=== PATIENT | female | born 1995 | race Caucasian/White ===

== ENCOUNTER 2021-02-27 17:30 | Outpatient (RCR) | payer OTHER, SELFPAY | END 2021-03-19 23:59 | LOC: DC 17:30 | PROVIDERS: Visit Provider Obstetrics & Gynecology | DX: O24.410 Gestational diabetes mellitus in pregnancy, diet controlled (principal); Z3A.00 Weeks of gestation of pregnancy not specified | CPT/HCPCS: 97802; 97803 ==

== ENCOUNTER 2021-04-20 09:25 | Inpatient (IN) | payer OTHER, SELFPAY ==
[2021-04-20] VITALS (16 sets, daily range): BP systolic 107–161; BP diastolic 63–104; PULSE 76–100; RESP 12–20; TEMP 36.4–37; O2SAT 96–99; BMI 45.0
[2021-04-20] MEDS: Lactated Ringers 1,000 ML 999 ML IV (10:05)
[2021-04-20 10:30] LABS: Absolute Lymphocyte Count 1.25 X10^3/uL (0.83-4.51); Absolute Neutrophil Count 6.1 X10^3/uL (2.0-7.7); Basophil# 0.03 X10^3/uL; Basophil% 0.4 % (0-1); Eosinophil# 0.07 X10^3/uL; Eosinophils% 0.9 % (0-5); Hematocrit 32.9 % (37-47); Hemoglobin 10.8 g/dL (12.0-15.0); Lymphocyte # 1.25 X10^3/ul (0.83-4.51); Lymphocyte % 15.6 % (19-41); Mean Corp Hgb Conc 32.8 g/dL (32-36); Mean Corpuscular Hgb 25.7 pg (27.0-32.0); Mean Corpuscular Volume 78.3 fL (81-99); Mean Platelet Vol. 11.9 fl (6.2-12.0); Monocyte# 0.48 X10^3/uL; NRBC Flagged by Analyzer 0 % (0-5); Neutrophil # 6.14 X10^3/uL (2.7-7.7); Neutrophil % 76.8 % (47-70); Platelet Count 294 K/mm3 (150-450); RBC Distribution Width CV 13.2 % (11.6-14.6); RBC Distribution Width SD 37.5 fl (35.1-43.9)
[2021-04-20 10:52] LABS: Anion Gap 7 (5-15); BUN 10 mg/dL (7-18); BUN/Creat Ratio 19.3 RATIO (10-20); Calcium,Total 9.1 mg/dL (8.5-10.1); Chloride 104 mmol/L (98-107); Creatinine, Serum 0.52 mg/dL (0.55-1.02); EST Glomerular Filtration Rate 152 mL/min (>60); Est Glom Filt Rate - Afr Amer 184 mL/min (>60); Estimated Creatinine Clearance 159.43 ml/min; Glucose 78 mg/dL (74-106); Potassium 3.9 mmol/L (3.5-5.1); Sodium Level 134 mmol/L (136-145)
[2021-04-20] MEDS: Lactated Ringers 1,000 ML 150 ML IV (11:30)
[2021-04-20 11:55] LABS: Bedside Glucose 85 mg/dL (74-106)
[2021-04-20] MEDS: Acetaminophen 500 MG Tablet 1000 MG PO ×2 (12:05→17:59)
--- NOTE | 2021-04-20 12:43 | PCM.HP.OB ---
HPI - General General Date of Admission: 04/20/21 HPI Narrative HARSHA LOZANO, is a 25 F who presents for . Maternal Data Information Final QUYNH: 05/06/21 Gestational age: 37&5 PFSH [facility] Medical History Abnormal Pap smear of cervix Anxiety Asthma Chronic hypertension Chronic hypertension affecting Depression Fatty liver Gestational diabetes Gestational diabetes Irritable bowel syndrome (IBS) Obesity Sleep apnea with use of continuous positive airway pressure (CPAP) Home Medications Tums 04/20/21 [History Last Taken 03/22/21 20:00] bupropion HCl [Wellbutrin XL] mg PO 04/20/21 [History Last Taken 04/20/21 05:00] citalopram [Celexa] 40 mg PO DAILY 04/20/21 [History Last Taken 04/20/21 05:00] famotidine [Pepcid] 20 mg PO BID 04/20/21 [History Last Taken 04/17/21 22:30] insulin NPH isoph U-100 human [Humulin N NPH U-100 Insulin] unit SUBCUT 04/20/21 [History Last Taken 04/19/21 22:30] labetalol 200 mg PO TID 04/20/21 [History Last Taken 04/20/21 04:30] Allergy/AdvReac Type Severity Reaction Status Date / Time animal dander Allergy Itching Verified 04/20/21 09:52 grass pollen Allergy Itching Verified 04/20/21 09:52 ragweed pollen Allergy Itching Verified 04/20/21 09:53 fluoxetine [From Prozac] AdvReac Other Verified 04/20/21 09:54 Surgical History History of surgery Social History Smoking Status: Never smoker History Elective abortions Hx Para 0 Spontaneous abortions Hx # Term Pregnancies Ectopic pregnancies Hx # Pregnancies Multiple births # of living children Vital Signs Vital Signs Vital Signs: 04/20/21 10:42 Temperature 98.6 F Temperature Source Temporal Pulse Rate 85 Respiratory Rate 20 H Blood Pressure 143/80 H Blood Pressure Mean 101 Blood Pressure Source Monitor Blood Pressure Position Semi-Fowlers Blood Pressure Location Right Arm Pulse Ox 97 Oxygen Delivery Method Room Air Weight Weight: 287 lb 11.252 oz Body Mass Index (BMI) 45.0 Physical Exam Const alert, oriented x3 and no apparent distress Chest inspection of chest normal Resp normal respiratory effort GI soft to palpation, non-tender and non-distended Inspection: gravid Extremity no calf tenderness Labs Labs Labs: Blood Type Pending Antibody Screen Pending Hct 32.9 % (37-47) L Hgb 10.8 g/dL (12.0-15.0) L Assessment & Plan (1) Chronic hypertension affecting : COMMENT: 37&5 PLAN: PreE labs normal on admission Patient well controlled on labetalol this but have recently trended up (2) Gestational diabetes: QUALIFIERS: Gestational diabetes mellitus control: insulin-controlled Trimester: third trimester Qualified Code(s): O24.414 - Gestational diabetes mellitus in , insulin controlled PLAN: Plan for FBS tomorrow AM BS overall well controlled but BS have recently trended up despite bedtime NPH insulin (3) Breech presentation: QUALIFIERS: Fetus number: single or unspecified fetus Qualified Code(s): O32.1XX0 - Maternal care for breech presentation, not applicable or unspecified PLAN: Discussed R/B/A of MOD. Patient elects to proceed with primary for breech. ([facility]) recommends delivery between 37 & 38 weeks for chtn & insulin requiring GDM. Informed consent signed in the office.
[2021-04-20] MEDS: Sodium Citrate/Citric Acid 30 ML UDC PO (12:45)
--- NOTE | 2021-04-20 13:00 | EX.PCM.OBRPT ---
Maternal Data Information Final QUYNH: 05/06/21 Gestational age: 37&5 Details Operative Information Date of Procedure: 04/20/21 Pre-Operative Diagnosis: (1) Breech presentation (2) Chronic hypertension (3) Gestational diabetes (A2) Post-Operative Diagnosis: Same Indications for : Breech Indications Narrative: The patient was taken to the operating room where spinal anesthesia was placed & found to be adequate. She was prepped and draped in the dorsal supine position with a leftward tilt. A Pfannenstiel skin incision was made approximately 2 cm above the symphysis pubis and carried through to the underlying fascia with the scalpel. The fascia was incised incised in the midline and extended laterally with the Llamas scissors. The rectus muscles were in the midline and the peritoneum was entered carefully and bluntly. The peritoneal incision was stretched and the bladder blade was inserted. Vesicouterine peritoneum was tented up, incised & then bladder flap created gently. The uterine incision was made in a low transverse fashion with the scalpel and extended superiorly and inferiorly with blunt dissection. The infant's buttocks were grasped and infant delivered via typical breech maneuvers with care. The 3VC cord was clamped and cut. The infant was handed off to the waiting pediatric intensive physician. The placenta was delivered with fundal massage and gentle traction in the standard fashion. The uterus was exteriorized and cleared of clots and debris. The uterine incision was closed with #1 Vicryl suture in a running locked fashion. Monocryl suture was used in an imbricating fashion. The incision was examined and was found to be hemostatic. The uterus was returned to the abdominal cavity. After irrigating Bridger was placed over the uterine incision as some areas were denuded (but hemostatic). The peritoneum was closed with vicryl suture in running fashion The rectus muscle was examined and any bleeding was Bovie cauterized. The fascia was closed with a looped PDS suture in a running standard fashion. The subcutaneous tissue was examining and any bleeding was Bovie cauterized. The subcutaneous tissue was reapproximated with interrupted sutures. The skin was closed in a subcuticular fashion by the CORN BREEDER while I was present in the labor & delivery unit. The remainder of the procedure was performed by me with assistance. All sponge, lap, and needle counts were correct. The patient was taken to her room for recovery in a stable condition. Classification: Scheduled Procedure Type: low transverse automotive parts counter associate #1: Yeison Lugo Type of Anesthesia: Spinal Antibiotic Given: Ancef 3 grams IV x1 Drain: Brewer to straight drain Estimated Blood Loss: 800ml Fluids Replaced: 500ml Procedure Start Time: 13:31 Procedure Stop Time: 14:07 Findings Description of Procedure: Normal maternal uterus and adnexa Presentation: Positive for Jarrell Breech Amniotic Membrane Rupture Type: Artificial Amniotic Fluid Description: Clear Placental Delivery Description: Manual Removal Placenta Disposition: [facility] Cord Vessel Description: 3 Vessels Cord Entanglement: None Infant A Gender: Female (1 minute): 7 (5 minute): 9 Delayed Cord Clamping: No Complications Complications: None
[2021-04-20] MEDS: Oxytocin 30 units/NS 500 ml 30 UNITS/500 ML IV.SOLN 167 UNITS IV (14:30)
[2021-04-20] MEDS: Labetalol 200 MG Tablet PO ×2 (15:32→21:15)
[2021-04-20] MEDS: HYDROmorphone 1 MG/ML Syringe IV ×2 (15:51→19:53)
[2021-04-20] MEDS: Ketorolac 30 MG/ML Syringe IV ×2 (15:59→21:15)
[2021-04-20 16:46] LABS: Bedside Glucose 82 mg/dL (74-106)
[2021-04-20] MEDS: Lactated Ringers 1,000 ML 100 ML IV (19:20)
[2021-04-20] MEDS: 0.9% Saline Lock 10 ML Syringe IV (21:20)
[2021-04-21] MEDS: Acetaminophen 500 MG Tablet 1000 MG PO ×4 (00:09→18:14)
[2021-04-21] MEDS: oxyCODONE 5 MG Tablet PO ×6 (00:13→20:55)
[2021-04-21] MEDS: Enoxaparin 40 MG/0.4 ML Syringe SC ×2 (02:01→14:43)
[2021-04-21] MEDS: Ketorolac 30 MG/ML Syringe IV ×2 (03:57→09:55)
[2021-04-21 04:00] VITALS: BP 126/61; PULSE 93; RESP 14; TEMP 36.3; O2SAT 96
[2021-04-21] MEDS: 0.9% Saline Lock 10 ML Syringe IV ×2 (04:05→09:56)
[2021-04-21 05:54] LABS: Hemoglobin 9.6 g/dL (12.0-15.0); Mean Corp Hgb Conc 33.1 g/dL (32-36); Mean Corpuscular Hgb 26.4 pg (27.0-32.0); Mean Corpuscular Volume 79.9 fL (81-99); Mean Platelet Vol. 11.9 fl (6.2-12.0); Platelet Count 213 K/mm3 (150-450); RBC Distribution Width CV 13.1 % (11.6-14.6); RBC Distribution Width SD 37.2 fl (35.1-43.9); Red Blood Count 3.63 M/mm3 (4.2-5.4); White Blood Count 6.6 K/mm3 (4.4-11.0)
[2021-04-21] MEDS: Labetalol 200 MG Tablet PO ×3 (06:07→22:01)
[2021-04-21 06:11] LABS: Bedside Glucose 101 mg/dL (74-106)
[2021-04-21 08:42] VITALS: BP 131/60; PULSE 92; RESP 16; TEMP 36.3; O2SAT 97
[2021-04-21] MEDS: Citalopram 40 MG TABLET PO (09:55)
[2021-04-21] MEDS: buPROPion (XL) 150 MG TABLET.XL PO (09:55)
[2021-04-21] MEDS: Senna/Docusate Sodium 1 Tablet PO (09:55)
[2021-04-21 12:44] VITALS: BP 124/76; PULSE 83; RESP 16; TEMP 36.1; O2SAT 97
--- NOTE | 2021-04-21 13:00 | PN.OBGYN_ITS ---
Subjective Subjective Doing well per patient and nursing staff. Ambulating and taking PO without difficulty. Voiding and passing flatus. Pain controlled. , services for assistance. Denies headache, visual changes, chest pain, shortness of breath, leg pain or increased bleeding. Lochia normal. Objective Data Objective Data Vital Signs: Vital Signs Temp Pulse Resp BP Pulse Ox 97.0 F L 83 16 124/76 H 97 04/21/21 12:44 04/21/21 12:44 04/21/21 12:44 04/21/21 12:44 04/21/21 12:44 Oxygen Delivery Method Room Air Weight: 287 lb 11.252 oz Body Mass Index (BMI) 45.0 Intake & Output: Intake and Output for Last 24 Hours 04/19/21 04/20/21 04/21/21 23:59 23:59 23:59 Intake Total 2731.67 / 2731.67 Output Total 925 / 925 1100 / 1100 Balance 1806.67 / 1806.67 -1100 / -1100 Lab / Micro Data Result Diagrams: 04/21/21 05:40 04/20/21 10:05 Labs: Laboratory Results - last 24 hr 04/20/21 10:05: Blood Type A POSITIVE, Antibody Screen NEGATIVE 04/20/21 16:34: POC Glucose 82 04/21/21 05:40: WBC 6.6, RBC 3.63 L, Hgb 9.6 L, Hct 29.0 L, MCV 79.9 L, MCH 26.4 L, MCHC 33.1, RDW Std Deviation 37.2, RDW Coeff of Kristin 13.1, Plt Count 213, MPV 11.9 04/21/21 06:06: POC Glucose 101 Micro: Microbiology 04/20/21 10:05 Nasal Secretion SARS-CoV-2 Antigen (Rapid) - Final ROS Constitutional Constitutional: Reports systems reviewed and no addt'l complaints, except as documented; Denies headache(s) Eyes Eyes: Denies acute decrease in peripheral vision, blurry vision or change in vi patricia ENT HEENT: Reports systems reviewed and no addt'l complaints, except as documented Cardiovascular Cardiovascular: Denies chest pain or dizziness Respiratory/Chest Respiratory/Chest: Denies cough, dyspnea, dyspnea on exertion, shortness of breath at rest or shortness of breath with exertion Gastrointestinal Gastrointestinal: Denies abdominal pain, diarrhea, nausea or vomiting Genitourinary Genitourinary: Denies abdominal discomfort Musculoskeletal Musculoskeletal: Denies limited range of motion Integumentary Integumentary: Reports systems reviewed and no addt'l complaints, except as documented Neurologic Neurologic: Reports systems reviewed and no addt'l complaints, except as documented Psychiatric Psychiatric: Reports systems reviewed and no addt'l complaints, except as documented Endocrine Endocrinology: Reports systems reviewed and no addt'l complaints, except as documented Hematologic/Lymphatic Hematologic/Lymphatic: Reports systems reviewed and no addt'l complaints, except as documented Allergic/Immunologic Allergic/Immunologic: Reports systems reviewed and no addt'l complaints, except as documented Physical Exam Const alert and oriented x3 General Appearance: cooperative Orientation / Consciousness: awake, oriented to person, oriented to place and oriented to time Exam Limitations: no limitations HEENT normocephalic Head and Scalp: normal to inspection, normocephalic and atraumatic Face and Sinus: normal facial exam Eyes General Eye: normal appearance of both eyes Neck full ROM Chest Chest: symmetrical chest wall rise Resp normal respiratory effort and normal air movement Auscultation: clear to auscultation bilaterally Cardio regular rate, regular rhythm, S1 normal heart sound, S2 normal heart sound, no murmurs, no rub, no gallops and no clicks GI normal to inspection, nondistended, normoactive bowel sounds and non-tender GI Narrative: Fundus firm 1 below U. Dressing dry and intact appearance of the vagina normal Narrative: small amount of lochia rubra, no clots Bladder / Kidney Exam: no CVA tenderness Back/Spine normal ROM Extremity normal to inspection and full ROM Skin no rashes or lesions noted Neuro oriented x3, CN's II-XII intact bilaterally and moves all extremities Sensorium / Orientation: awake, alert and oriented to person Motor Exam: clonus absent Deep Tendon Reflexes: Rt Patellar (L4): 2+ and Lt Patellar (L4): 2+ Assessment & Plan (1) S/P primary low transverse : (2) Gestational diabetes: QUALIFIERS: Gestational diabetes mellitus control: insulin- controlled Trimester: third trimester Qualified Code(s): O24.414 - Gestational diabetes mellitus in , insulin controlled (3) Chronic hypertension: PLAN: 1) POD #1 LTCS 2) Pain controlled 3) Hgb 9.6, start iron supplement 4) Vitals stable, continue labetalol 5) Ambulation 6) I&Os 7) planning D/C home tomorrow
[2021-04-21 14:39] VITALS: BP 130/72; PULSE 82; RESP 16
[2021-04-21] MEDS: Ferrous Sulfate 325 MG Tablet PO (14:42)
--- NOTE | 2021-04-21 14:49 | CM.ED ---
SW Note Referral Source: assistant professor of radiology Nadine Reason for Referral: History of anxiety and depression SW met with ZULMA Maynard. She reports no concerns. Per Aleyda patient's mother is in the room with patient. SW met with patient. SW asked to interview patient by herself and patient's mom agreed to give this policy writer sales and patient privacy. SW met with patient privately. Patient's was coming back to the room but was getting lunch for patient. Mom: Cammie PNC: [facility] Control: Undecided Baby: Damari : 04/20/2022 Apgars: 7/9 Weight: 7# 10 ounces Pediatrican: Carol Patient said that she is trying to breast feed but is not making alot. Patient said that she and her supports are supportive if she is unable to breast feed and use formula. MOB's Other children: Patient has a 5 year old stepdaughter, Diamante. Patient and the fob have full custody of Diamante. Housing: Patient, FOB/ and patient's stepdaughter reside in a residence in [facility]. Nb will go home to that residence. Transporation: Patient reports access to transportation Supplies: Patient reports that she has all supplies including carseat, clothes, diapers, crib and bassinette. Supports: Patient reports her supports are her mom who resides in [place] and her who works from home. 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 She will go back to school in 6 week and then the fob/ will care for the nb as he is home. Patient said it was hard to leave her job as I love my job but it was worth it. Agency Involvement: Patient reports no JFS, WIC, HMG, Counseling, Legal or CSB involvement FOB: Moses Time Together: 4 years Involved at : Patient said that the fob will be involved with the nb. 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 FOSalome has his own business Other Children: ESTEFANI has a 5 year old daughter Diamante. Patient reports that they recently got full custody of Diamante during the past year. Diamante is currently in counseling at [facility] to help her with any issues. FOB MH/AOD and Domestic Violence: None Maternal MH History: Patient reports a history of anxiety and depression. Patient reports that she was been on wellbutrium for few years and with Celexa for a few years. Patient said that the combination of celexa and wellbutrium is working well. Patient denied any past or current SI/HI. Patient said that her told her, one year into their relationship, that she needed to go to counseling so she went to counseling at [facility] in [place]. Patient reports that her medication combination is working well and she plans to continue to take it. Patient reports her PCP prescribed her medication. Patient has no psych hospitalizations. Patient said that during the past year they have bought a new house and moved, got full custody of her stepdaughter and got and were . Patient said her reports I am surprised you are doing so well in relation to all the changes during the year. Patient was educated on Shaken Baby, PPD and Safe Sleeping Patient reports no alcohol, drug or smoking. Patient provided with handouts on Post depression including counseling resources, list of on line resources, telephone contact number and PPD support. SW updated ZULMA Maynard. Plan: Home Felisa GROVER
[2021-04-21] MEDS: Ibuprofen 600 MG Tablet PO ×2 (16:12→22:01)
[2021-04-21 20:41] VITALS: BP 154/81; PULSE 93; RESP 18; TEMP 36.6
--- NOTE | 2021-04-21 20:44 | NURSING ---
Pt requesting to take pain medication before assessing fundus and mepilex dressing
[2021-04-21 22:02] VITALS: BP 153/55; PULSE 94
[2021-04-22] MEDS: Acetaminophen 500 MG Tablet 1000 MG PO ×3 (00:12→12:31)
[2021-04-22] MEDS: oxyCODONE 5 MG Tablet PO ×4 (01:12→14:02)
[2021-04-22] MEDS: Enoxaparin 40 MG/0.4 ML Syringe SC (03:09)
[2021-04-22 03:12] VITALS: BP 154/79; PULSE 97; RESP 16; TEMP 36.6; O2SAT 96
[2021-04-22] MEDS: Ibuprofen 600 MG Tablet PO ×2 (03:52→10:25)
[2021-04-22 06:10] VITALS: BP 148/67; PULSE 90
[2021-04-22] MEDS: Labetalol 200 MG Tablet PO ×2 (06:19→14:03)
[2021-04-22 08:57] VITALS: BP 137/76; PULSE 91; RESP 16; TEMP 36.1; O2SAT 97
[2021-04-22] MEDS: Citalopram 40 MG TABLET PO (10:25)
[2021-04-22] MEDS: Senna/Docusate Sodium 1 Tablet PO (10:25)
[2021-04-22] MEDS: buPROPion (XL) 150 MG TABLET.XL PO (10:25)
--- NOTE | 2021-04-22 10:37 | PN.OBGYN_ITS ---
Subjective Subjective Doing well per patient and nursing staff. Ambulating and taking PO without difficulty. Voiding and passing flatus. Pain controlled. , services for assistance. Denies headache, visual changes, chest pain, shortness of breath, leg pain or increased bleeding. Lochia normal. Objective Data Objective Data Vital Signs: Vital Signs Temp Pulse Resp BP Pulse Ox 97.0 F L 91 16 137/76 H 97 04/22/21 08:57 04/22/21 08:57 04/22/21 08:57 04/22/21 08:57 04/22/21 08:57 Oxygen Delivery Method Room Air Weight: 287 lb 11.252 oz Body Mass Index (BMI) 45.0 Intake & Output: Intake and Output for Last 24 Hours 04/20/21 04/21/21 04/22/21 23:59 23:59 23:59 Intake Total 2731.67 / 2731.67 Output Total 925 / 925 1100 / 1100 Balance 1806.67 / 1806.67 -1100 / -1100 Lab / Micro Data Result Diagrams: 04/21/21 05:40 04/20/21 10:05 Micro: Microbiology 04/20/21 10:05 Nasal Secretion SARS-CoV-2 Antigen (Rapid) - Final ROS Constitutional Constitutional: Reports systems reviewed and no addt'l complaints, except as doc umented; Denies headache(s) Eyes Eyes: Denies acute decrease in peripheral vision, blurry vision or change in vision ENT HEENT: Reports systems reviewed and no addt'l complaints, except as documented Cardiovascular Cardiovascular: Denies chest pain or dizziness Respiratory/Chest Respiratory/Chest: Denies cough, dyspnea, dyspnea on exertion, shortness of breath at rest or shortness of breath with exertion Gastrointestinal Gastrointestinal: Denies abdominal pain, diarrhea, nausea or vomiting Genitourinary Genitourinary: Denies abdominal discomfort Musculoskeletal Musculoskeletal: Denies limited range of motion Integumentary Integumentary: Reports systems reviewed and no addt'l complaints, except as documented Neurologic Neurologic: Reports systems reviewed and no addt'l complaints, except as documented Psychiatric Psychiatric: Reports systems reviewed and no addt'l complaints, except as documented Endocrine Endocrinology: Reports systems reviewed and no addt'l complaints, except as documented Hematologic/Lymphatic Hematologic/Lymphatic: Reports systems reviewed and no addt'l complaints, except as documented Allergic/Immunologic Allergic/Immunologic: Reports systems reviewed and no addt'l complaints, except as documented Physical Exam Const alert and oriented x3 General Appearance: cooperative Orientation / Consciousness: awake, oriented to person, oriented to place and oriented to time Exam Limitations: no limitations HEENT normocephalic Head and Scalp: normal to inspection, normocephalic and atraumatic Face and Sinus: normal facial exam Eyes General Eye: normal appearance of both eyes Neck full ROM Chest Chest: symmetrical chest wall rise Resp normal respiratory effort and normal air movement Auscultation: clear to auscultation bilaterally Cardio regular rate, regular rhythm, S1 normal heart sound, S2 normal heart sound, no murmurs, no rub, no gallops and no clicks GI normal to inspection, nondistended, normoactive bowel sounds and non-tender GI Narrative: Fundus firm 1 below U, dressing dry and intact appearance of the vagina normal Bladder / Kidney Exam: no CVA tenderness Back/Spine normal ROM Extremity normal to inspection and full ROM Extremity Narrative: No clonus Skin no rashes or lesions noted Neuro oriented x3, CN's II-XII intact bilaterally and moves all extremities Sensorium / Orientation: awake, alert and oriented to person Motor Exam: clonus absent Deep Tendon Reflexes: Rt Patellar (L4): 2+ and Lt Patellar (L4): 2+ Assessment & Plan (1) Chronic hypertension: (2) S/P primary low transverse : (3) Gestational diabetes: QUALIFIERS: Gestational diabetes mellitus control: insulin-controlled Trimester: third trimester Qualified Code(s): O24.414 - Gestational diabetes mellitus in , insulin controlled PLAN: 1) Routine PP care 2) Pain management, will rx Oxycodone 5mg PO every 6 hrs for 7 days 3) VSS. BP mildly elevated. Taking Labetalol 200mg PO TID, will increase to 300mg PO TID. Will call with BP pressures in 3 days 4) Hgb 9.6 yesterday. Continue iron supplement upon discharge 5) Follow up in 1 week for incision check and 6 week for PP visit 6) services for support 7) D/C home today
--- NOTE | 2021-04-22 11:17 | DS.PCM_ITS ---
Providers Date of Admission: 04/20/21 Reason For Visit: C SECTION DELIVERY Diagnosis Discharge Diagnosis (1) Chronic hypertension: Status: Chronic Code(s): I10 - Essential (primary) hypertension (2) S/P primary low transverse : Status: Acute Code(s): Z98.891 - History of uterine scar from previous surgery (3) Gestational diabetes: Status: Acute Code(s): O24.419 - Gestational diabetes mellitus in , unspecified control Qualifiers: Gestational diabetes mellitus control: insulin-controlled Trimester: third trimester Qualified Code(s): O24.414 - Gestational diabetes mellitus in , insulin controlled Medications at Discharge Home Medications bupropion HCl [Wellbutrin XL] mg PO 04/20/21 citalopram [Celexa] 40 mg PO DAILY 04/20/21 famotidine [Pepcid] 20 mg PO BID 04/20/21 acetaminophen 1,000 mg PO Q6H #0 tab 04/22/21 ferrous sulfate [FeroSul] 325 mg PO LUNCH 30 Days #30 tab 04/22/21 ibuprofen 600 mg PO Q6H #30 tab 04/22/21 labetalol 300 mg PO TID #90 tab 04/22/21 oxycodone 5 mg PO Q6H 7 Days #20 tab 04/22/21 Weight / BMI Weight Weight: 287 lb 11.252 oz Body Mass Index (BMI) 45.0 ABG / Lab / Microbiology Data Result Diagrams: 04/21/21 05:40 04/20/21 10:05 Microbiology: Microbiology 04/20/21 10:05 Nasal Secretion SARS-CoV-2 Antigen (Rapid) - Final Meaningful Use Info Meaningful Use Diagnoses (Choose all that apply): None applicable Discharge Plan Admission Admit Date/Time: 04/20/21 09:25 Primary Reason for Your Visit: Low Transverse Section Attending Provider: Payal Marc Instructions Additional Instructions / Restrictions: Continue checking BP twice daily. If 150/90 or greater to please call. Please send log of blood pressures to office in 3 days via [facility] Discharge Orders/Prescriptions Prescriptions: New acetaminophen 500 mg Tablet 1,000 mg PO Q6H Qty: 0 RF: 0 ferrous sulfate [FeroSul] 325 mg (65 mg iron) Tablet 325 mg PO LUNCH 30 Days Qty: 30 RF: 0 ibuprofen 600 mg Tablet 600 mg PO Q6H Qty: 30 RF: 0 oxycodone 5 mg Tablet 5 mg PO Q6H 7 Days Qty: 20 RF: 0 Continued famotidine [Pepcid] 20 mg Tablet 20 mg PO BID RF: 0 bupropion HCl [Wellbutrin XL] 150 mg Tablet Extended Release 24 Hr PO RF: 0 citalopram [Celexa] 40 mg Tablet 40 mg PO DAILY RF: 0 Changed labetalol 200 mg Tablet 300 mg PO TID Qty: 90 RF: 0 Discontinued Tums RF: 0 Humulin N NPH U-100 Insulin 100 unit/mL suspension SUBCUT RF: 0 Referrals / Follow Up: Payal Marc MD [STAFF PHYSICIAN] - (Follow up in 3 days for blood pressure check, send message to office. Follow up for incision check as scheduled. Follow up in 6 weeks) Disposition Disposition (needs filled in before D/C Order can be placed): Home, Self Care
[2021-04-22] MEDS: Ferrous Sulfate 325 MG Tablet PO (12:32)
[2021-04-22 14:06] VITALS: BP 148/82; PULSE 95; RESP 16; TEMP 36.5; O2SAT 98
[2021-04-22] MEDS: Labetalol 200 MG Tablet 300 MG PO (14:23)
== END 2021-04-22 15:00 | disposition home or self-care (01) | DRG 787 ==
PROVIDERS: Admitting Provider Obstetrics & Gynecology; Visit Provider Obstetrics & Gynecology
PROC: 10D00Z1 Extraction of Products of Conception, Low, Open Approach (ICD-10-PCS; CPT 59514; principal; 2021-04-20 11:45)
DX: O32.1XX0 Maternal care for breech presentation, not applicable or unspecified (principal); O10.92 Unspecified pre-existing hypertension complicating childbirth; F41.9 Anxiety disorder, unspecified; O24.424 Gestational diabetes mellitus in childbirth, insulin controlled; O99.214 Obesity complicating childbirth; Z37.0 Single live birth; Z3A.37 37 weeks gestation of pregnancy; Z79.899 Other long term (current) drug therapy; O99.344 Other mental disorders complicating childbirth; F32.A Depression, unspecified
CPT/HCPCS: 59025; 59050; 80048; 82962; 85025; 85027; 86850; 86900; 86901; 87426; 99218; J7120; A4216; G0378

== ENCOUNTER 2024-09-13 17:40 | Inpatient (IN) | payer OTHER, SELFPAY ==
[2024-09-13] VITALS (18 sets, daily range): BP systolic 123–155; BP diastolic 69–99; PULSE 70–95; RESP 13–26; TEMP 36.3–36.9; O2SAT 96–100; BMI 39.9
[2024-09-13 17:29] LABS: ROM Internal Control Test YES-OK TO RESULT pt. (Internal QC); ROM Patient Test POSITIVE (Negative); Record Kit Lot#, ROM+ K3358
[2024-09-13] MEDS: Lactated Ringers 1,000 ML 999 ML IV (18:05)
[2024-09-13 18:25] LABS: Hematocrit 35.0 % (37-47); Hemoglobin 11.5 g/dL (12.0-15.0); Immature Granulocytes Count 0.040 X10^3/uL (0.0-0.0); Mean Corp Hgb Conc 32.9 g/dL (32-36); Mean Corpuscular Volume 77.8 fL (81-99); Mean Platelet Vol. 11.9 fl (6.2-12.0); NRBC Flagged by Analyzer 0 % (0-5); Platelet Count 302 K/mm3 (150-450); RBC Distribution Width CV 12.3 % (11.6-14.6); RBC Distribution Width SD 34.2 fl (35.1-43.9); Red Blood Count 4.50 M/mm3 (4.2-5.4); White Blood Count 9.5 K/mm3 (4.4-11.0)
[2024-09-13 18:54] LABS: Creatinine, Urine (random) 98.80 mg/dL (28.00-217.00); Protein, Urine (Random) 14.9 mg/dL (0.0-12.0); Protein:Creat Ratio 151 mg/g CRE (0-200)
[2024-09-13 19:03] LABS: AST(SGOT) 12 U/L (<=31); Alanine Aminotransfer ALT/SGPT 18 U/L (<=34); Estimated Creatinine Clearance 157.24 ml/min (50-250); Syphilis Antibodies Nonreactive (Nonreactive); Uric Acid 4.3 mg/dL (2.6-6.0)
[2024-09-13] MEDS: Lactated Ringers 1,000 ML 150 ML IV (19:10)
--- NOTE | 2024-09-13 19:40 | HP.PCM.OB_ITS ---
HPI - General General Date of Admission: 09/13/24 Date of Service: 09/13/24 Chief Complaint: Contractions and leaking HPI Narrative HARSHA LOZANO, is a 28 F who presents leaking and cramping. ROM positive. Irregular but frequent contractions. Previous c/s for breech. Was scheduled for repeat c- section in 3 days. Initially wanted a TOLAC however there have been occasional decels associated with contractions and she is 1 cm. Discussed that we could not augment with pitocin. She declines TOLAC and desires repeat c/s with tubal. Ate nachos and chicken at 1pm. Plan for procedure at 9 pm unless labor progresses or recurrent decels Maternal Data Information Final QUYNH: 09/21/24 Gestational age: 38+6 PFSH PFSH Medical History Headache Obstructive sleep apnea Bacterial vaginosis Gestational diabetes Chronic hypertension affecting Obesity Abnormal Pap smear of cervix Fatty liver Irritable bowel syndrome (IBS) Sleep apnea with use of continuous positive airway pressure (CPAP) Asthma Depression Anxiety Chronic hypertension Gestational diabetes Home Medications ?Medication ?Instructions ?Recorded ?Last Taken ?Type bupropion HCl 150 mg 24 hr tablet, 150 mg PO DAILY dep ression 04/20/21 09/13/24 09:30 History extended release (Wellbutrin XL) famotidine 20 mg tablet (Pepcid) 20 mg PO BID antacid 04/20/21 09/13/24 09:30 History acetaminophen 500 mg tablet 1,000 mg PO Q6H PRN pain 0 09/13/24 09/13/24 12:00 History cetirizine 10 mg tablet (24Hour 10 mg PO DAILY PRN all ergy symptoms 09/13/24 09/13/24 09:30 History Allergy) escitalopram oxalate 20 mg tablet 20 mg PO DAILY anxie ty 09/13/24 09/13/24 09:30 History (Lexapro) Allergy/AdvReac Type Severity Reaction Status Date / Time animal dander Allergy Itching Verified 09/13/24 16:16 grass pollen Allergy Itching Verified 09/13/24 16:16 ragweed pollen Allergy Itching Verified 09/13/24 16:16 fluoxetine (From Prozac) AdvReac Other Verified 09/13/24 16:16 Surgical History History of surgery History of surgery Social History Smoking Status: Never smoker History 2 Elective abortions Hx Para 1 Spontaneous abortions Hx # Term Pregnancies Ectopic pregnancies Hx # Pregnancies Multiple births # of living children 1 NST FHR Rate Baby A Baseline: 140 Variability:: Moderate Accelerations:: 15 x 15 Decelerations:: Late (x 2) NST Reactive:: Yes ROS Constitutional Constitutional: Denies fatigue, fever(s) or malaise Eyes Eyes: Denies change in vision ENT HEENT: Denies dizziness or headache(s) Cardiovascular Cardiovascular: Denies chest pain, dyspnea or lightheadedness Respiratory/Chest Respiratory/Chest: Denies cough or dyspnea Gastrointestinal Gastrointestinal: Denies change in bowel habits Genitourinary Genitourinary: Denies burning urination or genital lesions Integumentary Integumentary: Denies rash Neurologic Neurologic: Denies confusion, dizziness, headache(s), numbness or weakness Vital Signs Vital Signs Vital Signs: 09/13/24 16:32 09/13/24 16:32 09/13/24 16:34 Temperature Temperature Source Temporal Pulse Rate 90 Respiratory Rate Blood Pressure 138/91 H BP Systolic 138 BP Diastolic 91 Pulse Ox 09/13/24 16:34 09/13/24 16:34 09/13/24 16:34 Temperature 97.3 F L Temperature Source Pulse Rate Respiratory Rate 16 Blood Pressure BP Systolic BP Diastolic Pulse Ox 98 09/13/24 16:51 09/13/24 16:51 09/13/24 17:06 Temperature Temperature Source Pulse Rate 95 Respiratory Rate Blood Pressure 132/87 H 123/86 H BP Systolic 132 123 BP Diastolic 87 86 Pulse Ox 09/13/24 17:06 09/13/24 17:21 09/13/24 17:21 Temperature Temperature Source Pulse Rate 90 81 Respiratory Rate Blood Pressure 134/89 H BP Systolic 134 BP Diastolic 89 Pulse Ox 09/13/24 17:36 09/13/24 17:36 09/13/24 18:23 Temperature Temperature Source Pulse Rate 93 Respiratory Rate Blood Pressure 145/99 H 134/75 H BP Systolic 145 134 BP Diastolic 99 75 Pulse Ox 09/13/24 18:23 Temperature Temperature Source Pulse Rate 75 Respiratory Rate Blood Pressure BP Systolic BP Diastolic Pulse Ox Weight Weight: 112.037 kg Body Mass Index (BMI) 39.9 Physical Exam Const alert and no apparent distress General Appearance: cooperative HEENT normocephalic Resp normal respiratory effort Cardio regular rate GI soft to palpation GI Narrative: gravid, nontender, appropriate for gestational age Extremity no calf tenderness General Extremity: edema Skin no wounds Rashes: No rashes noted Psych activity/motor behavior normal Labs Labs Labs: Blood Type A POSITIVE Antibody Screen NEGATIVE Hct 35.0 % (37-47) L Hgb 11.5 g/dL (12.0-15.0) L Syphilis Total Ab Nonreactive (Nonreactive) Assessment & Plan (1) H/O gastric sleeve: (2) Sterilization: (3) Previous delivery affecting : (4) Gestational diabetes: QUALIFIERS: Gestational diabetes mellitus control: insulin- controlled Trimester: third trimester Qualified Code(s): O24.414 - Gestational diabetes mellitus in , insulin controlled (5) Obesity: (6) Chronic hypertension affecting : PLAN: Plan Repeat with bilateral salpingectomy
--- NOTE | 2024-09-13 22:07 | PCM.POST.ANE ---
Anesthesia: Postop Eval I Current Vital Signs Temperature: 98 F Pulse Rate: 70 Blood Pressure: 147/89 Respiratory Rate: 16 Pulse Ox: 100 Oxygen Delivery Method: Room Air Assessment Airway patent: Yes Spontaneous unlabored respirations: Yes Mental status: Awake and Calm nausea: No Vomiting: No Anesthesia Complication: No Fluid Hydration Crystalloid volume administer (ml): 900 Total IV fluid infused: 900 Progress Note Anesthesia document: Postop Eval 1 completed: Yes
--- NOTE | 2024-09-13 22:10 | POSTOPAN2_ITS ---
Anesthesia Postop Eval I Sum Postop Eval Completion status Anesthesia document: Postop Eval 1 completed: Yes Anesthesia Postop Eval I Summary Anesthesia Postop Eval I Summary: Anesthesia Postop Eval I: Assessment Summary Airway patent Yes 09/13/24 22:07 [email or web address] Spontaneous unlabored Yes 09/13/24 22:07 [email or web address] respirations Mental status Awake,Calm 09/13/24 22:07 [email or web address] nausea No 09/13/24 22:07 SALVAGE [email or web address] Vomiting No 09/13/24 22:07 [email or web address] Anesthesia Postop Eval I: Fluid Summary Crystalloid volume administer 900 09/13/24 22:07 [email or web address] (ml) Colloids volume administered ( ml) Blood Product volume administered (ml) Total IV fluid infused 900 09/13/24 22:07 [email or web address] Anesthesia Postop Eval I: Summary Notes Anesthesia Complication No 09/13/24 22:07 [email or web address] Anesthesia Complication Comment: Post-operative progress note Anesthesia: Postop Eval II Evaluation Mental status: Awake and Calm Pain Level: 0 nausea: No Vomiting: No Complications Anesthesia Complication: No
--- NOTE | 2024-09-13 22:10 | PCM.POSTANE2 ---
Anesthesia Postop Eval I Sum Postop Eval Completion status Anesthesia document: Postop Eval 1 completed: Yes Anesthesia Postop Eval I Summary Anesthesia Postop Eval I Summary: Anesthesia Postop Eval I: Assessment Summary Airway patent Yes 09/13/24 22:07 [email or web address] Spontaneous unlabored Yes 09/13/24 22:07 RELIEF [email or web address] respirations Mental status Awake,Calm 09/13/24 22:07 [email or web address] [email or web address] nausea No 09/13/24 22:07 RELIEF [email or web address] Vomiting No 09/13/24 22:07 [email or web address] Anesthesia Postop Eval I: Fluid Summary Crystalloid volume administer 900 09/13/24 22:07 [email or web address] (ml) Colloids volume administered ( ml) Blood Product volume administered (ml) Total IV fluid infused 900 09/13/24 22:07 [email or web address] Anesthesia Postop Eval I: Summary Notes Anesthesia Complication No 09/13/24 22:07 [email or web address] Anesthesia Complication Comment: Post-operative progress note Anesthesia: Postop Eval II Evaluation Mental status: Awake and Calm Pain Level: 0 nausea: No Vomiting: No Complications Anesthesia Complication: No
--- NOTE | 2024-09-13 22:12 | EX.PCM.OBRPT ---
Assessment & Plan (1) Sterilization: (2) H/O gastric sleeve: (3) Chronic hypertension: (4) S/P : Maternal Data Information Final QUYNH: 09/21/24 Gestational age: 38+6 Operative Report (OB) Details Procedure Type: low transverse Date of Procedure: 09/13/24 Procedure Start Time: 21:29 Procedure Stop Time: 22:10 Time of Delivery: 21:36 Pre-Operative Diagnosis: Repeat Elective and Desires elective sterilization Post-Operative Diagnosis: Same as Pre-operative diagnosis Classification: MAURICIO Type of Anesthesia: Spinal Antibiotic Given: Ancef 2 grams IV x1 and Zithromax 500 mg/5 mL X1 Drain: Brewer to straight drain Estimated Blood Loss: 500 cc Fluids Replaced: 1000 Findings Description of surgery: Patient taken to the OR with spinal and Brewer were placed. She was prepped and draped in the normal sterile fashion. A Pfannenstiel incision was made and carried down to the underlying fascia. The fascia was incised in the midline and extended laterally. The fascia was dissected from the muscle. The muscles divided in the midline. The peritoneum was entered bluntly and extended manually. A bladder blade was placed. A bladder flap was created. A low transverse incision was made and extended bluntly. The head was elevated to the incision. The shoulders delivered easily. The infant cried upon delivery. The cord was cut and clamped. The placenta was delivered with gentle traction. The uterus was exteriorized and cleared of all clot and debris. The incision was repaired with 1-0 Vicryl x 2. The fallopian tubes were elevated with Eileen clamps. The LigaSure was used to transect the mesosalpinx on both fallopian tubes from the cornua to and including the fimbriated end. Hemostasis was obtained. The uterus was returned the abdomen. The gutter cleared of all clots. The peritoneum was closed with 2-0 Monocryl. The fascia was closed with 1-0 Vicryl. The subcutaneous tissue was reapproximated with 2-0 Monocryl The skin was closed with 4-0. I performed the major parts of the procedure with the RFNA assisting with retraction and closing the skin. The sponge lap and needle count was correct x 2 Surgical findings: minor adhesion to anterior uterus. Normal tubes. Meconium stained fluid Presentation: Vertex and VONNIE Amniotic Membrane Rupture Type: Spontaneous (positive ROM) Amniotic Fluid Description: Moderate meconium Placental Delivery Description: Spontaneous Placenta Disposition: [facility] Specimen collected: Yes Description of specimen(s) removed: bilateral fallopian tubes Cord Vessel Description: 3 Vessels Cord Entanglement: None A gender: Female (1 minute): 8 (5 minute): 9 Delayed Cord Clamping: Yes Material Attendant home care attendant: Yes Children'S Program Coordinator: Melida Covarrubias Tasks completed by engineer first assistant: Opening & closing and Retracting Additional assistant distribution manager?: No Complications Complications: No
[2024-09-13] MEDS: Oxytocin 15 Units/NS 250ml 15 UNITS/250 ML IV.SOLN 83 UNITS IV (22:42)
[2024-09-13] MEDS: Ketorolac 30 MG/ML Syringe IV (23:02)
--- OUTSIDE RECORDS SUMMARY | 2024-09-13 23:20 | XMS RPT_ITS | CCD ---
Author Organization [facility] Care Team Providers Care Quilt Maker Name Role Phone ARIEL MALCOLM Admitting Unavailable ARIEL MALCOLM Primary Care Unavailable ARIEL MALCOLM Attending Unavailable YAMILETH, DR FAUSTINO Heaton Attending Unavaila ble YAMILETH, DR FAUSTINO Heatno Admitting Unavaila ble YAMILETH, DR FAUSTINO Heaton Primary Care Unavaila ble YAMILETH, DR FAUSTINO Heaton Admitting Unavaila ble YAMILETH, DR FAUSTINO Heaton Primary Care Unavaila ble YAMILETH, DR FAUSTINO Heaton Attending Unavaila ble Boone FLORES, Bran Mcmahon Primary Care Provider Boone FLORES, Bran Mcmahon Primary Care Provider Boone FLORES, Bran Mcmahon Primary Care Provider Enrique Butterfield DO Primary Care Provider Leora Billingsley MD Primary Care Provider Leora Billingsley MD Primary Care Provider MACKENZIE, LEORA Primary Care Unavailable GALINA BROOKS Referring Unavailable Galina Brooks PA-C Unavailable DISTOBED, LEORA Primary Care Unavailable CAMILLA SNELL Referring Unavailable DISTEL, LEORA Primary Care Unavailable CAMILLA SNELL Referring Unavailable MAGGY SANTIAGO Attending Unavailable HAURY, DUTCH Referring Unavailable DISTEL, LEORA Primary Care Unavailable HAMUNIR, DUTCH Referring Unavailable DISTEL, LEORA Primary Care Unavailable CAMILLA SNELL Attending Unavailable DISTEL, LEORA Primary Care Unavailable NICHOLAS, PRISCILLA Referring Unavailable DISTEL, LEORA Primary Care Unavailable MELANIA PETERSONICA Referring Unavailable CAMILLA SNELL Attending Unavailable DISTEL, LEORA Primary Care Unavailable CAMILLA SNELL Attending Unavailable DISTEL, LEORA Primary Care Unavailable MIRI SALAZAR Attending Unavailable DISTEL, LEORA Primary Care Unavailable CAMILLA SNELL Referring Unavailable DISTEL, LEORA Primary Care Unavailable PETERSON, PRISCILLA Attending Unavailable DISTEL, LEORA Primary Care Unavailable PETERSON, PRISCILLA Referring Unavailable DISTEL, LEORA Primary Care Unavailable CAMILLA SNELL Attending Unavailable DISTEL, LEORA Primary Care Unavailable MIRI SALAZAR Attending Unavailable DISTEL, LEORA Primary Care Unavailable PETERSON, PRISCILLA Attending Unavailable DISTEL, LEORA Primary Care Unavailable PETERSON, PRISCILLA Referring Unavailable DISTEL, LEORA Primary Care Unavailable PETERSON, PRISCILLA Referring Unavailable VALENCIA AVILA Attending Unavailable DISTEL, LEORA Primary Care Unavailable PETERSON, PRISCILLA Referring Unavailable DISTEL, LEORA Primary Care Unavailable VALENCIA AVILA Attending Unavailable DISTEL, LEORA Primary Care Unavailable DISTEL, LEORA Referring Unavailable DISTEL, LEORA Primary Care Unavailable PETERSON, PRISCILLA Referring Unavailable PETERSON, PRISCILLA Referring Unavailable DISTEL, LEORA Primary Care Unavailable CAMILLA SNELL Attending Unavailable MAGGY SANTIAGO Attending Unavailable DISTEL, LEORA Primary Care Unavailable DISTEL, LEORA Primary Care Unavailable GALINA BROOKS Attending Unavailable PETERSON, PRISCILLA Referring Unavailable DISTEL, LEORA Primary Care Unavailable PETERSON, PRISCILLA Referring Unavailable DISTEL, LEORA Primary Care Unavailable DISTEL, LEORA Primary Care Unavailable PETERSON, PRISCILLA Attending Unavailable DISTEL, LEORA Primary Care Unavailable PETERSON, PRISCILLA Referring Unavailable DISTEL, LEORA Primary Care Unavailable PETERSON, PRISCILLA Referring Unavailable CAMILLA SNELL Attending Unavailable DUTCH RICHARDS Attending Unavailable DISTEL, LEORA Primary Care Unavailable DISTEL, LEORA Primary Care Unavailable PETERSON, PRISCILLA Referring Unavailable DISTEL, LEORA Primary Care Unavailable CAMILLA SNELL Attending Unavailable Valencia Avila Attending Unavailable Valencia Avila Admitting Unavailable Allergies Allergy Classification Reported Allergen(s) Allergy Type Date of Onset Reaction(s) Facility Serotonin Reuptake Inhibitors (SSRIs) (2 sources) FLUoxetine Drug Allergy 7 Other: See Comments [facility] Repository (20 sources) FLUoxetine; Translations: [FLUOXETINE] Drug Allergy 7 Other: See Comments [facility] Work Phone: (20 sources) House dust mite; Translations: [DUST MITES] Propensity to adverse reactions 6 [facility] Work Phone: (20 sources) animal dander [Other] Propensity to adverse reactions 6 [facility] Work Phone: (20 sources) grasses [Other] Propensity to adverse reactions 6 [facility] Work Phone: (20 sources) Ragweed; Translations: [RAGWEED] Propensity to adverse reactions 6 [facility] Work Phone: (1 source) FLUoxetine Drug Allergy 2 [facility] Repository (1 source) Grass pollen Drug allergy (disorder) 2 [facility] Repository (1 source) Ragweed pollen Drug allergy (disorder) 2 [facility] Repository (1 source) animal dander Drug allergy (disorder) 2 [facility] Repository Medications Current Medications Medication Drug Class(es) Dates Sig (Normalized) Sig (Original) [id number] actuat albuterol 0.09 mg/actuat metered dose inhaler (20 sources) beta2-Adrenergic Agonist Start: 06-30-2020 take 2 puff(s) by inhalation every four hours as needed albuterol HFA (VENTOLIN HFA) 90 mcg/actuation inhaler Indications: Extrinsic asthma (HCC) Inhale 2 Puffs as instructed every 4 hours as needed. 18 g 3 06/30/2020 Active Comment on above: Inhale 2 Puffs as in structed every 4 hours as needed. aspirin 81 mg delayed release oral tablet (20 sources) Platelet Aggregation Inhibitor, Nonsteroidal Anti-inflammatory Drug Start: 05-11-2024 End: 06-06-2024 take 2 tablets by mouth once daily at bedtime aspirin, enteric coated (ECOTRIN LOW STRENGTH) 81 mg EC tablet Indications: 8 weeks gestation of (HCC) Take 2 tablets by mouth daily at bedtime. 180 tablet 1 06/07/2024 Active Start: 02-12-2024 End: 05-11-2024 take 1 tablet by mouth once daily aspirin, enteric coated (ECOTRIN LOW STRENGTH) 81 mg EC tablet Indications: 8 weeks gestation of Take 1 tablet by mouth once daily. 90 tablet 3 02/12/2024 05/11/2024 Discontinued Start: 09-20-2020 End: 04-17-2021 take 1 tablet by mouth once daily aspirin, enteric coated (ASPIRIN, ENTERIC COATED) 81 mg EC tablet Take 1 tablet by mouth once daily. After 12 weeks gestation 0 09/20/2020 04/17/2021 Discontinued Comment on above: Take 1 tablet by lc th once daily. After 12 weeks gestation 24 hr buPROPion hydrochloride 150 mg extended release oral tablet (20 sources) Aminoketone Start: 3 End: take 1 tablet by mouth once daily buPROPion XL (WELLBUTRIN XL) 150 mg 24 hr tablet Indications: Moderate episode of recurrent major depressive disorder (HCC) Take 1 tablet by mouth once daily. 90 tablet 3 04/13/2024 Active Start: 10-16-2020 End: 01-07-2022 take 1 tablet by mouth once daily buPROPion XL (WELLBUTRIN XL) 150 mg 24 hr tablet Indications: Moderate episode of recurrent major depressive disorder (HCC) Take 1 tablet by mouth once daily. 90 tablet 1 01/07/2022 Active Comment on above: Take 1 tablet by lc th once daily. Take 1 tablet by lc th once daily Cetirizine (20 sources) Histamine-1 Receptor Antagonist cetirizine HCl (ZYRTEC ORAL) Take by mouth. Active cetirizine HCl ( ZYRTEC ORAL) Take by mouth. 0 Active Comment on above: Take by mouth. escitalopram 20 mg oral tablet (20 sources) Serotonin Reuptake Inhibitor Start: 3 End: take 1 tablet by mouth once daily escitalopram oxalate (LEXAPRO) 20 mg tablet Indications: Moderate episode of recurrent major depressive disorder (HCC) , Generalized anxiety disorder Take 1 tablet by mouth once daily 90 tablet 08/23/2024 08/23/2025 Active Start: 07-04-2022 End: 08-21-2022 take 2 tablets by mouth once daily escitalopram oxalate (LEXAPRO) 10 mg tablet Take 2 tablets by mouth once daily. 60 tablet 1 07/04/2022 08/21/2022 Discontinued Start: 12-25-2021 End: 06-23-2022 take 1 tablet by mouth once daily escitalopram oxalate (LEXAPRO) 20 mg tablet Indications: Anxiety with depression Take 1 tablet by mouth once daily. 90 tablet 1 12/25/2021 06/23/2022 Active Start: 11-27-2021 End: 01-10-2022 take 0.5 tablet by mouth once daily, then take 1 tablet by mouth once daily escitalopram oxalate (LEXAPRO) 20 mg tablet Indications: Anxiety with depression , Post depression Take 0.5 tablets by mouth once daily for 14 days, THEN 1 tablet once daily. 37 tablet 0 11/27/2021 01/10/2022 Active Start: 09-04-2021 End: 10-18-2021 take 0.5 tablet by mouth once daily, then take 1 tablet by mouth once daily escitalopram oxalate (LEXAPRO) 20 mg tablet Indications: Anxiety with depression , Post depression Take 0.5 tablets by mouth once daily for 14 days, THEN 1 tablet once daily. 37 tablet 0 09/04/2021 10/18/2021 Active Comment on above: Take 0.5 tablets by mouth once daily for 14 days, THEN 1 tablet once daily. [facility] 2 tablets by [facility] once daily. famotidine 20 mg oral tablet (20 sources) Histamine-2 Receptor Antagonist Start: 07-07-2024 take 1 tablet by mouth twice daily famotidine (PEPCID) 20 mg tablet Take 1 tablet by mouth twice daily 60 tablet 07/07/2024 Active Start: 06-11-2024 take 1 tablet by lc twice daily famotidine (PEPCID) 20 mg tablet Take 1 tablet by mouth twice daily 60 tablet 06/11/2024 Active Start: 01-19-2024 End: 04-13-2024 take 1 tablet by mouth twice daily famotidine (PEPCID) 20 mg tablet Take 1 tablet by mouth two times a day. 60 tablet 04/13/2024 Active fluticasone propionate 0.05 mg/actuat metered dose nasal spray (17 sources) Corticosteroid Start: 10-19-2019 End: 12-03-2021 fluticasone (FLONASE) 50 mcg/actuation nasal spray Use 1 [place] in each nostril once daily. 1 SPRAY PER NOSTRIL ONCE A DAY PRN NASAL ALLERGY SYMPTOMS 1 Each 2 09/04/2021 12/03/2021 Active Comment on above: Use 1 [place] in each nostril once daily. 1 SPRAY PER NOSTRIL ONCE A DAY PRN NASAL ALLERGY SYMPTOMS folic acid 1 mg oral tablet (20 sources) Start: 01-23-2024 take 1 tablet by mouth once daily folic acid 1 mg tablet Take 1 tablet by mouth once daily. 01/23/2024 Active metroNIDAZOLE 500 mg oral tablet (4 sources) Nitroimidazole Antimicrobial Start: 02-13-2024 End: 02-20-2024 take 1 tablet by mouth twice daily metroNIDAZOLE (FLAGYL) 500 mg tablet Indications: Bacterial vaginosis Take 1 tablet by mouth two times a day for 7 days. 14 tablet 02/13/2024 02/20/2024 Active Start: 05-27-2023 End: 06-03-2023 take 1 tablet by mouth twice daily metroNIDAZOLE (FLAGYL) 500 mg tablet Take 1 tablet by mouth two times a day for 7 days. 14 tablet 0 05/27/2023 06/03/2023 Active Comment on above: Take 1 tablet by lc two times a day for 7 days. miconazole nitrate 20 mg/ml vaginal cream (3 sources) Azole Antifungal Start: 4 End: 5 miconazole (MONISTAT 7) 2 % vaginal cream Use 1 Applicator vaginally daily at bedtime for 7 days. 45 g 02/12/2024 02/19/2024 Active olopatadine 1 mg/ml ophthalmic solution (20 sources) Histamine-1 Receptor Inhibitor Start: 3 End: 4 take 1 drop(s) into the eye(s) twice daily as needed, then take 1-2 drop(s) into the eye(s) twice daily as needed olopatadine (PATANOL) 0.1 % ophthalmic solution Indications: History of environmental allergies Use 1 Drop in both eyes two times a day. 1 TO 2 DROPS TO EACH EYE TWICE DAILY NEEDED 1 mL 5 08/20/2023 Active Start: 10-19-2019 End: 08-21-2022 take 1 drop(s) into the eye(s) twice daily as needed, then take 1-2 drop(s) into the eye(s) twice daily as needed olopatadine (PATANOL) 0.1 % ophthalmic solution Indications: History of environmental allergies Use 1 Drop in both eyes twice daily. 1 TO 2 DROPS TO EACH EYE TWICE DAILY NEEDED 1 mL 5 08/21/2022 Active Comment on above: Use 1 Drop in both e yes twice daily. 1 TO 2 DROPS TO EACH EYE TWICE DAILY NEEDED ondansetron 4 mg disintegrating oral tablet (20 sources) Serotonin-3 Receptor Antagonist Start: take 1 tablet by mouth every eight hours as needed ondansetron orally disintegrating (ZOFRAN ODT) 4 mg disintegrating tablet Take 1 tablet by mouth every 8 hours as needed for nausea/vomiting. 60 tablet 2 01/23/2024 Active ONETOUCH ULTRA PLUS FLEX METER misc (20 sources) Start: 025 ONETOUCH ULTRA PLUS FLEX METER misc as directed. 1 Each 05/13/2024 Active polymyxin b [id number] unt/ml / trimethoprim 1 mg/ml ophthalmic solution (2 sources) Dihydrofolate Reductase Inhibitor Antibacterial, Polymyxin-class Antibacterial Start: End: take 1 drop(s) into the eye(s) every four hours trimethoprim-polymyxi n (POLYTRIM) 10,000 unit- 1 mg/mL ophthalmic solution Use 1 Drop in the right eye every 4 hours for 7 days. 10 mL 0 08/31/2023 09/07/2023 Active triamcinolone acetonide 1 mg/ml topical cream (20 sources) Corticosteroid Start: 023 triamcinolone acetonide (KENALOG) 0.1 % cream Indications: Rash Apply 1 application to affected area twice daily. Apply sparingly to area for rash/itching. 28.4 g 07/15/2022 Active Comment on above: Apply 1 application to affected area twice daily. Apply sparingly to area for rash/itching. vitamin b6 50 mg oral tablet (20 sources) Start: take 1 tablet by mouth twice daily pyridoxine, vitamin B6, (VITAMIN B-6) 50 mg tablet Take 1 tablet by mouth two times a day. 01/23/2024 Active Completed/Discontinued Medications Medication Drug Class(es) Dates Sig (Normalized) Sig (Original) Acetaminophen (20 sources) End: 01-23-2024 acetaminophen (TYLENOL ORAL) Take by mouth. 01/23/2024 Discontinued acetaminophen (T YLENOL ORAL) Take by mouth. Active acetaminophen (T YLENOL ORAL) Take by mouth. 0 Active Comment on above: Take by mouth. onabotulinumtoxina 100 unt injection (20 sources) Acetylcholine Release Inhibitor Start: onabotulinum toxin type A 100 Units injection (BOTOX) cholecalciferol, vitamin D3, (VITAMIN D3 ORAL) (16 sources) cholecalciferol, vitamin D3, (VITAMIN D3 ORAL) Take by mouth. 0 Active Comment on above: Take by mouth. citalopram 40 mg oral tablet (9 sources) Serotonin Reuptake Inhibitor Start: End: take 1 tablet by mouth once daily citalopram (CELEXA) 40 mg tablet Indications: Depression, unspecified depression type , Generalized anxiety disorder Take 1 tablet by mouth once daily. 90 tablet 0 07/09/2021 09/04/2021 Discontinued Comment on above: Take 1 tablet by lc th once daily. CPAP (20 sources) Start: End: CPAP Indications: LINA (obstructive sleep apnea) Initiate Auto PAP @ 5-15 cm of water with humidification. Mask (per patient preference) optional chin strap (if indicated) , filters, tubing, humidifier and lifetime supplies. 1 Device 01/06/2019 02/12/2024 Discontinued Start: 01-06-2019 CPAP Indicatio ns: LINA (obstructive sleep apnea) Initiate Auto PAP @ 5-15 cm of water with humidification. Mask (per patient preference) optional chin strap (if indicated) , filters, tubing, humidifier and lifetime supplies. 1 Device 01/06/2019 Active Start: 01-06-2019 CPAP Indicatio ns: LINA (obstructive sleep apnea) Initiate Auto PAP @ 5-15 cm of water with humidification. Mask (per patient preference) optional chin strap (if indicated) , filters, tubing, humidifier and lifetime supplies. 1 Device 0 01/06/2019 Active Comment on above: Initiate Auto PAP @ 5-15 cm of water with humidification. Mask (per patient preference) optional chin strap (if indicated) , filters, tubing, humidifier and lifetime supplies. insulin isophane, human 100 unt/ml injectable suspension (1 source) Start: 2021 End: 2021 inject 14 [IU] by subcutaneous injection once daily at bedtime insulin NPH injection (HumuLIN N,NovoLIN N) Inject 14 Units subcutaneously daily at bedtime. 300 mL 0 03/27/2021 04/12/2021 Discontinued (Adjust Sig - Block E-Cancel) Comment on above: Inject 14 Units subc utaneously daily at bedtime. labetalol hydrochloride 100 mg oral tablet (20 sources) beta-Adrenergic Nick Start: 2022 End: 2023 take 1 tablet by mouth twice daily labetalol (TRANDATE) 100 mg tablet Indications: Essential hypertension Take 1 tablet by mouth twice daily. 180 tablet 1 07/16/2022 07/21/2023 Discontinued Start: 01-07-2022 End: 07-06-2022 take 1 tablet by mouth twice daily labetalol (TRANDATE) 100 mg tablet Indications: Essential hypertension Take 1 tablet by mouth twice daily. 180 tablet 1 01/07/2022 Active Start: 11-05-2021 End: 01-07-2022 take 2 tablets by mouth three times daily labetalol (TRANDATE) 100 mg tablet Indications: Essential hypertension TAKE 2 TABLETS BY MOUTH 3 TIMES A DAY 180 tablet 2 11/05/2021 01/07/2022 Discontinued Start: 07-17-2021 take 1 tablet by lc th twice daily labetalol (TRANDATE) 100 mg tablet Indications: Essential hypertension Take 1 tablet by mouth twice daily. 0 07/17/2021 Active Start: 05-01-2021 End: 07-17-2021 take 3 tablets by mouth three times daily labetalol (TRANDATE) 100 mg tablet Indications: Essential hypertension Take 3 tablets by mouth three times daily. 180 tablet 2 05/01/2021 07/17/2021 Discontinued Start: 02-13-2021 End: 04-12-2021 take 2 tablets by mouth three times daily labetalol (TRANDATE) 100 mg tablet Indications: Essential hypertension Take 2 tablets by mouth three times daily. 180 tablet 2 02/13/2021 04/12/2021 Discontinued Comment on above: Take 3 tablets by mo uth three times daily. Take 1 tablet by lc th twice daily. Take 2 tablets by mo uth three times daily. TAKE 2 TABLETS BY MO UTH 3 TIMES A DAY levonorgestrel 0.452424 mg/hr intrauterine system (20 sources) Progestin, Progestin-containin g Intrauterine Device Start: End: levonorgestrel (MIRENA) 20 mcg/24 hours (7 yrs) 52 mg IUD 1 Each by INTRAUTERINE route as directed. 1 Each 07/23/2021 10/22/2023 Discontinued Comment on above: 1 Each by INTRAUTERI NE route as directed. 3 ml liraglutide 6 mg/ml pen injector (1 source) GLP-1 Receptor Agonist Start: End: liraglutide (SAXENDA) 3 mg/0.5 mL (18 mg/3 mL) pen injector Indications: Obesity, Class III, BMI 40-49.9 (morbid obesity) (HCC) Initiate at 0.6 mg per day for one week. In weekly intervals, increase the dose until a dose of 3 mg is reached. 15 mL 2 11/28/2021 11/28/2021 Discontinued Comment on above: Initiate at 0.6 mg p er day for one week. In weekly intervals, increase the dose until a dose of 3 mg is reached. magnesium oxide 420 mg oral tablet (1 source) Start: End: take 1 tablet by mouth once daily Magnesium Oxide 420 mg tab Take 1 tablet by mouth once daily. 0 03/27/2021 05/01/2021 Discontinued Comment on above: [facility] omeprazole 40 mg delayed release oral capsule (20 sources) Proton Pump Inhibitor Start: End: take 1 capsule by mouth once daily 30 minutes before mealtime omeprazole (PRILOSEC) 40 mg capsule Indications: Gastroesophageal reflux disease, unspecified whether esophagitis present Take 1 capsule by mouth once daily. 30 minutes before a meal 30 capsule 2 08/13/2023 01/19/2024 Discontinued (Changing Therapy/Dosage Form) Comment on above: Take 1 capsule by [facility] once daily. 30 minutes before a meal Xohafhzh-Zc-Ghf-Fe-FA ( VITAMIN) tab (4 sources) End: take 1 tablet by mouth once Rgkefsdr-Sc-Jho-Fe-FA ( VITAMIN) tab Take 1 tablet by mouth. 0 07/17/2021 Discontinued take 1 tablet by mouth once Pren atal Rjqbsyqb-Md-Dzm-Fe-FA ( VITAMIN) tab Take 1 tablet by mouth. 0 Active Comment on above: Take 1 tablet by lc th. 0.25 mg, 0.5 mg dose 1.5 ml semaglutide 1.34 mg/ml pen injector (2 sources) Start: 11-27-2021 End: 12-27-2021 semaglutide (OZEMPIC) 0.25 mg or 0.5 mg(2 mg/1.5 mL) pen Indications: Obesity, Class III, BMI 40-49.9 (morbid obesity) ([facility]) Inject 0.25 mg subcutaneously one time a week. 1 Each 0 11/27/2021 11/28/2021 Discontinued Comment on above: Inject 0.25 mg subcu taneously one time a week. Problems Active Problems Problem Classification Problem Date Documented Da te Episodic/Chronic Allergic reactions (3 sources) H/O: non-drug allergy; Translations: [Other allergy status, other than to drugs and biological substances] Episodic Anxiety disorders (20 sources) Generalized anxiety disorder; Translations: [Generalized anxiety disorder] 11-18-2017 Chronic Asthma (20 sources) Allergic asthma; Translations: [Unspecified asthma, uncomplicated] Onset: 7 06-26-2006 Chronic Complication of device; implant or graft (1 source) IUD threads lost; Translations: [Displacement of intrauterine contraceptive device, initial encounter] Episodic Contraceptive and procreative management (10 sources) Patient encounter status; Translations: [Encounter for other general counseling and advice on contraception] Episodic Esophageal disorders (6 sources) Gastroesophageal reflux disease without esophagitis; Translations: [Gastro-esophageal reflux disease without esophagitis] Chronic Essential hypertension (20 sources) Hypertensive disorder; Translations: [Essential (primary) hypertension] Onset: 2 Resolved: 4 Chronic Headache; including migraine (1 source) Daily headache; Translations: [Daily headache] 01-19-2024 Episodic Hypertension complicating ; childbirth and the puerperium (20 sources) Pre-existing hypertension complicating , childbirth and puerperium; Translations: [Unspecified pre-existing hypertension complicating , unspecified trimester] Onset: 1 Resolved: 2 06-11-2021 Chronic Immunizations and screening for infectious disease (7 sources) Encounter for screening for other viral diseases; Translations: [Contact with and (suspected) exposure to other viral communicable diseases] Onset: 0 Episodic Inflammation; infection of eye (except that caused by tuberculosis or sexually transmitteddisease) (1 source) Conjunctivitis of right eye; Translations: [Unspecified conjunctivitis] 08-31-2023 Episodic Inflammatory diseases of female pelvic organs (1 source) Bacterial vaginosis; Translations: [Acute vaginitis] 02-13-2024 Episodic Miscellaneous mental health disorders (2 sources) depression; Translations: [ depression] Episodic Mood disorders (20 sources) Depressive disorder; Translations: [Depression, unspecified depression type] Onset: 2 Chronic Nutritional deficiencies (3 sources) Vitamin D deficiency; Translations: [Vitamin D deficiency, unspecified] Chronic Nutritional deficiencies (1 source) Vitamin A deficiency; Translations: [Vitamin A deficiency, unspecified] 09-20-2022 Episodic Other complications of (20 sources) Maternal obesity complicating , childbirth and the puerperium, antepartum; Translations: [Obesity complicating , first trimester] Onset: 1 02-12-2024 Chronic Other complications of (1 source) Obesity complicating , third trimester; Translations: [Obesity affecting in third trimester, unspecified obesity type (HCC)] Onset: 5 Chronic Other complications of (20 sources) High risk ; Translations: [Supervision of high risk , unspecified, first trimester] Onset: 1 Resolved: 2 06-11-2021 Episodic Other complications of (1 source) Spotting per vagina in ; Translations: [Spotting complicating , unspecified trimester] 10-03-2023 Episodic Other complications of (1 source) Supervision of high risk , unspecified, third trimester; Translations: [Supervision of high risk in third trimester (HCC)] Onset: 5 Episodic Other ear and sense organ disorders (1 source) Acute actinic otitis externa; Translations: [Acute actinic otitis externa, bilateral] Episodic Other female genital disorders (2 sources) Abnormal uterine bleeding; Translations: [Other specified abnormal uterine and vaginal bleeding] 05-26-2023 Chronic Other gastrointestinal disorders (1 source) History of bariatric surgical procedure; Translations: [Bariatric surgery status] Episodic Other liver diseases (20 sources) Steatosis of liver; Translations: [Fatty (change of) liver, not elsewhere classified] 03-27-2020 Chronic Other liver diseases (1 source) Elevated liver enzymes level; Translations: [Abnormal levels of other serum enzymes] Episodic Other lower respiratory disease (2 sources) Dyspnea on exertion; Translations: [Other forms of dyspnea] Episodic Other nutritional; endocrine; and metabolic disorders (20 sources) Body mass index 40+ - severely obese; Translations: [Morbid (severe) obesity due to excess calories] Onset: 2 Chronic Other nutritional; endocrine; and metabolic disorders (20 sources) Obese class I; Translations: [Obesity, unspecified] Onset: 3 12-14-2022 Chronic Other skin disorders (1 source) Eruption; Translations: [Rash and other nonspecific skin eruption] Episodic Residual codes; unclassified (20 sources) Obstructive sleep apnea syndrome; Translations: [Obstructive sleep apnea (adult) (pediatric)] 03-06-2018 Chronic Residual codes; unclassified (1 source) Obstructive sleep apnea (adult) (pediatric); Translations: [LINA (obstructive sleep apnea)] Onset: 9 Chronic Residual codes; unclassified (1 source) FH: premature coronary heart disease; Translations: [Family history of ischemic heart disease and other diseases of the circulatory system] Episodic Residual codes; unclassified (2 sources) Gestation period, 8 weeks; Translations: [8 weeks gestation of ] 02-12-2024 Episodic Residual codes; unclassified (20 sources) History of sleeve gastrectomy; Translations: [Acquired absence of stomach [part of]] Onset: 4 02-12-2024 Episodic Residual codes; unclassified (1 source) Gestation period, 13 weeks; Translations: [13 weeks gestation of ] 03-18-2024 Episodic Residual codes; unclassified (2 sources) Gestation period, 18 weeks; Translations: [18 weeks gestation of ] 04-28-2024 Episodic Residual codes; unclassified (1 source) Gestation period, 22 weeks; Translations: [22 weeks gestation of ] 05-20-2024 Episodic Residual codes; unclassified (1 source) Gestation period, 24 weeks; Translations: [24 weeks gestation of ] 06-04-2024 Episodic Residual codes; unclassified (2 sources) Gestation period, 28 weeks; Translations: [28 weeks gestation of ] 07-02-2024 Episodic Residual codes; unclassified (1 source) Gestation period, 30 weeks; Translations: [30 weeks gestation of ] 07-20-2024 Episodic Residual codes; unclassified (2 sources) Gestation period, 33 weeks; Translations: [33 weeks gestation of ] 08-05-2024 Episodic Residual codes; unclassified (1 source) Gestation period, 34 weeks; Translations: [34 weeks gestation of ] 08-17-2024 Episodic Residual codes; unclassified (2 sources) Gestation period, 36 weeks; Translations: [36 weeks gestation of ] 08-27-2024 Episodic Residual codes; unclassified (1 source) Gestation period, 38 weeks; Translations: [38 weeks gestation of ] 09-09-2024 Episodic Residual codes; unclassified (1 source) 38 weeks gestation of ; Translations: [38 weeks gestation of (HCC)] Onset: Episodic Residual codes; unclassified (1 source) 36 weeks gestation of ; Translations: [36 weeks gestation of (HCC)] Onset: 5 Episodic Residual codes; unclassified (1 source) 34 weeks gestation of ; Translations: [34 weeks gestation of (HCC)] Onset: 5 Episodic Residual codes; unclassified (1 source) 33 weeks gestation of ; Translations: [33 weeks gestation of (HCC)] Onset: 5 Episodic Residual codes; unclassified (1 source) 30 weeks gestation of ; Translations: [30 weeks gestation of (HCC)] Onset: 5 Episodic Residual codes; unclassified (1 source) 28 weeks gestation of ; Translations: [28 weeks gestation of (HCC)] Onset: 5 Episodic Spontaneous (1 source) with abortive outcome; Translations: [Complete or unspecified spontaneous without complication] 10-22-2023 Episodic Unclassified (20 sources) [facility] Education - COMMON Onset: 4 02-12-2024 Unclassified (20 sources) Education - [place] Onset: 4 02-12-2024 Unclassified (1 source) Obesity, Class I, BMI 30-34.9; Translations: [Obesity, Class I, BMI 30-34.9] Onset: Past or Other Problems Problem Classification Problem Date Documented Date Episodic/Chronic Diabetes or abnormal glucose tolerance complicating ; childbirth; or the puerperium (20 sources) History of gestational diabetes mellitus; Translations: [Personal history of gestational diabetes] Onset: 02-14-2021 Resolved: 08-05-2024 Episodic Menstrual disorders (20 sources) Intermenstrual bleeding - irregular; Translations: [Excessive and frequent menstruation with irregular cycle] Onset: 03-16-2009 Resolved: 03-23-2021 03-23-2021 Chronic Other complications of (18 sources) Obesity; Translations: [Obesity complicating , unspecified trimester] Onset: 09-14-2020 Resolved: 06-11-2021 06-11-2021 Chronic Other complications of (20 sources) Rubella non-immune; Translations: [Supervision of other high risk pregnancies, unspecified trimester] Onset: 09-27-2020 09-27-2020 Episodic Other complications of (20 sources) Depressive disorder in mother complicating ; Translations: [Other mental disorders complicating , unspecified trimester] Onset: 08-28-2012 Resolved: 06-11-2021 06-11-2021 Episodic Other complications of (7 sources) Nausea and vomiting; Translations: [Vomiting of , unspecified] Onset: 09-14-2020 Resolved: 03-23-2021 03-23-2021 Episodic Other complications of (20 sources) Excessive growth affecting management of mother; Translations: [Maternal care for excessive growth, third trimester, not applicable or unspecified] Onset: 02-14-2021 Resolved: 06-11-2021 06-11-2021 Episodic Other complications of (20 sources) Vomiting of , unspecified; Translations: [Unspecified vomiting of , unspecified as to episode of care or not applicable] Onset: 09-14-2020 Resolved: 03-23-2021 03-23-2021 Episodic Other complications of (16 sources) Anxiety in ; Translations: [Other mental disorders complicating , unspecified trimester] Onset: 02-12-2024 02-12-2024 Episodic Other complications of (20 sources) Asthma; Translations: [Diseases of the respiratory system complicating , unspecified trimester] Onset: 02-12-2024 02-12-2024 Episodic Other complications of (20 sources) Heartburn; Translations: [Other specified related conditions, first trimester] Onset: 02-12-2024 02-12-2024 Episodic Other complications of (20 sources) Other mental disorders complicating , unspecified trimester; Translations: [Mental disorders of mother, antepartum condition or complication] Onset: 02-12-2024 02-12-2024 Episodic Other complications of (1 source) Supervision of high risk , unspecified, second trimester; Translations: [High-risk in second trimester (HCC)] Onset: 06-04-2024 Episodic Other complications of (1 source) Supervision of high risk , unspecified, first trimester; Translations: [Encounter for supervision of high risk in first trimester, antepartum] Onset: 04-28-2024 Episodic Other complications of (1 source) Spotting complicating , unspecified trimester; Translations: [Spotting in early ] Onset: 10-03-2023 Episodic Other female genital disorders (20 sources) Premenstrual tension syndrome; Translations: [Premenstrual tension syndrome] Onset: 03-16-2009 Resolved: 03-23-2021 03-23-2021 Chronic Other female genital disorders (20 sources) Vaginal discharge; Translations: [Other specified noninflammatory disorders of vagina] Onset: 02-12-2024 Resolved: 08-05-2024 02-12-2024 Episodic Other nervous system disorders (20 sources) H/O: respiratory disease; Translations: [Personal history of other diseases of the nervous system and sense organs] Onset: 09-14-2020 09-14-2020 Episodic Other nervous system disorders (1 source) Personal history of other diseases of the nervous system and sense organs; Translations: [History of sleep apnea] Onset: 06-04-2024 Episodic Other and delivery including normal (5 sources) care status; Translations: [Encounter for routine follow-up] Onset: 01-19-2024 Episodic Other screening for suspected conditions (not mental disorders or infectious disease) (3 sources) Electrocardiogram abnormal; Translations: [Abnormal electrocardiogram [ECG] [EKG]] Onset: 06-04-2024 Episodic Other upper respiratory disease (20 sources) Allergic rhinitis; Translations: [Allergic rhinitis, unspecified] Onset: 06-18-2005 Resolved: 02-12-2024 06-18-2005 Chronic Residual codes; unclassified (20 sources) FH: Crohn's disease; Translations: [Family history of other diseases of the digestive system] Onset: 07-16-2011 Resolved: 03-23-2021 03-23-2021 Episodic Residual codes; unclassified (20 sources) H/O: miscarriage; Translations: [Personal history of other complications of , childbirth and the puerperium] Onset: 02-12-2024 Resolved: 08-05-2024 01-23-2024 Episodic Residual codes; unclassified (2 sources) History of uterine scar from previous surgery; Translations: [Previous section] Onset: 09-14-2020 Episodic Residual codes; unclassified (1 source) Acquired absence of stomach [part of]; Translations: [H/O gastric sleeve] Onset: 02-12-2024 Episodic Residual codes; unclassified (1 source) 25 weeks gestation of ; Translations: [25 weeks gestation of (HCC)] Onset: 06-11-2024 Episodic Residual codes; unclassified (1 source) 24 weeks gestation of ; Translations: [24 weeks gestation of (HCC)] Onset: 06-04-2024 Episodic Residual codes; unclassified (1 source) 13 weeks gestation of ; Translations: [13 weeks gestation of ] Onset: 04-28-2024 Episodic Residual codes; unclassified (1 source) 8 weeks gestation of ; Translations: [8 weeks gestation of ] Onset: 02-12-2024 Episodic Residual codes; unclassified (1 source) Personal history of other complications of , childbirth and the puerperium; Translations: [History of miscarriage] Onset: 01-23-2024 Episodic Screening and history of mental health and substance abuse codes (20 sources) H/O: depression; Translations: [Personal history of other mental and behavioral disorders] Onset: 09-14-2020 09-14-2020 Episodic Results Test Name Value Interpretation Reference Range Facil ity HISTORY PHYSICALon HISTORY PHYSICAL HNO ID: [id number] Author: VALENCIA AVILA MD Service: ? Author Type: Physician Type: H&P Filed: 09/09/2024 14:27 Note Text: Pre-Op History and Physical HPI: The patient is a 28 year old female presenting for pre-operative visit. She is scheduled for and tubal, for h/o previous c/s and sterilization on 09/16/24. Procedure discussed along with risks, benefits and complications. Other alternatives discussed for management. Consent form signed? Yes. PAST MEDICAL HISTORY Diagnosis Date Allergic rhinitis Asthma (HCC) Atypical squamous cells of undetermined significance (ASCUS) on Papanicolaou smear of cervix 2018 Depression Developmental speech or language disorder speech delay--resolved Essential hypertension Fatty liver Generalized anxiety disorder Gestational diabetes mellitus, class A1 (HCC) 02/14/2021 Hyperhidrosis Hypertension IBS (irritable bowel syndrome) stress induced Morbid obesity with BMI of 40.0-44.9, adult ([facility]) LINA (obstructive sleep apnea) PMH - PAST MEDICAL HISTORY OF pneumonia 2000 [id number] Unspecified asthma(493.90) PAST SURGICAL HISTORY Procedure Laterality Date DELIVERY ONLY 04/20/2021 [facility] PT ED BARIATRIC AND METABOLIC 07/22/2022 Gastric Sleeve surgery TONSILLECTOMY AND ADENOIDECTOMY Current Outpatient Medications Medication Sig Dispense Refill escitalopram oxalate (LEXAPRO) 20 mg tablet Take 1 tablet by mouth once daily 90 tablet 0 famotidine (PEPCID) 20 mg tablet Take 1 tablet by mouth twice daily 60 tablet 0 blood sugar diagnostic (TRUE METRIX GLUCOSE TEST STRIP) test strip 1 strip four times daily. Use with blood glucose test four times a day. Insulin Dep? No 200 each 11 aspirin, enteric coated (ECOTRIN LOW STRENGTH) 81 mg EC tablet Take 2 tablets by mouth daily at bedtime. 180 tablet 1 blood sugar diagnostic (ONETOUCH ULTRA TEST) test strip Use as directed four times a day. Insulin Dep? No 100 Strip 1 ONETOUCH ULTRA [place]US FLEX MET[place] [facility] [place]. 1 Each 0 buPROPion XL (WELLBUTRIN XL) 150 mg 24 hr tablet Take 1 tablet by mouth once daily. 90 tablet 3 folic acid 1 mg tablet Take 1 tablet by mouth once daily. pyridoxine, vitamin B6, (VITAMIN B-6) 50 mg tablet Take 1 tablet by mouth two times a day. ondansetron orally disintegrating (ZOFRAN ODT) 4 mg disintegrating tablet Take 1 tablet by mouth every 8 hours as needed for nausea/vomiting. 60 tablet 2 olopatadine (PATANOL) 0.1 % ophthalmic solution Use 1 Drop in both eyes two times a day. 1 TO 2 DROPS TO EACH EYE TWICE DAILY NEEDED 1 mL 5 triamcinolone acetonide (KENALOG) 0.1 % cream Apply 1 application to affected area twice daily. Apply sparingly to area for rash/itching. 28.4 g 0 cetirizine HCl (ZYRTEC ORAL) Take by mouth. albuterol HFA (VENTOLIN HFA) 90 mcg/actuation inhaler Inhale 2 Puffs as instructed every 4 hours as needed. 18 g 3 No current facility-administered medications for this visit. ALLERGIES: Dust Mites, Prozac [Fluoxetine], and Ragweed PERSONAL HISTORY: Social History Tobacco Use Smoking status: Never Smokeless tobacco: Never Vaping Use Vaping status: Never Used Substance Use Topics Alcohol use: No Drug use: No FAMILY HISTORY: FAMILY HISTORY Problem Relation Age of Onset other (crohns) Mother Migraines Mother Hypertension Father Asthma Father Allergies Father Heart Attack Father 53 Anxiety disorder Brother Depression Brother Hypertension Brother No Known Problems Brother other (alcoholic/drug addict) Maternal Grandmother other (alcoholic/ drug addict) Maternal Grandfather Heart Maternal Grandfather Breast Cancer Paternal Grandmother GI Paternal Grandfather Crohn's disease - in his 60s Heart Attack Paternal Grandfather REVIEW OF SYMPTOMS: GENERAL: denies fevers or chills ENDOCRINOLOGY: has not been on steroids Cardiology : denies palpitations or chest pain Respiratory: denies SOB or cough Hematology: denies history of prolonged bleeding or easy bruising or VTE Allergy: Denies history of personal or family history of allergy to anesthesia PHYSICAL EXAMINATION: VITALS: Blood pressure 135/88, weight 111.1 kg (245 lb), last menstrual period 12/18/2023. GENERAL: The patient is well nourished, well hydrated in no acute distress. , The patient is oriented to time, place, and person. NECK: Supple. No lynphadenopathy, normal thyroid, no thyromegaly. LUNGS: Clear to auscultation bilaterally. no wheezes, rhonchi or rales HEART: Regular rate and rhythm, Normal heart sounds, and No murmurs or gallops abd- soft, nontender, gravid IMPRESSION: Assessment AND Plan Gestational diabetes mellitus, class A1 ([facility]) Orders: URINE OB DIP B/O Chronic hypertension affecting ([facility]) Orders: URINE OB DIP B/O Obesity affecting in third trimester, unspecified obesity type ([facility]) Orders: URINE OB DIP B/O Previous section Orders: URINE OB DIP B/O (more content not included)... Normal [facility] URINE OB DIP B/Oon 5 Glucose Ql (U) Negative Neg mg/dL [facility] Protein.monoclonal (U) [Mass/Vol] trace Neg mg/dL [facility] Examination level ultrasound on 08-31-2024 [facility] Radiology Study observation (narrative) [facility] URINE OB DIP B/Oon 5 Glucose Ql (U) Negative Neg mg/dL [facility] Interpretation and review of laboratory results Normal [facility] Protein.monoclonal (U) [Mass/Vol] Negative Neg mg/dL [facility] ROUTINE, GROUP B ST REPTOCOCCUS BY PCRon 08-27-2024 ROUTINE, GROUP B STREPTOCOCCUS BY PCR Not detected Normal [facility] Comment on above: Performed By: #### 5 [id number], [id number], [id number] #### [facility] CLIA [id number] [address] [place] [address] [place] URINE OB DIP B/Oon 5 Glucose Ql (U) Negative Neg mg/dL [facility] Interpretation and review of laboratory results Normal [facility] Protein.monoclonal (U) [Mass/Vol] Negative Neg mg/dL [facility] Examination level ultrasound on 08-05-2024 [facility] Radiology Study observation (narrative) [facility] URINE OB DIP B/Oon 5 Glucose Ql (U) Negative Neg mg/dL [facility] Interpretation and review of laboratory results Normal [facility] Protein.monoclonal (U) [Mass/Vol] Negative Neg mg/dL [facility] Examination level ultrasound on 07-02-2024 [facility] Radiology Study observation (narrative) [facility] URINE OB DIP B/Oon Glucose Ql (U) 250 mg/dL Neg [facility] Protein.monoclonal (U) [Mass/Vol] Negative Neg mg/dL [facility] CNPNon 05-14-2024 CNPN Telephone (OBGYWM) CAMMIE LOZANO ([id number]) 1995 F Date Time Provider Department 05/14/24 CAMILLA SNELL During your visit today, we recorded the following information about you: Miri Mir RN 05/14/2024 8:26 AM Signed Received breast pump RX from [employer]. To to sign. ZULMA Blum Jennifer, RN 05/14/2024 4:18 PM Signed Faxed. Miri Mir RN Allergies As of Date: 05/14/2024 Noted Allergy Reaction DUST MITES 06/20/2005 PROZAC (FLUOXETINE) 09/12/2016 14 - Other: See Comments Comments: [place] like she had no emotions RAGWEED 06/20/2005 Date Reviewed: 05/11/2024 Reviewed by: Camilla Snell MD - Fully Assessed Reason for Visit: Breast Pump [Other] Prescriptions as of 05/14/2024 - blood sugar diagnostic (ONETOUCH ULTRA TEST) test strip Use as directed four times a day. Insulin Dep? No - ONETOUCH ULTRA PLUS FLEX METER misc as directed. - blood sugar diagnostic (TRUE METRIX GLUCOSE TEST STRIP) test strip 1 Strip four times daily. Use with blood glucose test four times a day. Insulin Dep? No - aspirin, enteric coated (ECOTRIN LOW STRENGTH) 81 mg EC tablet Take 2 tablets by mouth daily at bedtime. - famotidine (PEPCID) 20 mg tablet Take 1 tablet by mouth two times a day. - buPROPion XL (WELLBUTRIN XL) 150 mg 24 hr tablet Take 1 tablet by mouth once daily. - escitalopram oxalate (LEXAPRO) 20 mg tablet Take 1 tablet by mouth once daily - folic acid 1 mg tablet Take 1 tablet by mouth once daily. - pyridoxine, vitamin B6, (VITAMIN B-6) 50 mg tablet Take 1 tablet by mouth two times a day. - ondansetron orally disintegrating (ZOFRAN ODT) 4 mg disintegrating tablet Take 1 tablet by mouth every 8 hours as needed for nausea/vomiting. - olopatadine (PATANOL) 0.1 % ophthalmic solution Use 1 Drop in both eyes two times a day. 1 TO 2 DROPS TO EACH EYE TWICE DAILY NEEDED - triamcinolone acetonide (KENALOG) 0.1 % cream Apply 1 application to affected area twice daily. Apply sparingly to area for rash/itching. - cetirizine HCl (ZYRTEC ORAL) Take by mouth. - albuterol HFA (VENTOLIN HFA) 90 mcg/actuation inhaler Inhale 2 Puffs as instructed every 4 hours as needed. Problem List As Of Date 05/14/2024 Noted Resolved Allergic rhinitis, cause unspecified [J30.9] 06/18/2005 02/12/2024 PMS (premenstrual syndrome) [N94.3] 03/16/2009 03/23/2021 Metrorrhagia [N92.1] 03/16/2009 03/23/2021 Dysmenorrhea [N94.6] 03/16/2009 03/23/2021 Family history of Crohn's disease [Z83.79] 07/16/2011 03/23/2021 Depression affecting [O99.340, F32.A] 08/28/2012 06/11/2021 Essential hypertension [I10] 02/12/2024 Generalized anxiety disorder [F41.1] LINA (obstructive sleep apnea) [G47.33] Fatty liver [K76.0] History of depression [Z86.59] 09/14/2020 Obesity affecting in first trimester *09/14/2020 Nausea and vomiting during [O21.9] 09/14/2020 Chronic hypertension affecting [O10.9*09/14/2020 History of sleep apnea [Z86.69] 09/14/2020 Patient request for diagnostic testing [Z01.89] 09/14/2020 03/23/2021 Rubella non-immune status, antepartum [O09.899,*09/27/2020 Insulin controlled gestational diabetes mellitu*02/14/2021 06/11/2021 Excessive growth affecting management of *02/14/2021 06/11/2021 History of gestational diabetes mellitus (GDM) *06/11/2021 History of section [Z98.891] 02/12/2024 History of miscarriage [Z87.59] 02/12/2024 Anxiety during [O99.340, F41.9] 02/12/2024 Asthma during [O99.519, J45.909] 02/12/2024 Heartburn during in first trimester [*02/12/2024 Vaginal discharge [N89.8] 02/12/2024 H/O gastric sleeve [Z90.3] 02/12/2024 Encounter for supervision of high risk pregnanc*04/28/2024 Encounter Status:Closed by MIRI MIR on 05/14/24 [facility] 05-12-2024 CNPN Telephone (OBGYWM) CAMMIE LOZANO ([id number]) 1995 F Date Time Provider Department 05/12/24 CAMILLA SNELL During your visit today, we recorded the following information about you: Chip Figueroa MA 05/12/2024 12:58 PM Signed Received PA request for blood glucose test strips. PA noted a formulary alternative: OneTouch test strips Please file new order for test strips. HILL Wyatt Annalee, LPN 05/13/2024 2:28 PM Signed Ob patient needs glucose monitor and testing strip Rx sent to pharmacy. Miri Salazar MD 05/13/2024 3:00 PM Signed Chong Daniels RN 05/13/2024 3:57 PM Signed Patient informed Allergies As of Date: 05/12/2024 Noted Allergy Reaction DUST MITES 06/20/2005 PROZAC (FLUOXETINE) 09/12/2016 14 - Other: See Comments Comments: [place] like she had no emotions RAGWEED 06/20/2005 Date Reviewed: 05/11/2024 Reviewed by: Camilla Snell MD - Fully Assessed Reason for Visit: Insurance Authorization [[id number]] Order(s):blood sugar diagnostic (ONETOUCH ULTRA TEST) test stripUse as directed four times a day. Insulin Dep? NoDisp: 100 StripRfl: 1 ONETOUCH ULTRA PLUS FLEX METER miscas directed.Disp: 1 EachRfl: 0 Prescriptions as of 05/13/2024 - blood sugar diagnostic (ONETOUCH ULTRA TEST) test strip Use as directed four times a day. Insulin Dep? No - ONETOUCH ULTRA PLUS FLEX METER misc as directed. - blood sugar diagnostic (TRUE METRIX GLUCOSE TEST STRIP) test strip 1 Strip four times daily. Use with blood glucose test four times a day. Insulin Dep? No - aspirin, enteric coated (ECOTRIN LOW STRENGTH) 81 mg EC tablet Take 2 tablets by mouth daily at bedtime. - famotidine (PEPCID) 20 mg tablet Take 1 tablet by mouth two times a day. - buPROPion XL (WELLBUTRIN XL) 150 mg 24 hr tablet Take 1 tablet by mouth once daily. - escitalopram oxalate (LEXAPRO) 20 mg tablet Take 1 tablet by mouth once daily - folic acid 1 mg tablet Take 1 tablet by mouth once daily. - pyridoxine, vitamin B6, (VITAMIN B-6) 50 mg tablet Take 1 tablet by mouth two times a day. - ondansetron orally disintegrating (ZOFRAN ODT) 4 mg disintegrating tablet Take 1 tablet by mouth every 8 hours as needed for nausea/vomiting. - olopatadine (PATANOL) 0.1 % ophthalmic solution Use 1 Drop in both eyes two times a day. 1 TO 2 DROPS TO EACH EYE TWICE DAILY NEEDED - triamcinolone acetonide (KENALOG) 0.1 % cream Apply 1 application to affected area twice daily. Apply sparingly to area for rash/itching. - cetirizine HCl (ZYRTEC ORAL) Take by mouth. - albuterol HFA (VENTOLIN HFA) 90 mcg/actuation inhaler Inhale 2 Puffs as instructed every 4 hours as needed. Problem List As Of Date 05/12/2024 Noted Resolved Allergic rhinitis, cause unspecified [J30.9] 06/18/2005 02/12/2024 PMS (premenstrual syndrome) [N94.3] 03/16/2009 03/23/2021 Metrorrhagia [N92.1] 03/16/2009 03/23/2021 Dysmenorrhea [N94.6] 03/16/2009 03/23/2021 Family history of Crohn's disease [Z83.79] 07/16/2011 03/23/2021 Depression affecting [O99.340, F32.A] 08/28/2012 06/11/2021 Essential hypertension [I10] 02/12/2024 Generalized anxiety disorder [F41.1] LNIA (obstructive sleep apnea) [G47.33] Fatty liver [K76.0] History of depression [Z86.59] 09/14/2020 Obesity affecting in first trimester *09/14/2020 Nausea and vomiting during [O21.9] 09/14/2020 Chronic hypertension affecting [O10.9*09/14/2020 History of sleep apnea [Z86.69] 09/14/2020 Patient request for diagnostic testing [Z01.89] 09/14/2020 03/23/2021 Rubella non-immune status, antepartum [O09.899,*09/27/2020 Insulin controlled gestational diabetes mellitu*02/14/2021 06/11/2021 Excessive growth affecting management of *02/14/2021 06/11/2021 History of gestational diabetes mellitus (GDM) *06/11/2021 History of section [Z98.891] 02/12/2024 History of miscarriage [Z87.59] 02/12/2024 Anxiety during [O99.340, F41.9] 02/12/2024 Asthma during [O99.519, J45.909] 02/12/2024 Heartburn during in first trimester [*02/12/2024 Vaginal discharge [N89.8] 02/12/2024 H/O gastric sleeve [Z90.3] 02/12/2024 Encounter for supervision of high risk pregnanc*04/28/2024 Prescriptions ordered this encounter Disp Refills Start End BLOOD SUGAR DIAGNOSTIC STRIPS 100 * 1 05/13/2024 Sig: Use as directed four times a day. Insulin Dep? No ONETOUCH ULTRA PLUS FLEX METER 1 Ea* 0 05/13/2024 Route: OTHER Sig: as directed. Encounter Status:Closed by CHONG RANDALL on 05/13/24 Normal [facility] URINE OB DIP B/Oon Glucose Ql (U) 100 mg/dL Neg [facility] Protein.monoclonal (U) [Mass/Vol] Negative Neg mg/dL [facility] Examination level ultrasound on 04-28-2024 Indication Detailed anatomic survey Maternal obesity, BMI >35, Chronic hypertension, history of gastric sleeve Impression REMOTE READ The patient is referred for a detailed anatomic survey. - Single, live, intrauterine . - biometry is consistent with the established gestational age. - No malformations were visualized on a complete detailed anatomic survey. - The amniotic fluid volume is normal amount. - The placenta is posterior, fundal. - The Transabdominal cervical length measures 31.7 mm with no evidence of funneling or other dynamic changes. - Not all structural malformations can be detected by ultrasound examination. Recommendations Additional follow-up as clinically indicated. Maternal Assessment Height 170 cm Height (ft) 5 ft Height (in) 7 in Physical Exam Initial weight (lb) 232 lb Initial BMI 36.34 kg/m Maternal assessment other: 3 Para 1 Method Transabdominal ultrasound examination. View: Suboptimal view: limited by maternal body habitus Dickerson . Number of fetuses: 1 Dating LMP on: 12/18/2023 GA by LMP 18 w + 6 d QUYNH by LMP: 09/23/2024 GA by prior assessment 18 w + 6 d QUYNH by prior assessment: 09/23/2024 Ultrasound examination on: 04/28/2024 GA by U/S based upon: AC, BPD, Femur, HC GA by U/S 18 w + 5 d QUYNH by U/S: 09/24/2024 Assigned: based on stated QUYNH, selected on 04/28/2024 Assigned GA 18 w + 6 d Assigned QUYNH: 09/23/2024 General Evaluation Cardiac activity present. FHR 153 bpm. movements: present. Presentation: breech Placenta: Placental site: posterior, fundal Umbilical cord: Cord vessels: 3 vessel cord Amniotic fluid: Amount of AF: normal amount. MVP 3.1 cm Growth Overview Exam date GA BPD (mm) HC (mm) AC (mm) FL (mm) HL (mm) EFW (g) 04/28/2024 18w 6d 40.1 22% 160.4 48% 136.9 55% 27.8 53% 27.5 49% 258 41% Biometry Standard BPD 40.1 mm 18w 1d 22% Hadlock OFD 59.0 mm 19w 2d 88% Nicolaides HC 160.4 mm 18w 5d 48% Martina Cerebellum tr 18.9 mm 18w 3d 21% Hill Nuchal fold 4.9 mm AC 136.9 mm 19w 1d 55% Hadlock Femur 27.8 mm 18w 4d 53% Martina Humerus 27.5 mm 18w 5d 49% Martina EFW 258 g 18w 5d 41% Hadlock EFW (lb) 0 lb EFW (oz) 9 oz EFW by: Hadlock (HC-AC-FL) Extended Wash House Supervisor 4.4 mm CM 4.0 mm 26% Nicolaides Extremities / Bony Struc FL / HC 0.17 16% Hadlock Other Structures FHR 153 bpm Anatomy Cranium: normal Lateral ventricles: normal Choroid plexus: normal Midline falx: normal Cavum septi pellucidi: normal Cerebellum: normal Cisterna magna: normal Head / Neck Vermis: normal Neck: normal Nuchal fold: normal Lips: normal Profile: normal Nose: normal Face Maxilla: normal Mandible: normal Orbits: normal Lens: normal 4-chamber view: normal RVOT view: normal LVOT view: normal 3-vessel view: normal 3-okdtyz-fdtcgcd view: normal Heart / Thorax Situs: situs solitus (normal) Aortic arch view: normal SVC: normal IVC: normal Cardiac axis: normal Rt lung: normal Lt lung: normal Diaphragm: normal Cord insertion: normal Stomach: normal Kidneys: normal Bladder: normal Genitals: normal Abdomen Abdom. wall: normal Cervical spine: normal Thoracic spine: normal Lumbar spine: normal Sacral spine: normal Arms: normal Legs: normal Rt upper arm: normal Rt forearm: normal Rt hand: normal Rt fingers: normal Lt upper arm: normal Lt forearm: normal Lt hand: normal Lt fingers: normal Rt upper leg: normal Rt lower leg: normal Rt foot: normal Lt upper leg: normal Lt lower leg: normal Lt foot: normal sex: female Wants to know sex: yes Maternal Structures Uterus / Cervix Uterus: Visualized Cervix: Visualized Approach: Transabdominal Cervical length 31.7 mm Other: Patient declined transvaginal ultrasound for cervical length. Ovaries / Tubes / Adnexa Rt ovary: Visualized Lt ovary: Visualized Performed By: Shannon Nolasco RDMS, RVT Read By: Davina Bergeron M.D. MATERNAL MEDICINE [facility] Radiology Study observation (narrative) [facility] 04-22-2024 CNPN Telephone (OBGYWM) CAMMIE LOZANO ([id number]) 1995 F Date Time Provider Department 04/22/24 MIRI SALAAZR During your visit today, we recorded the following information about you: Jess Ríos RN 04/22/2024 9:12 AM Signed 18w0d Patient has continued to get migraines x2 weeks despite trying everything that was recommended, so she bought a new glucometer since she has a h/o gestational diabetes in previous . She tested for the first time this morning 1 hour after her breakfast and it was 159. Asking if she should continue to monitor or do the GTT now instead of waiting until 28 weeks? Next visit is scheduled for 04/28 with Jess MEEK RN Godwin, Jennifer, MD 04/22/2024 9:23 AM Signed No. She can continue to check her blood sugars if she wants but I would not suggest an earlier GTT. Her Hgb A1c was normal in first trimester. And she needs to check with her surgeon. I don't believe she should be doing a GTT with a previous gastric sleeve. Jess Ríos RN 04/22/2024 9:35 AM Signed Patient notified. Jess Ríos RN Allergies As of Date: 04/22/2024 Noted Allergy Reaction DUST MITES 06/20/2005 PROZAC (FLUOXETINE) 09/12/2016 14 - Other: See Comments Comments: [place] like she had no emotions RAGWEED 06/20/2005 Date Reviewed: 03/18/2024 Reviewed by: Camilla Snell MD - Fully Assessed Reason for Visit: Question (OB Question) [5922] Prescriptions as of 04/22/2024 - famotidine (PEPCID) 20 mg tablet Take 1 tablet by mouth two times a day. - buPROPion XL (WELLBUTRIN XL) 150 mg 24 hr tablet Take 1 tablet by mouth once daily. - escitalopram oxalate (LEXAPRO) 20 mg tablet Take 1 tablet by mouth once daily - aspirin, enteric coated (ECOTRIN LOW STRENGTH) 81 mg EC tablet Take 1 tablet by mouth once daily. - folic acid 1 mg tablet Take 1 tablet by mouth once daily. - pyridoxine, vitamin B6, (VITAMIN B-6) 50 mg tablet Take 1 tablet by mouth two times a day. - ondansetron orally disintegrating (ZOFRAN ODT) 4 mg disintegrating tablet Take 1 tablet by mouth every 8 hours as needed for nausea/vomiting. - olopatadine (PATANOL) 0.1 % ophthalmic solution Use 1 Drop in both eyes two times a day. 1 TO 2 DROPS TO EACH EYE TWICE DAILY NEEDED - triamcinolone acetonide (KENALOG) 0.1 % cream Apply 1 application to affected area twice daily. Apply sparingly to area for rash/itching. - cetirizine HCl (ZYRTEC ORAL) Take by mouth. - albuterol HFA (VENTOLIN HFA) 90 mcg/actuation inhaler Inhale 2 Puffs as instructed every 4 hours as needed. Problem List As Of Date 04/22/2024 Noted Resolved Allergic rhinitis, cause unspecified [J30.9] 06/18/2005 02/12/2024 PMS (premenstrual syndrome) [N94.3] 03/16/2009 03/23/2021 Metrorrhagia [N92.1] 03/16/2009 03/23/2021 Dysmenorrhea [N94.6] 03/16/2009 03/23/2021 Family history of Crohn's disease [Z83.79] 07/16/2011 03/23/2021 Depression affecting [O99.340, F32.A] 08/28/2012 06/11/2021 Essential hypertension [I10] 02/12/2024 Generalized anxiety disorder [F41.1] LINA (obstructive sleep apnea) [G47.33] Fatty liver [K76.0] History of depression [Z86.59] 09/14/2020 Obesity affecting in first trimester *09/14/2020 Nausea and vomiting during [O21.9] 09/14/2020 Chronic hypertension affecting [O10.9*09/14/2020 History of sleep apnea [Z86.69] 09/14/2020 Patient request for diagnostic testing [Z01.89] 09/14/2020 03/23/2021 Rubella non-immune status, antepartum [O09.899,*09/27/2020 Insulin controlled gestational diabetes mellitu*02/14/2021 06/11/2021 Excessive growth affecting management of *02/14/2021 06/11/2021 History of gestational diabetes mellitus (GDM) *06/11/2021 History of section [Z98.891] 02/12/2024 History of miscarriage [Z87.59] 02/12/2024 Anxiety during [O99.340, F41.9] 02/12/2024 Asthma during [O99.519, J45.909] 02/12/2024 Heartburn during in first trimester [*02/12/2024 Vaginal discharge [N89.8] 02/12/2024 H/O gastric sleeve [Z90.3] 02/12/2024 Encounter Status:Closed by JESS RÍOS on 04/22/24 [facility] 04-13-2024 CNPN Telephone (OBGYWM) CAMMIE LOZANO ([id number]) 1995 F Date Time Provider Department 04/13/24 CAMILLA SNELL During your visit today, we recorded the following information about you: Miri Mir RN 04/13/2024 8:16 AM Signed 16w5d Patient called with c/o a constant headache since Friday of last week. At it's worst, it was an 8 on the pain scale, but on average it's a 6. Tylenol 1,000 MG brings it down to a 2. Denies vision changes or dizziness with the headache. It's all up front and behind her eyes. Has allergies, but takes Zyrtec daily. Has some congestion, but no drainage. Drinking lots of water during the day and a cup of coffee in the AM. Briefly discussed Magnesium, but told patient would check with provider first. ZULMA Blum Karmon, MD 04/13/2024 9:35 AM Signed Agree with recommendations. She can start magnesium oxide 400 or 420mg daily. If headache persists she should see her pcp. MD Christian Lay Trisha, RN 04/13/2024 9:58 AM Signed Left message for patient to call office. Jess Ríos RN Allergies As of Date: 04/13/2024 Noted Allergy Reaction DUST MITES 06/20/2005 PROZAC (FLUOXETINE) 09/12/2016 14 - Other: See Comments Comments: [place] like she had no emotions RAGWEED 06/20/2005 Date Reviewed: 03/18/2024 Reviewed by: Camilla Snell MD - Fully Assessed Reason for Visit: OB ROCHA [Other] Prescriptions as of 04/13/2024 - famotidine (PEPCID) 20 mg tablet Take 1 tablet by mouth two times a day. - buPROPion XL (WELLBUTRIN XL) 150 mg 24 hr tablet Take 1 tablet by mouth once daily. - escitalopram oxalate (LEXAPRO) 20 mg tablet Take 1 tablet by mouth once daily - aspirin, enteric coated (ECOTRIN LOW STRENGTH) 81 mg EC tablet Take 1 tablet by mouth once daily. - folic acid 1 mg tablet Take 1 tablet by mouth once daily. - pyridoxine, vitamin B6, (VITAMIN B-6) 50 mg tablet Take 1 tablet by mouth two times a day. - ondansetron orally disintegrating (ZOFRAN ODT) 4 mg disintegrating tablet Take 1 tablet by mouth every 8 hours as needed for nausea/vomiting. - olopatadine (PATANOL) 0.1 % ophthalmic solution Use 1 Drop in both eyes two times a day. 1 TO 2 DROPS TO EACH EYE TWICE DAILY NEEDED - triamcinolone acetonide (KENALOG) 0.1 % cream Apply 1 application to affected area twice daily. Apply sparingly to area for rash/itching. - cetirizine HCl (ZYRTEC ORAL) Take by mouth. - albuterol HFA (VENTOLIN HFA) 90 mcg/actuation inhaler Inhale 2 Puffs as instructed every 4 hours as needed. Problem List As Of Date 04/13/2024 Noted Resolved Allergic rhinitis, cause unspecified [J30.9] 06/18/2005 02/12/2024 PMS (premenstrual syndrome) [N94.3] 03/16/2009 03/23/2021 Metrorrhagia [N92.1] 03/16/2009 03/23/2021 Dysmenorrhea [N94.6] 03/16/2009 03/23/2021 Family history of Crohn's disease [Z83.79] 07/16/2011 03/23/2021 Depression affecting [O99.340, F32.A] 08/28/2012 06/11/2021 Essential hypertension [I10] 02/12/2024 Generalized anxiety disorder [F41.1] LINA (obstructive sleep apnea) [G47.33] Fatty liver [K76.0] History of depression [Z86.59] 09/14/2020 Obesity affecting in first trimester *09/14/2020 Nausea and vomiting during [O21.9] 09/14/2020 Chronic hypertension affecting [O10.9*09/14/2020 History of sleep apnea [Z86.69] 09/14/2020 Patient request for diagnostic testing [Z01.89] 09/14/2020 03/23/2021 Encounter for supervision of high risk pregnanc*09/25/2020 Rubella non-immune status, antepartum [O09.899,*09/27/2020 Insulin controlled gestational diabetes mellitu*02/14/2021 06/11/2021 Excessive growth affecting management of *02/14/2021 06/11/2021 History of gestational diabetes mellitus (GDM) *06/11/2021 History of section [Z98.891] 02/12/2024 History of miscarriage [Z87.59] 02/12/2024 Anxiety during [O99.340, F41.9] 02/12/2024 Asthma during [O99.519, J45.909] 02/12/2024 Heartburn during in first trimester [*02/12/2024 Vaginal discharge [N89.8] 02/12/2024 H/O gastric sleeve [Z90.3] 02/12/2024 Encounter Status:Closed by JESS RÍOS on 04/13/24 Normal [facility] BACTERIAL VAGINOSIS NAATon 1 04-14-2023 Lactobacillus crispatus+gasseri+j ensenii + Gardnerella vaginalis + Atopobium vaginae rRNA DIXIE+probe Ql (Vag fld) Detected Abnormal Not detected [facility] Comment on above: Order Comment: Speci men Type: BLOOD SPECIMEN Ordering Facility: [facility] Address: [address] [place] [address] Performed By: #### 5 195-3, 96935-9, 34000-3 #### [facility] CLIA [id number] [address] [place] [address] [place] [address] [place] Bacteria Ur Culton 4 Bacteria identified Cx Nom (U) ORGANISM ID: 1 10,000 -<50,000 CFU/ml Normal urogenital bj Normal [facility] Comment on above: Performed By: #### 5 195-3, 99452-9, 48830-1 #### [facility] CLIA [id number] [address] [place] [address] [place] C. trachomatis+N. gonorrhoea e DNA DIXIE+probe Ql (Unsp spec)on 02-12-2024 C. trachomatis rRNA DIXIE+probe Ql (Unsp spec) Not detected Normal Not detected [facility] Comment on above: Order Comment: Speci men Type: BLOOD SPECIMEN Ordering Facility: [facility] Address: [address] [place] [address] Performed By: #### 5 195-3, 08528-6, 44537-9 #### [facility] CLIA [id number] [address] [place] [address] [place] N. gonorrhoeae rRNA DIXIE+probe Ql (Unsp spec) Not detected Normal Not detected [facility] Comment on above: Order Comment: Speci men Type: BLOOD SPECIMEN Ordering Facility: [facility] Address: [address] [place] [address] Performed By: #### 5 195-3, 81494-2, 91424-6 #### [facility] CLIA [id number] [address] [place] [address] [place] BATSHEVA/TRICHOMONAS NAATon 1 04-14-2023 C. glabrata RNA DIXIE+probe Ql (Vag fld) Not detected Normal Not detected [facility] Comment on above: Order Comment: Speci men Type: BLOOD SPECIMEN Ordering Facility: [facility] Address: [address] [place] [address] Performed By: #### 5 195-3, 99013-9, 73890-2 #### [facility] CLIA [id number] [address] [place] [address] [place] Batsheva sp DNA DIXIE+probe Ql (Vag fld) Detected Abnormal Not detected [facility] Comment on above: Order Comment: Speci men Type: BLOOD SPECIMEN Ordering Facility: [facility] Address: [address] [place] [address] Result Comment: The Batsheva species group target includes C. albicans, C. tropicalis, C. parapsilosis, and C. dubliniensis. Performed By: #### 5 195-3, 66298-6, 23535-4 #### [facility] CLIA [id number] [address] [place] [address] [place] T. vaginalis DNA DIXIE+probe Ql (Unsp spec) Not detected Normal Not detected [facility] Comment on above: Order Comment: Speci men Type: BLOOD SPECIMEN Ordering Facility: [facility] Address: [address] [place] [address] Performed By: #### 5 195-3, 99131-2, 80744-8 #### [facility] CLIA [id number] [address] [place] [address] [place] CBC W Auto Differential pane l (Bld)on 02-12-2024 Basophils (Bld) [#/Vol] 0.03 10*3/uL Normal <0.11 [facility] Comment on above: Order Comment: Speci men Type: BLOOD SPECIMEN Ordering Facility: [facility] Address: [address] [place] [address] Performed By: #### 5 195-3, 31009-7, 16464-6 #### [facility] CLIA [id number] [address] [place] [address] [place] Basophils/100 WBC (Bld) 0.5 % Normal [facility] Comment on above: Order Comment: Speci men Type: BLOOD SPECIMEN Ordering Facility: [facility] Address: [address] [place] [address] Performed By: #### 5 195-3, 75137-7, 06675-5 #### [facility] CLIA [id number] [address] [place] [address] [place] Differential cell count method Nom (Bld) Auto Normal [facility] Comment on above: Order Comment: Speci men Type: BLOOD SPECIMEN Ordering Facility: [facility] Address: [address] [place] [address] Performed By: #### 5 195-3, 59710-3, 07821-6 #### [facility] CLIA [id number] [address] [place] [address] [place] Eosinophils (Bld) [#/Vol] 0.08 10*3/uL Normal <0.46 [facility] Comment on above: Order Comment: Speci men Type: BLOOD SPECIMEN Ordering Facility: [facility] Address: [address] [place] [address] Performed By: #### 5 195-3, 98186-2, 87833-3 #### [facility] CLIA [id number] [address] [place] [address] [place] Eosinophils/100 WBC (Bld) 1.3 % Normal [facility] Comment on above: Order Comment: Speci men Type: BLOOD SPECIMEN Ordering Facility: [facility] Address: [address] [place] [address] Performed By: #### 5 195-3, 55248-7, 70070-5 #### [facility] CLIA [id number] [address] [place] [address] [place] Erythrocyte distribution width (RBC) [Ratio] 12.6 % Normal 11.5-15.0 [facility] Comment on above: Order Comment: Speci men Type: BLOOD SPECIMEN Ordering Facility: [facility] Address: [address] [place] [address] Performed By: #### 5 195-3, 48862-2, 34370-7 #### [facility] CLIA [id number] [address] [place] [address] [place] Hematocrit (Bld) [Volume fraction] 37.7 % Normal 36.0-46.0 [facility] Comment on above: Order Comment: Speci men Type: BLOOD SPECIMEN Ordering Facility: [facility] Address: [address] [place] [address] Performed By: #### 5 195-3, 92018-8, 33666-0 #### [facility] CLIA [id number] [address] [place] [address] [place] Hemoglobin (Bld) [Mass/Vol] 13.3 g/dL Normal 11.5-15.5 [facility] Comment on above: Order Comment: Speci men Type: BLOOD SPECIMEN Ordering Facility: [facility] Address: [address] [place] [address] Performed By: #### 5 195-3, 32396-0, 48416-2 #### [facility] CLIA [id number] [address] [place] [address] [place] Immature granulocytes (Bld) [#/Vol] 10*3/uL Normal <0.10 [facility] Comment on above: Order Comment: Speci men Type: BLOOD SPECIMEN Ordering Facility: [facility] Address: [address] [place] [address] Performed By: #### 5 195-3, 50712-9, 24354-3 #### [facility] CLIA [id number] [address] [place] [address] [place] Immature granulocytes/100 WBC (Bld) 0.3 % Normal [facility] Comment on above: Order Comment: Speci men Type: BLOOD SPECIMEN Ordering Facility: [facility] Address: [address] [place] [address] Performed By: #### 5 195-3, 71100-1, 19150-1 #### [facility] CLIA [id number] [address] [place] [address] [place] Lymphocytes (Bld) [#/Vol] 1.45 10*3/uL Normal 1.00-4.00 [facility] Comment on above: Order Comment: Speci men Type: BLOOD SPECIMEN Ordering Facility: [facility] Address: [address] [place] [address] Performed By: #### 5 195-3, 82757-8, 12706-0 #### [facility] CLIA [id number] [address] [place] [address] [place] Lymphocytes/100 WBC (Bld) 23.2 % Normal [facility] Comment on above: Order Comment: Speci men Type: BLOOD SPECIMEN Ordering Facility: [facility] Address: [address] [place] [address] Performed By: #### 5 195-3, 39697-9, 87373-4 #### [facility] CLIA [id number] [address] [place] [address] [place] MCH (RBC) [Entitic mass] 30.4 pg Normal 26.0-34.0 [facility] Comment on above: Order Comment: Speci men Type: BLOOD SPECIMEN Ordering Facility: [facility] Address: [address] [place] [address] Performed By: #### 5 195-3, 90712-7, 04772-7 #### [facility] CLIA [id number] [address] [place] [address] [place] MCHC (RBC) [Mass/Vol] 35.3 g/dL Normal 30.5-36.0 [facility] Comment on above: Order Comment: Speci men Type: BLOOD SPECIMEN Ordering Facility: [facility] Address: [address] [place] [address] Performed By: #### 5 195-3, 34247-7, 62378-1 #### [facility] CLIA [id number] [address] [place] [address] [place] MCV (RBC) [Entitic vol] 86.1 fL Normal 80.0-100.0 [facility] Comment on above: Order Comment: Speci men Type: BLOOD SPECIMEN Ordering Facility: [facility] Address: [address] [place] [address] Performed By: #### 5 195-3, 89119-3, 93135-7 #### [facility] CLIA [id number] [address] [place] [address] [place] Monocytes (Bld) [#/Vol] 0.43 10*3/uL Normal <0.87 [facility] Comment on above: Order Comment: Speci men Type: BLOOD SPECIMEN Ordering Facility: [facility] Address: [address] [place] [address] Performed By: #### 5 195-3, 14892-6, 35278-5 #### [facility] CLIA [id number] [address] [place] [address] [place] Monocytes/100 WBC (Bld) 6.9 % Normal [facility] Comment on above: Order Comment: Speci men Type: BLOOD SPECIMEN Ordering Facility: [facility] Address: [address] [place] [address] Performed By: #### 5 195-3, 62409-1, 50023-7 #### [facility] CLIA [id number] [address] [place] [address] [place] Neutrophils (Bld) [#/Vol] 4.24 10*3/uL Normal 1.45-7.50 [facility] Comment on above: Order Comment: Speci men Type: BLOOD SPECIMEN Ordering Facility: [facility] Address: [address] [place] [address] Performed By: #### 5 195-3, 95027-2, 22373-0 #### [facility] CLIA [id number] [address] [place] [address] [place] Neutrophils/100 WBC (Bld) 67.8 % Normal [facility] Comment on above: Order Comment: Speci men Type: BLOOD SPECIMEN Ordering Facility: [facility] Address: [address] [place] [address] Performed By: #### 5 195-3, 62012-1, 15303-3 #### [facility] CLIA [id number] [address] [place] [address] [place] Nucleated RBC (Bld) [#/Vol] 10*3/uL Normal <0.01 [facility] Comment on above: Order Comment: Speci men Type: BLOOD SPECIMEN Ordering Facility: [facility] Address: [address] [place] [address] Performed By: #### 5 195-3, 81458-4, 69149-8 #### [facility] CLIA [id number] [address] [place] [address] [place] Nucleated RBC/100 WBC (Bld) [Ratio] 0.0 /100 WBC Normal [facility] Comment on above: Order Comment: Speci men Type: BLOOD SPECIMEN Ordering Facility: [facility] Address: [address] [place] [address] Performed By: #### 5 195-3, 54774-0, 36393-3 #### [facility] [facility] CLIA [id number] [address] [place] [address] [place] Platelet mean volume (Bld) [Entitic vol] 11.4 fL Normal 9.0-12.7 [facility] Comment on above: Order Comment: Speci men Type: BLOOD SPECIMEN Ordering Facility: [facility] Address: [address] [place] [address] Performed By: #### 5 195-3, 04221-2, 43810-4 #### [facility] CLIA [id number] [address] [place] [address] [place] Platelets (Bld) [#/Vol] 220 10*3/uL Normal 150-400 [facility] Comment on above: Order Comment: Speci men Type: BLOOD SPECIMEN Ordering Facility: [facility] Address: [address] [place] [address] Performed By: #### 5 195-3, 56415-1, 70375-6 #### [facility] CLIA [id number] [address] [place] [address] [place] RBC (Bld) [#/Vol] 4.38 10*6/uL Normal 3.90-5.20 [facility] Comment on above: Order Comment: Speci men Type: BLOOD SPECIMEN Ordering Facility: [facility] Address: [address] [place] [address] Performed By: #### 5 195-3, 57104-4, 76398-5 #### [facility] CLIA [id number] [address] [place] [address] OF [facility] WBC (Bld) [#/Vol] 6.25 10*3/uL Normal 3.70-11.00 [facility] Comment on above: Order Comment: Speci men Type: BLOOD SPECIMEN Ordering Facility: [facility] Address: [address] [place] [address] Performed By: #### 5 195-3, 21664-0, 86796-7 #### [facility] CLIA [id number] [address] [place] [address] [place] [facility] Comprehensive metabolic 2000 panelOrdered By: Shanti Ricardo on 02-12-2024 Albumin [Mass/Vol] 4.2 g/dL 3.9 - 4.9 g/dL [facility] ALP [Catalytic activity/Vol] 60 U/L 34 - 123 U/L [facility] ALT [Catalytic activity/Vol] 15 U/L 7 - 38 U/L [facility] Anion gap [Moles/Vol] 11 mmol/L 8 - 15 mmol/L [facility] AST [Catalytic activity/Vol] 12 U/L Low 13 - 35 U/L [facility] Bilirubin [Mass/Vol] 0.2 mg/dL 0.2 - 1.3 mg/dL [facility] Calcium [Mass/Vol] 9.2 mg/dL 8.5 - 10.2 mg/dL [facility] Chloride [Moles/Vol] 103 mmol/L 98 - 107 mmol/L [facility] CO2 [Moles/Vol] 23 mmol/L 22 - 30 mmol/L [facility] Creatinine [Mass/Vol] 0.56 mg/dL Low 0.58 - 0.96 mg/dL [facility] GFR/1.73 sq M.predicted among non-blacks MDRD (S/P/Bld) [Vol rate/Area] 127 mL/min/{1.73_m2} - PINF [facility] Comment on above: Estimated Glomerular Filtration Rate (eGFR) is calculated using the 2020 CKD-EPI creatinine equation. This equation utilizes serum creatinine, sex, and age as parameters. The creatinine assay has traceable calibration to isotope dilution-mass spectrometry. Refer to KDIGO guidelines for clinical interpretation. In patients with unstable renal function, e.g. those with acute kidney injury, the eGFR may not accurately reflect actual GFR. Glucose [Mass/Vol] 81 mg/dL 74 - 99 mg/dL [facility] Comment on above: The [place] Diabete s Association (ADA) provides guidance for cutoff values for fasting glucose and random glucose. The ADA defines fasting as no caloric intake for at least 8 hours. Fasting plasma glucose results between 100 to 125 mg/dL indicate increased risk for diabetes (prediabetes). Fasting plasma glucose results greater than or equal to 126 mg/dL meet the criteria for diagnosis of diabetes. In the absence of unequivocal hyperglycemia, results should be confirmed by repeat testing. In a patient with classic symptoms of hyperglycemia or hyperglycemic crisis, random plasma glucose results greater than or equal to 200 mg/dL meet the criteria for diagnosis of diabetes. Reference: Standards of Medical Care in Diabetes 2016, [place] Diabetes Association. Diabetes Care. 2016.39(Suppl 1). Interpretation and review of laboratory results Abnormal [facility] Potassium [Moles/Vol] 4.2 mmol/L 3.7 - 5.1 mmol/L [facility] Protein [Mass/Vol] 7.0 g/dL 6.3 - 8.0 g/dL [facility] Sodium [Moles/Vol] 137 mmol/L 136 - 144 mmol/L [facility] Urea nitrogen [Mass/Vol] 8 mg/dL 7 - 21 mg/dL [facility] Comprehensive metabolic 2000 panelon 02-12-2024 Albumin [Mass/Vol] 4.2 g/dL Normal 3.9-4.9 [facility] Comment on above: Order Comment: Speci men Type: BLOOD SPECIMEN Ordering Facility: [facility] Address: [address] [place], [place] [address] [address] Performed By: #### 5 195-3, 92454-9, 29752-7 #### [facility] CLIA [id number] [address] [place] [address] [place] ALP [Catalytic activity/Vol] 60 U/L Normal 34-123 [facility] Comment on above: Order Comment: Speci men Type: BLOOD SPECIMEN Ordering Facility: [facility] Address: [address] [place] [address] Performed By: #### 5 195-3, 06084-5, 52354-0 #### [facility] CLIA [id number] [address] [place] [address] [place] ALT [Catalytic activity/Vol] 15 U/L Normal 7-38 [facility] Comment on above: Order Comment: Speci men Type: BLOOD SPECIMEN Ordering Facility: [facility] Address: [address] [place] [address] Performed By: #### 5 195-3, 80724-3, 03663-7 #### [facility] CLIA [id number] [address] [place] [address] [place] Anion gap [Moles/Vol] 11 mmol/L Normal 8-15 [facility] Comment on above: Order Comment: Speci men Type: BLOOD SPECIMEN Ordering Facility: [facility] Address: [address] [place] [address] Performed By: #### 5 195-3, 45713-8, 32375-8 #### [facility] CLIA [id number] [address] [place] [address] [place] AST [Catalytic activity/Vol] 12 U/L Low 13-35 [facility] Comment on above: Order Comment: Speci men Type: BLOOD SPECIMEN Ordering Facility: [facility] Address: [address] [place] [address] Performed By: #### 5 195-3, 21110-8, 27484-7 #### [facility] CLIA [id number] [address] [place] [address] [place] Bilirubin [Mass/Vol] 0.2 mg/dL Normal 0.2-1.3 [facility] Comment on above: Order Comment: Speci men Type: BLOOD SPECIMEN Ordering Facility: [facility] Address: [address] [place] [address] Performed By: #### 5 195-3, 77007-2, 78616-9 #### [facility] CLIA [id number] [address] [place] [address] [place] Calcium [Mass/Vol] 9.2 mg/dL Normal 8.5-10.2 [facility] Comment on above: Order Comment: Speci men Type: BLOOD SPECIMEN Ordering Facility: [facility] Address: [address] [place] [address] Performed By: #### 5 195-3, 20524-7, 00487-1 #### [facility] CLIA [id number] [address] [place] [address] [place] Chloride [Moles/Vol] 103 mmol/L Normal 98-107 [facility] Comment on above: Order Comment: Speci men Type: BLOOD SPECIMEN Ordering Facility: [facility] Address: [address] [place] [address] Performed By: #### 5 195-3, 96417-0, 07378-8 #### [facility] CLIA [id number] [address] [place] [address] [place] CO2 [Moles/Vol] 23 mmol/L Normal 22-30 [facility] Comment on above: Order Comment: Speci men Type: BLOOD SPECIMEN Ordering Facility: [facility] Address: [address] [place] [address] Performed By: #### 5 195-3, 51470-5, 26326-7 #### [facility] CLIA [id number] [address] [place] [address] [place] Creatinine [Mass/Vol] 0.56 mg/dL Low 0.58-0.96 [facility] Comment on above: Order Comment: Speci men Type: BLOOD SPECIMEN Ordering Facility: [facility] Address: [address] [place] [address] Performed By: #### 5 195-3, 28931-9, 71268-0 #### [facility] CLIA [id number] [address] [place] [address] [place] Creatinine and Glomerular filtration rate.predicted panel (S/P/Bld) 127 mL/min/1.73m??? Normal >=60 [facility] Comment on above: Order Comment: Briana armijo Type: BLOOD SPECIMEN Ordering Facility: [facility] Address: [address] [place] [address] Result Comment: Bhakti mated Glomerular Filtration Rate (eGFR) is calculated using the 2020 CKD-EPI creatinine equation. This equation utilizes serum creatinine, sex, and age as parameters. The creatinine assay has traceable calibration to isotope dilution-mass spectrometry. Refer to KDIGO guidelines for clinical interpretation. In patients with unstable renal function, e.g. those with acute kidney injury, the eGFR may not accurately reflect actual GFR. Performed By: #### 5 195-3, 15726-7, 75129-7 #### [facility] CLIA [id number] [address] [place] [address] [place] Glucose [Mass/Vol] 81 mg/dL Normal 74-99 [facility] Comment on above: Order Comment: Briana armijo Type: BLOOD SPECIMEN Ordering Facility: [facility] Address: [address] [place] [address] Result Comment: The [place] Diabetes Association (ADA) provides guidance for cutoff values for fasting glucose and random glucose. The ADA defines fasting as no caloric intake for at least 8 hours. Fasting plasma glucose results between 100 to 125 mg/dL indicate increased risk for diabetes (prediabetes). Fasting plasma glucose results greater than or equal to 126 mg/dL meet the criteria for diagnosis of diabetes. In the absence of unequivocal hyperglycemia, results should be confirmed by repeat testing. In a patient with classic symptoms of hyperglycemia or hyperglycemic crisis, random plasma glucose results greater than or equal to 200 mg/dL meet the criteria for diagnosis of diabetes. Reference: Standards of Medical Care in Diabetes 2016, [place] Diabetes Association. Diabetes Care. 2016.39(Suppl 1). Performed By: #### 5 195-3, 89340-1, 40303-4 #### [facility] CLIA [id number] [address] [place] [address] [place] Potassium [Moles/Vol] 4.2 mmol/L Normal 3.7-5.1 [facility] Comment on above: Order Comment: Speci men Type: BLOOD SPECIMEN Ordering Facility: [facility] Address: [address] [place] [address] Performed By: #### 5 195-3, 91158-4, 57394-6 #### [facility] CLIA [id number] [address] [place] [address] [place] Protein [Mass/Vol] 7.0 g/dL Normal 6.3-8.0 [facility] Comment on above: Order Comment: Speci men Type: BLOOD SPECIMEN Ordering Facility: [facility] Address: [address] [place] [address] Performed By: #### 5 195-3, 88035-7, 03514-0 #### [facility] CLIA [id number] [address] [place] [address] [place] Sodium [Moles/Vol] 137 mmol/L Normal 136-144 [facility] Comment on above: Order Comment: Speci men Type: BLOOD SPECIMEN Ordering Facility: [facility] Address: [address] [place] [address] Performed By: #### 5 195-3, 12146-6, 58232-5 #### [facility] CLIA [id number] [address] [place], [place] [address] [place] Urea nitrogen [Mass/Vol] 8 mg/dL Normal 7-21 [facility] Comment on above: Order Comment: Speci men Type: BLOOD SPECIMEN Ordering Facility: [facility] Address: [address] [place] [address] Performed By: #### 5 195-3, 53572-0, 63967-0 #### [facility] CLIA [id number] [address] [place] [address] [place] HBV surface Ag Ser Qlon 01-18 HBV surface Ag Ql (S) Negative Normal Negative [facility] Comment on above: Order Comment: Speci men Type: BLOOD SPECIMEN Ordering Facility: [facility] Address: [address] [place] [address] Performed By: #### 5 195-3, 65010-4, 03224-8 #### [facility] CLIA [id number] [address] [place] [address] [place] HCV Ab Ser Qlon 02-12-2024 HCV Ab Ql (S) Negative Normal Negative [facility] Comment on above: Order Comment: Speci men Type: BLOOD SPECIMEN Ordering Facility: [facility] Address: [address] [place] [address] Result Comment: The result suggests no evidence of active infection with Hepatitis C virus. Should recent infection be suspected, repeat testing may be considered 4-6 weeks after this draw. Performed By: #### 5 195-3, 03504-7, 32282-4 #### [facility] CLIA [id number] [address] [place] [address] [place] HIV 1+2 Ab IA Qlon HIV 1 and 2 Ab IA.rapid Nom (S/P/Bld) Normal [facility] Comment on above: Order Comment: Speci men Type: BLOOD SPECIMEN Ordering Facility: [facility] Address: [address] [place] [address] Result Comment: Test not indicated. Performed By: #### 5 195-3, 52138-6, 24363-2 #### [facility] CLIA [id number] [address] [place] [address] [place] HIV 1+2 Ab+HIV1 p24 Ag IA Ql Non-Reactive Normal Nonreactive [facility] Comment on above: Order Comment: Speci men Type: BLOOD SPECIMEN Ordering Facility: [facility] Address: [address] [place] [address] Performed By: #### 5 195-3, 95586-6, 73947-7 #### [facility] CLIA [id number] [address] [place] [address] [place] HIV immunoassay testing algorithm interpretation (S/P/Bld) [Interp] Normal [facility] Comment on above: Order Comment: Speci men Type: BLOOD SPECIMEN Ordering Facility: [facility] Address: [address] [place] [address] Result Comment: No e vidence of HIV-1 or HIV-2 infection. Should recent infection be suspected, repeat testing may be considered 2-3 weeks after this draw. [place] Rev. Code 3701.243(E): This information has been disclosed to you from confidential records protected from disclosure by state law. ???You shall make no further disclosure of this information without the specific, written, and informed release of the individual to whom it pertains or as otherwise permitted by state law. A general authorization for the release of medical or other information is not sufficient for the purpose of the release of HIV test results or diagnoses. Performed By: #### 5 195-3, 26445-5, 29155-8 #### [facility] CLIA [id number] [address] [place] [address] [place] HbA1c (Bld)on 02-12-2024 Average glucose Estimated from glycated hemoglobin (Bld) [Mass/Vol] 91 mg/dL Normal [facility] Comment on above: Order Comment: Speci men Type: BLOOD SPECIMEN Ordering Facility: [facility] Address: [address] [place] [address] Result Comment: eAG: (Estimated average glucose) is a calculated value from HgbA1c and is ambulatory service representative of the average blood glucose level in the last 2-3 month period. Performed By: #### 5 195-3, 84056-4, 88997-0 #### [facility] CLIA [id number] [address] [place] [address] [place] HbA1c (Bld) [Mass fraction] 4.8 % Normal 4.3-5.6 [facility] Comment on above: Order Comment: Speci men Type: BLOOD SPECIMEN Ordering Facility: [facility] Address: [address] [place] [address] Result Comment: [place] Diabetes Association guidelines indicate that patients with HgbA1c in the range 5.7-6.4% are at increased risk for development of diabetes, and intervention by lifestyle modification may be beneficial. HgbA1c greater or equal to 6.5% is considered diagnostic of diabetes. Performed By: #### 5 195-3, 04292-4, 64153-8 #### [facility] CLIA [id number] [address] [place] [address] [place] [facility] LIAISON ULTRASOUNDon 02-12-20 Indication Viability; confirm cardiac activity Impression Single intrauterine gestational sac, CRL is appropriate for clinical dates, corresponding to QUYNH 09/23/2024 cardiac activity is visualized Recommendations Follow up for NT scan if desired Method Transabdominal ultrasound examination, Transvaginal ultrasound examination. View: Adequate visualization Dickerson . Number of embryos: 1 Dating LMP on: 12/18/2023 GA by LMP 8 w + 0 d QUYNH by LMP: 09/23/2024 Ultrasound examination on: 02/12/2024 GA by U/S based upon: CRL GA by U/S 8 w + 0 d QUYNH by U/S: 09/23/2024 Assigned: based on the LMP, selected on 02/12/2024 Assigned GA 8 w + 0 d Assigned QUYNH: 09/23/2024 Biometry Standard FHR 182 bpm CRL 16.1 mm 8w 0d 86% Hadlock Assessment Gestational sac: visualized Location: intrauterine Yolk sac: visualized Embryo: visualized CRL 16.1 mm 8w 0d 86% Hadlock Cardiac activity: present FHR 182 bpm General Evaluation Cardiac activity present. FHR 182 bpm Performed By: Dutch Richards NP Read By: Dutch Richards NP MATERNAL MEDICINE [facility] Radiology Study observation (narrative) [facility] Prot/Creat Uron 02-12-2024 Protein/Creatinine (U) [Mass ratio] mg/g Normal <0.15 [facility] Comment on above: Order Comment: Speci men Type: URINE SPECIMEN Ordering Facility: [facility] Address: [address] [place] [address] Result Comment: Adul t Proteinuria Categories: <0.15 mg/mg is considered normal to mildly increased 0.15 - 0.50 mg/mg is considered moderately increased >0.50 mg/mg is considered severely increased KDIGO. (2013). KDIGO 2012 Clinical Practice Guideline for the Evaluation and Management of Chronic Kidney Disease. Official Journal of the International Society of Nephrology, 3(1), 1-150. Performed By: #### 2 890-2 #### [facility] CLIA [id number] [address] [place] [address] [place] Protein/Creatinine (U) [Mass ratio]on 02-12-2024 Creatinine (U) [Mass/Vol] 63.3 mg/dL Normal 20.0-300.0 [facility] Comment on above: Order Comment: Speci men Type: URINE SPECIMEN Ordering Facility: [facility] Address: [address] [place] [address] Performed By: #### 2 890-2 #### [facility] CLIA [id number] [address] [place] [address] [place] Protein (U) [Mass/Vol] mg/dL Normal 0-20 [facility] Comment on above: Order Comment: Speci men Type: URINE SPECIMEN Ordering Facility: [facility] Address: [address] [place] [address] Performed By: #### 2 890-2 #### [facility] CLIA [id number] [address] [place] [address] [place] RUBELLA IGG ANTIBODYon 02-11 RUBELLA IGG AB, QUAL Positive Normal Positive [facility] Comment on above: Order Comment: Speci men Type: BLOOD SPECIMEN Ordering Facility: [facility] Address: [address] [place] [address] Result Comment: The result suggests recent or past exposure to Rubella virus or history of Rubella vaccination. Positive result may also be seen due to presence of passively-transferred antibodies. Please correlate with patient's history. Performed By: #### 5 195-3, 80409-7, 77892-5 #### [facility] CLIA [id number] [address] [place] [address] [place] Reagin and Treponema pallidu m IgG and IgM [Interp]on 02-12-2024 T. pallidum IgG+IgM IA Ql (S) Non-Reactive Normal Nonreactive [facility] Comment on above: Order Comment: Speci men Type: BLOOD SPECIMEN Ordering Facility: [facility] Address: [address] [place] [address] Performed By: #### 5 195-3, 92221-3, 81719-1 #### [facility] CLIA [id number] [address] [place] [address] [place] Reagin+T pallidum IgG+IgM Se rPl-Impon 02-12-2024 Reagin and Treponema pallidum IgG and IgM [Interp] Cannot exclude recent Treponemal infection if specimen collected within 7-10 days after appearance of suspect lesions or 2-3 weeks after an exposure. Clinical correlation is required. Normal [facility] Comment on above: Order Comment: Speci zofia Type: BLOOD SPECIMEN Ordering Facility: [facility] Address: [address] [place] [address] Performed By: #### 5 195-3, 29600-2, 92590-9 #### [facility] CLIA [id number] [address] [place] [address] [place] TSH SerPl-aCncon 02-12-2024 TSH Qn 1.260 m[IU]/L Normal 0.270-4.200 [facility] Comment on above: Order Comment: Speci men Type: BLOOD SPECIMEN Ordering Facility: [facility] Address: [address] [place] [address] Result Comment: If t he patient is , TSH reference range varies by gestational period: First Trimester (weeks 9-12): 0.180-2.990 mIU/L Second Trimester: 0.110-3.980 mIU/L Third Trimester: 0.480-4.710 mIU/L Alonzo Lott et al. A Practical Approach for the Verifications and Determination of Site- and Trimester-Specific Reference Intervals for Thyroid Function tests in . Thyroid, 2019:29:3:412-420. Hilario E, et al. 2017 Guidelines of the [place] Thyroid Association for the Diagnosis and Management of Thyroid Disease during and the . Thyroid, 2017:27:3:315-389. Performed By: #### 5 195-3, 44356-4, 90397-7 #### [facility] CLIA [id number] [address] [place] [address] [place] TYPE + SCREEN PRENATALon ABO A Normal [facility] Comment on above: Order Comment: Speci men Type: BLOOD SPECIMEN Ordering Facility: [facility] Address: [address] [place] [address] Performed By: #### 5 195-3, 52580-0, 20551-1 #### [facility] CLIA [id number] [address] [place] [address] [place] Rh Nom (Bld) Positive Normal [facility] Comment on above: Order Comment: Briana armijo Type: BLOOD SPECIMEN Ordering Facility: [facility] Address: [address] [place] [address] Performed By: #### 5 195-3, 42047-5, 28312-4 #### [facility] CLIA [id number] [address] [place] [address] [place] TYPE AND SCREEN EXPIRATION 02/15/2024 23:59 Normal [facility] Comment on above: Order Comment: Berti men Type: BLOOD SPECIMEN Ordering Facility: [facility] Address: [address] [place] [address] Performed By: #### 5 195-3, 25992-4, 40702-3 #### [facility] CLIA [id number] [address] [place] [address] [place] [address] [place] Hunter 01-30-2024 CNPN Telephone (OBGYWM) CAMMIE LOZANO ([id number]) 1995 F Date Time Provider Department 01/30/24 MAGGY SANTIAGO OBGYWM During your visit today, we recorded the following information about you: Shannon Segovia RN 01/30/2024 8:49 AM Signed Patient is approximately 6 weeks and is calling with concerns that she thinks her iron level is low. Patient states she is always cold, all day, everyday, and especially at night. Patient states she gets the chills like you do when you are sick except she is not sick. Patient states she is taking a PNV with iron in it. Patient does have upcoming New OB appointment on 02/11. ZULMA Merida Courtney, APRN.CNM 01/30/2024 8:59 AM Signed Keep scheduled upcoming NOB and we can discuss at that time. ERIN Philip Lindsey, RN 01/30/2024 9:02 AM Signed Patient notified and voiced understanding. Shannon Segovia RN Allergies As of Date: 01/30/2024 Noted Allergy Reaction DUST MITES 06/20/2005 PROZAC (FLUOXETINE) 09/12/2016 14 - Other: See Comments Comments: [place] like she had no emotions RAGWEED 06/20/2005 Date Reviewed: 01/23/2024 Reviewed by: Camilla Snell MD - Fully Assessed Reason for Visit: Patient Question [0077] Prescriptions as of 01/30/2024 - folic acid 1 mg tablet Take 1 tablet by mouth once daily. - pyridoxine, vitamin B6, (VITAMIN B-6) 50 mg tablet Take 1 tablet by mouth two times a day. - ondansetron orally disintegrating (ZOFRAN ODT) 4 mg disintegrating tablet Take 1 tablet by mouth every 8 hours as needed for nausea/vomiting. - famotidine (PEPCID) 20 mg tablet Take 1 tablet by mouth two times a day. - escitalopram oxalate (LEXAPRO) 20 mg tablet Take 1 tablet by mouth once daily - buPROPion XL (WELLBUTRIN XL) 150 mg 24 hr tablet Take 1 tablet by mouth once daily - olopatadine (PATANOL) 0.1 % ophthalmic solution Use 1 Drop in both eyes two times a day. 1 TO 2 DROPS TO EACH EYE TWICE DAILY NEEDED - triamcinolone acetonide (KENALOG) 0.1 % cream Apply 1 application to affected area twice daily. Apply sparingly to area for rash/itching. - cetirizine HCl (ZYRTEC ORAL) Take by mouth. - albuterol HFA (VENTOLIN HFA) 90 mcg/actuation inhaler Inhale 2 Puffs as instructed every 4 hours as needed. - CPAP Initiate Auto PAP @ 5-15 cm of water with humidification. Mask (per patient preference) optional chin strap (if indicated) , filters, tubing, humidifier and lifetime supplies. Problem List As Of Date 01/30/2024 Noted Resolved ALLERGIC RHINITIS NOS [J30.9] 06/18/2005 EXTRINSIC ASTHMA UNSPECIFIED [J45.909] 06/26/2006 PMS (premenstrual syndrome) [N94.3] 03/16/2009 03/23/2021 Metrorrhagia [N92.1] 03/16/2009 03/23/2021 Dysmenorrhea [N94.6] 03/16/2009 03/23/2021 Family history of Crohn's disease [Z83.79] 07/16/2011 03/23/2021 Depression affecting [O99.340, F32.A] 08/28/2012 06/11/2021 Essential hypertension [I10] Generalized anxiety disorder [F41.1] LINA (obstructive sleep apnea) [G47.33] Fatty liver [K76.0] History of depression [Z86.59] 09/14/2020 Obesity during [O99.210] 09/14/2020 06/11/2021 Nausea and vomiting during [O21.9] 09/14/2020 03/23/2021 Preexisting hypertension complicating *09/14/2020 06/11/2021 History of sleep apnea [Z86.69] 09/14/2020 Patient request for diagnostic testing [Z01.89] 09/14/2020 03/23/2021 Supervision of high-risk , first trime*09/25/2020 06/11/2021 Rubella non-immune status, antepartum [O09.899,*09/27/2020 Insulin controlled gestational diabetes mellitu*02/14/2021 06/11/2021 Excessive growth affecting management of *02/14/2021 06/11/2021 History of gestational diabetes mellitus (GDM) *06/11/2021 Obesity, Class III, BMI 40-49.9 (morbid obesity*01/07/2022 Moderate episode of recurrent major depressive *01/07/2022 Obesity, Class I, BMI 30-34.9 [E66.811] 12/14/2022 Encounter Status:Closed by MAGGY SANTIAGO on 01/30/24 Normal [facility] B-HCG SerPl-aCncon 4 HCG.beta subunit Qn 4536.0 m[IU]/mL High <5.0 [facility] Comment on above: Order Comment: Speci men Type: BLOOD SPECIMEN Ordering Facility: [facility] Address: [address] [place] [address] Result Comment: SHERI TITATIVE HCG NORMAL RANGES Weeks of Gestation (Weeks Since LMP) 3 Weeks (5.8-71.2 mIU/mL) 4 Weeks (9.5-750 mIU/mL) 5 Weeks (217-7138 mIU/mL) 6 Weeks (158-05614 mIU/mL) 7 Weeks (3697-298726 mIU/mL) 8 Weeks (71144-805544 mIU/mL) 9 Weeks (76587-039192 mIU/mL) 10 Weeks (36045-939408 mIU/mL) 12 Weeks (39970-256537 mIU/mL) Referenced to [facility] of [facility] Performed By: #### 5 195-3, 11552-5, 11587-3 #### [facility] CLIA [id number] [address] [place] [address] [place] CNOVon 01-23-2024 CNOV Office Visit (OBGYWM ) CAMMIE LOZANO ([id number]) 1995 F Date Time Provider Department 01/23/24 9:40 AM CAMILLA SNELL OBGYWM During your visit today, we recorded the following information about you: Blood pressure Weight Last Period 120/80 104.2 kg 12/18/23 Camilla Snell MD 01/23/2024 10:40 AM Signed Cammie Lozano is a 28 year old female who presents for problem visit. HPI: Patient presents with positive test. She is worried because of her history of miscarriage. Also she reports nausea. OB History T1 L1 SAB1 IAB0 Ectopic0 Multiple0 Live Births1 Force Adjustment Supervisor History LMP: 12/18/2023 (Exact Date), Having periods Age at Menarche: Age at First : Age at Menopause: Force Adjustment Supervisor History Comments: Sexual Activity: Never; Male Contraception: Condom PAST MEDICAL HISTORY Diagnosis Date Allergic rhinitis Asthma Atypical squamous cells of undetermined significance (ASCUS) on Papanicolaou smear of cervix 2019 Depression Developmental speech or language disorder speech delay--resolved Fatty liver Generalized anxiety disorder Gestational diabetes mellitus, class A1 02/14/2021 Hyperhidrosis Hypertension IBS (irritable bowel syndrome) stress induced Morbid obesity with BMI of 40.0-44.9, adult (HCC) LINA (obstructive sleep apnea) PMH - PAST MEDICAL HISTORY OF pneumonia 2000 [id number] Unspecified asthma(493.90) PAST SURGICAL HISTORY Procedure Laterality Date DELIVERY ONLY 04/20/2021 LTCS TONSILLECTOMY AND ADENOIDECTOMY FAMILY HISTORY Problem Relation Age of Onset other (crohns) Mother Migraines Mother Hypertension Father Asthma Father Allergies Father Heart Attack Father 53 Anxiety disorder Brother Depression Brother Hypertension Brother No Known Problems Brother other (alcoholic/drug addict) Maternal Grandmother other (alcoholic/ drug addict) Maternal Grandfather Heart Maternal Grandfather Breast Cancer Paternal Grandmother GI Paternal Grandfather Crohn's disease - in his 60s Heart Attack Paternal Grandfather Social History Tobacco Use Smoking status: Never Smokeless tobacco: Never Vaping Use Vaping status: Never Used Substance Use Topics Alcohol use: No Drug use: No Current Outpatient Medications Medication Sig famotidine (PEPCID) 20 mg tablet Take 1 tablet by mouth two times a day. escitalopram oxalate (LEXAPRO) 20 mg tablet Take 1 tablet by mouth once daily buPROPion XL (WELLBUTRIN XL) 150 mg 24 hr tablet Take 1 tablet by mouth once daily olopatadine (PATANOL) 0.1 % ophthalmic solution Use 1 Drop in both eyes two times a day. 1 TO 2 DROPS TO EACH EYE TWICE DAILY NEEDED triamcinolone acetonide (KENALOG) 0.1 % cream Apply 1 application to affected area twice daily. Apply sparingly to area for rash/itching. cetirizine HCl (ZYRTEC ORAL) Take by mouth. albuterol HFA (VENTOLIN HFA) 90 mcg/actuation inhaler Inhale 2 Puffs as instructed every 4 hours as needed. acetaminophen (TYLENOL ORAL) Take by mouth. (Patient not taking: Reported on 01/19/2024) CPAP Initiate Auto PAP @ 5-15 cm of water with humidification. Mask (per patient preference) optional chin strap (if indicated) , filters, tubing, humidifier and lifetime supplies. No current facility-administered medications for this visit. Allergies As of Date: 01/23/2024 Allergen Noted Reaction DUST MITES 06/20/2005 PROZAC [FLUOXETINE] 09/12/2016 Other: See Comments RAGWEED 06/20/2005 Fully Assessed 01/23/2024 Allergies and current medication updated:Yes SENSITIVE EXAM: Sensitive exam not performed. EXAM: BP 120/80 Wt 229 lb 12.8 oz (104.2kg) LMP 12/18/2023 GENERAL: pleasant, female in no apparent distress ASSESSMENT AND PLAN: Assessment AND Plan Encounter for test, result positive Orders: HCG QUANTITATIVE; Future History of miscarriage Orders: HCG QUANTITATIVE; Future Repeat hcg level ordered. Follow up for formal OB visit with US. Advised on vitamin B6 AND zofran given for nausea. Reviewed medication list and all questions answered. Medical Decision Making: Problems: Moderate: New problem with uncertain prognosis Data: Unique test result(s) reviewed: 1 Unique test(s) ordered: 2 Risk: Moderate: Drug management Medical Decision Making Level: 4 - Moderate Camilla Snell MD Allergies As of Date: 01/23/2024 Noted Allergy Reaction DUST MITES 06/20/2005 PROZAC (FLUOXETINE) 09/12/2016 14 - Other: See Comments Comments: [place] like she had no emotions RAGWEED 06/20/2005 Date Reviewed: 01/23/2024 Reviewed by: Camilla Snell MD - Fully Assessed Reason for Visit: New Patient [172] Cmt: Confirmation Primary Visit Diagnosis:Encounter for test, result positive [Z32.01] Other Visit Diagnosis:History of miscarriage [Z87.59] Order(s):UA DIP,URINE HCG (POC) [[id number]] Order #: [id number]. #:TELCO (more content not included)... Normal [facility] UA DIP,URINE HCG (POC)on Beta HCG ( test) Ql (U) Positive Abnormal Negative [facility] Comment on above: Location:[facility], [address], [place], [address] Interpretation and review of laboratory results Abnormal [facility] Funeral Home Attendant (POCT) Internal QC OK [facility] Location:[facility], [address], [place], [address] [place] [address] POINT OF CARE [facility] B-HCG SerPl-aCncon 4 HCG.beta subunit Qn 994.9 m[IU]/mL High <5.0 [facility] Comment on above: Order Comment: Speci men Type: BLOOD SPECIMEN Ordering Facility: [facility] Address: [address] [place] [address] Result Comment: SHERI TITATIVE HCG NORMAL RANGES Weeks of Gestation (Weeks Since LMP) 3 Weeks (5.8-71.2 mIU/mL) 4 Weeks (9.5-750 mIU/mL) 5 Weeks (217-7138 mIU/mL) 6 Weeks (158-28900 mIU/mL) 7 Weeks (3697-789090 mIU/mL) 8 Weeks (45941-790903 mIU/mL) 9 Weeks (92624-835235 mIU/mL) 10 Weeks (03076-599021 mIU/mL) 12 Weeks (25450-266491 mIU/mL) Referenced to 4th IS of [facility] Performed By: #### 2 1198-7 #### [facility] CLIA [id number] [address] [place] [address] [facility] CNOVon 01-19-2024 CNOV Office Visit (FAMDNA ) CAMMIE LOZANO ([id number]) 1995 F Date Time Provider Department 01/19/24 2:20 PM GALINA BROOKS FAMDNA During your visit today, we recorded the following information about you: Temperature Pulse Blood pressure Weight 97.8 degrees 87/minute 117/77 104.6 kg Height 1.702 m Rowena Kerr MA 01/19/2024 2:34 PM Signed Spirometry Never done Influenza Vaccine(1) due on 10/19/2023 Covid-19 Vaccine( season) due on 10/19/2023 Annual PCP Team Chronic Disease Visit due on 12/15/2023 Galina Boroks PAHoward 01/19/2024 2:34 PM Signed Cammie Lozano is a 28 year old female with a complaint of daily headaches since September. Feels they are tension headaches, stress related. 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 +photosensitivity. Has always gotten headaches, just more frequent since September. States was on break this past week, didn't have any headaches at home. Pt had a miscarriage in September. LMP Dec 17. States had two positive tests this past weekend. Has JUNIOR NETWORK ADMINISTRATOR, hasn't contacted her yet. REVIEW OF SYSTEMS See HPI, otherwise unremarkable. PAST MEDICAL HISTORY Diagnosis Date Allergic rhinitis Asthma Atypical squamous cells of undetermined significance (ASCUS) on Papanicolaou smear of cervix 2018 Depression Developmental speech or language disorder speech delay--resolved Fatty liver Generalized anxiety disorder Gestational diabetes mellitus, class A1 02/14/2021 Hyperhidrosis Hypertension IBS (irritable bowel syndrome) stress induced Morbid obesity with BMI of 40.0-44.9, adult (HCC) LINA (obstructive sleep apnea) PMH - PAST MEDICAL HISTORY OF pneumonia 2000 [id number] Unspecified asthma(493.90) PAST SURGICAL HISTORY Procedure Laterality Date DELIVERY ONLY 04/20/2021 LTCS TONSILLECTOMY AND ADENOIDECTOMY FAMILY HISTORY Problem Relation Age of Onset other (crohns) Mother Migraines Mother Hypertension Father Asthma Father Allergies Father Heart Attack Father 53 Anxiety disorder Brother Depression Brother Hypertension Brother No Known Problems Brother other (alcoholic/drug addict) Maternal Grandmother other (alcoholic/ drug addict) Maternal Grandfather Heart Maternal Grandfather Breast Cancer Paternal Grandmother GI Paternal Grandfather Crohn's disease - in his 60s Heart Attack Paternal Grandfather Social History Tobacco Use Smoking status: Never Smokeless tobacco: Never Vaping Use Vaping status: Never Used Substance Use Topics Alcohol use: No Drug use: No PHYSICAL EXAMINATION: Vitals: BP 117/77 Pulse 87 Temp 36.6 ?C (97.8 ?F) Ht 170.2 cm (5' 7.01) Wt 104.6 kg (230 lb 9.6 oz) LMP 08/31/2023 (Exact Date) SpO2 96% BMI 36.11 kg/m? General Appearance: Well appearing, alert, in no acute distress, well-hydrated, well nourished.. Eyes: Anicteric sclera. Pupils are equally round and reactive to light. Extraocular movements are intact. . Oropharynx: Lips, mucosa, and tongue normal, teeth and gums normal, oropharynx normal. Neck: Supple, no adenopathy Lungs: Lungs clear to auscultation. No wheezing, rhonchi, rales.. Heart: RRR without murmur, gallop, or rubs. No ectopy. Neurologic: Gait normal. CN 2-12 intact. Sensation grossly intact.. ASSESSMENT: DIAGNOSIS: (Z32.01) Positive test (primary encounter diagnosis) (K21.9) Gastroesophageal reflux disease, unspecified whether esophagitis present (R51.9) Daily headache PLAN: ASSESSMENT/PLAN: 1. Positive test - ICD9: V72.42, ICD10: Z32.01 (primary diagnosis) Will discuss wellbutrin and lexapro with OB. - HCG QUANTITATIVE 2. Gastroesophageal reflux disease, unspecified whether esophagitis present - ICD9: 530.81, ICD10: K21.9 Switch to pepcid. 3. Daily headache - ICD9: 784.0, ICD10: R51.9 Limited at this time, continue tylenol. Stress management, heating pad for neck. Follow up in the interim for new or worsening sx. Pt in agreement with the plan and verbalized understanding. Galina Brooks PA-C Allergies As of Date: 01/19/2024 Noted Allergy Reaction DUST MITES 06/20/2005 PROZAC (FLUOXETINE) 09/12/2016 14 - Other: See Comments Comments: [place] like she had no emotions RAGWEED 06/20/2005 Date Reviewed: 01/19/2024 Reviewed by: Rowena Kerr MA - Fully Assessed Reason for Visit: Headache [52] Cmt: medication Primary Visit Diagnosis:Positive test [Z32.01] Other Visit Diagnoses:Gastroesoph ageal reflux disease, unspecified whether esophagitis present [K21.9] Daily headache [R51.9] Order(s):famotidine (PEPCID) 20 mg tabletTake 1 tablet by mouth two times a day.Disp: 60 tabletRfl: 0 HCG QUANTITATIVE [SQHCGQT] Order #: [id number] FUTURE Prescriptions as of 01/19/2024 - famotidine (PEPCID) 20 mg tablet Take 1 tablet by mouth two times a da (more content not included)... Normal [facility] HCG QUANTITATIVEon 4 HCG.beta subunit Qn 994.9 m[IU]/mL High NINF C levelcount includes the [facility] Comment on above: QUANTITATIVE HCG NOR MAL RANGES Weeks of Gestation (Weeks Since LMP) 3 Weeks (5.8-71.2 mIU/mL) 4 Weeks (9.5-750 mIU/mL) 5 Weeks (217-7138 mIU/mL) 6 Weeks (158-71683 mIU/mL) 7 Weeks (3697-555624 mIU/mL) 8 Weeks (04719-153805 mIU/mL) 9 Weeks (80859-534908 mIU/mL) 10 Weeks (91502-403939 mIU/mL) 12 Weeks (62925-220665 mIU/mL) Referenced to 4th IS of [facility] HCG.beta subunit Qnon 2023 Interpretation and review of laboratory results Abnormal [facility] Basic metabolic 2000 panelon 01-10-2024 Anion gap [Moles/Vol] 9 mmol/L Normal 8-15 [facility] Comment on above: Order Comment: Speci men Type: BLOOD SPECIMEN Ordering Facility: [facility] Address: [address] [place] [address] Performed By: #### 5 195-3, 77788-8, 83328-0 #### [facility] CLIA [id number] [address] [place] [address] [place] Calcium [Mass/Vol] 9.3 mg/dL Normal 8.5-10.2 [facility] Comment on above: Order Comment: Speci men Type: BLOOD SPECIMEN Ordering Facility: [facility] Address: [address] [place] [address] Performed By: #### 5 195-3, 58452-0, 34600-6 #### [facility] CLIA [id number] [address] [place] [address] [place] Chloride [Moles/Vol] 106 mmol/L Normal 98-107 [facility] Comment on above: Order Comment: Speci men Type: BLOOD SPECIMEN Ordering Facility: [facility] Address: [address] [place] [address] Performed By: #### 5 195-3, 92119-8, 66373-6 #### [facility] CLIA [id number] [address] [place] [address] [place] CO2 [Moles/Vol] 26 mmol/L Normal 22-30 [facility] Comment on above: Order Comment: Speci men Type: BLOOD SPECIMEN Ordering Facility: [facility] Address: [address] [place] [address] Performed By: #### 5 195-3, 45052-9, 15629-0 #### [facility] CLIA [id number] [address] [place] [address] [place] Creatinine [Mass/Vol] 0.72 mg/dL Normal 0.58-0.96 [facility] Comment on above: Order Comment: Briana men Type: BLOOD SPECIMEN Ordering Facility: [facility] Address: [address] [place] [address] Performed By: #### 5 195-3, 45355-4, 89535-3 #### [facility] CLIA [id number] [address] [place] [address] [place] Creatinine and Glomerular filtration rate.predicted panel (S/P/Bld) 116 mL/min/1.73m??? Normal >=60 [facility] Comment on above: Order Comment: Briana armijo Type: BLOOD SPECIMEN Ordering Facility: [facility] Address: [address] [place] [address] Result Comment: Bhakti mated Glomerular Filtration Rate (eGFR) is calculated using the 2020 CKD-EPI creatinine equation. This equation utilizes serum creatinine, sex, and age as parameters. The creatinine assay has traceable calibration to isotope dilution-mass spectrometry. Refer to KDIGO guidelines for clinical interpretation. In patients with unstable renal function, e.g. those with acute kidney injury, the eGFR may not accurately reflect actual GFR. Performed By: #### 5 195-3, 37344-1, 27287-1 #### [facility] CLIA [id number] [address] [place] [address] [place] Glucose [Mass/Vol] 85 mg/dL Normal 74-99 [facility] Comment on above: Order Comment: Briana armijo Type: BLOOD SPECIMEN Ordering Facility: [facility] Address: [address] [place] [address] Result Comment: The [place] Diabetes Association (ADA) provides guidance for cutoff values for fasting glucose and random glucose. The ADA defines fasting as no caloric intake for at least 8 hours. Fasting plasma glucose results between 100 to 125 mg/dL indicate increased risk for diabetes (prediabetes). Fasting plasma glucose results greater than or equal to 126 mg/dL meet the criteria for diagnosis of diabetes. In the absence of unequivocal hyperglycemia, results should be confirmed by repeat testing. In a patient with classic symptoms of hyperglycemia or hyperglycemic crisis, random plasma glucose results greater than or equal to 200 mg/dL meet the criteria for diagnosis of diabetes. Reference: Standards of Medical Care in Diabetes 2016, [place] Diabetes Association. Diabetes Care. 2016.39(Suppl 1). Performed By: #### 5 195-3, 70147-8, 48056-7 #### [facility] CLIA [id number] [address] [place] [address] [place] Potassium [Moles/Vol] 4.6 mmol/L Normal 3.7-5.1 [facility] Comment on above: Order Comment: Briana armijo Type: BLOOD SPECIMEN Ordering Facility: [facility] Address: [address] [place] [address] Performed By: #### 5 195-3, 36570-3, 03442-6 #### [facility] CLIA [id number] [address] [place] [address] [place] Sodium [Moles/Vol] 141 mmol/L Normal 136-144 [facility] Comment on above: Order Comment: Briana armijo Type: BLOOD SPECIMEN Ordering Facility: [facility] Address: [address] [place] [address] Performed By: #### 5 195-3, 28300-7, 36172-7 #### [facility] CLIA [id number] [address] [place] [address] [place] Urea nitrogen [Mass/Vol] 12 mg/dL Normal 7-21 [facility] Comment on above: Order Comment: Briana armijo Type: BLOOD SPECIMEN Ordering Facility: [facility] Address: [address] [place] [address] Performed By: #### 5 195-3, 33192-4, 38962-8 #### [facility] CLIA [id number] [address] [place] [address] [place] HbA1c (Bld)on 01-10-2024 Average glucose Estimated from glycated hemoglobin (Bld) [Mass/Vol] 97 mg/dL Normal [facility] Comment on above: Order Comment: Speci men Type: BLOOD SPECIMEN Ordering Facility: [facility] Address: [address] [place] [address] Result Comment: eAG: (Estimated average glucose) is a calculated value from HgbA1c and is ambulatory service representative of the average blood glucose level in the last 2-3 month period. Performed By: #### 5 195-3, 77443-7, 40671-7 #### [facility] CLIA [id number] [address] [place] [address] [place] HbA1c (Bld) [Mass fraction] 5.0 % Normal 4.3-5.6 [facility] Comment on above: Order Comment: Speci men Type: BLOOD SPECIMEN Ordering Facility: [facility] Address: [address] [place] [address] Result Comment: [place] Diabetes Association guidelines indicate that patients with HgbA1c in the range 5.7-6.4% are at increased risk for development of diabetes, and intervention by lifestyle modification may be beneficial. HgbA1c greater or equal to 6.5% is considered diagnostic of diabetes. Performed By: #### 5 195-3, 91539-9, 53508-1 #### [facility] CLIA [id number] [address] [place] [address] [place] B-HCG SerPl-aCncon 4 HCG.beta subunit Qn m[IU]/mL Normal <5.0 [facility] Comment on above: Order Comment: Speci men Type: BLOOD SPECIMEN Ordering Facility: [facility] Address: [address] [place] [address] Result Comment: Nega tihandy Performed By: #### 5 195-3, 84426-6, 75002-8 #### [facility] CLIA [id number] [address] [place] [address] [place] HCG QUANTITATIVEon 4 HCG.beta subunit Qn [facility] Comment on above: Negative HCG.beta subunit Qnon 2023 Interpretation and review of laboratory results Normal [facility] B-HCG SerPl-aCncon 4 HCG.beta subunit Qn 3.9 m[IU]/mL Normal <5.0 [facility] [facility] Comment on above: Order Comment: Speci men Type: BLOOD SPECIMEN Ordering Facility: [facility] Address: [address] [place] [address] Result Comment: Zaire dong Performed By: #### 5 [id number], [id number], 56695-7 #### [facility] CLIA [id number] [address] [place] [address] [place] CNPValeria 10-03-2023 CNPN Telephone (OBGYWM) CAMMIE LOZANO ([id number]) 1995 F Date Time Provider Department 10/03/23 PRISCILLA PETERSON OBJOSE F During your visit today, we recorded the following information about you: Rosemarie Cervantes RN 10/03/2023 8:11 AM Signed Ega 5w 1d Pt started with spotting yesterday and this morning woke up and had quarter size clot along with scant amount of blood in underwear and when she wiped. Mild cramping. HCG order pending. Please advise. ZULMA Lubin Jessica, GAS PLANT DISPATCHER.CNM 10/03/2023 11:26 AM Signed Serum quant ordered. Can get today and repeat on Friday. Will follow up after results. Please give her bleeding and ectopic precautions. Rosemarie Cervantes RN 10/03/2023 11:41 AM Signed Pt notified and [employer] message sent with lab hours. Advised that we will follow-up on HCG levels once resulted. ZULMA Lubin Trisha, RN 10/06/2023 2:35 PM Signed Patient's first hcg quant was negative. RR reviewed it and sent [employer] message. Jess Ríos RN Allergies As of Date: 10/03/2023 Noted Allergy Reaction DUST MITES 06/20/2005 PROZAC (FLUOXETINE) 09/12/2016 14 - Other: See Comments Comments: [place] like she had no emotions RAGWEED 06/20/2005 Date Reviewed: 08/31/2023 Reviewed by: Jazmín Moore - Fully Assessed Reason for Visit: Spotting early [Other] Primary Visit Diagnosis:Spotting in early [O26.859] Order(s):HCG QUANTITATIVE [SQHCGQT] Order #: [id number] STANDING Prescriptions as of 10/06/2023 - escitalopram oxalate (LEXAPRO) 20 mg tablet Take 1 tablet by mouth once daily - olopatadine (PATANOL) 0.1 % ophthalmic solution Use 1 Drop in both eyes two times a day. 1 TO 2 DROPS TO EACH EYE TWICE DAILY NEEDED - omeprazole (PRILOSEC) 40 mg capsule Take 1 capsule by mouth once daily. 30 minutes before a meal - buPROPion XL (WELLBUTRIN XL) 150 mg 24 hr tablet Take 1 tablet by mouth once daily - triamcinolone acetonide (KENALOG) 0.1 % cream Apply 1 application to affected area twice daily. Apply sparingly to area for rash/itching. - levonorgestrel (MIRENA) 20 mcg/24 hours (7 yrs) 52 mg IUD 1 Each by INTRAUTERINE route as directed. - acetaminophen (TYLENOL ORAL) Take by mouth. - cetirizine HCl (ZYRTEC ORAL) Take by mouth. - albuterol HFA (VENTOLIN HFA) 90 mcg/actuation inhaler Inhale 2 Puffs as instructed every 4 hours as needed. - CPAP Initiate Auto PAP @ 5-15 cm of water with humidification. Mask (per patient preference) optional chin strap (if indicated) , filters, tubing, humidifier and lifetime supplies. Problem List As Of Date 10/03/2023 Noted Resolved ALLERGIC RHINITIS NOS [J30.9] 06/18/2005 EXTRINSIC ASTHMA UNSPECIFIED [J45.909] 06/26/2006 PMS (premenstrual syndrome) [N94.3] 03/16/2009 03/23/2021 Metrorrhagia [N92.1] 03/16/2009 03/23/2021 Dysmenorrhea [N94.6] 03/16/2009 03/23/2021 Family history of Crohn's disease [Z83.79] 07/16/2011 03/23/2021 Depression affecting [O99.340, F32.A] 08/28/2012 06/11/2021 Essential hypertension [I10] Generalized anxiety disorder [F41.1] LINA (obstructive sleep apnea) [G47.33] Fatty liver [K76.0] History of depression [Z86.59] 09/14/2020 Obesity during [O99.210] 09/14/2020 06/11/2021 Nausea and vomiting during [O21.9] 09/14/2020 03/23/2021 Preexisting hypertension complicating *09/14/2020 06/11/2021 History of sleep apnea [Z86.69] 09/14/2020 Patient request for diagnostic testing [Z01.89] 09/14/2020 03/23/2021 Supervision of high-risk , first trime*09/25/2020 06/11/2021 Rubella non-immune status, antepartum [O09.899,*09/27/2020 Insulin controlled gestational diabetes mellitu*02/14/2021 06/11/2021 Excessive growth affecting management of *02/14/2021 06/11/2021 History of gestational diabetes mellitus (GDM) *06/11/2021 Obesity, Class III, BMI 40-49.9 (morbid obesity*01/07/2022 Moderate episode of recurrent major depressive *01/07/2022 Obesity, Class I, BMI 30-34.9 [E66.9] 12/14/2022 Encounter Status:Closed by JESS RÍOS on 10/06/23 Normal [facility] HCG QUANTITATIVEon 4 HCG.beta subunit Qn 3.9 m[IU]/mL NINF [facility] Comment on above: Negative HCG.beta subunit Qnon 2023 Interpretation and review of laboratory results Normal [facility] US Pelvison 06-02-2023 [facility] UA DIP,URINE HCG (POC)on Beta HCG ( test) Ql (U) Negative Negative [facility] Funeral Home Attendant (POCT) Internal QC OK [facility] Basic metabolic 2000 panelon 05-08-2022 Anion gap [Moles/Vol] 12 mmol/L 9 - 18 mmol/L [facility] Calcium [Mass/Vol] 9.2 mg/dL 8.5 - 10.2 mg/dL [facility] Chloride [Moles/Vol] 102 mmol/L 97 - 105 mmol/L [facility] CO2 [Moles/Vol] 24 mmol/L 22 - 30 mmol/L [facility] Creatinine [Mass/Vol] 0.71 mg/dL 0.58 - 0.96 mg/dL [facility] Estimated Glomerular Filtration Rate 120 mL/min/1.73m >=60 mL/min/1.73m [facility] Glucose [Mass/Vol] 105 mg/dL High 74 - 99 mg/dL [facility] Potassium [Moles/Vol] 4.5 mmol/L 3.7 - 5.1 mmol/L [facility] Sodium [Moles/Vol] 138 mmol/L 136 - 144 mmol/L [facility] Urea nitrogen [Mass/Vol] 12 mg/dL 7 - 21 mg/dL [facility] HbA1c (Bld)on 05-08-2022 Average glucose Estimated from glycated hemoglobin (Bld) [Mass/Vol] 120 mg/dL [facility] HbA1c (Bld) [Mass fraction] 5.8 % High 4.3 - 5.6 % [facility] COVIDon 10-22-2020 Date of Onset [id number] formerly [facility] ([place]) Comment on above: Performed By: #### C OVID #### [address] [address] Employed in Healthcare No [facility] ([place]) Comment on above: Performed By: #### C OVID #### [address] [address] First Test No [facility] ([place]) Comment on above: Performed By: #### C OVID #### [facility] [address] [place] [address] Hospitalized No [facility] ([place]) Comment on above: Performed By: #### C OVID #### [facility] [address] [place] [address] ICU No [facility] ([place]) Comment on above: Performed By: #### C OVID #### [facility] [address] [place] [address] [facility] ([place]) Comment on above: Performed By: #### C OVID #### [place] [address] Resides in Congregate Care Setting No [facility] ([place]) Comment on above: Performed By: #### C OVID #### [place] [address] SARS-CoV-2 (COVID-19) RNA DIXIE+probe Ql (Unsp spec) See Below [facility] ([place]) Comment on above: Result Comment: Naso pharyngeal Swab Corrected on 10/21 AT 2357: Previously reported as UPPER RESPIRATORY TRACT SWAB Performed By: [place] [address] Panama Hat Smearer: Shaquille Jones III, M.D. CLIA#: [id number] Phone#: Performed By: #### C OVID #### [place] [address] Result Comment: Nega tive Negative for COVID19 (SARS CoV2) by RT-PCR or equivalent method. This test was developed and its performance characteristics determined by [facility] [place]. This test has been authorized by FDA under an Emergency Use Authorization (EUA). This test has been validated in accordance with the FDA's Guidance Document Policy for Diagnostics Testing in Laboratories Certified to Perform High Complexity Testing under CLIA prior to Emergency use Authorization for Coronavirus Disease 2019 during the Public Health Emergency issued on April 17, 2019. Test performed by [facility], [facility] [place], [address] [place], [place] [address]. Performed By: [facility] [address] [place] [id number] Panama Hat Smearer: Preet Dsouza III#: [id number] Phone#: Symptomatic as Defined by CDC Yes Normal [facility] ([place]) Comment on above: Performed By: #### C OVID #### [address] [address] EMERGENCY REPORTon 1 EMERGENCY REPORT [facility] EMERGENCY ROOM REPORT NAME ACCOUNT SEX AGE ADMIT DISCHARGE PT MED. RECORD# NUMBER DATE DATE TYPE CAMMIE LOZANO [id number] 09/30/20 09/30/20 3 [id number] ROOM: ER DATE OF : 1995 DICTATING PHYSICIAN: Ariel Moore HISTORY OF PRESENT ILLNESS: She is in her first trimester and has a cyst on the right side of her vaginal lip. Her OB looked at it the other day and said to do warm compresses but did not start any antibiotics. Now, it is more swollen and more tender. No fevers, chills, or systemic complaints. No nausea, vomiting, abdominal pain, diarrhea, constipation, vaginal bleeding or urinary symptoms. PAST MEDICAL HISTORY: Denied. PAST SURGICAL HISTORY: Denied. MEDICATIONS: See nurse's note. FAMILY HISTORY: Noncontributory. SOCIAL HISTORY: Negative for alcohol, tobacco or illicit drug abuse. PHYSICAL EXAMINATION: She is awake, alert, and nontoxic. Heart rate and rhythm are regular without murmur, gallop or rub. Lungs are clear to auscultation bilaterally without wheezes, rales or rhonchi. Abdomen is soft. No tenderness, guarding, rebound, or rigidity. With a nurse at the bedside, the lower part of her right labial lip is indurated and a little bit swollen. I do not feel a lot of fluctuance, but at the very base there could be some fluctuance. EMERGENCY DEPARTMENT COURSE AND TREATMENT: I prepped and draped it in the usual sterile fashion and anesthetized it with lidocaine without epinephrine. I made an incision, and hemostats were placed. I opened it up a lot, but I did not get any pus out. I packed it. I am going to start her on Keflex. Follow up with her JUNIOR NETWORK ADMINISTRATOR on Friday. Return for increasing, worsening or new symptoms. DIAGNOSIS: Incision and drainage of labial abscess. Dictated By: Ariel Moore DO 09/30/20 09:14 JOB #: [id number] Transcribed By: roger 10/02/20 05:55 Electronically signed by: E-Sign: ARIEL MOORE MD 10/03/20 07:28 Page 1 of 1 CAMMIE LOZANO Emergency Room Report Normal [facility] CORONAVIRUS PCR [CCL]on 01-17 SEND TO IC? YES Normal [facility] Comment on above: Performed By: #### 2 [id number] #### [facility],[address] [place], [place] [id number] SARS-CoV-2 (COVID-19) RNA DIXIE+probe Ql (Unsp spec) Nasopharyngeal Swab Normal [facility] Comment on above: Result Comment: Dina ected on 01/31 AT 0615: Previously reported as U Performed By: #### 2 19441 #### [facility],[address] [place] [address] SARS-CoV-2 (COVID-19) RNA DIXIE+probe Ql (Unsp spec) Negative Normal [facility] Comment on above: Result Comment: Nega tive for COVID19 (SARS CoV2) by PCR. This test was developed and its performance characteristics determined by [facility]'s [facility] [place]. This test has been authorized by FDA under an Emergency Use Authorization (EUA). This test has been validated in accordance with the FDA's Guidance Document Policy for Diagnostics Testing in Laboratories Certified to Perform High Complexity Testing under CLIA prior to Emergency use Authorization for Coronavirus Disease 2019 during the Public Health Emergency issued on April 17, 2019. [facility] [employer] [address] [place] [address] Shaquille Jones III, M.D. [id number] Performed By: #### 2 [address] #### [facility],[address] [place] [address] Coronavirus 2019on 0 COVID 19 Result BEAUTY ARTIST Normal Negative for COVID19 (SARS CoV2) by PCR. [facility] Comment on above: Result Comment: Nega tive for This test was developed and its performance characteristics determined by [facility]'s [facility] [place]. This test has been authorized by FDA under an Emergency Use Authorization (EUA). This test has been validated in accordance with the FDA's Guidance Document Policy for Diagnostics Testing in Laboratories Certified to Perform High Complexity Testing under CLIA prior to Emergency use Authorization for Coronavirus Disease 2019 during the Public Health Emergency issued on April 17, 2019. COVID19 (SARS This test was developed and its performance characteristics determined by [facility]'s [facility] [place]. This test has been authorized by FDA under an Emergency Use Authorization (EUA). This test has been validated in accordance with the FDA's Guidance Document Policy for Diagnostics Testing in Laboratories Certified to Perform High Complexity Testing under CLIA prior to Emergency use Authorization for Coronavirus Disease 2019 during the Public Health Emergency issued on April 17, 2019. CoV2) by PCR. This test was developed and its performance characteristics determined by [facility]'s [facility] [place]. This test has been authorized by FDA under an Emergency Use Authorization (EUA). This test has been validated in accordance with the FDA's Guidance Document Policy for Diagnostics Testing in Laboratories Certified to Perform High Complexity Testing under CLIA prior to Emergency use Authorization for Coronavirus Disease 2019 during the Public Health Emergency issued on April 17, 2019. Coronavirus 0 COVID 19 Source BEAUTY ARTIST Normal [facility] Comment on above: Result Comment: Naso pharyngeal Corrected on 01/31 AT 0615: Previously reported as U Swab Corrected on 01/31 AT 0615: Previously reported as U CORONAVIRUS PCR [CCL]on SARS-CoV-2 (COVID-19) RNA DIXIE+probe Ql (Unsp spec) UPPER RESPIRATORY TRACT SWAB Normal [facility] Comment on above: Result Comment: Dina ected on 11/16 AT 0357: Previously reported as BEAUTY ARTIST SWAB Performed By: #### 2 [address] #### [place] [address] SARS-CoV-2 (COVID-19) RNA DIXIE+probe Ql (Unsp spec) Negative Normal [facility] Comment on above: Result Comment: Nega tive for COVID19 (SARS CoV2) by PCR. This test was developed and its performance characteristics determined by [facility]'s [facility] [place]. This test has been authorized by FDA under an Emergency Use Authorization (EUA). This test has been validated in accordance with the FDA's Guidance Document Policy for Diagnostics Testing in Laboratories Certified to Perform High Complexity Testing under CLIA prior to Emergency use Authorization for Coronavirus Disease 2019 during the Public Health Emergency issued on April 17, [place]. [place] [address] Shaquille Jones III, M.D. [id number] Performed By: #### 2 [address] #### [place] [address] Coronavirus 2019on 0 COVID 19 Result BEAUTY ARTIST Normal Negative for COVID19 (SARS CoV2) by PCR. [facility] Comment on above: Result Comment: Nega tive for This test was developed and its performance characteristics determined by [facility]'s [facility] [place]. This test has been authorized by FDA under an Emergency Use Authorization (EUA). This test has been validated in accordance with the FDA's Guidance Document Policy for Diagnostics Testing in Laboratories Certified to Perform High Complexity Testing under CLIA prior to Emergency use Authorization for Coronavirus Disease 2019 during the Public Health Emergency issued on April 17, 2019. COVID19 (SARS This test was developed and its performance characteristics determined by [facility]'s [facility] [place]. This test has been authorized by FDA under an Emergency Use Authorization (EUA). This test has been validated in accordance with the FDA's Guidance Document Policy for Diagnostics Testing in Laboratories Certified to Perform High Complexity Testing under CLIA prior to Emergency use Authorization for Coronavirus Disease 2019 during the Public Health Emergency issued on April 17, 2019. CoV2) by PCR. This test was developed and its performance characteristics determined by [facility] [place]. This test has been authorized by FDA under an Emergency Use Authorization (EUA). This test has been validated in accordance with the FDA's Guidance Document Policy for Diagnostics Testing in Laboratories Certified to Perform High Complexity Testing under CLIA prior to Emergency use Authorization for Coronavirus Disease 2019 during the Public Health Emergency issued on April 17, 2019. Coronavirus 2019on 0 COVID 19 Source BEAUTY ARTIST Normal [facility] Comment on above: Result Comment: UPPE R Corrected on 11/16 AT 0357: Previously reported as BEAUTY ARTIST SWAB RESPIRATORY Corrected on 11/16 AT 0357: Previously reported as BEAUTY ARTIST SWAB TRACT SWAB Corrected on 11/16 AT 0357: Previously reported as BEAUTY ARTIST SWAB Vital Signs Date Time Vital Sign Value Performing Clinician Facility 09-09-2024 12:59-0400 Body mass index (BMI) [Ratio] 38.36 kg/m2 Valencia Avila MD Work Phone: [facility] 09-09-2024 12:59-0400 Body weight 111.13 kg Valencia Avila MD Work Phone: [facility] 09-09-2024 12:59-0400 Diastolic blood pressure 88 mm[Hg] Valencia Avila MD Work Phone: [facility] Comment on above: 137/90; 134/88; 135/88; 131/87; 136/86 09-09-2024 12:59-0400 Systolic blood pressure 135 mm[Hg] Valencia Avila MD Work Phone: [facility] Comment on above: 137/90; 134/88; 135/88; 131/87; 136/86 08-31-2024 13:27-0400 Body mass index (BMI) [Ratio] 38.36 kg/m2 Camilla Snell MD Work Phone: [facility] 08-31-2024 13:27-0400 Body weight 111.13 kg Camilla Snell MD Work Phone: [facility] 08-31-2024 13:27-0400 Diastolic blood pressure 70 mm[Hg] Camilla Snell MD Work Phone: [facility] 08-31-2024 13:27-0400 Systolic blood pressure 128 mm[Hg] Camilla Snell MD Work Phone: [facility] 08-27-2024 10:19-0400 Body mass index (BMI) [Ratio] 38.21 kg/m2 Camilla Snell MD Work Phone: [facility] 08-27-2024 10:19-0400 Body weight 110.68 kg Camilla Snell MD Work Phone: [facility] 08-27-2024 10:19-0400 Diastolic blood pressure 74 mm[Hg] Camilla Snell MD Work Phone: [facility] 08-27-2024 10:19-0400 Systolic blood pressure 132 mm[Hg] Camilla Snell MD Work Phone: [facility] 08-17-2024 09:41-0400 Body mass index (BMI) [Ratio] 38.21 kg/m2 Priscilla Peterson APRN.CNM Work Phone: [facility] 08-17-2024 09:41-0400 Body weight 110.68 kg Priscilla Peterson GAS PLANT DISPATCHER.CNM Work Phone: [facility] 08-17-2024 09:41-0400 Diastolic blood pressure 81 mm[Hg] Priscilla Peterson GAS PLANT DISPATCHER.CNM Work Phone: [facility] 08-17-2024 09:41-0400 Systolic blood pressure 135 mm[Hg] Priscilla Peterson GAS PLANT DISPATCHER.CNM Work Phone: [facility] 08-09-2024 10:30-0400 Body mass index (BMI) [Ratio] 38.83 kg/m2 Maggy Santiago GAS PLANT DISPATCHER.CNM Work Phone: [facility] 08-09-2024 10:30-0400 Body weight 112.49 kg Maggy Santiago GAS PLANT DISPATCHER.CNM Work Phone: [facility] 08-09-2024 10:30-0400 Diastolic blood pressure 81 mm[Hg] Maggy Santiago GAS PLANT DISPATCHER.CNM Work Phone: [facility] 08-09-2024 10:30-0400 Systolic blood pressure 138 mm[Hg] Maggy Santiago APRN.CNM Work Phone: [facility] 08-05-2024 08:31-0400 Body mass index (BMI) [Ratio] 38.21 kg/m2 Camilla Snell MD Work Phone: [facility] 08-05-2024 08:31-0400 Body weight 110.68 kg Camilla Snell MD Work Phone: [facility] 08-05-2024 08:31-0400 Diastolic blood pressure 76 mm[Hg] Camilla Snell MD Work Phone: [facility] 08-05-2024 08:31-0400 Systolic blood pressure 130 mm[Hg] Camilla Snell MD Work Phone: [facility] 07-20-2024 09:14-0400 Body mass index (BMI) [Ratio] 38.83 kg/m2 Priscilla Peterson APRN.CNM Work Phone: [facility] 07-20-2024 09:14-0400 Body weight 112.49 kg Priscilla Peterson APRN.CNM Work Phone: [facility] 07-20-2024 09:14-0400 Diastolic blood pressure 70 mm[Hg] Priscilla Peterson GAS PLANT DISPATCHER.CNM Work Phone: [facility] 07-20-2024 09:14-0400 Systolic blood pressure 130 mm[Hg] Priscilla Nicholas MCGOVERNN.CNM Work Phone: [facility] 07-02-2024 14:35-0400 Body mass index (BMI) [Ratio] 38.21 kg/m2 Miri Salazar MD Work Phone: [facility] 07-02-2024 14:35-0400 Body weight 110.68 kg Miri Salazar MD Work Phone: [facility] 07-02-2024 14:35-0400 Diastolic blood pressure 78 mm[Hg] Miri Salazar MD Work Phone: [facility] 07-02-2024 14:35-0400 Systolic blood pressure 132 mm[Hg] Miri Salazar MD Work Phone: [facility] 06-04-2024 10:09-0400 Body mass index (BMI) [Ratio] 38.05 kg/m2 Priscilla Peterson GAS PLANT DISPATCHER.CNM Work Phone: [facility] 06-04-2024 10:09-0400 Body weight 110.22 kg Priscilal Peterson GAS PLANT DISPATCHER.CNM Work Phone: [facility] 06-04-2024 10:09-0400 Diastolic blood pressure 70 mm[Hg] Priscilla Peterson GAS PLANT DISPATCHER.CNM Work Phone: [facility] 06-04-2024 10:09-0400 Systolic blood pressure 122 mm[Hg] Priscilla Peterson GAS PLANT DISPATCHER.CNM Work Phone: [facility] 05-20-2024 14:52-0400 Body mass index (BMI) [Ratio] 37.58 kg/m2 Miri Salazar MD Work Phone: [facility] 05-20-2024 14:52-0400 Body weight 108.86 kg Miri Salazar MD Work Phone: [facility] 05-20-2024 14:52-0400 Diastolic blood pressure 76 mm[Hg] Miri Salazar MD Work Phone: [facility] 05-20-2024 14:52-0400 Systolic blood pressure 119 mm[Hg] Miri Salazar MD Work Phone: [facility] 05-11-2024 09:21-0400 Body mass index (BMI) [Ratio] 37.11 kg/m2 Camilla Snell MD Work Phone: [facility] 05-11-2024 09:21-0400 Body weight 107.5 kg Camilla Snell MD Work Phone: [facility] 05-11-2024 09:21-0400 Diastolic blood pressure 64 mm[Hg] Camilla Snell MD Work Phone: [facility] 05-11-2024 09:21-0400 Systolic blood pressure 138 mm[Hg] Camilla Snell MD Work Phone: [facility] 04-28-2024 09:05-0400 Body mass index (BMI) [Ratio] 37.24 kg/m2 Maggy Plotts GAS PLANT DISPATCHER.CNM Work Phone: [facility] 04-28-2024 09:05-0400 Body weight 107.86 kg Maggy Plotts GAS PLANT DISPATCHER.CNM Work Phone: [facility] 04-28-2024 09:05-0400 Diastolic blood pressure 78 mm[Hg] Maggy Plotts GAS PLANT DISPATCHER.CNM Work Phone: [facility] 04-28-2024 09:05-0400 Systolic blood pressure 122 mm[Hg] Maggy Plotts GAS PLANT DISPATCHER.CNM Work Phone: [facility] 03-18-2024 09:56-0500 Body mass index (BMI) [Ratio] 36.17 kg/m2 Camilla Snell MD Work Phone: [facility] 03-18-2024 09:56-0500 Body weight 104.78 kg Camilla Snell MD Work Phone: [facility] 03-18-2024 09:56-0500 Diastolic blood pressure 84 mm[Hg] Camilla Snell MD Work Phone: [facility] 03-18-2024 09:56-0500 Systolic blood pressure 132 mm[Hg] Camilla Snell MD Work Phone: [facility] 02-12-2024 11:17-0500 Body mass index (BMI) [Ratio] 36.39 kg/m2 Dutchze Richards GAS PLANT DISPATCHER.MOTEL MANAGER Work Phone: [facility] 02-12-2024 11:17-0500 Body weight 105.42 kg Dutch Hamunir GAS PLANT DISPATCHER.MOTEL MANAGER Work Phone: [facility] 02-12-2024 11:17-0500 Diastolic blood pressure 72 mm[Hg] Dutch Haury GAS PLANT DISPATCHER.MOTEL MANAGER Work Phone: [facility] 02-12-2024 11:17-0500 Systolic blood pressure 126 mm[Hg] [place] Susie CHOUDHURY.MOTEL MANAGER Work Phone: [facility] 01-23-2024 09:33-0500 Body mass index (BMI) [Ratio] 35.98 kg/m2 Camilla Snell MD Work Phone: [facility] 01-23-2024 09:33-0500 Body weight 104.24 kg Camilla Snell MD Work Phone: [facility] 01-23-2024 09:33-0500 Diastolic blood pressure 80 mm[Hg] Camilla Snell MD Work Phone: [facility] 01-23-2024 09:33-0500 Systolic blood pressure 120 mm[Hg] Camilla Snell MD Work Phone: [facility] 01-19-2024 14:13-0500 Body height 170.2 cm Galina Romeroe PA-C Work Phone: [facility] 01-19-2024 14:13-0500 Body mass index (BMI) [Ratio] 36.11 kg/m2 Galinatyshawn Romeroe PA-C Work Phone: [facility] 01-19-2024 14:13-0500 Body temperature 97.81 [degF] Galina Brooks PA-C Work Phone: [facility] 01-19-2024 14:13-0500 Body weight 104.6 kg Galina Brooks PA-C Work Phone: [facility] 01-19-2024 14:13-0500 Diastolic blood pressure 77 mm[Hg] Galina Romeroe PA-C Work Phone: [facility] 01-19-2024 14:13-0500 Heart rate 87 /min Galinatyshawn Romeroe PA-C Work Phone: [facility] 01-19-2024 14:13-0500 SaO2% (BldA) [Mass fraction] 96 % Galina Brooks PA-C Work Phone: [facility] 01-19-2024 14:13-0500 Systolic blood pressure 117 mm[Hg] Galina Brooks PA-C Work Phone: [facility] 08-31-2023 08:35-0400 Body mass index (BMI) [Ratio] 35.04 kg/m2 Priscilla Brewer GAS PLANT DISPATCHER.MOTEL MANAGER Work Phone: [facility] 08-31-2023 08:35-0400 Body temperature 98.01 [degF] Priscilla Brewer GAS PLANT DISPATCHER.MOTEL MANAGER Work Phone: [facility] 08-31-2023 08:35-0400 Body weight 101.5 kg Priscilla Brewer GAS PLANT DISPATCHER.MOTEL MANAGER Work Phone: [facility] 08-31-2023 08:35-0400 Diastolic blood pressure 70 mm[Hg] Priscilla Brewer GAS PLANT DISPATCHER.MOTEL MANAGER Work Phone: [facility] 08-31-2023 08:35-0400 Heart rate 86 /min Priscilla Brewer GAS PLANT DISPATCHER.MOTEL MANAGER Work Phone: [facility] 08-31-2023 08:35-0400 Respiratory rate 16 /min Priscilla Brewer GAS PLANT DISPATCHER.MOTEL MANAGER Work Phone: [facility] 08-31-2023 08:35-0400 SaO2% (BldA) [Mass fraction] 99 % Priscilla Brewer GAS PLANT DISPATCHER.MOTEL MANAGER Work Phone: [facility] 08-31-2023 08:35-0400 Systolic blood pressure 116 mm[Hg] Priscilla Brewer GAS PLANT DISPATCHER.MOTEL MANAGER Work Phone: [facility] 07-21-2023 08:55-0400 Body mass index (BMI) [Ratio] 34.42 kg/m2 Lucia Coley MD Work Phone: [facility] 07-21-2023 08:55-0400 Body weight 99.7 kg Lucia Coley MD Work Phone: [facility] 07-21-2023 08:55-0400 Diastolic blood pressure 90 mm[Hg] Lucia Coley MD Work Phone: [facility] 07-21-2023 08:55-0400 Systolic blood pressure 130 mm[Hg] Lucia Coley MD Work Phone: [facility] 05-26-2023 08:58-0400 Body weight 93.89 kg Lucia Coley MD Work Phone: [facility] 05-26-2023 08:58-0400 Diastolic blood pressure 80 mm[Hg] Lucia Coley MD Work Phone: [facility] 05-26-2023 08:58-0400 Systolic blood pressure 118 mm[Hg] Lucia Coley MD Work Phone: [facility] 08-21-2022 09:55-0400 Body weight 118.03 kg Leora Billingsley MD Work Phone: [facility] 07-15-2022 08:37-0400 Body temperature 97.11 [degF] Express Wstr Work Phone: [facility] 07-15-2022 08:37-0400 Body weight 130.46 kg Express [employer] Work Phone: [facility] 07-15-2022 08:37-0400 Diastolic blood pressure 90 mm[Hg] [employer] Work Phone: [facility] 07-15-2022 08:37-0400 Heart rate 95 /min [employer] Work Phone: [facility] 07-15-2022 08:37-0400 Respiratory rate 21 /min [employer] Work Phone: [facility] 07-15-2022 08:37-0400 SaO2% (BldA) [Mass fraction] 95 % [employer] Work Phone: [facility] 07-15-2022 08:37-0400 Systolic blood pressure 126 mm[Hg] Express W[employer] Work Phone: [facility] 05-20-2022 19:39-0400 Diastolic blood pressure 74 mm[Hg] Leora Billingsley MD Work Phone: [facility] 05-20-2022 19:39-0400 Heart rate 80 /min Leora Billingsley MD Work Phone: [facility] 05-20-2022 19:39-0400 Systolic blood pressure 123 mm[Hg] Leora Billingsley MD Work Phone: [facility] 05-20-2022 19:37-0400 Body height 170.2 cm Leora Billingsley MD Work Phone: [facility] 05-20-2022 19:37-0400 Body temperature 97.81 [degF] Leora Billingsley MD Work Phone: [facility] 05-20-2022 19:37-0400 Body weight 133.54 kg Leora Billingsley MD Work Phone: [facility] 05-20-2022 19:37-0400 Respiratory rate 16 /min Leora Billingsley MD Work Phone: [facility] 05-20-2022 19:37-0400 SaO2% (BldA) [Mass fraction] 100 % Leora Billingsley MD Work Phone: [facility] 05-08-2022 10:24-0400 Body height 167.6 cm Williamwilliam Jain DO Work Phone: [facility] 05-08-2022 10:240400 Body weight 132 kg William Cristobal DO Work Phone: [facility] 05-08-2022 10:24-0400 Diastolic blood pressure 82 mm[Hg] William Jain DO Work Phone: [facility] 05-08-2022 10:24-0400 Heart rate 73 /min William Jain DO Work Phone: [facility] 05-08-2022 10:24-0400 SaO2% (BldA) [Mass fraction] 99 % William Cristobal DO Work Phone: [facility] 05-08-2022 10:24-0400 Systolic blood pressure 120 mm[Hg] William Jain DO Work Phone: [facility] 01-07-2022 09:58-0500 Body height 167.6 cm Leora Billingsley MD Work Phone: [facility] 01-07-2022 09:58-0500 Body temperature 98.49 [degF] Leora Billingsley MD Work Phone: [facility] 01-07-2022 09:58-0500 Body weight 129.37 kg Leora Billingsley MD Work Phone: [facility] 01-07-2022 09:58-0500 Diastolic blood pressure 78 mm[Hg] Leora Billingsley MD Work Phone: [facility] 01-07-2022 09:58-0500 Heart rate 82 /min Leora Billingsley MD Work Phone: [facility] 01-07-2022 09:58-0500 SaO2% (BldA) [Mass fraction] 97 % Leora Billingsley MD Work Phone: [facility] 01-07-2022 09:58-0500 Systolic blood pressure 126 mm[Hg] Leora Billingsley MD Work Phone: [facility] 09-19-2021 09:35-0400 Body temperature 99.9 [degF] Aleyda Athy PA-C Work Phone: [facility] 09-19-2021 09:35-0400 Body weight 126.64 kg Aleyda Athy PA-C Work Phone: [facility] 09-19-2021 09:35-0400 Diastolic blood pressure 78 mm[Hg] Aleyda Athy PA-C Work Phone: [facility] 09-19-2021 09:35-0400 Heart rate 110 /min Aleyda Athy PA-C Work Phone: [facility] 09-19-2021 09:35-0400 Respiratory rate 21 /min Aleyda Athy PA-C Work Phone: [facility] 09-19-2021 09:35-0400 SaO2% (BldA) [Mass fraction] 97 % Aleyda Athy PA-C Work Phone: [facility] 09-19-2021 09:35-0400 Systolic blood pressure 132 mm[Hg] Aleyda Martiny PA-C Work Phone: [facility] 09-04-2021 17:48-0400 Body weight 123.29 kg Bran Shook MD Work Phone: [facility] 09-04-2021 17:48-0400 Diastolic blood pressure 82 mm[Hg] Bran Shook MD Work Phone: [facility] 09-04-2021 17:48-0400 Heart rate 90 /min Bran Shook MD Work Phone: [facility] 09-04-2021 17:48-0400 Respiratory rate 16 /min Bran Shook MD Work Phone: [facility] 09-04-2021 17:48-0400 SaO2% (BldA) [Mass fraction] 98 % Bran Shook MD Work Phone: [facility] 09-04-2021 17:48-0400 Systolic blood pressure 122 mm[Hg] Bran Shook MD Work Phone: [facility] 09-04-2021 09:03-0400 Body weight 122.92 kg Malena Campos MD Work Phone: [facility] 09-04-2021 09:03-0400 Diastolic blood pressure 72 mm[Hg] Malena Campos MD Work Phone: [facility] 09-04-2021 09:03-0400 Systolic blood pressure 120 mm[Hg] Malena Campos MD Work Phone: [facility] 07-17-2021 09:45-0400 Body height 170.5 cm Vandana Hopper APRN.CNP Work Phone: [facility] 07-17-2021 09:45-0400 Body weight 120.43 kg Vandana Podlogar GAS PLANT DISPATCHER.MOTEL MANAGER Work Phone: [facility] 07-17-2021 09:45-0400 Diastolic blood pressure 78 mm[Hg] Vandana Podlogar GAS PLANT DISPATCHER.MOTEL MANAGER Work Phone: [facility] 07-17-2021 09:45-0400 Heart rate 78 /min Vandana Podlogar GAS PLANT DISPATCHER.MOTEL MANAGER Work Phone: [facility] 07-17-2021 09:45-0400 Respiratory rate 18 /min Vandana Podlogar GAS PLANT DISPATCHER.MOTEL MANAGER Work Phone: [facility] 07-17-2021 09:45-0400 SaO2% (BldA) [Mass fraction] 97 % Vandana Podlogar GAS PLANT DISPATCHER.MOTEL MANAGER Work Phone: [facility] 07-17-2021 09:45-0400 Systolic blood pressure 112 mm[Hg] Vandana Podlogar GAS PLANT DISPATCHER.MOTEL MANAGER Work Phone: [facility] 06-11-2021 10:12-0400 Body weight 118.39 kg Priscilla Peterson GAS PLANT DISPATCHER.CNM Work Phone: [facility] 06-11-2021 10:12-0400 Diastolic blood pressure 80 mm[Hg] Priscilla Peterson GAS PLANT DISPATCHER.CNM Work Phone: [facility] 06-11-2021 10:12-0400 Systolic blood pressure 122 mm[Hg] Priscilla Peterson GAS PLANT DISPATCHER.CNM Work Phone: [facility] Encounters Encounter Date Encounter Type Care Provider Facility Start: 09-16-2024 ambulatory Valencia Mota y:[facility] Start: 09-09-2024 End: 09-09-2024 Patient encounter procedure Valencia Avila MD Work Phone: OB/Gynecology Comment on above: Supervision of high risk in third trimester (HCC) (Primary Dx); Gestational diabetes mellitus, class A1 (HCC); Chronic hypertension affecting (HCC); Obesity affecting in third trimester, unspecified obesity type (HCC); Previous section; H/O gastric sleeve; 38 weeks gestation of (HCC) Start: 09-09-2024 End: 09-09-2024 [facility] Facility:[facility] Start: 08-31-2024 End: 08-31-2024 Patient encounter procedure Camilla Snell MD Work Phone: OB/Gynecology Comment on above: Obesity affecting pr egnancy in third trimester, unspecified obesity type (HCC) (Primary Dx); Chronic hypertension affecting (HCC); Gestational diabetes mellitus, class A1 (HCC); Previous section; 36 weeks gestation of (HCC) Gestational diabetes mellitus, class A1 (HCC) (Primary Dx); Obesity affecting in third trimester, unspecified obesity type (HCC); Chronic hypertension affecting (HCC) Start: 08-31-2024 End: 08-31-2024 [facility] Facility:[facility] Start: 08-27-2024 End: 08-27-2024 Patient encounter procedure Camilla Snell MD Work Phone: OB/Gynecology Comment on above: Obesity affecting pr egnancy in third trimester, unspecified obesity type (HCC) (Primary Dx); Chronic hypertension affecting (HCC); Gestational diabetes mellitus, class A1 (HCC); History of section; 36 weeks gestation of (HCC) Start: 08-27-2024 End: 08-30-2024 ambulatory Valencia Avila MD Work Phone: OB/Gynecology Comment on above: C Section Start: 08-21-2024 End: 08-23-2024 Refill Galina Brooks PA-C Work Phone: [facility] Comment on above: Refill Request Start: 08-17-2024 End: 08-17-2024 Patient encounter procedure Priscilla Peterson APRN.CNM Work Phone: OB/Gynecology Comment on above: Obesity affecting pr egnancy in third trimester, unspecified obesity type (HCC) (Primary Dx); Chronic hypertension affecting (HCC); Gestational diabetes mellitus, class A1 (HCC); H/O gastric sleeve; History of section; 34 weeks gestation of (HCC) Start: 08-17-2024 End: 08-17-2024 ambulatory LEORA BILLINGSLEY Facility:[facility] Start: 08-13-2024 End: 08-16-2024 ambulatory Leora Billingsley MD Work Phone: [facility] Comment on above: Blood Work Start: 08-09-2024 End: 08-09-2024 Patient encounter procedure Maggy Santiago APRN.CNKoffi Work Phone: OB/Gynecology Comment on above: 33 weeks gestation o f (HCC) (Primary Dx); Obesity affecting in third trimester, unspecified obesity type (HCC); Chronic hypertension affecting (HCC); Gestational diabetes mellitus, class A1 (HCC); LINA (obstructive sleep apnea); H/O gastric sleeve Start: 08-09-2024 End: 08-09-2024 ambulatory MAGGY SANTIAGO Facility:[facility] Start: 08-05-2024 End: 08-05-2024 Patient encounter procedure Camilla Snell MD Work Phone: OB/Gynecology Comment on above: Obesity affecting pr egnancy in third trimester, unspecified obesity type (HCC) (Primary Dx); Chronic hypertension affecting (HCC); Gestational diabetes mellitus, class A1 (HCC); History of section; 33 weeks gestation of (HCC) Gestational diabetes mellitus, class A1 (HCC) (Primary Dx); Obesity affecting in third trimester, unspecified obesity type (HCC); Chronic hypertension affecting (HCC); Obesity affecting in first trimester, unspecified obesity type (HCC) Start: 08-05-2024 End: 08-05-2024 ambulatory PRISCILLA PETERSON Facility:[facility] Start: 07-20-2024 End: 07-20-2024 Patient encounter procedure Priscilla Peterson APRN.CNKoffi Work Phone: OB/Gynecology Comment on above: Supervision of high risk in third trimester (HCC) (Primary Dx); 30 weeks gestation of (HCC); Obesity affecting in third trimester, unspecified obesity type (HCC); Chronic hypertension affecting (HCC); LINA (obstructive sleep apnea); Gestational diabetes mellitus, class A1 (HCC); History of depression; History of section; H/O gastric sleeve; Anxiety during (HCC); Heartburn during in first trimester (HCC) Start: 07-20-2024 End: 07-20-2024 ambulatory [facility] Facility:[facility] Start: 07-05-2024 End: 09-04-2024 Follow-up encounter Valencia Avila MD Work Phone: OB/Gynecology Start: 07-02-2024 End: 07-02-2024 Patient encounter procedure [employer] [facility] Comment on above: Encounter for antena jessica screening for malformation using ultrasound (HCC) (Primary Dx); Obesity affecting in third trimester, unspecified obesity type (HCC); 28 weeks gestation of (HCC); Gestational diabetes mellitus, class A1 (HCC) Chronic hypertension affecting (HCC) (Primary Dx); Gestational diabetes mellitus, class A1 (HCC); Supervision of high risk in third trimester (HCC); 28 weeks gestation of (HCC); History of section; Obesity affecting in third trimester, unspecified obesity type (HCC) Start: 07-02-2024 End: 07-02-2024 ambulatory [facility] Facility:[facility] Start: 06-11-2024 End: 06-11-2024 ambulatory [facility] Facility:[facility] Start: 06-10-2024 End: 07-27-2024 ambulatory Camilla Snell MD Work Phone: OB/Gynecology Comment on above: Blood Sugars Start: 06-04-2024 End: 06-04-2024 Patient encounter procedure Priscilla Peterson APRN.CNM Work Phone: OB/Gynecology Comment on above: Supervision of high risk in third trimester (HCC) (Primary Dx); 24 weeks gestation of (HCC); Obesity affecting in third trimester, unspecified obesity type (HCC); Chronic hypertension affecting (HCC); LINA (obstructive sleep apnea); Gestational diabetes mellitus, class A1 (HCC); History of section; H/O gastric sleeve; Anxiety during (HCC); Heartburn during in first trimester (HCC); History of depression Start: 06-04-2024 End: 06-07-2024 ambulatory Priscilla Peterson GAS PLANT DISPATCHER.CNM Work Phone: OB/Gynecology Comment on above: Blood sugar Start: 05-25-2024 End: 05-25-2024 Refill Galina Brooks PA-C Work Phone: [facility] Comment on above: Refill Request Start: 05-20-2024 End: 05-20-2024 ambulatory [facility] Facility:[facility] Start: 05-20-2024 End: 05-20-2024 Patient encounter procedure Miri Salazar MD Work Phone: OB/Gynecology Comment on above: High-risk in second trimester (HCC) (Primary Dx); History of section; Chronic hypertension affecting (HCC); Obesity affecting in first trimester, unspecified obesity type (HCC); History of miscarriage; History of gestational diabetes mellitus (GDM); 22 weeks gestation of (HCC) Start: 05-19-2024 End: 05-19-2024 ambulatory Valencia Avila MD Work Phone: OB/Gynecology Comment on above: Blood pressure Start: 05-14-2024 End: 05-14-2024 Telephone encounter Camilla Snell MD Work Phone: OB/Gynecology Comment on above: Breast Pump Start: 05-12-2024 End: 05-13-2024 Telephone encounter Camilla Snell MD Work Phone: OB/Gynecology Comment on above: Insurance Authorizat ion Start: 05-11-2024 End: 05-11-2024 ambulatory [facility] Facility:[facility] Start: 05-11-2024 End: 05-11-2024 Patient encounter procedure Camilla Snell MD Work Phone: OB/Gynecology Comment on above: High-risk in second trimester (Primary Dx); History of section; Chronic hypertension affecting ; 8 weeks gestation of Start: 05-04-2024 End: 05-05-2024 ambulatory Valencia Avila MD Work Phone: OB/Gynecology Comment on above: Blood sugar levels Start: 04-28-2024 End: 06-28-2024 Follow-up encounter Valencia Avila MD Work Phone: OB/Gynecology Start: 04-28-2024 End: 04-28-2024 ambulatory LEORA BILLINGSLEY Facility:[facility] Start: 04-28-2024 End: 04-28-2024 Patient encounter procedure [employer] 1 [employer] [facility] Comment on above: Encounter for anatomic survey (Primary Dx); 18 weeks gestation of ; Obesity affecting in second trimester, unspecified obesity type 18 weeks gestation o f (Primary Dx); History of section; Chronic hypertension affecting ; Encounter for supervision of high risk in first trimester, antepartum Start: 04-22-2024 End: 04-22-2024 Telephone encounter Miri Salazar MD Work Phone: OB/Gynecology Comment on above: Question (OB Questio n) Start: 04-13-2024 End: 04-13-2024 Refill Katheryn Rizo APRN.CNP Work Phone: [facility] Comment on above: Refill Request OB ROCHA Start: 03-19-2024 End: 03-19-2024 Refill Galina Brooks PA-C Work Phone: [facility] Comment on above: Refill Request Start: 03-18-2024 End: 03-18-2024 ambulatory DUTCH RICHARDS Facility:[facility] Start: 03-18-2024 End: 03-18-2024 Patient encounter procedure Camilla Snell MD Work Phone: OB/Gynecology Comment on above: Encounter for superv ision of high risk in first trimester, antepartum (Primary Dx); History of section; 13 weeks gestation of Start: 02-27-2024 End: 02-27-2024 Refill Leora Billingsley MD Work Phone: [facility] Comment on above: Refill Request Start: 02-16-2024 End: 02-16-2024 Refill Galina Brooks PA-C Work Phone: [facility] Comment on above: Refill Request Start: 02-13-2024 End: 02-13-2024 Orders Only Dutch Susie CHOUDHURY.MOTEL MANAGER Work Phone: OB/Gynecology Comment on above: Bacterial vaginosis (Primary Dx) Start: 02-12-2024 End: 02-12-2024 ambulatory DUTCHZE RICHARDS Facility:[facility] Start: 02-12-2024 End: 02-12-2024 Patient encounter procedure [place] Susie BLANKENSHIPMOTEL MANAGER Work Phone: OB/Gynecology Comment on above: Encounter for superv ision of high risk in first trimester, antepartum (Primary Dx); 8 weeks gestation of ; Obesity affecting in first trimester, unspecified obesity type; Chronic hypertension affecting ; History of gestational diabetes mellitus (GDM); History of section; History of miscarriage; Anxiety during ; Asthma during ; Nausea and vomiting during ; Heartburn during in first trimester; Vaginal discharge Start: 01-30-2024 End: 01-30-2024 Telephone encounter Maggy Santiago APRN.CNM Work Phone: OB/Gynecology Comment on above: Patient Question Start: 01-23-2024 End: 01-23-2024 ambulatory LEORA BILLINGSLEY Facility:[facility] Start: 01-23-2024 End: 01-23-2024 Patient encounter procedure Camilla Snell MD Work Phone: OB/Gynecology Comment on above: Encounter for pregna ncy test, result positive (Primary Dx); History of miscarriage Start: 01-19-2024 End: 01-19-2024 ambulatory LEORA BILLINGSLEY Facility:[facility] Start: 01-19-2024 End: 01-19-2024 Patient encounter procedure Galina Brooks PA-C Work Phone: [facility] Comment on above: Positive t est (Primary Dx); Gastroesophageal reflux disease, unspecified whether esophagitis present; Daily headache Start: 01-10-2024 End: 01-10-2024 ambulatory LEORA BILLINGSLEY Facility:[facility] Start: 01-06-2024 End: 01-09-2024 ambulatory Leora Billingsley MD Work Phone: Internal Medicine [place] [id number] Start: 11-27-2023 End: 11-27-2023 Refill Darrius Dorantes MD Work Phone: [facility] Comment on above: Refill Request Start: 10-22-2023 End: 10-22-2023 ambulatory Valencia Avila MD Work Phone: OB/Gynecology Comment on above: Complete (P rimary Dx); History of section, low transverse Start: 10-22-2023 End: 10-22-2023 Telemedicine consultation with patient Valencia Avila MD Work Phone: OB/Gynecology Start: 10-12-2023 End: 2023 Refill Katheryn Rizo APRN.MOTEL MANAGER Work Phone: [facility] Comment on above: Refill Request Start: 10-06-2023 End: 10-06-2023 E-mail encounter from caregiver Leora Billingsley MD Work Phone: [facility] Start: 10-06-2023 End: 10-06-2023 ambulatory Leora Billingsley MD Work Phone: [facility] Comment on above: voice mail response Start: 10-03-2023 End: 10-06-2023 Telephone encounter Priscilla Peterson APRN.CNKoffi Work Phone: OB/Gynecology Comment on above: Spotting early pregn sundar Start: 10-03-2023 End: 10-03-2023 ambulatory LEORA BILLINGSLEY Facility:[facility] Start: 09-30-2023 End: 10-06-2023 ambulatory Leora Billingsley MD Work Phone: [facility] Comment on above: Digestive Issues Diarrhea Start: 09-01-2023 Refill Leora Mooney Work Phone: [facility] Comment on above: Refill Request Start: 08-31-2023 End: 08-31-2023 Patient encounter procedure Priscilla Brewer APRN.MOTEL MANAGER Work Phone: [facility] Comment on above: Conjunctivitis of ri ght eye, unspecified conjunctivitis type (Primary Dx) Start: 08-20-2023 Refill Galina heaton PA-C Work Phone: [facility] Comment on above: Refill Request Start: 08-13-2023 Refill Galina heaton PA-C Work Phone: [facility] Comment on above: Refill Request Start: 07-21-2023 End: 07-21-2023 Patient encounter procedure Lucia Coley MD Work Phone: OB/Gynecology Comment on above: IUD (intrauterine de vice) in place (Primary Dx); Desire for Start: 07-03-2023 Refill Galina Khan-C Work Phone: [facility] Comment on above: Refill Request Start: 06-02-2023 End: 06-02-2023 ambulatory Ob Ultrasound Work Phone: OB/Gynecology Comment on above: DUB Start: 06-02-2023 End: 06-02-2023 Patient encounter procedure Landfill Attendant [facility] Start: 05-27-2023 Telephone encounter Brandee [facility] arnold BLANKENSHIPMOTEL MANAGER Work Phone: OB/Gynecology Comment on above: Results Start: 05-26-2023 End: 05-26-2023 Patient encounter procedure Lucia Coley MD Work Phone: OB/Gynecology Comment on above: Screening for cervic al cancer (Primary Dx); Desire for ; IUD (intrauterine device) in place; DUB (dysfunctional uterine bleeding) Start: 04-11-2023 ambulatory Lucia Mooney Work Phone: OB/Gynecology Comment on above: IUD Start: 04-09-2023 Refill Sara Aguilar APRN.MOTEL MANAGER Work Phone: [facility] Comment on above: Refill Request Start: 01-05-2023 Refill Galina heaton PA-C Work Phone: [facility] Comment on above: Refill Request Start: 12-02-2022 ambulatory Leora Mooney Work Phone: [facility] Comment on above: Nurse Triage Call Start: 12-01-2022 ambulatory Leora Mooney Work Phone: [facility] Comment on above: Blood pressure Start: 10-11-2022 Refill Sara Aguilar APRN.CNP Work Phone: [facility] Comment on above: Refill Request Start: 09-18-2022 ambulatory Leora Mooney Work Phone: [facility] Comment on above: Vitamin A Start: 08-21-2022 End: 08-21-2022 [facility] Leora Billingsley MD Work Phone: [facility] Comment on above: Moderate episode of recurrent major depressive disorder (HCC) (Primary Dx); Bariatric surgery status; Vitamin D deficiency; Elevated liver enzymes; Essential hypertension; Fatty liver; Generalized anxiety disorder; History of environmental allergies; Obesity, Class III, BMI 40-49.9 (morbid obesity) (HCC) Start: 07-15-2022 End: 07-15-2022 Patient encounter procedure [facility] Work Phone: [facility] Comment on above: Rash (Primary Dx) Start: 05-21-2022 Telephone encounter Renetta phelps RN Cardiology Lab Comment on above: Reminder Call Patient Update Start: 05-20-2022 End: 05-20-2022 Patient encounter procedure Leora Billingsley MD Work Phone: [facility] Comment on above: Obesity, Class III, BMI 40-49.9 (morbid obesity) (HCC) (Primary Dx); Exercise-induced asthma; Screening for lipid disorders; Pre-operative clearance; Vitamin D deficiency; LINA (obstructive sleep apnea); Moderate episode of recurrent major depressive disorder (HCC); Generalized anxiety disorder Start: 05-20-2022 End: 05-20-2022 Preoperative state Leora Billingsley MD Work Phone: [facility] Start: 05-20-2022 Telephone encounter William Jain DO Work Phone: Cardiology Comment on above: Appointment Start: 05-08-2022 End: 05-08-2022 Patient encounter procedure William Jain DO Work Phone: Cardiology Comment on above: Preop cardiovascular exam (Primary Dx); ROA (dyspnea on exertion); Abnormal ECG; Family history of early CAD; Essential hypertension; Gestational diabetes mellitus (GDM), antepartum, gestational diabetes method of control unspecified Start: 05-08-2022 End: 05-08-2022 Patient encounter status William Jain DO Work Phone: Cardiology Start: 05-07-2022 ambulatory Enrique Beckett kemi DO Work Phone: Internal Medicine [facility] Start: 01-07-2022 End: 01-07-2022 Patient encounter procedure Leora Billingsley MD Work Phone: Family [facility] Comment on above: Obesity, Class III, BMI 40-49.9 (morbid obesity) (HCC) (Primary Dx); Moderate episode of recurrent major depressive disorder (HCC); LINA (obstructive sleep apnea); Essential hypertension; ROA (dyspnea on exertion); GERD without esophagitis Start: 11-28-2021 Telephone encounter Yari Rain [facility] Comment on above: Medication Problem Start: 11-27-2021 End: 11-27-2021 ambulatory Bran Shook MD Work Phone: Family [facility] [place] Comment on above: Obesity, Class III, BMI 40-49.9 (morbid obesity) (HCC) (Primary Dx) Start: 11-27-2021 End: 11-27-2021 Telemedicine consultation with patient Bran Shook MD Work Phone: [facility] [place] Start: 11-26-2021 Refill Bran Shook MD Work Phone: Family Medicine [place] Comment on above: Refill Request Start: 10-09-2021 Refill Bran Shook MD Work Phone: Family Medicine [place] Comment on above: Refill Request Start: 09-21-2021 Telephone encounter Semaj Shook MD Work Phone: [facility] [place] Comment on above: ER F/U Patient Update Start: 09-20-2021 Telephone encounter Semaj Shook MD Work Phone: [facility] [place] Comment on above: Patient Update; Brianna ent Question Start: 09-19-2021 End: 09-19-2021 Patient encounter procedure Aleyda Lassiter PA-C Work Phone: [facility] Comment on above: Suspected 2019 novel coronavirus infection (Primary Dx) Start: 09-06-2021 Telephone encounter Russ chappell MEASUREMENT TECHNICIAN Work Phone: Psychology Comment on above: Consult (Initial [facility] W Pt Outreach) Start: 09-04-2021 Telephone encounter Semaj Shook MD Work Phone: [facility] Comment on above: Appointment Start: 09-04-2021 End: 09-04-2021 Patient encounter procedure Malena Campos MD Work Phone: OB/Gynecology Comment on above: Surveillance of prev iously prescribed intrauterine contraceptive device (Primary Dx); Intrauterine contraceptive device threads lost, initial encounter Anxiety with depress ion (Primary Dx); Post depression; History of environmental allergies; Acute actinic otitis externa, bilateral Start: 07-17-2021 End: 07-17-2021 Patient encounter procedure Vandana Hopper APRN.MOTEL MANAGER Work Phone: [facility] [place] Comment on above: Annual physical exam (Primary Dx); Vitamin D insufficiency; Fatty liver; History of sleep apnea; Essential hypertension; Anxiety and depression Start: 07-09-2021 Refill Bran Shook MD Work Phone: [facility] Comment on above: Refill Request Start: 06-11-2021 End: 06-11-2021 Patient encounter procedure Priscilla Peterson APRN.CNM Work Phone: OB/Gynecology Comment on above: care and examination (Primary Dx); control counseling; Chronic hypertension; History of gestational diabetes mellitus (GDM) Start: 04-04-2021 Refill Bran Shook MD Work Phone: Family Medicine [place] Comment on above: Refill Request Start: 09-30-2020 End: 09-30-2020 Emergency department patient visit ARIEL MALCOLM [facility] Start: 09-14-2020 End: 03-23-2021 Patient requested procedure Galina Brooks PA-C Work Phone: [facility] Start: 01-31-2020 End: 01-31-[address] FAUSTINO CARSON [facility] Start: 11-15-2019 End: 11-15-[address] FAUSTINO Heaton YAMILETH [facility] Procedures Date Procedure Procedure Detail Performing Clinician Start: 09-09-2024 Urnls dip stick/tabl et rgnt non-auto w/o micrscp Valencia Avila MD Work Phone: Start: 08-31-2024 Urnls dip stick/tabl et rgnt non-auto w/o micrscp Camilla Snell MD Work Phone: Start: 08-31-2024 Us preg uterus after 1st trimest / gestation Priscilla Peterson GAS PLANT DISPATCHER.CNM Work Phone: Start: 08-09-2024 Urnls dip stick/tabl et rgnt non-auto w/o micrscp Maggy Santiago GAS PLANT DISPATCHER.CNM Work Phone: Start: 08-05-2024 Urnls dip stick/tabl et rgnt non-auto w/o micrscp Camilla Snell MD Work Phone: Start: 08-05-2024 Us preg uterus after 1st trimest 02/17 gestation Priscilla Peterson GAS PLANT DISPATCHER.CNM Work Phone: Start: 07-02-2024 Us preg uterus after 1st trimest / gestation Priscilla Peterson GAS PLANT DISPATCHER.CNM Work Phone: Start: 07-02-2024 Urnls dip stick/tabl et rgnt non-auto w/o micrscp Miri Salazar MD Work Phone: Start: 05-11-2024 Urnls dip stick/tabl et rgnt non-auto w/o micrscp Camilla Snell MD Work Phone: Start: 04-28-2024 Us preg uterus after 1st trimest 02/17 gestation Camilla Snell MD Work Phone: Start: 02-12-2024 H/O: section History of section Dutch Richards APRN.MOTEL MANAGER Work Phone: Start: 02-12-2024 Antibody screen LEORA Jesica [facility] Comment on above: Order Comment: Speci men Type: BLOOD SPECIMEN Ordering Facility: [facility] Address: [address] [place] [address] Performed By: #### [id number], [id number], [id number] #### [facility] CLIA [id number] [address] [place] [address] [place] Start: 02-12-2024 Us uterus limited 1/> fetuses Dutch Susie CHOUDHURY.MOTEL MANAGER Work Phone: Start: 01-23-2024 UA DIP,URINE HCG (POC) Camilla Snell MD Work Phone: Start: 06-02-2023 Us pelvic nonobstetr ic real-time image complete Lucia Coley MD Work Phone: Start: 05-26-2023 UA DIP,URINE HCG (POC) Lucia Coley MD Work Phone: Start: 05-08-2022 Ecg routine ecg w/le ast 12 lds i&r only [facility] Provider Start: 09-04-2021 Adult depression screening assessment Bran Shook MD Work Phone: Start: 09-04-2020 Adult depression screening assessment Priscilla Peterson APRN.CNM Work Phone: H/O: section History of section, low transverse Valencia Avila MD Work Phone: H/O: section History of section Camilla Snell MD Work Phone: H/O: section History of section Maggy Santiago GAS PLANT DISPATCHER.CNM Work Phone: H/O: section History of section Camilla Snell MD Work Phone: H/O: section History of section Miri Salazar MD Work Phone: H/O: section History of section Priscilla Peterson GAS PLANT DISPATCHER.CNM Work Phone: H/O: section History of section Miri Salazar MD Work Phone: H/O: section History of section Priscilla Nicholas GAS PLANT DISPATCHER.CNM Work Phone: H/O: section History of section Camilla Snell MD Work Phone: H/O: section History of section Priscilla Peterson GAS PLANT DISPATCHER.CNM Work Phone: H/O: section History of section Camilla Snell MD Work Phone: H/O: section Previous c esarean section Camilla Snell MD Work Phone: H/O: section Previous c esarean section Valencia Avila MD Work Phone: Plan of Treatment Date Care Activity Detail Author Start: 02-13-2031 Urine microalbumin profile [facility] Start: 05-25-2026 Screening for malign ant neoplasm of cervix [facility] Start: 06-04-2025 BP Controlled (<130/80) BP Controlle d (<130/80) [facility] Start: 05-20-2025 BP Controlled (<130/80) BP Controlle d (<130/80) [facility] Start: 04-28-2025 BP Controlled (<130/80) BP Controlle d (<130/80) [facility] Start: 02-11-2025 BP Controlled (<130/80) BP Controlle d (<130/80) [facility] Start: 01-18-2025 Annual PCP Team Squad Leader jeovanny Disease Visit Annual PCP Team Chronic Disease Visit [facility] Start: 01-18-2025 BP Controlled (<130/80) BP Controlle d (<130/80) [facility] Start: 10-18-2024 Influenza vaccination [facility] Start: 09-23-2024 End: 09-23-2024 Patient encounter procedure 09/23/2024 9:20 AM EDT Office Visit OB/Gynecology [address] [place] [address] Valencia Avila MD [address] [place] [address] 1 week incision check OB/Gynecology Comment on above: 1 week incision chec k Start: 09-09-2024 End: 09-09-2024 Patient encounter procedure 09/09/2024 1:30 PM EDT Routine Office Visit OB/Gynecology [address] [place] [address] Valencia Avila MD [address] [place] [address] OB Pre Op C/S 09/16 @ [facility] OB/Gynecology Comment on above: OB Pre Op C/S 09/16 @ [facility] Start: 09-09-2024 End: 09-09-2024 Patient encounter procedure OB/Gynecology Comment on above: Nst NST/ OB Start: 09-03-2024 End: 09-03-2024 Patient encounter procedure 09/03/2024 9:20 AM EDT Routine Office Visit OB/Gynecology [address] [place] [address] Valencia Avila MD [address] [place], [place] [id number] OB Pre Op C/S 09/16 @ [facility] OB/Gynecology Comment on above: OB Pre Op C/S 09/16 @ [facility] Start: 09-02-2024 End: 09-02-2024 Patient encounter procedure OB/Gynecology Comment on above: NST NST/Ob Start: 09-01-2024 End: 09-01-2024 Patient encounter procedure 09/01/2024 10:40 AM EDT Routine Office Visit OB/Gynecology [address] [place] [address] Valencia Avila MD [address] [place] [address] OB Pre Op C/S 09/16 @ [facility] OB/Gynecology Comment on above: OB Pre Op C/S 09/16 @ [facility] Start: 08-31-2024 End: 08-31-2024 Patient encounter procedure Maternal Medicine Comment on above: Growth Growth/ OB Start: 08-30-2024 BP Controlled (<130/80) BP Controlle d (<130/80) [facility] Start: 08-27-2024 End: 08-27-2024 Patient encounter procedure OB/Gynecology Comment on above: NST NSt/ OB Start: 08-17-2024 End: 08-17-2024 Patient encounter procedure OB/Gynecology Comment on above: Ob : Supervision of [facility] h risk in third trimester (HCC) [O09.93]; Obesity affecting in third trimester, unspecified obesity type (HCC) [O99.213] Start: 08-09-2024 End: 08-09-2024 Patient encounter procedure 08/09/2024 10:30 AM EDT Routine Office Visit OB/Gynecology [address] [place] [address] Maggy Santiago APRN.CNKoffi [address] [place] [address] OB OB/Gynecology Comment on above: OB Start: 08-05-2024 End: 08-05-2024 Patient encounter procedure Maternal Medicine Comment on above: Growth Growth/ OB Start: 07-20-2024 End: 07-20-2024 Patient encounter procedure 07/20/2024 9:15 AM EDT Routine Office Visit OB/Gynecology [address] [place] [address] Priscilla Peterson APRN.CNM [address] [place] [address] Return in about 2 weeks for CHARU OB/Gynecology Comment on above: Return in about 2 we eks for CHARU Start: 07-02-2024 End: 07-02-2024 Patient encounter procedure OB/Gynecology Comment on above: OB Routine growth Start: 06-11-2024 End: 06-11-2024 Patient encounter procedure 06/11/2024 2:10 PM EDT Routine Office Visit OB/Gynecology [address] [place] [address] Camilla Snell MD [address] [place], [place] [id number] OB- review blood sugars (needed late Friday afternoon only) OB/Gynecology Comment on above: OB- review blood sug ars (needed late Friday afternoon only) Start: 06-04-2024 End: 09-03-2024 ANEMIA REFLEX PANEL ANEMIA REFLEX PANEL Lab Routine History of section Chronic hypertension affecting (HCC) LINA (obstructive sleep apnea) 24 weeks gestation of (HCC) Expected: 06/04/2024, Expires: 09/03/2024 [facility] Comment on above: Expected: 06/04/2024 , Expires: 09/03/2024 Start: 06-04-2024 End: 06-04-2025 SYPHILIS TREPONEMAL W/REFLEX SYPHILIS TREPONEMAL W/REFLEX Lab Routine History of section Chronic hypertension affecting (HCC) LINA (obstructive sleep apnea) 24 weeks gestation of (HCC) Expected: 06/04/2024, Expires: 06/04/2025 [facility] Work Phone: Comment on above: Expected: 06/04/2024 , Expires: 06/04/2025 Start: 06-04-2024 End: 06-04-2024 Patient encounter procedure 06/04/2024 10:15 AM EDT Routine Office Visit OB/Gynecology [address] [place] [address] Priscilla Peterson APRN.CN [address] [place] [address] OB OB/Gynecology Comment on above: OB Start: 05-20-2024 End: 05-20-2024 Patient encounter procedure 05/20/2024 2:50 PM EDT Routine Office Visit OB/Gynecology [address] [place] [address] Miri Salazar MD [address] [place] [address] OB - elevated BP OB/Gynecology Comment on above: OB - elevated BP Start: 05-11-2024 End: 05-11-2024 Patient encounter procedure 05/11/2024 9:20 AM EDT Routine Office Visit OB/Gynecology [address] [place] [address] Camilla Snell MD [address] [place] [address] OB-Discuss glucose levels OB/Gynecology Comment on above: OB-Discuss glucose l evels Start: 04-30-2024 End: 04-30-2024 Patient encounter procedure Maternal Medicine Comment on above: OB Routine Start: 04-28-2024 End: 04-28-2024 Patient encounter procedure Maternal Medicine Comment on above: OB Routine Start: 03-18-2024 End: 03-18-2025 OBSTETRIC ULTRASOUND WHI OBSTETRIC ULTRASOUND WHI Anc Imaging Routine Encounter for supervision of high risk in first trimester, antepartum History of section 13 weeks gestation of Expected: 03/18/2024, Expires: 03/18/2025 [facility] Work Phone: Comment on above: Expected: 03/18/2024 , Expires: 03/18/2025 Start: 03-18-2024 End: 03-18-2024 Patient encounter procedure Maternal Medicine Comment on above: Nuchal Nuchal / OB Start: 02-12-2024 End: 05-13-2024 ANEMIA REFLEX PANEL [facility] Work Phone: Comment on above: Expected: 02/12/2024 , Expires: 05/13/2024 Start: 02-12-2024 End: 05-13-2024 Hemoglobin A1c in Blood [facility] Comment on above: Expected: 02/12/2024 , Expires: 05/13/2024 Start: 02-12-2024 End: 05-13-2024 Hepatitis B virus surface Ag [Presence] in Serum [facility] Comment on above: Expected: 02/12/2024 , Expires: 05/13/2024 Start: 02-12-2024 End: 05-13-2024 Hepatitis C virus Ab [Presence] in Serum [facility] Comment on above: Expected: 02/12/2024 , Expires: 05/13/2024 Start: 02-12-2024 End: 05-13-2024 HIV 1+2 Ab [Presence] in Serum or Plasma by Immunoassay [facility] Comment on above: Expected: 02/12/2024 , Expires: 05/13/2024 Start: 02-12-2024 End: 02-11-2025 NUCHAL TRANSLUCENCY WHI NUCHAL TRANSLUCENCY WHI Anc Imaging Routine 8 weeks gestation of Expected: 02/12/2024, Expires: 02/11/2025 [facility] Comment on above: Expected: 02/12/2024 , Expires: 02/11/2025 Start: 02-12-2024 End: 05-13-2024 Protein/Creatinine [Mass Ratio] in Urine [facility] Comment on above: Expected: 02/12/2024 , Expires: 05/13/2024 Start: 02-12-2024 End: 05-13-2024 RUBELLA IGG ANTIBODY [facility] Comment on above: Expected: 02/12/2024 , Expires: 05/13/2024 Start: 02-12-2024 End: 05-13-2024 SYPHILIS TREPONEMAL W/REFLEX [facility] Comment on above: Expected: 02/12/2024 , Expires: 05/13/2024 Start: 02-12-2024 End: 05-13-2024 Thyrotropin [Units/volume] in Serum or Plasma [facility] Comment on above: Expected: 02/12/2024 , Expires: 05/13/2024 Start: 02-12-2024 End: 05-13-2024 TYPE + SCREEN [facility] Comment on above: Expected: 02/12/2024 , Expires: 05/13/2024 Start: 02-12-2024 End: 02-12-2024 Patient encounter procedure 02/12/2024 11:00 AM EST Initial Office Visit OB/Gynecology [address] [address] Dutch Richards APRN.MOTEL MANAGER [address] [place] [address] [facility] OB/Gynecology Comment on above: [facility] Start: 01-23-2024 End: 04-23-2024 Choriogonadotropin.beta subunit [Units/volume] in Serum or Plasma [facility] Work Phone: Comment on above: Expected: 01/23/2024 , Expires: 04/23/2024 Start: 01-19-2024 End: 01-19-2024 Patient encounter procedure 01/19/2024 2:20 PM EST Office Visit Family Medicine [address] [address] Galina Brooks, PAHoward [address] [place] [id number] Frequent headaches and anxiety meds [facility] Comment on above: Frequent headaches a nd anxiety meds Start: 01-06-2024 End: 04-06-2024 Basic metabolic 2000 panel - Serum or Plasma BASIC METABOLIC PANEL Lab Routine Essential hypertension Expected: 01/06/2024, Expires: 04/06/2024 [facility] Work Phone: Comment on above: Expected: 01/06/2024 , Expires: 04/06/2024 Start: 01-06-2024 End: 04-06-2024 Hemoglobin A1c in Blood HEMOGLOBIN A1C Lab Routine Obesity, Class I, BMI 30-34.9 Expected: 01/06/2024, Expires: 04/06/2024 [facility] Comment on above: Expected: 01/06/2024 , Expires: 04/06/2024 Start: 12-15-2023 Annual PCP Team Squad Leader jeovanny Disease Visit Annual PCP Team Chronic Disease Visit [facility] Start: 12-15-2023 BP Controlled (<130/80) BP Controlle d (<130/80) [facility] Start: 12-15-2023 Covid-19 Vaccine () Covid-19 Vaccine () [facility] Comment on above: Postponed from 10/18 (Declined at this time) Start: 12-08-2023 End: 12-08-2023 Patient encounter procedure 12/08/2023 1:10 PM EDT Routine Office Visit OB/Gynecology [address] [place] [address] Valencia Avila MD [address] [place] [address] OB/Gynecology Comment on above: Start: 10-23-2023 End: 10-23-2023 Patient encounter procedure 10/23/2023 10:20 AM EDT Initial Office Visit OB/Gynecology [address] [place] [address] Valencia Avila MD [address] [place] [address] OB/Gynecology Comment on above: Start: 10-22-2023 End: 10-22-2023 ambulatory 10/22/2023 4:20 PM EDT [facility] OB/Gynecology [address] [place] [address] Valencia Avila MD [address] [place] [address] Discuss HCG levels - neg for preg. Missed AB OB/Gynecology Comment on above: Discuss HCG levels - neg for preg. Missed AB Start: 10-19-2023 Covid-19 Vaccine () Covid-19 Vaccine () [facility] Start: 10-19-2023 Covid-19 Vaccine ( season) Covid-19 Vaccine () [facility] Start: 10-19-2023 Influenza vaccination [facility] Start: 08-22-2023 ANNUAL PCP TEAM BEHAVIORAL HEALTH SPECIALIST JEOVANNY DISEASE VISIT ANNUAL PCP TEAM CHRONIC DISEASE VISIT [facility] Start: 08-17-2023 Influenza vaccination Influenza Vacc ine (#1) [facility] Comment on above: Postponed from 10/18 (Declined at this time) Start: 07-21-2023 End: 07-21-2023 Patient encounter procedure 07/21/2023 9:00 AM EDT Office Visit OB/Gynecology [address] [place] [address] Lucia Coley MD [address] [place], [place] [id number] removal of IUD. OB/Gynecology Comment on above: removal of IUD. Start: 05-26-2023 End: 05-25-2024 US Pelvis PELVIC US [facility] Anc Imaging Routine IUD (intrauterine device) in place DUB (dysfunctional uterine bleeding) Expected: 05/26/2023, Expires: 05/25/2024 [facility] Work Phone: Comment on above: Expected: 05/26/2023 , Expires: 05/25/2024 Start: 05-21-2023 ANNUAL PCP TEAM BEHAVIORAL HEALTH SPECIALIST JEOVANNY DISEASE VISIT ANNUAL PCP TEAM CHRONIC DISEASE VISIT [facility] Start: 05-21-2023 BP CONTROLLED (<130/80) BP CONTROLLE D (<130/80) [facility] Start: 05-21-2023 COVID-19 VACCINE (3 - Booster for Pfizer series) COVID-19 VACCINE (3 - Booster for Pfizer series) [facility] Comment on above: Postponed from 06/22 (Declined at this time) Start: 05-21-2023 COVID-19 VACCINE (3 - Pfizer series) COVID-19 VACCINE (3 - Pfizer series) [facility] Comment on above: Postponed from 06/22 (Declined at this time) Start: 05-21-2023 PNEUMOCOCCAL (2 - PCV) PNEUMOCOCCAL (2 - PCV) [facility] Comment on above: Postponed from 09/16 (Declined at this time) Start: 05-21-2023 Pneumococcal vaccination Pneum ococcal Vaccine (2 - PCV) [facility] Comment on above: Postponed from 09/16 (Declined at this time) Start: 01-07-2023 ANNUAL PCP TEAM BEHAVIORAL HEALTH SPECIALIST JEOVANNY DISEASE VISIT ANNUAL PCP TEAM CHRONIC DISEASE VISIT [facility] Start: 01-07-2023 BP CONTROLLED (<130/80) BP CONTROLLE D (<130/80) [facility] Start: 12-21-2022 End: 02-20-2023 Retinol [Mass/volume] in Serum or Plasma VITAMIN A/RETINOL Lab Routine Vitamin A deficiency Expected: 12/21/2022, Expires: 02/20/2023 [facility] Work Phone: Comment on above: Expected: 12/21/2022 , Expires: 02/20/2023 Start: 11-27-2022 ANNUAL PCP TEAM BEHAVIORAL HEALTH SPECIALIST JEOVANNY DISEASE VISIT ANNUAL PCP TEAM CHRONIC DISEASE VISIT [facility] Start: 10-18-2022 Covid-19 Vaccine ( season) Covid-19 Vaccine ( season) [facility] Start: 10-18-2022 Influenza vaccination [facility] Start: 09-04-2022 Adult depression screening assessment DEPRESSION SCREENING [facility] Start: 09-04-2022 ANNUAL PCP TEAM BEHAVIORAL HEALTH SPECIALIST JEOVANNY DISEASE VISIT ANNUAL PCP TEAM CHRONIC DISEASE VISIT [facility] Start: 09-04-2022 BP CONTROLLED (<130/80) BP CONTROLLE D (<130/80) [facility] Start: 08-29-2022 PAP TESTING PAP TESTING [facility] Start: 08-29-2022 Screening for malign ant neoplasm of cervix Pap Testing [facility] Start: 08-21-2022 End: 10-21-2022 25-hydroxyvitamin D3 [Mass/volume] in Serum or Plasma VITAMIN D 25 HYDROXY Lab Routine Bariatric surgery status Vitamin D deficiency Expected: 08/21/2022, Expires: 10/21/2022 [facility] Work Phone: Comment on above: Expected: 08/21/2022 , Expires: 10/21/2022 Start: 08-21-2022 End: 10-21-2022 CBC panel - Blood by Automated count CBC Lab Routine Bariatric surgery status Expected: 08/21/2022, Expires: 10/21/2022 [facility] Work Phone: Comment on above: Expected: 08/21/2022 , Expires: 10/21/2022 Start: 08-21-2022 End: 10-21-2022 Cobalamin (Vitamin B12) [Mass/volume] in Serum or Plasma VITAMIN B12 BLOOD Lab Routine Bariatric surgery status Expected: 08/21/2022, Expires: 10/21/2022 [facility] Work Phone: Comment on above: Expected: 08/21/2022 , Expires: 10/21/2022 Start: 08-21-2022 End: 10-21-2022 Comprehensive metabolic 2000 panel - Serum or Plasma COMP METABOLIC PANEL Lab Routine Bariatric surgery status Elevated liver enzymes Fatty liver Expected: 08/21/2022, Expires: 10/21/2022 [facility] Work Phone: Comment on above: Expected: 08/21/2022 , Expires: 10/21/2022 Start: 08-21-2022 End: 10-21-2022 Ferritin [Mass/volume] in Serum or Plasma FERRITIN BLD Lab Routine Bariatric surgery status Expected: 08/21/2022, Expires: 10/21/2022 [facility] Work Phone: Comment on above: Expected: 08/21/2022 , Expires: 10/21/2022 Start: 08-21-2022 End: 10-21-2022 Folate [Mass/volume] in Serum or Plasma FOLATE SERUM Lab Routine Bariatric surgery status Expected: 08/21/2022, Expires: 10/21/2022 [facility] Work Phone: Comment on above: Expected: 08/21/2022 , Expires: 10/21/2022 Start: 08-21-2022 End: 10-21-2022 Parathyrin.intact [Mass/volume] in Serum or Plasma PTH INTACT BLD Lab Routine Bariatric surgery status Expected: 08/21/2022, Expires: 10/21/2022 [facility] Work Phone: Comment on above: Expected: 08/21/2022 , Expires: 10/21/2022 Start: 08-21-2022 End: 10-21-2022 Retinol [Mass/volume] in Serum or Plasma VITAMIN A/RETINOL Lab Routine Bariatric surgery status Expected: 08/21/2022, Expires: 10/21/2022 [facility] Work Phone: Comment on above: Expected: 08/21/2022 , Expires: 10/21/2022 Start: 08-21-2022 End: 10-21-2022 VITAMIN B1 (THIAMINE), WHOLE BLOOD VITAMIN B1 (THIAMINE), WHOLE BLOOD Lab Routine Bariatric surgery status Expected: 08/21/2022, Expires: 10/21/2022 [facility] Work Phone: Comment on above: Expected: 08/21/2022 , Expires: 10/21/2022 Start: 08-21-2022 End: 10-21-2022 Zinc [Mass/volume] in Serum or Plasma ZINC BLD Lab Routine Bariatric surgery status Expected: 08/21/2022, Expires: 10/21/2022 [facility] Work Phone: Comment on above: Expected: 08/21/2022 , Expires: 10/21/2022 Start: 07-17-2022 ANNUAL PCP TEAM BEHAVIORAL HEALTH SPECIALIST JEOVANNY DISEASE VISIT ANNUAL PCP TEAM CHRONIC DISEASE VISIT [facility] Start: 07-17-2022 BP CONTROLLED (<130/80) BP CONTROLLE D (<130/80) [facility] Start: 07-17-2022 zzBP Controlled (<130/80) (Retired) zzBP Controlled (<130/80) (Retired) [facility] Start: 05-20-2022 End: 07-20-2022 25-hydroxyvitamin D3 [Mass/volume] in Serum or Plasma VITAMIN D 25 HYDROXY Lab Routine Vitamin D deficiency Expected: 05/20/2022, Expires: 07/20/2022 [facility] Work Phone: Comment on above: Expected: 05/20/2022 , Expires: 07/20/2022 Start: 05-20-2022 End: 07-20-2022 CBC panel - Blood by Automated count CBC Lab Routine Pre-operative clearance Expected: 05/20/2022, Expires: 07/20/2022 [facility] Work Phone: Comment on above: Expected: 05/20/2022 , Expires: 07/20/2022 Start: 05-20-2022 End: 07-20-2022 Lipid 1996 panel - Serum or Plasma LIPID PANEL BASIC Lab Routine Screening for lipid disorders Expected: 05/20/2022, Expires: 07/20/2022 [facility] Work Phone: Comment on above: Expected: 05/20/2022 , Expires: 07/20/2022 Start: 05-07-2022 End: 07-07-2022 SCHEDULE LAB TESTING SCHEDULE LAB TESTING Lab Routine Expected: 05/07/2022, Expires: 07/07/2022 [facility] Work Phone: Comment on above: Expected: 05/07/2022 , Expires: 07/07/2022 Start: 10-18-2021 Influenza vaccination INFLUENZA (#1) [facility] Start: 09-19-2021 End: 10-03-2021 SARS-CoV-2 (COVID-19) RNA [Presence] in Respiratory specimen by DIXIE with probe detection 2019 CORONAVIRUS Microbiology Routine Suspected 2019 novel coronavirus infection Expected: 09/19/2021, Expires: 10/03/2021 [facility] Work Phone: Comment on above: Expected: 09/19/2021 , Expires: 10/03/2021 Start: 09-04-2021 End: 11-04-2021 25-hydroxyvitamin D3 [Mass/volume] in Serum or Plasma VITAMIN D 25 HYDROXY Lab Routine Anxiety with depression Expected: 09/04/2021, Expires: 11/04/2021 [facility] Work Phone: Comment on above: Expected: 09/04/2021 , Expires: 11/04/2021 Start: 09-04-2021 Adult depression screening assessment DEPRESSION SCREENING [facility] Start: 09-04-2021 ANNUAL PCP TEAM BEHAVIORAL HEALTH SPECIALIST JEOVANNY DISEASE VISIT ANNUAL PCP TEAM CHRONIC DISEASE VISIT [facility] Start: 09-04-2021 End: 11-04-2021 Cobalamin (Vitamin B12) [Mass/volume] in Serum or Plasma VITAMIN B12 BLOOD Lab Routine Anxiety with depression Expected: 09/04/2021, Expires: 11/04/2021 [facility] Work Phone: Comment on above: Expected: 09/04/2021 , Expires: 11/04/2021 Start: 09-04-2021 End: 11-04-2021 Comprehensive metabolic 2000 panel - Serum or Plasma COMP METABOLIC PANEL Lab Routine Anxiety with depression Expected: 09/04/2021, Expires: 11/04/2021 [facility] Work Phone: Comment on above: Expected: 09/04/2021 , Expires: 11/04/2021 Start: 09-04-2021 End: 11-04-2021 Thyrotropin [Units/volume] in Serum or Plasma TSH BLD Lab Routine Anxiety with depression Expected: 09/04/2021, Expires: 11/04/2021 [facility] Work Phone: Comment on above: Expected: 09/04/2021 , Expires: 11/04/2021 Start: 07-17-2021 End: 09-16-2021 CBC panel - Blood by Automated count CBC Lab Routine Annual physical exam Expected: 07/17/2021, Expires: 09/16/2021 [facility] Work Phone: Comment on above: Expected: 07/17/2021 , Expires: 09/16/2021 Start: 07-17-2021 End: 09-16-2021 Comprehensive metabolic 2000 panel - Serum or Plasma COMP METABOLIC PANEL Lab Routine Fatty liver Annual physical exam Expected: 07/17/2021, Expires: 09/16/2021 [facility] Work Phone: Comment on above: Expected: 07/17/2021 , Expires: 09/16/2021 Start: 07-17-2021 End: 09-16-2021 LIPID PANEL BASIC LIPID PANEL BASIC Lab Routine Annual physical exam Expected: 07/17/2021, Expires: 09/16/2021 [facility] Work Phone: Comment on above: Expected: 07/17/2021 , Expires: 09/16/2021 Start: 07-17-2021 End: 09-16-2021 VITAMIN D 25 HYDROXY VITAMIN D 25 HYDROXY Lab Routine Vitamin D insufficiency Expected: 07/17/2021, Expires: 09/16/2021 [facility] Work Phone: Comment on above: Expected: 07/17/2021 , Expires: 09/16/2021 Start: 06-11-2021 End: 08-11-2021 GLUC ELLE, 2-HR NON-GEST, 75 GM, FASTING GLUC ELLE, 2-HR NON-GEST, 75 GM, FASTING Lab Routine History of gestational diabetes mellitus (GDM) Expected: 06/11/2021, Expires: 08/11/2021 [facility] Work Phone: Comment on above: Expected: 06/11/2021 , Expires: 08/11/2021 Start: 02-17-2021 DEPRESSION ASSESSMENT DEPRESSION ASS ESSMENT [facility] Start: 09-27-2020 COVID-19 VACCINE (3 - Booster for Pfizer series) COVID-19 VACCINE (3 - Booster for Pfizer series) [facility] Start: 06-22-2020 COVID-19 VACCINE (3 - Booster for Pfizer series) COVID-19 VACCINE (3 - Booster for Pfizer series) [facility] Start: 09-16-2017 PNEUMOCOCCAL (2 - PCV) PNEUMOCOCCAL (2 - PCV) [facility] Start: 2012 BP CONTROLLED (<130/80) BP CONTROLLE D (<130/80) [facility] Start: 2012 Depression Screening Depression Scre ening [facility] Start: 2012 SPIROMETRY SPIROMETRY [facility] Start: 2008 PEDS TO ADULT TRANSI TION ANNUAL ASSESSMENT PEDS TO ADULT TRANSITION ANNUAL ASSESSMENT [facility] Start: 2006 PEDS TO ADULT TRANSI TION INITIAL DISCUSSION PEDS TO ADULT TRANSITION INITIAL DISCUSSION [facility] Bacteria identified in Urine by Culture URINE CULTURE Microbiology Routine 8 weeks gestation of 02/12/2024 1:46 PM EST [facility] BACTERIAL VAGINOSIS NAAT BACTERI AL VAGINOSIS NAAT Lab Routine IUD (intrauterine device) in place DUB (dysfunctional uterine bleeding) 05/26/2023 9:26 AM EDT [facility] Work Phone: BACTERIAL VAGINOSIS NAAT BACTERI AL VAGINOSIS NAAT Lab Routine Vaginal discharge 02/12/2024 1:46 PM EST [facility] BATSHEVA/TRICHOMONAS NAAT BATSHEVA /TRICHOMONAS NAAT Lab Routine IUD (intrauterine device) in place DUB (dysfunctional uterine bleeding) 05/26/2023 9:26 AM EDT [facility] Work Phone: BATSHEVA/TRICHOMONAS NAAT BATSHEVA /TRICHOMONAS NAAT Lab Routine Vaginal discharge 02/12/2024 1:46 PM [facility] Chlamydia trachomatis+Neisseria gonorrhoeae DNA [Presence] in Unspecified specimen by DIXIE with probe detection GONORRHEA/CHLAMYDIA NAAT Lab Routine 8 weeks gestation of 02/12/2024 1:46 PM [facility] ECG COMPLETE ECG COMPLETE ECG 05/08/2022 10:27 AM EDT [facility] End: 07-10-2025 nonstress test NON-STRESS TEST Procedures Routine Supervision of high risk in third trimester (HCC) Obesity affecting in third trimester, unspecified obesity type (HCC) Once per week for 5 Occurrences starting 07/20/2024 until 07/10/2025 [facility] Work Phone: Comment on above: Once per week for 5 Occurrences starting 07/20/2024 until 07/10/2025 Insertion intrauteri ne device iud INSERT INTRAUTERINE DEVICE Procedures Routine care and examination control counseling Ordered: 06/11/2021 [facility] Work Phone: Comment on above: Ordered: 06/11/2021 End: 06-07-2023 NM CARDIAC PERF STRESS/EXERCISE NM CARDIAC PERF STRESS/EXERCISE Radiology Routine ROA (dyspnea on exertion) Family history of early CAD Essential hypertension Gestational diabetes mellitus (GDM), antepartum, gestational diabetes method of control unspecified Abnormal ECG 1 Occurrences starting 05/08/2022 until 06/07/2023 [facility] Work Phone: Comment on above: 1 Occurrences starti ng 05/08/2022 until 06/07/2023 End: 05-19-2025 OBSTETRIC ULTRASOUND WHI OBSTETRIC ULTRASOUND WHI Anc Imaging Routine Supervision of high risk in third trimester (HCC) Obesity affecting in third trimester, unspecified obesity type (HCC) Once per month for 5 Occurrences starting 06/04/2024 until 05/19/2025 [facility] Comment on above: Once per month for 5 Occurrences starting 06/04/2024 until 05/19/2025 PAP TEST PAP TEST Lab Maki pearson Screening for cervical cancer 05/26/2023 9:24 AM EDT [facility] Work Phone: Removal intrauterine device iud REMOVE INTRAUTERINE DEVICE Procedures Routine Desire for Ordered: 05/26/2023 [facility] Work Phone: Comment on above: Ordered: 05/26/2023 ROUTINE, GR OUP B STREPTOCOCCUS BY PCR ROUTINE, GROUP B STREPTOCOCCUS BY PCR Microbiology Routine Obesity affecting in third trimester, unspecified obesity type (HCC) Chronic hypertension affecting (HCC) Gestational diabetes mellitus, class A1 (HCC) History of section 36 weeks gestation of (HCC) 08/27/2024 10:40 AM EDT [facility] URINE OB DIP B/O URINE OB DIP B/ O Lab Routine Obesity affecting in third trimester, unspecified obesity type (HCC) Chronic hypertension affecting (HCC) Gestational diabetes mellitus, class A1 (HCC) H/O gastric sleeve History of section 34 weeks gestation of (HCC) Ordered: 08/17/2024 [facility] Work Phone: Comment on above: Ordered: 08/17/2024 URINE OB DIP B/O URINE OB DIP B/ O Lab Routine Obesity affecting in third trimester, unspecified obesity type (HCC) Chronic hypertension affecting (HCC) Gestational diabetes mellitus, class A1 (HCC) History of section 36 weeks gestation of ([facility]) Ordered: 08/27/2024 [facility] Work Phone: Comment on above: Ordered: 08/27/2024 [facility] Immunizations Immunization Date Immunization Notes Care Provider [facility] 12-10-2021 influenza, injectabl e, quadrivalent, contains preservative Leora Billingsley MD Work Phone: [facility] 12-10-2021 influenza virus vacc ine, unspecified formulation Leora Billingsley MD Work Phone: [facility] 04-22-2021 measles, mumps and rubella virus vaccine Leora Billingsley MD Work Phone: [facility] 02-13-2021 tetanus toxoid, redu diann diphtheria toxoid, and acellular pertussis vaccine, adsorbed Priscilla Peterson APRN.CNM Work Phone: [facility] 01-17-2021 tetanus toxoid, redu diann diphtheria toxoid, and acellular pertussis vaccine, adsorbed Leora Billingsley MD Work Phone: [facility] 11-17-2020 influenza, seasonal, injectable Leora Billingsley MD Work Phone: [facility] 04-27-2020 COVID-19 vaccine, ag e 12+ yr (PFIZER-BIONTECH - PURPLE TOP) Priscilla Peterson APRN.CNM Work Phone: [facility] Work Phone: 04-07-2020 COVID-19 vaccine, ag e 12+ yr (PFIZER-BIONTECH - PURPLE TOP) Priscilla Peterson APRN.CNM Work Phone: [facility] Work Phone: 11-18-2017 influenza, injectabl e, quadrivalent, contains preservative Priscilla Peterson APRN.CNM Work Phone: [facility] 09-16-2016 pneumococcal polysaccharide vaccine, 23 valent Priscilla Peterson APRN.CNM Work Phone: [facility] 09-16-2016 tetanus and diphther ia toxoids, adsorbed, preservative free, for adult use (5 Lf of tetanus toxoid and 2 Lf of diphtheria toxoid) Priscilla Peterson APRN.CNM Work Phone: [facility] 09-16-2016 tuberculin skin test ; purified protein derivative solution, intradermal Priscilla Peterson APRN.CNM Work Phone: [facility] 12-05-2012 influenza virus vacc ine, unspecified formulation Priscilla Peterson APRN.CNM Work Phone: [facility] Work Phone: 08-28-2012 Meningococcal, MCV4, unspecified conjugate formulation(groups A, C, Y and W-135) Priscilla Peterson APRN.CNM Work Phone: [facility] Work Phone: 12-01-2008 influenza virus vacc ine, unspecified formulation Priscilla Peterson APRN.CNM Work Phone: [facility] 05-18-2008 human papilloma viru s vaccine, quadrivalent Priscilla Peterson APRN.CNM Work Phone: [facility] Work Phone: 01-25-2008 influenza virus vacc ine, unspecified formulation Priscilla Peterson APRN.CNM Work Phone: [facility] Work Phone: 11-04-2007 human papilloma viru s vaccine, quadrivalent Priscilla Peterson APRN.CNM Work Phone: [facility] Work Phone: 08-06-2007 human papilloma viru s vaccine, quadrivalent Priscilla Peterson APRN.CNM Work Phone: [facility] 08-06-2007 Meningococcal, MCV4, unspecified conjugate formulation(groups A, C, Y and W-135) Priscilla Peterson APRN.CNM Work Phone: [facility] 12-20-2006 influenza virus vacc ine, unspecified formulation Priscilla Peterson APRN.CNM Work Phone: [facility] Work Phone: 01-21-2006 tetanus toxoid, redu diann diphtheria toxoid, and acellular pertussis vaccine, adsorbed Priscilla Peterson [employer]ANT DISPATCHER.CNM Work Phone: [facility] 12-10-2005 influenza virus vacc ine, unspecified formulation Priscillajose Peterson APRN.CNM Work Phone: [facility] 01-02-2005 influenza virus vacc ine, unspecified formulation Priscillajose Peterson G[employer] PL[employer] DISPATCHER.CNM Work Phone: [facility] Work Phone: 11-25-2003 influenza virus vacc ine, unspecified formulation Priscilla Peterson G[employer] PL[employer] DISPATCHER.CNM Work Phone: [facility] Work Phone: 12-20-2002 influenza virus vacc ine, unspecified formulation Priscilla Peterson G[employer] PL[employer] DISPATCHER.CNM Work Phone: [facility] Work Phone: 10-19-1999 diphtheria, tetanus toxoids and acellular pertussis vaccine Priscilla Peterson APRN.CNM Work Phone: [facility] Work Phone: 10-19-1999 poliovirus vaccine, inactivated Priscilla Peterson APRN.CNM Work Phone: [facility] Work Phone: 11-16-1997 measles, mumps and rubella virus vaccine Priscilla Peterson APRN.CNM Work Phone: [facility] Work Phone: 04-12-1996 diphtheria, tetanus toxoids and pertussis vaccine Priscilla Peterson APRN.CNM Work Phone: [facility] Work Phone: 04-12-1996 haemophilus influenz ae type b vaccine, HbOC conjugate Priscilla Peterson APRN.CNM Work Phone: [facility] Work Phone: 10-24-1995 measles, mumps and rubella virus vaccine Priscilla Peterson APRN.CNM Work Phone: [facility] Work Phone: 10-24-1995 varicella virus vaccine Mealnia Peterson APRN.CNM Work Phone: [facility] Work Phone: 06-19-1995 hepatitis B vaccine, pediatric or pediatric/adolescent dosage Priscilla Nicholas [employer] PL[employer] DISPATCHER.CNM Work Phone: [facility] Work Phone: 04-26-1995 diphtheria, tetanus toxoids and pertussis vaccine Priscillajose Peterson G[employer] PL[employer] DISPATCHER.CNM Work Phone: [facility] Work Phone: 04-26-1995 haemophilus influenz ae type b vaccine, HbOC conjugate Priscilla Nicholas G[employer] PL[employer] DISPATCHER.CNM Work Phone: [facility] Work Phone: 04-26-1995 trivalent poliovirus vaccine, live, oral Priscilla Peterson [employer] DISPATCHER.CNM Work Phone: [facility] Work Phone: 02-03-1995 diphtheria, tetanus toxoids and pertussis vaccine Priscillajose Peterson [employer] DISPATCHER.CNM Work Phone: [facility] Work Phone: 02-03-1995 haemophilus influenz ae type b vaccine, HbOC conjugate Priscilla Nicholas G[employer] PL[employer] DISPATCHER.CNM Work Phone: [facility] Work Phone: 02-03-1995 trivalent poliovirus vaccine, live, oral Priscilla Peterson G[employer] PLANT DISPATCHER.CNM Work Phone: [facility] Work Phone: 1994 diphtheria, tetanus toxoids and pertussis vaccine Priscilla Nicholas [employer] PL[employer] DISPATCHER.CNM Work Phone: [facility] Work Phone: 1994 haemophilus influenz ae type b vaccine, HbOC conjugate Priscilla Peterson [employer] DISPATCHER.CNM Work Phone: [facility] Work Phone: 1994 hepatitis B vaccine, pediatric or pediatric/adolescent dosage Priscilla Nicholas G[employer] PL[employer] DISPATCHER.CNM Work Phone: [facility] Work Phone: 1994 trivalent poliovirus vaccine, live, oral Priscilla Peterson MACEY.CNM Work Phone: [facility] Work Phone: 1994 hepatitis B vaccine, pediatric or pediatric/adolescent dosage Priscilla Nicholas MCGOVERNN.CNM Work Phone: [facility] Work Phone: Payers Date Payer Category Payer Self-pay 2020 Private Health Insurance MMO [employer] PPO Member Subscriber Plan / Payer (Effective 2020-Present) Name: Adam Cammie Relation to Subscriber: Self Name: Lozano Cammie Payer ID: Not on file Type: PPO Address: [place] [id number] 2020 Unknown MMO MMO [employer]PER[employer] PLUS [id number] 2020-Present [phone] [place], [place] [id number] PPO [id number] 2020 Unknown [id number] 2020 Unknown [id number] 1994 Unknown [id number] 1994 Unknown [id number] 1994 Unknown [id number] Unknown [id number] Unknown [id number] Social History Date Type Detail Facility Start: 09-25-2010 End: 05-08-2022 Tobacco smoking status NHIS Never smoked tobacco [facility] Start: 06-11-2021 End: 08-27-2024 Alcohol intake Current non-drinker of alcohol (finding) [facility] Start: 10-18-2019 End: 08-21-2022 History SDOH Alcohol Frequency 2 [facility] Start: 10-18-2019 End: 08-21-2022 History SDOH Alcohol Std Drinks 1 [facility] Start: 08-30-2019 End: 08-21-2022 History SDOH Social Connections Phone 5 [facility] Start: 08-30-2019 End: 08-21-2022 History SDOH Social Connections Congregation 3 [facility] Start: 10-18-2019 End: 08-21-2022 History SDOH Social Connections Meetings 98 [facility] Start: 08-30-2019 History SDOH Social Connections Living 8 [facility] Start: 08-30-2019 Education 17 [facility] Start: 1995 Sex Assigned At Not on file [facility] Start: 05-14-2021 End: 01-07-2022 Exposure to SARS-CoV-2 (event) Not sure [facility] Start: 09-25-2010 End: 05-08-2022 Tobacco use and exposure Smokeless tobacco non-user [facility] Work Phone: Start: 1995 Sex Assigned At Female [facility] Start: 11-27-2021 End: 08-21-2022 History SDOH Alcohol Std Drinks 0 [facility] Start: 11-27-2021 End: 08-21-2022 History SDOH Stress 4 [facility] Start: 05-01-2021 End: 08-21-2022 History of Social function [facility] Start: 05-01-2021 End: 08-21-2022 Social connection and isolation panel [facility] Do you belong to any clubs or organizations such as yarsani groups, unions, fraternal or athletic groups, or school groups? No [facility] How often do you att end meetings of the clubs or organizations you belong to? Patient refused [facility] Are you now , , , , never or living with a partner? [facility] How often to you hav e a drink containing alcohol? Never [facility] How hard is it for y ou to pay for the very basics like food, housing, medical care, and heating Not very hard [facility] Do you feel stress - tense, restless, nervous, or anxious, or unable to sleep at night because your mind is troubled all the time - these days [OSQ] To some extent [facility] (I/We) worried wheth er (my/our) food would run out before (I/we) got money to buy more. Never true [facility] Start: 11-26-2021 Gender identity Identifies as female gender (finding) [facility] Start: 11-26-2021 Sexual orientation Heterosexual (finding) [facility] Start: 01-01-2024 [facility] Medical Equipment Procedure Code Equipment Code Equipment Original Text Equipment Identifier Dates [id number], [id number], [id number] Start: 02-14-2021 End: 06-06-2024 Comment on above: 1 Strip four times d aily. Use as instructed 1 Each daily at bedt tracie. 1 Each four times da ze. Use as instructed Goals Date Patient Goal Desired Activity /State Personal health goal Functional Status Date Assessment Result Facility 09-12-2014 Are you deaf, or do you have serious difficulty hearing No 09/12/2014 9:38 AM Khadijah Amezcua MA [facility] 09-12-2014 Are you blind, or do you have serious difficulty seeing, even when wearing glasses No 09/12/2014 9:38 AM Khadijah Amezcua MA No [facility] 09-12-2014 Do you have serious difficulty walking or climbing stairs No 09/12/2014 9:38 AM Khadijah Amezcua MA No [facility] 09-12-2014 Do you have difficul ty dressing or bathing No 09/12/2014 9:38 AM Khadijah Amezcua MA [facility] 09-12-2014 Because of a physica l, mental, or emotional condition, do you have difficulty doing errands alone such as visiting a physician's office or shopping No 09/12/2014 9:38 AM Khadijah Amezcua MA No [facility] Mental Status Date Assessment Result Facility 09-12-2014 Because of a physica l, mental, or emotional condition, do you have serious difficulty concentrating, remembering, or making decisions No 09/12/2014 9:38 AM EDT Khadijah Nicholas MA No [facility] Clinical Notes 02-14-2021 to 09-09-2024 Valencia Avila MD - 09/09/2024 2:26 PM EDTRValencia irving MD - 09/09/2024 2:26 PM EDTPrenatal Quick Notes - Valencia Avila MD - 09/09/2024 2:24 PM EDTPatient Instructions Note Date & Type Note Facility 09-09-2024 Note [facility] Medical Records Department [address] [place] [address] History Physical Exam 09/09/24 1429 MR#: [id number] Acct: [id number] Name: CAMMIE LOZANO Rep #: [id number] : 1995 28 From: Valencia Avila MD PCP: Status:PRE IN Location: [facility] History and Physical Date of Admission: 09/16/24 HPI: The patient is a 28 year old female presenting for pre-operative visit. She is scheduled for and tubal, for h/o previous c/s and sterilization on 09/16/24. Procedure discussed along with risks, benefits and complications. Other alternatives discussed for management. Consent form signed? Yes. ? PAST MEDICAL HISTORY PAST MEDICAL HISTORYDiagnosisDate???Allergic rhinitis?Asthma (HCC)?Atypical squamous cells of undetermined significance (ASCUS) on Papanicolaou smear of [id number]???Depression?Deve lopmental speech or language disorder?speech delay--resolved???Essential hypertension?Fatty liver?Generalized anxiety disorder?Gestational diabetes mellitus, class A1 (HCC)02/14/2021???Hyperhidrosis?Hypertension?IBS (irritable bowel syndrome)?stress induced???Morbid obesity with BMI of 40.0-44.9, adult (HCC)?LINA (obstructive sleep apnea)?PMH - PAST MEDICAL HISTORY OF?pneumonia 2000 [id number]???Unspecified asthma(493.90)? PAST SURGICAL HISTORY PAST SURGICAL HISTORYProcedureLateralityDate??? DELIVERY ONLY???04/20/2021???[facility]???PT ED BARIATRIC AND METABOLIC???07/22/2022???Gastric Sleeve surgery???TONSILLECTOMY ADENOIDECTOMY ? CURRENT MEDICATIONS Current Outpatient MedicationsMedicationSigDispenseR efill???escitalopram oxalate (LEXAPRO) 20 mg tabletTake 1 tablet by mouth once daily90 tablet0???famotidine (PEPCID) 20 mg tabletTake 1 tablet by mouth twice daily60 tablet0???blood sugar diagnostic (TRUE METRIX GLUCOSE TEST STRIP) test strip1 strip four times daily. Use with blood glucose test four times a day. Insulin Dep? No200 each11???aspirin, enteric coated (ECOTRIN LOW STRENGTH) 81 mg EC tabletTake 2 tablets by mouth daily at bedtime.180 tablet1???blood sugar diagnostic (ONETOUCH ULTRA TEST) test stripUse as directed four times a day. Insulin Dep? No100 Strip1???ONETOUCH ULTRA PLUS FLEX METER miscas directed.1 Each0???buPROPion XL (WELLBUTRIN XL) 150 mg 24 hr tabletTake 1 tablet by mouth once daily.90 tablet3???folic acid 1 mg tabletTake 1 tablet by mouth once daily.?pyridoxine, vitamin B6, (VITAMIN B-6) 50 mg tabletTake 1 tablet by mouth two times a day.?ondansetron orally disintegrating (ZOFRAN ODT) 4 mg disintegrating tabletTake 1 tablet by mouth every 8 hours as needed for nausea/vomiting.60 tablet2???olopatadine (PATANOL) 0.1 % ophthalmic solutionUse 1 Drop in both eyes two times a day. 1 TO 2 DROPS TO EACH EYE TWICE DAILY NEEDED1 mL5???triamcinolone acetonide (KENALOG) 0.1 % creamApply 1 application to affected area twice daily. Apply sparingly to area for rash/itching.28.4 g0???cetirizine HCl (ZYRTEC ORAL)Take by mouth.?albuterol HFA (VENTOLIN HFA) 90 mcg/actuation inhalerInhale 2 Puffs as instructed every 4 hours as needed.18 g3???No current facility-administered medications for this visit. ? ALLERGIES: Dust Mites, Prozac [Fluoxetine], and Ragweed ??? PERSONAL HISTORY: SOCIAL HISTORY Social History???Tobacco Use???Smoking status:Never???Smokeless tobacco:NeverVaping Use???Vaping status:Never UsedSubstance Use Topics???Alcohol use:No???Drug use:No ??? FAMILY HISTORY: FAMILY HISTORY FAMILY HISTORY ProblemRelationAge of Onset???other (crohns)Mother?MigrainesMoth er?HypertensionFather?A sthmaFather?AllergiesFather?Heart [id number]???Anxiety disorderBrother?DepressionBr other?HypertensionBrother?No Known ProblemsBrother?other (alcoholic/drug addict)Maternal Grandmother?other (alcoholic/ drug addict)Maternal Grandfather?HeartMaternal Grandfather?Breast CancerPaternal Grandmother?GIPaternal Grandfather? Crohn's disease - in his 60s???Heart AttackPaternal Grandfather? REVIEW OF SYMPTOMS: GENERAL: denies fevers or chills ENDOCRINOLOGY: has not been on steroids Cardiology : denies palpitations or chest pain Respiratory: denies SOB or cough Hematology: denies history of prolonged bleeding or easy bruising or VTE Allergy: Denies history of personal or family history of allergy to anesthesia ??? PHYSICAL EXAMINATION: ??? VITALS: Blood pressure 135/88, weight 111.1 kg (245 lb), last menstrual period 12/18/2023. ??? GENERAL: The patient is well nourished, well hydrated in no acute distress. , The patient is oriented to time, place, and person. NECK: Supple. No lynphadenopathy, normal thyroid, no thyromegaly. LUNGS: Clear to auscultation (more content not included)... [facility] 09-09-2024 History and physical note Pre-Op History and Physical HPI: The patient is a 28 year old female presenting for pre-operative visit. She is scheduled for and tubal, for h/o previous c/s and sterilization on 09/16/24. Procedure discussed along with risks, benefits and complications. Other alternatives discussed for management. Consent form signed? Yes. PAST MEDICAL HISTORY Diagnosis Date Allergic rhinitis Asthma (HCC) Atypical squamous cells of undetermined significance (ASCUS) on Papanicolaou smear of cervix 2018 Depression Developmental speech or language disorder speech delay--resolved Essential hypertension Fatty liver Generalized anxiety disorder Gestational diabetes mellitus, class A1 (HCC) 02/14/2021 Hyperhidrosis Hypertension IBS (irritable bowel syndrome) stress induced Morbid obesity with BMI of 40.0-44.9, adult ([facility]) LINA (obstructive sleep apnea) PMH - PAST MEDICAL HISTORY OF pneumonia 2000 [id number] Unspecified asthma(493.90) PAST SURGICAL HISTORY Procedure Laterality Date DELIVERY ONLY 04/20/2021 [facility] PT ED BARIATRIC AND METABOLIC 07/22/2022 Gastric Sleeve surgery TONSILLECTOMY & ADENOIDECTOMY Current Outpatient Medications Medication Sig Dispense Refill escitalopram oxalate (LEXAPRO) 20 mg tablet Take 1 tablet by mouth once daily 90 tablet 0 famotidine (PEPCID) 20 mg tablet Take 1 tablet by mouth twice daily 60 tablet 0 blood sugar diagnostic (TRUE METRIX GLUCOSE TEST STRIP) test strip 1 strip four times daily. Use with blood glucose test four times a day. Insulin Dep? No 200 each 11 aspirin, enteric coated (ECOTRIN LOW STRENGTH) 81 mg EC tablet Take 2 tablets by mouth daily at bedtime. 180 tablet 1 blood sugar diagnostic (ONETOUCH ULTRA TEST) test strip Use as directed four times a day. Insulin Dep? No 100 Strip 1 ONETOUCH ULTRA PLUS FLEX MET[place] [facility] [place]. 1 Each 0 buPROPion XL (WELLBUTRIN XL) 150 mg 24 hr tablet Take 1 tablet by mouth once daily. 90 tablet 3 folic acid 1 mg tablet Take 1 tablet by mouth once daily. pyridoxine, vitamin B6, (VITAMIN B-6) 50 mg tablet Take 1 tablet by mouth two times a day. ondansetron orally disintegrating (ZOFRAN ODT) 4 mg disintegrating tablet Take 1 tablet by mouth every 8 hours as needed for nausea/vomiting. 60 tablet 2 olopatadine (PATANOL) 0.1 % ophthalmic solution Use 1 Drop in both eyes two times a day. 1 TO 2 DROPS TO EACH EYE TWICE DAILY NEEDED 1 mL 5 triamcinolone acetonide (KENALOG) 0.1 % cream Apply 1 application to affected area twice daily. Apply sparingly to area for rash/itching. 28.4 g 0 cetirizine HCl (ZYRTEC ORAL) Take by mouth. albuterol HFA (VENTOLIN HFA) 90 mcg/actuation inhaler Inhale 2 Puffs as instructed every 4 hours as needed. 18 g 3 No current facility-administered medications for this visit. ALLERGIES: Dust Mites, Prozac [Fluoxetine], and Ragweed PERSONAL HISTORY: Social History Tobacco Use Smoking status: Never Smokeless tobacco: Never Vaping Use Vaping status: Never Used Substance Use Topics Alcohol use: No Drug use: No FAMILY HISTORY: FAMILY HISTORY Problem Relation Age of Onset other (crohns) Mother Migraines Mother Hypertension Father Asthma Father Allergies Father Heart Attack Father 53 Anxiety disorder Brother Depression Brother Hypertension Brother No Known Problems Brother other (alcoholic/drug addict) Maternal Grandmother other (alcoholic/ drug addict) Maternal Grandfather Heart Maternal Grandfather Breast Cancer Paternal Grandmother GI Paternal Grandfather Crohn's disease - in his 60s Heart Attack Paternal Grandfather REVIEW OF SYMPTOMS: GENERAL: denies fevers or chills ENDOCRINOLOGY: has not been on steroids Cardiology : denies palpitations or chest pain Respiratory: denies SOB or cough Hematology: denies history of prolonged bleeding or easy bruising or VTE Allergy: Denies history of personal or family history of allergy to anesthesia PHYSICAL EXAMINATION: VITALS: Blood pressure 135/88, weight 111.1 kg (245 lb), last menstrual period 12/18/2023. GENERAL: The patient is well nourished, well hydrated in no acute distress. , The patient is oriented to time, place, and person. NECK: Supple. No lynphadenopathy, normal thyroid, no thyromegaly. LUNGS: Clear to auscultation bilaterally. no wheezes, rhonchi or rales HEART: Regular rate and rhythm, Normal heart sounds, and No murmurs or gallops abd- soft, nontender, gravid IMPRESSION: Assessment & Plan Gestational diabetes mellitus, class A1 ([facility]) Orders: URINE OB DIP B/O Chronic hypertension affecting ([facility]) Orders: URINE OB DIP B/O Obesity affecting in third trimester, unspecified obesity type ([facility]) Orders: URINE OB DIP B/O Previous section Orders: URINE OB DIP B/O H/O gastric sleeve Orders: URINE OB DIP B/O Supervision of high risk in third trimester ([facility]) Orders: URINE OB DIP B/O PLAN: The risks/benefits/alternatives and personal involved for the planned and tubal were reviewed with the patient. Her questions were answered to her satisfaction and she desires to proceed. Consent was signed. I reviewed with her postop instructions and expectations. I have reviewed and updated past medical and surgical history, medications and allergies Valencia Avila M.D. [facility] 09-09-2024 History and physical note Pre-Op History and Physical HPI: The patient is a 28 year old female presenting for pre-operative visit. She is scheduled for and tubal, for h/o previous c/s and sterilization on 09/16/24. Procedure discussed along with risks, benefits and complications. Other alternatives discussed for management. Consent form signed? Yes. PAST MEDICAL HISTORY Diagnosis Date Allergic rhinitis Asthma ([facility]) Atypical squamous cells of undetermined significance (ASCUS) on Papanicolaou smear of cervix 2018 Depression Developmental speech or language disorder speech delay--resolved Essential hypertension Fatty liver Generalized anxiety disorder Gestational diabetes mellitus, class A1 ([facility]) 02/14/2021 Hyperhidrosis Hypertension IBS (irritable bowel syndrome) stress induced Morbid obesity with BMI of 40.0-44.9, adult ([facility]) LINA (obstructive sleep apnea) PMH - PAST MEDICAL HISTORY OF pneumonia 2000 [id number] Unspecified asthma(493.90) PAST SURGICAL HISTORY Procedure Laterality Date DELIVERY ONLY 04/20/2021 [facility] PT ED BARIATRIC AND METABOLIC 07/22/2022 Gastric Sleeve surgery TONSILLECTOMY & ADENOIDECTOMY <AGE 12 Current Outpatient Medications Medication Sig Dispense Refill escitalopram oxalate (LEXAPRO) 20 mg tablet Take 1 tablet by mouth once daily 90 tablet 0 famotidine (PEPCID) 20 mg tablet Take 1 tablet by mouth twice daily 60 tablet 0 blood sugar diagnostic (TRUE METRIX GLUCOSE TEST STRIP) test strip 1 strip four times daily. Use with blood glucose test four times a day. Insulin Dep? No 200 each 11 aspirin, enteric coated (ECOTRIN LOW STRENGTH) 81 mg EC tablet Take 2 tablets by mouth daily at bedtime. 180 tablet 1 blood sugar diagnostic (ONETOUCH ULTRA TEST) test strip Use as directed four times a day. Insulin Dep? No 100 Strip 1 ONETOUCH ULTRA PLUS FLEX METER [facility] [place]. 1 Each 0 buPROPion XL (WELLBUTRIN XL) 150 mg 24 hr tablet Take 1 tablet by mouth once daily. 90 tablet 3 folic acid 1 mg tablet Take 1 tablet by mouth once daily. pyridoxine, vitamin B6, (VITAMIN B-6) 50 mg tablet Take 1 tablet by mouth two times a day. ondansetron orally disintegrating (ZOFRAN ODT) 4 mg disintegrating tablet Take 1 tablet by mouth every 8 hours as needed for nausea/vomiting. 60 tablet 2 olopatadine (PATANOL) 0.1 % ophthalmic solution Use 1 Drop in both eyes two times a day. 1 TO 2 DROPS TO EACH EYE TWICE DAILY NEEDED 1 mL 5 triamcinolone acetonide (KENALOG) 0.1 % cream Apply 1 application to affected area twice daily. Apply sparingly to area for rash/itching. 28.4 g 0 cetirizine HCl (ZYRTEC ORAL) Take by mouth. albuterol HFA (VENTOLIN HFA) 90 mcg/actuation inhaler Inhale 2 Puffs as instructed every 4 hours as needed. 18 g 3 No current facility-administered medications for this visit. ALLERGIES: Dust Mites, Prozac [Fluoxetine], and Ragweed PERSONAL HISTORY: Social History Tobacco Use Smoking status: Never Smokeless tobacco: Never Vaping Use Vaping status: Never Used Substance Use Topics Alcohol use: No Drug use: No FAMILY HISTORY: FAMILY HISTORY Problem Relation Age of Onset other (crohns) Mother Migraines Mother Hypertension Father Asthma Father Allergies Father Heart Attack Father 53 Anxiety disorder Brother Depression Brother Hypertension Brother No Known Problems Brother other (alcoholic/drug addict) Maternal Grandmother other (alcoholic/ drug addict) Maternal Grandfather Heart Maternal Grandfather Breast Cancer Paternal Grandmother GI Paternal Grandfather Crohn's disease - in his 60s Heart Attack Paternal Grandfather REVIEW OF SYMPTOMS: GENERAL: denies fevers or chills ENDOCRINOLOGY: has not been on steroids Cardiology : denies palpitations or chest pain Respiratory: denies SOB or cough Hematology: denies history of prolonged bleeding or easy bruising or VTE Allergy: Denies history of personal or family history of allergy to anesthesia PHYSICAL EXAMINATION: VITALS: Blood pressure 135/88, weight 111.1 kg (245 lb), last menstrual period 12/18/2023. GENERAL: The patient is well nourished, well hydrated in no acute distress. , The patient is oriented to time, place, and person. NECK: Supple. No lynphadenopathy, normal thyroid, no thyromegaly. LUNGS: Clear to auscultation bilaterally. no wheezes, rhonchi or rales HEART: Regular rate and rhythm, Normal heart sounds, and No murmurs or gallops abd- soft, nontender, gravid IMPRESSION: Assessment & Plan Gestational diabetes mellitus, class A1 (HCC) Orders: URINE OB DIP B/O Chronic hypertension affecting (HCC) Orders: URINE OB DIP B/O Obesity affecting in third trimester, unspecified obesity type (HCC) Orders: URINE OB DIP B/O Previous section Orders: URINE OB DIP B/O H/O gastric sleeve Orders: URINE OB DIP B/O Supervision of high risk in third trimester (HCC) Orders: URINE OB DIP B/O PLAN: The risks/benefits/alternatives and personal involved for the planned and tubal were reviewed with the patient. Her questions were answered to her satisfaction and she desires to proceed. Consent was signed. I reviewed with her postop instructions and expectations. I have reviewed and updated past medical and surgical history, medications and allergies aVlencia Avila M.D. documented in this encounter [facility] 09-09-2024 Progress note Formatting of t his note might be different from the original. RR- VB No. LOF No. CTXS No. Movement: present. Other c/o: hip pain, uncomfortable, hard to stay in one position due to leg pain Medication list reviewed. SENSITIVE EXAM: Sensitive exam not performed. Physical Exam See Flow Sheet Abd: soft, nontender, gravid Ext: edema: Trace, symetrical: Yes, DTRS: 1+ A/P 38w0d Estimated Date of Delivery: 09/23/24 Assessment & Plan Gestational diabetes mellitus, class A1 ([facility]) BS well controlled Orders: URINE OB DIP B/O Chronic hypertension affecting (HCC) well controlled, not on meds, NST reactive, up to date on growth scans Orders: URINE OB DIP B/O Obesity affecting in third trimester, unspecified obesity type (HCC) nst reactive Orders: URINE OB DIP B/O Previous section plans repeat w/ c/s Risks, benefits and alternatives to sterilization have been discussed with the patient. She declines reversible options including LARC. She understands sterilization is permanent, irreversible, risks of failure, regret and ectopic. In addition she understands there are surgical risks as well. Her questions were answered to her satisfaction and consent was signed Orders: URINE OB DIP B/O H/O gastric sleeve Orders: URINE OB DIP B/O Supervision of high risk in third trimester ([facility]) Orders: URINE OB DIP B/O 38 weeks gestation of ([facility]) Orders: URINE OB DIP B/O decision for surgery today,. Valencia Avila M.D. [facility] 09-09-2024 Miscellaneous Notes RR- VB No. LOF No. CTXS No. Movement: present. Other c/o: hip pain, uncomfortable, hard to stay in one position due to leg pain Medication list reviewed. SENSITIVE EXAM: Sensitive exam not performed. Physical Exam See Flow Sheet Abd: soft, nontender, gravid Ext: edema: Trace, symetrical: Yes, DTRS: 1+ A/P 38w0d Estimated Date of Delivery: 09/23/24 Assessment & Plan Gestational diabetes mellitus, class A1 (HCC) BS well controlled Orders: URINE OB DIP B/O Chronic hypertension affecting (HCC) well controlled, not on meds, NST reactive, up to date on growth scans Orders: URINE OB DIP B/O Obesity affecting in third trimester, unspecified obesity type (HCC) nst reactive Orders: URINE OB DIP B/O Previous section plans repeat w/ c/s Risks, benefits and alternatives to sterilization have been discussed with the patient. She declines reversible options including LARC. She understands sterilization is permanent, irreversible, risks of failure, regret and ectopic. In addition she understands there are surgical risks as well. Her questions were answered to her satisfaction and consent was signed Orders: URINE OB DIP B/O H/O gastric sleeve Orders: URINE OB DIP B/O Supervision of high risk in third trimester (HCC) Orders: URINE OB DIP B/O 38 weeks gestation of ([facility]) Orders: URINE OB DIP B/O decision for surgery today,. Valencia Avila M.D. documented in this encounter [facility] 09-09-2024 Note HNO ID: [id number] Author: VALENCIA AVILA MD Service: ? Author Type: Physician Type: Progress Notes Filed: 09/09/2024 14:27 Note Text: NST SUMMARY PROVIDER ASSESSMENT AND INTERPRETATION Cammie Lozano is a 28 year old female, , who is at 38w0d with an QUYNH of 09/23/2024, by Last Menstrual Period dating method. Indications for NST: Chronic HTN Baseline: 160 Variability: Moderate Accelerations: Present 15 X 15 Decelerations: None Contractions: TOCO: None Interpretation: Reactive SIGNATURE: Valencia Avila MD [facility] 09-09-2024 History of Present illness Narrative NST SUMMARY PROVIDER ASSESSMENT AND INTERPRETATION Cammie Lozano is a 28 year old female, , who is at 38w0d with an QUYNH of 09/23/2024, by Last Menstrual Period dating method. Indications for NST: Chronic HTN Baseline: 160 Variability: Moderate Accelerations: Present 15 X 15 Decelerations: None Contractions: TOCO: None Interpretation: Reactive SIGNATURE: Valencia Avila MD documented in this encounter [facility] 09-09-2024 Instructions Robinson MejiaHILL - 09/09/2024 12:56 PM EDT SEQUENTIAL SCREENINGS The [facility] offers sequential screenings for women who are interested in screenings for chromosomal abnormalities and certain defects during a . The sequential screen combines ultrasound and blood tests to determine the risk of chromosomal abnormalities, including Down's Syndrome (Trisomy 21) and Trisomy 18, as well as open neural tube defects including spina bifida. Ultrasound examination is performed between 11 weeks and 13 weeks gestational age. Blood tests are drawn after the ultrasound and again later in the between 15 and 21 weeks gestational age. Please let your physician know if you are interested in this testing. It will require an appointment with our aviation safety equipment technician. This is not an ultrasound performed by a physician in our office during a routine visit. SIGNS AND SYMPTOMS OF LABOR 1. Contractions every 10 minutes or more often 2. Clear, pink, or brownish fluid (water) leaking from vagina 3. Feeling that baby is pushing down, pressure 4. Low, dull backache 5. Cramps that feel like a period 6. Cramps with or without diarrhea If you notice any of the above symptoms, contact our office at [phone] and ask to speak with a nurse. After hours, you can call doctors registry at [phone] OR call [facility] at [phone] and ask to have the doctor conservation scientist paged. If you consider this an emergency, dial 9-1-1 or go to your nearest emergency department. NEED HELP? Are you dealing with a violent or abusive relationship? Are you a victim of rape or sexual assult? Call [facility] ([facility] 24 hour Crisis Hotline: 732.921.3973 or 572-843-8976. MANUAL Your Guide to a Healthy manual is now on-line. Visit [email or web address] to download your free copy documented in this encounter [facility] 08-31-2024 Note Indication Evaluation of growth, Evaluation of well-being Maternal obesity, BMI >35, Gestational diabetes - diet controlled, Chronic hypertension Impression - Single, live, intrauterine . - presentation is cephalic. - The biometry is consistent with the assigned gestational dating. - The EFW is 3140 g, at the 67%. AC is at the 81%. - Amniotic fluid volume is normal amount with an MVP of 6.2 cm and FRANCISCO of 19.7 cm. - The placenta is posterior, fundal. - No malformations visualized on a limited survey as detailed below. Recommendations Additional follow-up as clinically indicated. Maternal Assessment Height 170 cm Height (ft) 5 ft Height (in) 7 in Physical Exam Initial weight (lb) 232 lb Initial BMI 36.34 kg/m Maternal assessment other: 3 Para 1 REMOTE READ Method Transabdominal ultrasound examination [place] . Number of fetuses: 1 Dating LMP on: 12/18/2023 GA by LMP 36 w + 5 d QUYNH by LMP: 09/23/2024 GA by prior assessment 36 w + 5 d QUYNH by prior assessment: 09/23/2024 Ultrasound examination on: 08/31/2024 GA by U/S based upon: AC, BPD, Femur, HC GA by U/S 37 w + 3 d QUYNH by U/S: 09/18/2024 Assigned: based on stated QUYNH, selected on 04/28/2024 Assigned GA 36 w + 5 d Assigned QUYNH: 09/23/2024 General Evaluation Cardiac activity present. FHR 157 bpm. movements: present. Presentation: cephalic Placenta: Placental site: posterior, fundal Umbilical cord: Cord vessels: 3 vessel cord Amniotic fluid: Amount of AF: normal amount. MVP 6.2 cm. FRANCISCO 19.7 cm. Q1 3.8 cm, Q2 6.2 cm, Q3 5.0 cm, Q4 4.7 cm Biophysical Profile 2: breathing movements 2: Gross body movements 2: tone 2: Amniotic fluid volume 09/24 Biophysical profile score Growth Overview Exam date GA BPD (mm) HC (mm) AC (mm) FL (mm) HL (mm) EFW (g) 04/28/2024 18w 6d 40.1 22% 160.4 48% 136.9 55% 27.8 53% 27.5 49% 258 41% 07/02/2024 28w 1d 71.9 62% 279.1 86% 251.3 78% 52 46% 1321 70% 08/05/2024 33w 0d 85 79% 321.7 87% 296.2 69% 62.6 45% 2250 62% 08/31/2024 36w 5d 92.3 82% 340.3 78% 335.2 81% 69.5 51% 3140 67% Biometry Standard BPD 92.3 mm 37w 3d 82% Hadlock OFD 121.8 mm -/- 89% Nicolaides HC 340.3 mm 39w 2d 78% Martina AC 335.2 mm 37w 3d 81% Hadlock Femur 69.5 mm 35w 2d 51% Martina EFW 3,140 g 37w 4d 67% Hadlock EFW (lb) 6 lb EFW (oz) 15 oz EFW by: Hadlock (HC-AC-FL) Extended Wash House Supervisor 5.0 mm Extremities / Bony Struc FL / HC 0.20 Other Structures FHR 157 bpm Anatomy Lateral ventricles: normal Cavum septi pellucidi: normal Cerebellum: normal Cisterna magna: normal 4-chamber view: normal RVOT view: normal LVOT view: normal 3-vessel view: normal Heart / Thorax Situs: situs solitus (normal) Diaphragm: normal Stomach: normal Kidneys: normal Bladder: normal sex: female Wants to know sex: yes Performed By: Shannon Nolasco RDMS, RVT Read By: Khadijah Armijo M.D. [facility] 08-31-2024 Progress note Formatting of t his note might be different from the original. KJ - S: Cammie denies LOF, contractions or vaginal bleeding. O: 36w5d, see flow sheet SENSITIVE EXAM: Sensitive exam not performed. A/P: Assessment & Plan Obesity affecting in third trimester, unspecified obesity type (HCC) Orders: URINE OB DIP B/O Chronic hypertension affecting (HCC) Orders: URINE OB DIP B/O Gestational diabetes mellitus, class A1 (HCC) BS log reviewed & overall normal Orders: URINE OB DIP B/O Previous section Repeat scheduled Orders: URINE OB DIP B/O 36 weeks gestation of ([facility]) Orders: URINE OB DIP B/O Reviewed labor & FM precautions Camilla Snell MD [facility] 08-31-2024 Miscellaneous Notes KJ - S: Cammie denies LOF, contractions or vaginal bleeding. O: 36w5d, see flow sheet SENSITIVE EXAM: Sensitive exam not performed. A/P: Assessment & Plan Obesity affecting in third trimester, unspecified obesity type ([facility]) Orders: URINE OB DIP B/O Chronic hypertension affecting ([facility]) Orders: URINE OB DIP B/O Gestational diabetes mellitus, class A1 ([facility]) BS log reviewed & overall normal Orders: URINE OB DIP B/O Previous section Repeat scheduled Orders: URINE OB DIP B/O 36 weeks gestation of ([facility]) Orders: URINE OB DIP B/O Reviewed labor & FM precautions Camilla Snell MD documented in this encounter [facility] 08-31-2024 Instructions Leny Moctezuma MA - 08/31/2024 1:19 PM EDT SEQUENTIAL SCREENINGS The [facility] offers sequential screenings for women who are interested in screenings for chromosomal abnormalities and certain defects during a . The sequential screen combines ultrasound and blood tests to determine the risk of chromosomal abnormalities, including Down's Syndrome (Trisomy 21) and Trisomy 18, as well as open neural tube defects including spina bifida. Ultrasound examination is performed between 11 weeks and 13 weeks gestational age. Blood tests are drawn after the ultrasound and again later in the between 15 and 21 weeks gestational age. Please let your physician know if you are interested in this testing. It will require an appointment with our aviation safety equipment technician. This is not an ultrasound performed by a physician in our office during a routine visit. SIGNS AND SYMPTOMS OF LABOR 1. Contractions every 10 minutes or more often 2. Clear, pink, or brownish fluid (water) leaking from vagina 3. Feeling that baby is pushing down, pressure 4. Low, dull backache 5. Cramps that feel like a period 6. Cramps with or without diarrhea If you notice any of the above symptoms, contact our office at [phone] and ask to speak with a nurse. After hours, you can call doctors registry at [phone] OR call [facility] at [phone] and ask to have the doctor conservation scientist paged. If you consider this an emergency, dial 9--8 or go to your nearest emergency department. NEED HELP? Are you dealing with a violent or abusive relationship? Are you a victim of rape or sexual assult? Call [facility] ([place]) 24 hour Crisis Hotline: 879.745.4837 or 459-470-0229. MANUAL Your Guide to a Healthy manual is now on-line. Visit [email or web address] to download your free copy documented in this encounter [facility] 08-27-2024 Progress note Formatting of t his note might be different from the original. KJ - S: Cammie denies LOF, contractions or vaginal bleeding. O: 36w1d, see flow sheet SENSITIVE EXAM: The sensitive examination was discussed with the Patient or Patient's Authorized Pier Runner. As applicable, any other physician, advance practice provider, medical student, or other health professional student that will be observing or involved in the sensitive examination for educational or training purposes was discussed with the Patient or Authorized Pier Runner. The Patient or Authorized Pier Runner has agreed to proceed with the sensitive examination. (Sensitive examination includes inspection and/or palpation of the breasts, pelvis, prostate and anorectal regions). A/P: Assessment & Plan Obesity affecting in third trimester, unspecified obesity type (HCC) Growth US next week. Orders: URINE OB DIP B/O ROUTINE, GROUP B STREPTOCOCCUS BY PCR Chronic hypertension affecting (HCC) Continue aspirin. Orders: URINE OB DIP B/O ROUTINE, GROUP B STREPTOCOCCUS BY PCR Gestational diabetes mellitus, class A1 ([facility]) BS log reviewed & overall normal. Orders: URINE OB DIP B/O ROUTINE, GROUP B STREPTOCOCCUS BY PCR History of section Repeat scheduled 36 weeks gestation of ([facility]) Orders: URINE OB DIP B/O ROUTINE, GROUP B STREPTOCOCCUS BY PCR Reviewed PTL & FM precautions. Camilla Snell MD [facility] 08-27-2024 Miscellaneous Notes KJ - S: Cammie denies LOF, contractions or vaginal bleeding. O: 36w1d, see flow sheet SENSITIVE EXAM: The sensitive examination was discussed with the Patient or Patient's Authorized Pier Runner. As applicable, any other physician, advance practice provider, medical student, or other health professional student that will be observing or involved in the sensitive examination for educational or training purposes was discussed with the Patient or Authorized Pier Runner. The Patient or Authorized Pier Runner has agreed to proceed with the sensitive examination. (Sensitive examination includes inspection and/or palpation of the breasts, pelvis, prostate and anorectal regions). A/P: Assessment & Plan Obesity affecting in third trimester, unspecified obesity type (HCC) Growth US next week. Orders: URINE OB DIP B/O ROUTINE, GROUP B STREPTOCOCCUS BY PCR Chronic hypertension affecting (HCC) Continue aspirin. Orders: URINE OB DIP B/O ROUTINE, GROUP B STREPTOCOCCUS BY PCR Gestational diabetes mellitus, class A1 (HCC) BS log reviewed & overall normal. Orders: URINE OB DIP B/O ROUTINE, GROUP B STREPTOCOCCUS BY PCR History of section Repeat scheduled 36 weeks gestation of (HCC) Orders: URINE OB DIP B/O ROUTINE, GROUP B STREPTOCOCCUS BY PCR Reviewed PTL & FM precautions. Camilla Snell MD documented in this encounter [facility] 08-27-2024 Instructions Candace Peña MA - 08/27/2024 10:19 AM EDT SEQUENTIAL SCREENINGS The [facility] offers sequential screenings for women who are interested in screenings for chromosomal abnormalities and certain defects during a . The sequential screen combines ultrasound and blood tests to determine the risk of chromosomal abnormalities, including Down's Syndrome (Trisomy 21) and Trisomy 18, as well as open neural tube defects including spina bifida. Ultrasound examination is performed between 11 weeks and 13 weeks gestational age. Blood tests are drawn after the ultrasound and again later in the between 15 and 21 weeks gestational age. Please let your physician know if you are interested in this testing. It will require an appointment with our aviation safety equipment technician. This is not an ultrasound performed by a physician in our office during a routine visit. SIGNS AND SYMPTOMS OF LABOR 1. Contractions every 10 minutes or more often 2. Clear, pink, or brownish fluid (water) leaking from vagina 3. Feeling that baby is pushing down, pressure 4. Low, dull backache 5. Cramps that feel like a period 6. Cramps with or without diarrhea If you notice any of the above symptoms, contact our office at [phone] and ask to speak with a nurse. After hours, you can call doctors registry at [phone] OR call [facility] at [phone] and ask to have the doctor conservation scientist paged. If you consider this an emergency, dial 9-1-2 or go to your nearest emergency department. NEED HELP? Are you dealing with a violent or abusive relationship? Are you a victim of rape or sexual assult? Call [facility] ([place]) 24 hour Crisis Hotline: 261.575.3377 or 817-461-0328. MANUAL Your Guide to a Healthy manual is now on-line. Visit [email or web address] to download your free copy documented in this encounter [facility] 08-21-2024 Telephone encounter Note Prescription Refill Information The patient has been identified by name and date of : Yes Caregiver verified no other encounters exist for this prescription request: Yes Caregiver confirmed with patient/requestor that no other refills are due, in the near future, with this provider at this time: Yes The last office visit in the department: 01/19/24 Does the patient have a future office visit with this provider/department: No Requested Prescriptions Pending Prescriptions Disp Refills escitalopram oxalate (LEXAPRO) 20 mg tablet [Pharmacy Med Name: Escitalopram Oxalate 20 MG Oral Tablet] 90 tablet 0 Sig: Take 1 tablet by mouth once daily Yi Dey LPN August 21, 2024 9:58 AM [facility] 08-21-2024 Miscellaneous Notes Prescription Refill Information The patient has been identified by name and date of : Yes Caregiver verified no other encounters exist for this prescription request: Yes Caregiver confirmed with patient/requestor that no other refills are due, in the near future, with this provider at this time: Yes The last office visit in the department: 01/19/24 Does the patient have a future office visit with this provider/department: No Requested Prescriptions Pending Prescriptions Disp Refills escitalopram oxalate (LEXAPRO) 20 mg tablet [Pharmacy Med Name: Escitalopram Oxalate 20 MG Oral Tablet] 90 tablet 0 Sig: Take 1 tablet by mouth once daily Yi Dey LPN August 21, 2024 9:58 AM documented in this encounter [facility] 08-17-2024 Note HNO ID: [id number] Author: PRISCILLA PETERSON APRN.CNM Service: ? Author Type: Legal File Clerk Type: Progress Notes Filed: 08/17/2024 09:52 Note Text: NST SUMMARY PROVIDER ASSESSMENT AND INTERPRETATION Cammie Lozano is a 28 year old female, , who is at 34w5d with an QUYNH of 09/23/2024, by Last Menstrual Period dating method. Indications for NST: Chronic HTN Baseline: 135 Variability: Moderate Accelerations: Present 15 X 15 Decelerations: None Contractions: TOCO: None Interpretation: Reactive SIGNATURE: Priscilla Peterson APRN.CNM [facility] 08-17-2024 History of Present illness Narrative NST SUMMARY PROVIDER ASSESSMENT AND INTERPRETATION Cammie Lozano is a 28 year old female, , who is at 34w5d with an QUYNH of 09/23/2024, by Last Menstrual Period dating method. Indications for NST: Chronic HTN Baseline: 135 Variability: Moderate Accelerations: Present 15 X 15 Decelerations: None Contractions: TOCO: None Interpretation: Reactive SIGNATURE: Priscilla Peterson APRN.CNM documented in this encounter [facility] 08-17-2024 Progress note Formatting of t his note might be different from the original. SAMUEL-S: Cammie Lozano is a 28 year old female who presents at 30w5d with 34w5d with QUYNH:09/23/2024, by Last Menstrual Period for a routine visit. Denies headache, visual changes, chest pain, shortness of breath, vaginal bleeding, leakage of fluid, or dysuria. Feeling well, no complaints. Doing well with diet and controlling blood glucose level. O: See flow sheet Gen: No apparent distress Abd: Gravid, nontender 16 lb TWG Blood glucose log for review, good control. All fasting WNL 06/16 1 hr PP elevated. Most PP in normal limit. BP range at home 130-135/70-80 ASSESSMENT/PLAN: 1. Supervision of high risk in third trimester -Continue PNV 2. 34 weeks gestation of 3. Obesity affecting in third trimester, unspecified obesity type -Pregravid BMI 36 -Growth US every 4wks at 32 wk (already ordered due to GDM) -NST weekly starting at 36 weeks 4. Chronic hypertension affecting -Baseline labs normal -Continue ASA 162mg PO once daily -Continue to monitor BP intermittently and reviewed when to call. BP stable at this time. -No medications, weekly NSTs 5. LINA (obstructive sleep apnea) -Currently not using CPAP 6. Gestational diabetes mellitus, class A1 -Good glycemic control at this time -Start growth US every 4 weeks -Send blood glucose log weekly, reminded today 7. History of depression -Continues Wellbutrin and Lexapro, affective at this time. 8. History of section -Planning repeat C/S on 09/16 at 0715 with 9. H/O gastric sleeve 10. Anxiety during -Continues Wellbutrin and Lexapro, affective at this time. 11. Heartburn during in first trimester -Continue Pepcid PTL precautions reviewed and when to call RTO in 2 weeks Priscilla Peterson APRN.CNM [facility] 08-17-2024 Miscellaneous Notes SAMUEL-S: Cammie Lozano is a 28 year old female who presents at 30w5d with 34w5d with QUYNH:09/23/2024, by Last Menstrual Period for a routine visit. Denies headache, visual changes, chest pain, shortness of breath, vaginal bleeding, leakage of fluid, or dysuria. Feeling well, no complaints. Doing well with diet and controlling blood glucose level. O: See flow sheet Gen: No apparent distress Abd: Gravid, nontender 16 lb TWG Blood glucose log for review, good control. All fasting WNL 06/16 1 hr PP elevated. Most PP in normal limit. BP range at home 130-135/70-80 ASSESSMENT/PLAN: 1. Supervision of high risk in third trimester -Continue PNV 2. 34 weeks gestation of 3. Obesity affecting in third trimester, unspecified obesity type -Pregravid BMI 36 -Growth US every 4wks at 32 wk (already ordered due to GDM) -NST weekly starting at 36 weeks 4. Chronic hypertension affecting -Baseline labs normal -Continue ASA 162mg PO once daily -Continue to monitor BP intermittently and reviewed when to call. BP stable at this time. -No medications, weekly NSTs 5. LINA (obstructive sleep apnea) -Currently not using CPAP 6. Gestational diabetes mellitus, class A1 -Good glycemic control at this time -Start growth US every 4 weeks -Send blood glucose log weekly, reminded today 7. History of depression -Continues Wellbutrin and Lexapro, affective at this time. 8. History of section -Planning repeat C/S on 09/16 at 0715 with 9. H/O gastric sleeve 10. Anxiety during -Continues Wellbutrin and Lexapro, affective at this time. 11. Heartburn during in first trimester -Continue Pepcid PTL precautions reviewed and when to call RTO in 2 weeks Priscilla Peterson APRN.CNM documented in this encounter [facility] 08-17-2024 Instructions Priscilla Peterson APRN.CNM - 08/17/2024 9:08 AM EDT SIGNS AND SYMPTOMS OF LABOR 1. Contractions every 10 minutes or more often 2. Clear, pink, or brownish fluid (water) leaking from vagina 3. Feeling that baby is pushing down, pressure 4. Low, dull backache 5. Cramps that feel like a period 6. Cramps with or without diarrhea If you notice any of the above symptoms, contact our office at [phone] and ask to speak with a nurse. After hours, you can call doctors registry at [phone] OR call [facility] at [phone] and ask to have the doctor conservation scientist paged. If you consider this an emergency, dial 3--6 or go to your nearest emergency department. NEED HELP? Are you dealing with a violent or abusive relationship? Are you a victim of rape or sexual assult? Call [facility] ([place]) 24 hour Crisis Hotline: 186.269.9277 or 027-280-7875. MANUAL Your Guide to a Healthy manual is now on-line. Visit [email or web address] to download your free copy documented in this encounter [facility] 08-09-2024 Note HNO ID: [id number] Author: MAGGY SANTIAGO APRN.CNM Service: ? Author Type: Legal File Clerk Type: Progress Notes Filed: 08/09/2024 11:01 Note Text: NST SUMMARY PROVIDER ASSESSMENT AND INTERPRETATION Cammie Lozano is a 28 year old female, , who is at 33w4d with an QUYNH of 09/23/2024, by Last Menstrual Period dating method. Indications for NST: Chronic HTN, Gestational Diabetes - Diet Controlled, and Obesity Baseline: 140 Variability: Moderate Accelerations: Present 15 X 15 Decelerations: None Contractions: TOCO: None Interpretation: Reactive SIGNATURE: Maggy Santiago APRN.CNM [facility] 08-09-2024 Progress note Formatting of t his note might be different from the original. Patient here for NST only. NST reactive. Maggy Santiago APRN.CNM [facility] 08-09-2024 History of Present illness Narrative NST SUMMARY PROVIDER ASSESSMENT AND INTERPRETATION Cammie Lozano is a 28 year old female, , who is at 33w4d with an QUYNH of 09/23/2024, by Last Menstrual Period dating method. Indications for NST: Chronic HTN, Gestational Diabetes - Diet Controlled, and Obesity Baseline: 140 Variability: Moderate Accelerations: Present 15 X 15 Decelerations: None Contractions: TOCO: None Interpretation: Reactive SIGNATURE: Maggy Santiago APRN.CNM documented in this encounter [facility] 08-09-2024 Miscellaneous Notes Patient here for NST only. NST reactive. Maggy Santiago APRN.CNM documented in this encounter [facility] 08-09-2024 Leny Jerome MA - 08/09/2024 10:20 AM EDT SEQUENTIAL SCREENINGS The [facility] offers sequential screenings for women who are interested in screenings for chromosomal abnormalities and certain defects during a . The sequential screen combines ultrasound and blood tests to determine the risk of chromosomal abnormalities, including Down's Syndrome (Trisomy 21) and Trisomy 18, as well as open neural tube defects including spina bifida. Ultrasound examination is performed between 11 weeks and 13 weeks gestational age. Blood tests are drawn after the ultrasound and again later in the between 15 and 21 weeks gestational age. Please let your physician know if you are interested in this testing. It will require an appointment with our aviation safety equipment technician. This is not an ultrasound performed by a physician in our office during a routine visit. SIGNS AND SYMPTOMS OF LABOR 1. Contractions every 10 minutes or more often 2. Clear, pink, or brownish fluid (water) leaking from vagina 3. Feeling that baby is pushing down, pressure 4. Low, dull backache 5. Cramps that feel like a period 6. Cramps with or without diarrhea If you notice any of the above symptoms, contact our office at [phone] and ask to speak with a nurse. After hours, you can call doctors registry at [phone] OR call [facility] at [phone] and ask to have the doctor conservation scientist paged. If you consider this an emergency, dial 6-2-2 or go to your nearest emergency department. NEED HELP? Are you dealing with a violent or abusive relationship? Are you a victim of rape or sexual assult? Call [facility] ([place]) 24 hour Crisis Hotline: 104.329.5745 or 755-728-7795. MANUAL Your Guide to a Healthy manual is now on-line. Visit [email or web address] to download your free copy documented in this encounter [facility] 08-05-2024 Note Indication Evaluation of growth. Maternal obesity, BMI >30. Gestational diabetes - diet controlled, Chronic hypertension Impression REMOTE READ - Single, live, intrauterine . - presentation is cephalic. - The biometry is consistent with the assigned gestational dating. - The EFW is 2250 g, at the 62%. AC is at the 69%. - Amniotic fluid volume is normal amount with an MVP of 4.6 cm and FRANCISCO of 12.9 cm. - The placenta is posterior, fundal. - No malformations visualized on a limited survey as detailed below. Recommendations - growth scan every 4 weeks - Additional follow up as clinically indicated. Maternal Assessment Height 170 cm Height (ft) 5 ft Height (in) 7 in Physical Exam Initial weight (lb) 232 lb Initial BMI 36.34 kg/m Method Transabdominal ultrasound examination Dcikerson . Number of fetuses: 1 Dating LMP on: 12/18/2023 GA by LMP 33 w + 0 d QUYNH by LMP: 09/23/2024 GA by prior assessment 33 w + 0 d QUYNH by prior assessment: 09/23/2024 Ultrasound examination on: 08/05/2024 GA by U/S based upon: AC, BPD, Femur, HC GA by U/S 33 w + 6 d QUYNH by U/S: 09/17/2024 Assigned: based on stated QUYNH, selected on 04/28/2024 Assigned GA 33 w + 0 d Assigned QUYNH: 09/23/2024 General Evaluation Cardiac activity present. FHR 142 bpm. movements: present. Presentation: cephalic Placenta: Placental site: posterior, fundal Umbilical cord: Cord vessels: 3 vessel cord. Insertion site: normal insertion Amniotic fluid: Amount of AF: normal amount. MVP 4.6 cm. FRANCISCO 12.9 cm. Q1 3.9 cm, Q2 0.0 cm, Q3 4.4 cm, Q4 4.6 cm Growth Overview Exam date GA BPD (mm) HC (mm) AC (mm) FL (mm) HL (mm) EFW (g) 04/28/2024 18w 6d 40.1 22% 160.4 48% 136.9 55% 27.8 53% 27.5 49% 258 41% 07/02/2024 28w 1d 71.9 62% 279.1 86% 251.3 78% 52 46% 1321 70% 08/05/2024 33w 0d 85 79% 321.7 87% 296.2 69% 62.6 45% 2250 62% Biometry Standard BPD 85.0 mm 34w 2d 79% Hadlock OFD 116.6 mm -/- 93% Nicolaides HC 321.7 mm 35w 3d 87% Martina AC 296.2 mm 33w 4d 69% Hadlock Femur 62.6 mm 32w 2d 45% Martina EFW 2,250 g 33w 3d 62% Hadlock EFW (lb) 4 lb EFW (oz) 15 oz EFW by: Hadlock (HC-AC-FL) Extended Wash House Supervisor 5.8 mm Extremities / Bony Struc FL / HC 0.19 Other Structures FHR 142 bpm Anatomy Lateral ventricles: normal Cavum septi pellucidi: normal Cerebellum: normal Cisterna magna: normal 4-chamber view: normal RVOT view: normal LVOT view: normal 3-vessel view: normal Heart / Thorax Situs: situs solitus (normal) Diaphragm: normal Stomach: normal Kidneys: normal Bladder: normal sex: female Wants to know sex: yes Performed By: Casandra Hopkins RDMS Read By: Khadijah Armijo M.D. [facility] 08-05-2024 Progress note Formatting of t his note might be different from the original. KJ - S: Cammie denies LOF, contractions or vaginal bleeding. O: 33w0d, see flow sheet SENSITIVE EXAM: Sensitive exam not performed. A/P: Assessment & Plan Obesity affecting in third trimester, unspecified obesity type (HCC) Orders: URINE OB DIP B/O Chronic hypertension affecting (HCC) BP log reviewed & less than 140/90 at home. Growth US today. Weekly NSTs. Orders: URINE OB DIP B/O Gestational diabetes mellitus, class A1 (HCC) BS log reviewed & overall normal. Encouraged diet compliance and walking. Orders: URINE OB DIP B/O History of section Repeat scheduled Orders: URINE OB DIP B/O 33 weeks gestation of (HCC) Orders: URINE OB DIP B/O Reviewed PTL, FM & preE precautions Camilla Snell MD [facility] 08-05-2024 Miscellaneous Notes KJ - S: Cammie denies LOF, contractions or vaginal bleeding. O: 33w0d, see flow sheet SENSITIVE EXAM: Sensitive exam not performed. A/P: Assessment & Plan Obesity affecting in third trimester, unspecified obesity type (HCC) Orders: URINE OB DIP B/O Chronic hypertension affecting (HCC) BP log reviewed & less than 140/90 at home. Growth US today. Weekly NSTs. Orders: URINE OB DIP B/O Gestational diabetes mellitus, class A1 (HCC) BS log reviewed & overall normal. Encouraged diet compliance and walking. Orders: URINE OB DIP B/O History of section Repeat scheduled Orders: URINE OB DIP B/O 33 weeks gestation of (HCC) Orders: URINE OB DIP B/O Reviewed PTL, FM & preE precautions Camilla Snell MD documented in this encounter [facility] 08-05-2024 Instructions Candace Peña MA - 08/05/2024 8:31 AM EDT SEQUENTIAL SCREENINGS The [facility] offers sequential screenings for women who are interested in screenings for chromosomal abnormalities and certain defects during a . The sequential screen combines ultrasound and blood tests to determine the risk of chromosomal abnormalities, including Down's Syndrome (Trisomy 21) and Trisomy 18, as well as open neural tube defects including spina bifida. Ultrasound examination is performed between 11 weeks and 13 weeks gestational age. Blood tests are drawn after the ultrasound and again later in the between 15 and 21 weeks gestational age. Please let your physician know if you are interested in this testing. It will require an appointment with our aviation safety equipment technician. This is not an ultrasound performed by a physician in our office during a routine visit. SIGNS AND SYMPTOMS OF LABOR 1. Contractions every 10 minutes or more often 2. Clear, pink, or brownish fluid (water) leaking from vagina 3. Feeling that baby is pushing down, pressure 4. Low, dull backache 5. Cramps that feel like a period 6. Cramps with or without diarrhea If you notice any of the above symptoms, contact our office at [phone] and ask to speak with a nurse. After hours, you can call doctors registry at [phone] OR call [facility] at [phone] and ask to have the doctor conservation scientist paged. If you consider this an emergency, dial 9-1-1 or go to your nearest emergency department. NEED HELP? Are you dealing with a violent or abusive relationship? Are you a victim of rape or sexual assult? Call [facility] ([facility] 24 hour Crisis Hotline: 619.422.7191 or 477-364-0024. MANUAL Your Guide to a Healthy manual is now on-line. Visit [email or web address] to download your free copy documented in this encounter [facility] 07-27-2024 Telephone encounter Note Please encourage diet compliance and walking after meals to help with PP glucose levels. Most levels are normal. Camilla Snell MD [facility] 07-27-2024 Miscellaneous Notes Please encourage diet compliance and walking after meals to help with PP glucose levels. Most levels are normal. Camilla Snell MD 31w5d Next OB 08/05/24 BS can be reviewed at visit tomorrow. Camilla Snell MD 28w0d She has appt with JG tomorrow 07/02/24. Jess Ríos RN Patient has appt with KJ on 06/11 documented in this encounter [facility] 07-27-2024 Telephone encounter Note 31w5d Next OB 08/05/24 [facility] 07-20-2024 Progress note Formatting of t his note might be different from the original. SAMUEL-S: Cammie Lozano is a 28 year old female who presents at 30w5d with 30w5d with QUYNH:09/23/2024, by Last Menstrual Period for a routine visit. Denies headache, visual changes, chest pain, shortness of breath, vaginal bleeding, leakage of fluid, or dysuria. Feeling well, no complaints. Didn't have protein snack before bed and noticed FBS was increased.Feels she is doing well with her diet and ways to control her sugar levels. O: See flow sheet Gen: No apparent distress Abd: Gravid, nontender 16 lb TWG Blood glucose log for review, good control. 07/05 fasting elevated. Most PP in normal limit BP range at home 130-134/70-80 ASSESSMENT/PLAN: 1. Supervision of high risk in third trimester -Continue PNV 2. 30 weeks gestation of 3. Obesity affecting in third trimester, unspecified obesity type -Pregravid BMI 36 -Growth US every 4wks at 32 wk (already ordered due to GDM) -NST weekly starting at 36 weeks 4. Chronic hypertension affecting -Baseline labs normal -Continue ASA 162mg PO once daily -Continue to monitor BP intermittently and reviewed when to call. BP stable at this time. 5. LINA (obstructive sleep apnea) -Currently not using CPAP, reviewed recommendation to consult with prior provider for management. 6. Gestational diabetes mellitus, class A1 -Good glycemic control at this time -Start growth US every 4 weeks -Send blood glucose log weekly, reminded today -Declines dietitian and nutrition consultation. 7. History of depression -Continues Wellbutrin and Lexapro, affective at this time. 8. History of section -Planning repeat C/S on 09/16 at 0715 with 9. H/O gastric sleeve 10. Anxiety during -Continues Wellbutrin and Lexapro, affective at this time. 11. Heartburn during in first trimester -Continue Pepcid PTL precautions reviewed and when to call RTO in 4 weeks Priscilla Peterson APRN.CNM [facility] 07-20-2024 Miscellaneous Notes SAMUEL-S: Cammie Lozano is a 28 year old female who presents at 30w5d with 30w5d with QUYNH:09/23/2024, by Last Menstrual Period for a routine visit. Denies headache, visual changes, chest pain, shortness of breath, vaginal bleeding, leakage of fluid, or dysuria. Feeling well, no complaints. Didn't have protein snack before bed and noticed FBS was increased.Feels she is doing well with her diet and ways to control her sugar levels. O: See flow sheet Gen: No apparent distress Abd: Gravid, nontender 16 lb TWG Blood glucose log for review, good control. 07/05 fasting elevated. Most PP in normal limit BP range at home 130-134/70-80 ASSESSMENT/PLAN: 1. Supervision of high risk in third trimester -Continue PNV 2. 30 weeks gestation of 3. Obesity affecting in third trimester, unspecified obesity type -Pregravid BMI 36 -Growth US every 4wks at 32 wk (already ordered due to GDM) -NST weekly starting at 36 weeks 4. Chronic hypertension affecting -Baseline labs normal -Continue ASA 162mg PO once daily -Continue to monitor BP intermittently and reviewed when to call. BP stable at this time. 5. LINA (obstructive sleep apnea) -Currently not using CPAP, reviewed recommendation to consult with prior provider for management. 6. Gestational diabetes mellitus, class A1 -Good glycemic control at this time -Start growth US every 4 weeks -Send blood glucose log weekly, reminded today -Declines dietitian and nutrition consultation. 7. History of depression -Continues Wellbutrin and Lexapro, affective at this time. 8. History of section -Planning repeat C/S on 09/16 at 0715 with 9. H/O gastric sleeve 10. Anxiety during -Continues Wellbutrin and Lexapro, affective at this time. 11. Heartburn during in first trimester -Continue Pepcid PTL precautions reviewed and when to call RTO in 4 weeks Priscilla Peterson APRN.CNM documented in this encounter [facility] 07-20-2024 Instructions Priscilla Peterson APRN.CNM - 07/20/2024 9:11 AM EDT SEQUENTIAL SCREENINGS The [facility] offers sequential screenings for women who are interested in screenings for chromosomal abnormalities and certain defects during a . The sequential screen combines ultrasound and blood tests to determine the risk of chromosomal abnormalities, including Down's Syndrome (Trisomy 21) and Trisomy 18, as well as open neural tube defects including spina bifida. Ultrasound examination is performed between 11 weeks and 13 weeks gestational age. Blood tests are drawn after the ultrasound and again later in the between 15 and 21 weeks gestational age. Please let your physician know if you are interested in this testing. It will require an appointment with our aviation safety equipment technician. This is not an ultrasound performed by a physician in our office during a routine visit. SIGNS AND SYMPTOMS OF LABOR 1. Contractions every 10 minutes or more often 2. Clear, pink, or brownish fluid (water) leaking from vagina 3. Feeling that baby is pushing down, pressure 4. Low, dull backache 5. Cramps that feel like a period 6. Cramps with or without diarrhea If you notice any of the above symptoms, contact our office at [phone] and ask to speak with a nurse. After hours, you can call doctors registry at [phone] OR call [facility] at [phone] and ask to have the doctor conservation scientist paged. If you consider this an emergency, dial [phone] or go to your nearest emergency department. NEED HELP? Are you dealing with a violent or abusive relationship? Are you a victim of rape or sexual assult? Call [facility] ([facility] 24 hour Crisis Hotline: 278.583.2726 or 946-060-6831. MANUAL Your Guide to a Healthy manual is now on-line. Visit [email or web address] ncyGuide to download your free copy What You Need to Know About Sterilization by Laparoscopy What is sterilization by laparoscopy? Sterilization by laparoscopy is a common procedure used to perform tubal ligation in women. Tubal ligation is a method of sterilization that involves obstruction of the fallopian tubes. The fallopian tubes are on either side of the uterus and extend toward the ovaries. They receive eggs from the ovaries and transport them to the uterus. Once the fallopian tubes are closed, the man's sperm can no longer reach the egg. Laparoscopy enables the physician to complete tubal ligation by making a small incision near the navel. This smaller incision reduces recovery time after surgery and the risk of complications. In most cases, the woman can leave the surgery facility within 4 hours after laparoscopy. Am I ready for sterilization? A woman should carefully weigh her decision to undergo sterilization by laparoscopy. Though this procedure has been successfully reversed in some women, in almost all cases it causes a permanent loss of fertility. Women who are unsure if they still want children should choose a less permanent form of contraception, such as control pills, an intrauterine device (IUD), or a barrier method (such as a diaphragm). Discuss these alternatives with your physician. Your partner may also consider having a vasectomy, a method of male sterilization that involves severing and tying the vas deferens, a tube that transports sperm. Why do women choose sterilization by laparoscopy? For women who no longer want children, sterilization by laparoscopy provides a safe and convenient form of contraception. Once completed, no further steps are needed to prevent . Tubal ligation also does not change a woman's menstrual cycle or cause menopause. However, laparoscopy may not be suitable for some women. In these cases, tubal ligation may be performed by laparotomy, a more extensive surgery that requires a larger abdominal incision and a day or two of recovery in the hospital. How is the surgery performed? You will be given a general anesthetic to relax your muscles and prevent pain during surgery. An intravenous line (I.V.) will be inserted into a vein in your hand or arm. Next, a device will be gently inserted into the vagina to move the uterus. A small incision is then made near the navel. A laparoscope, a thin viewing tube about the width of a pencil, is passed through this incision and the abdomen is inflated to make the organs easier to view. A special device for grasping the fallopian tubes is inserted through a second, small incision made at the pubic hairline. The fallopian tubes are sealed in one of two ways: with an electric current that makes the tube clot (electrocoagulation) or with a band or clip that is placed over the tubes. Your physician may also cut the fallopian tubes. After the fallopian tubes have been sealed, the laparoscope and grasping device are removed and a small bandage is applied over the incisions. Recovering from the surgery After surgery, patients stay in a recovery room and are observed for any possible complications. Patients are discharged after they receive instructions for home recovery. Patients are asked to see their physicians for a follow-up appointment within 2 to 8 weeks. You will be unable to drive for 24 hours after surgery. You must have someone pick you up and stay with you for 24 hours after surgery. Preparing for laparoscopy Before your laparoscopy: DO NOT eat, drink (including water) or smoke after midnight the evening before your surgery. Wear low-heeled shoes the day of surgery. You may be drowsy from the anesthesia and unsteady on your feet. Do not wear jewelry. (Wedding rings may be worn.) Wear loose-fitting clothing. You will have some abdominal tenderness and cramping after surgery. Bring a sanitary pad. You may have some vaginal bleeding after surgery. Remove nail chadian prior to surgery. Recovering at home Don't drink alcohol or drive for at least 24 hours after surgery. You can bathe anytime after surgery. You may remove the bandage the morning after the surgery. Steri-strips, which resemble tape, can be removed 2 to 3 days after surgery. Patients can return to work three days after surgery. (If you need a physician's letter excusing you from work, please request one before the day of surgery.) Discomforts Your abdomen may be swollen for several days after the surgery. Tylenol may be taken to relieve pain. You may have a sore throat for a few days. Try using a throat lozenge. You may have mild nausea. Try eating a light evening meal the day of surgery. Tea, soup, toast, gelatin, or crackers may help relieve nausea. Gas in the abdomen may cause discomfort in the neck, shoulders, and chest for 24 to 72 hours after surgery. Try taking a warm shower, using a heating pad, or walking. Vaginal bleeding and menstruation Vaginal bleeding up to 1 month after surgery is normal. Many women do not have their next normal menstrual cycle for 4 to 6 weeks after surgery. When your normal cycle returns, you may notice heavier bleeding and more discomfort than usual for the first two to three cycles. Vaginal bleeding and menstruation Vaginal bleeding up to 1 month after surgery is normal. Many women do not have their next normal menstrual cycle for 4 to 6 weeks after surgery. When your normal cycle returns, you may notice heavier bleeding and more discomfort than usual for the first two to three cycles. Sexual activity You can resume sexual activity one week after surgery. When to contact your physician Contact your physician immediately if you experience any of the following: Persistent nausea and vomiting for more than 24 hours Temperature over 100 degrees Fahrenheit for more than 24 hours Redness, swelling, drainage or bleeding around the incision After the first day of surgery: Heavy bleeding with clots or soaking a sanitary pad within 2 hours Copyright 4558-6221 [facility]. All rights reserved This information is provided by the [facility] and is not intended to replace the medical advice of your doctor or health care provider. Please consult your health care provider for advice about a specific medical condition. For additional health information, please contact the [facility] at the [facility] or toll-free extension [phone]. If you prefer, you may visit [email or web address] or [email or web address]. This document was last reviewed on: 2007 Vasectomy is a simple, safe operation that involves interrupting the tubes call the vas deferens that transport sperm. Vasectomy is a one-time procedure that provides permanent sterilization. The procedure is performed in the office under a local anesthetic. Most men are recovered within a few days of the procedure. To schedule a consultation call [phone] or to learn more about vasectomy, visit [email or web address] documented in this encounter [facility] 07-05-2024 Progress note Formatting of t his note might be different from the original. Anatomy ultrasound reviewed. No abnormalities identified. Follow up as clinically indicated. Please place copy in ob chart. Valencia Avila MD [facility] 07-05-2024 Miscellaneous Notes Anatomy ultrasound reviewed. No abnormalities identified. Follow up as clinically indicated. Please place copy in ob chart. Valencia Avila MD documented in this encounter [facility] 07-02-2024 Progress note Formatting of t his note might be different from the original. S: Cammie Lozano is a 28 year old female who presents at 09/23/2024, by Last Menstrual Period for a routine visit. Denies headache, visual changes, chest pain, shortness of breath, vaginal bleeding, leakage of fluid, or dysuria. Feeling well, no complaints. Good movement, No contractions O: See flow sheet Gen: No apparent distress Abd: Gravid, nontender EFW 70% FRANCISCO 17 Breech Repeat scheduled Is considering BTL at delivery. O insurance ASSESSMENT/PLAN: 1. Chronic hypertension affecting ([facility]) - ICD9: 642.00, ICD10: O10.919 (primary diagnosis) Nsts weekly Growth q 4 - URINE OB DIP B/O 2. Gestational diabetes mellitus, class A1 ([facility]) - ICD9: 648.80, ICD10: O24.410 Blood sugars mostly normal. Ismore active after morning and lunch. Will try walking after dinner to help evening - URINE OB DIP B/O 3. Supervision of high risk in third trimester ([facility]) - ICD9: V23.9, ICD10: O09.93 - URINE OB DIP B/O 4. 28 weeks gestation of ([facility]) - ICD9: V22.2, ICD10: Z3A.28 - URINE OB DIP B/O 5. History of section - ICD9: V45.89, ICD10: Z98.891 Repeat c/s with TL - URINE OB DIP B/O 6. Obesity affecting in third trimester, unspecified obesity type ([facility]) - ICD9: 649.13, ICD10: O99.213 - URINE OB DIP B/O Miri Salazar MD [facility] 07-02-2024 Miscellaneous Notes S: Cammie Lozano is a 28 year old female who presents at 09/23/2024, by Last Menstrual Period for a routine visit. Denies headache, visual changes, chest pain, shortness of breath, vaginal bleeding, leakage of fluid, or dysuria. Feeling well, no complaints. Good movement, No contractions O: See flow sheet Gen: No apparent distress Abd: Gravid, nontender EFW 70% FRANCISCO 17 Breech Repeat scheduled Is considering BTL at delivery. O insurance ASSESSMENT/PLAN: 1. Chronic hypertension affecting ([facility]) - ICD9: 642.00, ICD10: O10.919 (primary diagnosis) Nsts weekly Growth q 4 - URINE OB DIP B/O 2. Gestational diabetes mellitus, class A1 ([facility]) - ICD9: 648.80, ICD10: O24.410 Blood sugars mostly normal. Ismore active after morning and lunch. Will try walking after dinner to help evening - URINE OB DIP B/O 3. Supervision of high risk in third trimester ([facility]) - ICD9: V23.9, ICD10: O09.93 - URINE OB DIP B/O 4. 28 weeks gestation of ([facility]) - ICD9: V22.2, ICD10: Z3A.28 - URINE OB DIP B/O 5. History of section - ICD9: V45.89, ICD10: Z98.891 Repeat c/s with TL - URINE OB DIP B/O 6. Obesity affecting in third trimester, unspecified obesity type ([facility]) - ICD9: 649.13, ICD10: O99.213 - URINE OB DIP B/O Miri Salazar MD documented in this encounter [facility] 07-02-2024 Note Indication Evaluation of growth. Chronic hypertension, Gestational diabetes, Obesity, BMI >35 Impression - Single, live, intrauterine . - presentation is breech. - The biometry is consistent with the assigned gestational dating. - The EFW is 1321 g, at the 70%. AC is at the 78%. - The amniotic fluid volume is normal amount with an MVP of 5.5 cm and an FRANCISCO of 17 cm. - The placenta is posterior. - No malformations visualized on a limited survey as detailed below. Recommendations Growth in four weeks Maternal Assessment Height 170 cm Height (ft) 5 ft Height (in) 7 in Physical Exam Initial weight (lb) 232 lb Initial BMI 36.34 kg/m Maternal assessment other: * Para * REMOTE READ Method Transabdominal ultrasound examination. View: Suboptimal view: limited by late gestational age Dickerson . Number of fetuses: 1 Dating LMP on: 12/18/2023 GA by LMP 28 w + 1 d QUYNH by LMP: 09/23/2024 GA by prior assessment 28 w + 1 d QUYNH by prior assessment: 09/23/2024 Ultrasound examination on: 07/02/2024 GA by U/S based upon: AC, BPD, Femur, HC GA by U/S 29 w + 0 d QUYNH by U/S: 09/17/2024 Assigned: based on stated QUYNH, selected on 04/28/2024 Assigned GA 28 w + 1 d Assigned QUYNH: 09/23/2024 General Evaluation Cardiac activity present. FHR 159 bpm. movements: present. Presentation: breech Placenta: Placental site: posterior Umbilical cord: Cord vessels: 3 vessel cord Amniotic fluid: Amount of AF: normal amount. MVP 5.5 cm. FRANCISCO 17.0 cm. Q1 3.4 cm, Q2 4.8 cm, Q3 3.2 cm, Q4 5.5 cm Growth Overview Exam date GA BPD (mm) HC (mm) AC (mm) FL (mm) HL (mm) EFW (g) 04/28/2024 18w 6d 40.1 22% 160.4 48% 136.9 55% 27.8 53% 27.5 49% 258 41% 07/02/2024 28w 1d 71.9 62% 279.1 86% 251.3 78% 52 46% 1321 70% Biometry Standard BPD 71.9 mm 28w 6d 62% Hadlock OFD 102.0 mm 30w 0d 96% Nicolaides HC 279.1 mm 29w 6d 86% Martina AC 251.3 mm 29w 2d 78% Hadlock Femur 52.0 mm 27w 6d 46% Martina EFW 1,321 g 28w 5d 70% Hadlock EFW (lb) 2 lb EFW (oz) 15 oz EFW by: Hadlock (HC-AC-FL) Extended Wash House Supervisor 3.8 mm Extremities / Bony Struc FL / HC 0.19 Other Structures FHR 159 bpm Anatomy Lateral ventricles: normal Cavum septi pellucidi: normal Cerebellum: normal Cisterna magna: normal 4-chamber view: normal RVOT view: suboptimally visualized LVOT view: suboptimally visualized 3-vessel view: normal Heart / Thorax Situs: situs solitus (normal) Diaphragm: normal Stomach: normal Kidneys: normal Bladder: normal sex: female Wants to know sex: yes Performed By: Shannon Nolasco RDMS, RVT Read By: Davina Bergeron M.D. [facility] 07-02-2024 Instructions Candace Peña MA - 07/02/2024 2:37 PM EDT SEQUENTIAL SCREENINGS The [facility] offers sequential screenings for women who are interested in screenings for chromosomal abnormalities and certain defects during a . The sequential screen combines ultrasound and blood tests to determine the risk of chromosomal abnormalities, including Down's Syndrome (Trisomy 21) and Trisomy 18, as well as open neural tube defects including spina bifida. Ultrasound examination is performed between 11 weeks and 13 weeks gestational age. Blood tests are drawn after the ultrasound and again later in the between 15 and 21 weeks gestational age. Please let your physician know if you are interested in this testing. It will require an appointment with our aviation safety equipment technician. This is not an ultrasound performed by a physician in our office during a routine visit. SIGNS AND SYMPTOMS OF LABOR 1. Contractions every 10 minutes or more often 2. Clear, pink, or brownish fluid (water) leaking from vagina 3. Feeling that baby is pushing down, pressure 4. Low, dull backache 5. Cramps that feel like a period 6. Cramps with or without diarrhea If you notice any of the above symptoms, contact our office at [phone] and ask to speak with a nurse. After hours, you can call doctors registry at [phone] OR call [facility] at [phone] and ask to have the doctor conservation scientist paged. If you consider this an emergency, dial 9-1-5 or go to your nearest emergency department. NEED HELP? Are you dealing with a violent or abusive relationship? Are you a victim of rape or sexual assult? Call [facility] ([place]) 24 hour Crisis Hotline: 641.588.9565 or 262-650-1363. MANUAL Your Guide to a Healthy manual is now on-line. Visit [email or web address] ncyGuide to download your free copy documented in this encounter [facility] 07-01-2024 Telephone encounter Note BS can be reviewed at visit tomorrow. Camilla Snell MD [facility] 07-01-2024 Telephone encounter Note 28w0d She has appt with JG tomorrow 07/02/24. Jess Ríos RN [facility] 06-10-2024 Telephone encounter Note Patient has appt with KJ on 06/11 [facility] 06-07-2024 Telephone encounter Note Patient only able to do visit after 2pm this Friday. Requested virtual - she will send mychart message before appt with blood sugars. Scheduled with KJ. u/s scheduled for 07/02 - patient refused to come in sooner than that for appt too. Jess Ríos RN [facility] 06-07-2024 Miscellaneous Notes Patient only able to do visit after 2pm this Friday. Requested virtual - she will send mychart message before appt with blood sugars. Scheduled with KJ. u/s scheduled for 07/02 - patient refused to come in sooner than that for appt too. Jess Ríos RN Can you please assist patient in scheduling appointment for end of next week with physician to review blood sugar log. Please assist in scheduling growth US soonest appointment for GDM. Thank you, Priscilla Peterson APRN.CNM documented in this encounter [facility] 06-04-2024 Telephone encounter Note Can you please assist patient in scheduling appointment for end of next week with physician to review blood sugar log. Please assist in scheduling growth US soonest appointment for GDM. Thank you, Priscilla Peterson APRN.CNM [facility] 06-04-2024 Progress note Formatting of t his note might be different from the original. SAMUEL-S: Cammie Lozano is a 28 year old female who presents at 24w1d with QUYNH:09/23/2024, by Last Menstrual Period for a routine visit. Denies headache, visual changes, chest pain, shortness of breath, vaginal bleeding, leakage of fluid, or dysuria. Feeling well, no complaints. O: See flow sheet Gen: No apparent distress Abd: Gravid, nontender 11lb TWG ASSESSMENT/PLAN: 1. Supervision of high risk in third trimester -Continue PNV 2. 24 weeks gestation of 3. Obesity affecting in third trimester, unspecified obesity type -Pregravid BMI 36 -Growth US every 4wks at 32 wk (already ordered due to GDM) -NST weekly starting at 36 weeks 4. Chronic hypertension affecting -Baseline labs normal -Continue ASA 162mg PO once daily -Continue to monitor BP intermittently and reviewed when to call. BP stable at this time. 5. LINA (obstructive sleep apnea) -Currently not using CPAP, reviewed recommendation to consult with prior provider for management. 6. Gestational diabetes mellitus, class A1 -BG elevated and giving official diagnosis of GDM A1 today. Fasting BG levels normal but many PP elevated 146-250 -Consult regarding elevated levels and recommend follow up visit end of next week with physician to review. Discussed likely starting insulin management. -Start growth US every 4 weeks -Send blood glucose log weekly -Declines dietitian and nutrition consultation. 7. History of depression -Continues Wellbutrin and Lexapro, affective at this time. 8. History of section -Planning repeat C/S on 09/16 at 0715 with 9. H/O gastric sleeve 10. Anxiety during -Continues Wellbutrin and Lexapro, affective at this time. 11. Heartburn during in first trimester -Continue Pepcid PTL precautions reviewed and when to call RTO in 4 weeks Priscilla Peterson APRN.CNM [facility] 06-04-2024 Miscellaneous Notes SAMUEL-S: Cammie Lozano is a 28 year old female who presents at 24w1d with QUYNH:09/23/2024, by Last Menstrual Period for a routine visit. Denies headache, visual changes, chest pain, shortness of breath, vaginal bleeding, leakage of fluid, or dysuria. Feeling well, no complaints. O: See flow sheet Gen: No apparent distress Abd: Gravid, nontender 11lb TWG ASSESSMENT/PLAN: 1. Supervision of high risk in third trimester -Continue PNV 2. 24 weeks gestation of 3. Obesity affecting in third trimester, unspecified obesity type -Pregravid BMI 36 -Growth US every 4wks at 32 wk (already ordered due to GDM) -NST weekly starting at 36 weeks 4. Chronic hypertension affecting -Baseline labs normal -Continue ASA 162mg PO once daily -Continue to monitor BP intermittently and reviewed when to call. BP stable at this time. 5. LINA (obstructive sleep apnea) -Currently not using CPAP, reviewed recommendation to consult with prior provider for management. 6. Gestational diabetes mellitus, class A1 -BG elevated and giving official diagnosis of GDM A1 today. Fasting BG levels normal but many PP elevated 146-250 -Consult regarding elevated levels and recommend follow up visit end of next week with physician to review. Discussed likely starting insulin management. -Start growth US every 4 weeks -Send blood glucose log weekly -Declines dietitian and nutrition consultation. 7. History of depression -Continues Wellbutrin and Lexapro, affective at this time. 8. History of section -Planning repeat C/S on 09/16 at 0715 with 9. H/O gastric sleeve 10. Anxiety during -Continues Wellbutrin and Lexapro, affective at this time. 11. Heartburn during in first trimester -Continue Pepcid PTL precautions reviewed and when to call RTO in 4 weeks Priscilla Peterson APRN.CNM documented in this encounter [facility] 06-04-2024 Instructions Chip Figueroa MA - 06/04/2024 10:05 AM EDT SEQUENTIAL SCREENINGS The [facility] offers sequential screenings for women who are interested in screenings for chromosomal abnormalities and certain defects during a . The sequential screen combines ultrasound and blood tests to determine the risk of chromosomal abnormalities, including Down's Syndrome (Trisomy 21) and Trisomy 18, as well as open neural tube defects including spina bifida. Ultrasound examination is performed between 11 weeks and 13 weeks gestational age. Blood tests are drawn after the ultrasound and again later in the between 15 and 21 weeks gestational age. Please let your physician know if you are interested in this testing. It will require an appointment with our aviation safety equipment technician. This is not an ultrasound performed by a physician in our office during a routine visit. SIGNS AND SYMPTOMS OF LABOR 1. Contractions every 10 minutes or more often 2. Clear, pink, or brownish fluid (water) leaking from vagina 3. Feeling that baby is pushing down, pressure 4. Low, dull backache 5. Cramps that feel like a period 6. Cramps with or without diarrhea If you notice any of the above symptoms, contact our office at [phone] and ask to speak with a nurse. After hours, you can call doctors registry at [phone] OR call [facility] at [phone] and ask to have the doctor conservation scientist paged. If you consider this an emergency, dial 9-9- or go to your nearest emergency department. NEED HELP? Are you dealing with a violent or abusive relationship? Are you a victim of rape or sexual assult? Call [facility] ([place]) 24 hour Crisis Hotline: 932.979.8542 or 000-766-8902. MANUAL Your Guide to a Healthy manual is now on-line. Visit [email or web address] to download your free copy documented in this encounter [facility] 05-25-2024 Telephone encounter Note Prescription Refill Information The patient has been identified by name and date of : Yes Caregiver verified no other encounters exist for this prescription request: Yes Caregiver confirmed with patient/requestor that no other refills are due, in the near future, with this provider at this time: Yes The last office visit in the department: 01/19/24 Does the patient have a future office visit with this provider/department: No Requested Prescriptions Pending Prescriptions Disp Refills escitalopram oxalate (LEXAPRO) 20 mg tablet [Pharmacy Med Name: Escitalopram Oxalate 20 MG Oral Tablet] 90 tablet 0 Sig: Take 1 tablet by mouth once daily Yi Dey LPN May 25, 2024 9:35 AM [facility] 05-25-2024 Miscellaneous Notes Prescription Refill Information The patient has been identified by name and date of : Yes Caregiver verified no other encounters exist for this prescription request: Yes Caregiver confirmed with patient/requestor that no other refills are due, in the near future, with this provider at this time: Yes The last office visit in the department: 01/19/24 Does the patient have a future office visit with this provider/department: No Requested Prescriptions Pending Prescriptions Disp Refills escitalopram oxalate (LEXAPRO) 20 mg tablet [Pharmacy Med Name: Escitalopram Oxalate 20 MG Oral Tablet] 90 tablet 0 Sig: Take 1 tablet by mouth once daily Yi Dey LPN May 25, 2024 9:35 AM documented in this encounter [facility] 05-20-2024 Progress note Formatting of t his note might be different from the original. S: Cammie Lozano is a 28 year old female who presents at 09/23/2024, by Last Menstrual Period for a routine visit. Denies headache, visual changes, chest pain, shortness of breath, vaginal bleeding, leakage of fluid, or dysuria. Feeling well, no complaints. O: See flow sheet Gen: No apparent distress Abd: Gravid, nontender Did not feel well yesterday after lunch. Bp at work elevated and had a ROCHA. Feels better today. BP in office all normal on trueBP Has a wrist cuff but getting a better one. Has been doing BG at home to avoid Glucola. Fasting normal PP elevated depending on carb consumed. Discussed ways of limiting carbs with meals ASSESSMENT/PLAN: 1. High-risk in second trimester (HCC) - ICD9: V23.9, ICD10: O09.92 (primary diagnosis) 2. History of section - ICD9: V45.89, ICD10: Z98.891 3. Chronic hypertension affecting ([facility]) - ICD9: 642.00, ICD10: O10.919 No meds for 2 years. 4. Obesity affecting in first trimester, unspecified obesity type ([facility]) - ICD9: 649.13, ICD10: O99.211 5. History of gestational diabetes mellitus (GDM) - ICD9: V12.21, ICD10: Z86.32 6. 22 weeks gestation of ([facility]) - ICD9: V22.2, ICD10: Z3A.22 Miri Salazar MD [facility] 05-20-2024 Miscellaneous Notes S: Cammie Lozano is a 28 year old female who presents at 09/23/2024, by Last Menstrual Period for a routine visit. Denies headache, visual changes, chest pain, shortness of breath, vaginal bleeding, leakage of fluid, or dysuria. Feeling well, no complaints. O: See flow sheet Gen: No apparent distress Abd: Gravid, nontender Did not feel well yesterday after lunch. Bp at work elevated and had a ROCHA. Feels better today. BP in office all normal on trueBP Has a wrist cuff but getting a better one. Has been doing BG at home to avoid Glucola. Fasting normal PP elevated depending on carb consumed. Discussed ways of limiting carbs with meals ASSESSMENT/PLAN: 1. High-risk in second trimester (HCC) - ICD9: V23.9, ICD10: O09.92 (primary diagnosis) 2. History of section - ICD9: V45.89, ICD10: Z98.891 3. Chronic hypertension affecting (HCC) - ICD9: 642.00, ICD10: O10.919 No meds for 2 years. 4. Obesity affecting in first trimester, unspecified obesity type (HCC) - ICD9: 649.13, ICD10: O99.211 5. History of gestational diabetes mellitus (GDM) - ICD9: V12.21, ICD10: Z86.32 6. 22 weeks gestation of (HCC) - ICD9: V22.2, ICD10: Z3A.22 Miri Salazar MD documented in this encounter [facility] 05-20-2024 Instructions Robinson Mejia MA - 05/20/2024 2:49 PM EDT SEQUENTIAL SCREENINGS The [facility] offers sequential screenings for women who are interested in screenings for chromosomal abnormalities and certain defects during a . The sequential screen combines ultrasound and blood tests to determine the risk of chromosomal abnormalities, including Down's Syndrome (Trisomy 21) and Trisomy 18, as well as open neural tube defects including spina bifida. Ultrasound examination is performed between 11 weeks and 13 weeks gestational age. Blood tests are drawn after the ultrasound and again later in the between 15 and 21 weeks gestational age. Please let your physician know if you are interested in this testing. It will require an appointment with our aviation safety equipment technician. This is not an ultrasound performed by a physician in our office during a routine visit. SIGNS AND SYMPTOMS OF LABOR 1. Contractions every 10 minutes or more often 2. Clear, pink, or brownish fluid (water) leaking from vagina 3. Feeling that baby is pushing down, pressure 4. Low, dull backache 5. Cramps that feel like a period 6. Cramps with or without diarrhea If you notice any of the above symptoms, contact our office at [phone] and ask to speak with a nurse. After hours, you can call doctors registry at [phone] OR call [facility] at [phone] and ask to have the doctor conservation scientist paged. If you consider this an emergency, dial or go to your nearest emergency department. NEED HELP? Are you dealing with a violent or abusive relationship? Are you a victim of rape or sexual assult? Call [facility] ([place]) 24 hour Crisis Hotline: 806.217.9551 or 214-650-3072. MANUAL Your Guide to a Healthy manual is now on-line. Visit [email or web address] [email or web address] to download your free copy documented in this encounter [facility] 05-19-2024 Telephone encounter Note Appointment given for tomorrow. Miri Mir RN [facility] 05-19-2024 Miscellaneous Notes Appointment given for tomorrow. Miri Mir RN Patient has a hx of chronic hypertension and with those elevated pressures, I feel that she should see physician for evaluation tomorrow in office. Maggy Santiago APRN.CNM Ob patient is 21w6d denies vision changes, no increased swelling, has had intermittent upper abdominal pressure. Has not tried tylenol for headache yet due to being at work. Patient states that she will have someone check her blood pressure before leaving work. Has h/o headaches prior to . Next ob appointment is 06/04/2024 21w6d Left message for patient to call office. Please triage symptoms when she calls back. Miri Mir RN documented in this encounter [facility] 05-19-2024 Telephone encounter Note Patient has a hx of chronic hypertension and with those elevated pressures, I feel that she should see physician for evaluation tomorrow in office. Maggy Santiago APRN.CNM [facility] 05-19-2024 Telephone encounter Note Ob patient is 21w6d denies vision changes, no increased swelling, has had intermittent upper abdominal pressure. Has not tried tylenol for headache yet due to being at work. Patient states that she will have someone check her blood pressure before leaving work. Has h/o headaches prior to . Next ob appointment is 06/04/2024 [facility] 05-19-2024 Telephone encounter Note 21w6d Left message for patient to call office. Please triage symptoms when she calls back. Miri Mir RN [facility] 05-14-2024 Telephone encounter Note Faxed. Miri Mir RN [facility] 05-14-2024 Miscellaneous Notes Faxed. Miri Mir RN Received breast pump RX from [employer]. To KJ to sign. Miri Mir RN documented in this encounter [facility] 05-14-2024 Telephone encounter Note Received breast pump RX from [employer]. To KJ to sign. Miri Mir RN [facility] 05-13-2024 Telephone encounter Note Patient informed [facility] 05-13-2024 Miscellaneous Notes Patient informed done Ob patient needs glucose monitor and testing strip Rx sent to pharmacy. Received PA request for blood glucose test strips. PA noted a formulary alternative: OneTouch test strips Please file new order for test strips. Chip Figueroa MA documented in this encounter [facility] 05-13-2024 Telephone encounter Note done [facility] 05-13-2024 Telephone encounter Note Ob patient needs glucose monitor and testing strip Rx sent to pharmacy. [facility] 05-12-2024 Telephone encounter Note Received PA request for blood glucose test strips. PA noted a formulary alternative: OneTouch test strips Please file new order for test strips. Chip Figueroa MA [facility] 05-11-2024 Progress note Formatting of t his note might be different from the original. KJ - S: Cammie denies LOF, contractions or vaginal bleeding O: 20w5d, see flow sheet SENSITIVE EXAM: Sensitive exam not performed. A/P: Assessment & Plan High-risk in second trimester Orders: URINE OB DIP B/O History of section Orders: URINE OB DIP B/O Chronic hypertension affecting BP's reviewed. Advised on aspirin at bedtime. Orders: URINE OB DIP B/O 8 weeks gestation of Orders: aspirin, enteric coated (ECOTRIN LOW STRENGTH) 81 mg EC tablet; Take 2 tablets by mouth daily at bedtime. Elevated glucose at home: FBS - 70-97, but most in 70's PPBS - most less than 140. Encouraged diabetic diet compliance & walking.. Camilla Snell MD [facility] 05-11-2024 Miscellaneous Notes KJ - S: Cammie denies LOF, contractions or vaginal bleeding O: 20w5d, see flow sheet SENSITIVE EXAM: Sensitive exam not performed. A/P: Assessment & Plan High-risk in second trimester Orders: URINE OB DIP B/O History of section Orders: URINE OB DIP B/O Chronic hypertension affecting BP's reviewed. Advised on aspirin at bedtime. Orders: URINE OB DIP B/O 8 weeks gestation of Orders: aspirin, enteric coated (ECOTRIN LOW STRENGTH) 81 mg EC tablet; Take 2 tablets by mouth daily at bedtime. Elevated glucose at home: FBS - 70-97, but most in 70's PPBS - most less than 140. Encouraged diabetic diet compliance & walking.. Camilla Snell MD documented in this encounter [facility] 05-11-2024 Instructions Robinson Mejia MA - 05/11/2024 9:19 AM EDT SEQUENTIAL SCREENINGS The [facility] offers sequential screenings for women who are interested in screenings for chromosomal abnormalities and certain defects during a . The sequential screen combines ultrasound and blood tests to determine the risk of chromosomal abnormalities, including Down's Syndrome (Trisomy 21) and Trisomy 18, as well as open neural tube defects including spina bifida. Ultrasound examination is performed between 11 weeks and 13 weeks gestational age. Blood tests are drawn after the ultrasound and again later in the between 15 and 21 weeks gestational age. Please let your physician know if you are interested in this testing. It will require an appointment with our aviation safety equipment technician. This is not an ultrasound performed by a physician in our office during a routine visit. SIGNS AND SYMPTOMS OF LABOR 1. Contractions every 10 minutes or more often 2. Clear, pink, or brownish fluid (water) leaking from vagina 3. Feeling that baby is pushing down, pressure 4. Low, dull backache 5. Cramps that feel like a period 6. Cramps with or without diarrhea If you notice any of the above symptoms, contact our office at [phone] and ask to speak with a nurse. After hours, you can call doctors registry at [phone] OR call [facility] at [phone] and ask to have the doctor conservation scientist paged. If you consider this an emergency, dial 9-1-1 or go to your nearest emergency department. NEED HELP? Are you dealing with a violent or abusive relationship? Are you a victim of rape or sexual assult? Call [facility] ([place]) 24 hour Crisis Hotline: 796.657.5648 or 595-783-2768. MANUAL Your Guide to a Healthy manual is now on-line. Visit [email or web address] to download your free copy documented in this encounter [facility] 05-05-2024 Telephone encounter Note can be VV to discuss blood sugars if prefers. Wouldn't do anything w/o a longer trend to review. Valencia Avila MD [facility] 05-05-2024 Miscellaneous Notes can be VV to discuss blood sugars if prefers. Wouldn't do anything w/o a longer trend to review. Valencia Avila MD Patient 19w6d called back with concerns in regards to her 1 hour glucose readings. Patient has upcoming appointment next 05/11 to discuss her sugars. See her MyChart messages. Patient denies any diet changes. States she does have constant nausea and does have around 2-3 episodes of diarrhea and vomiting everyday which is not a new thing for her. DATE 05/03 05/04 05/05 Fasting 78 77 73 Post Meal #1 170 101 Post Meal # 2 173 209 Post Meal # 3 92 Shannon Segovia RN Patient called in and appointment scheduled. Shannon Segovia RN Patient likely needs visit to review glucose levels next week. OK it virtual. Camilla Snell MD documented in this encounter [facility] 05-05-2024 Telephone encounter Note Patient 19w6d called back with concerns in regards to her 1 hour glucose readings. Patient has upcoming appointment next 05/11 to discuss her sugars. See her MyChart messages. Patient denies any diet changes. States she does have constant nausea and does have around 2-3 episodes of diarrhea and vomiting everyday which is not a new thing for her. DATE 05/03 05/04 05/05 Fasting 78 77 73 Post Meal #1 170 101 Post Meal # 2 173 209 Post Meal # 3 92 Shannon Segovia RN [facility] 05-05-2024 Telephone encounter Note Patient called in and appointment scheduled. Shannon Segovia RN [facility] 05-04-2024 Telephone encounter Note Patient likely needs visit to review glucose levels next week. OK it virtual. Camilla Snell MD [facility] 04-28-2024 Progress note Formatting of t his note might be different from the original. Anatomy ultrasound reviewed. No abnormalities identified. Follow up as clinically indicated. Please place copy in ob chart. Valencia Avila MD [facility] 04-28-2024 Miscellaneous Notes Anatomy ultrasound reviewed. No abnormalities identified. Follow up as clinically indicated. Please place copy in ob chart. Valencia Avila MD documented in this encounter [facility] 04-28-2024 Progress note Formatting of t his note might be different from the original. S: Cammie Lozano is a 28 year old female who presents at 18 weeks gestation for a routine visit. Just completed anatomy US. Started feeling flutters this week. C/O continued headaches. Stated feels that they are tension related? Taking Tylenol with minimal relief. After further discussion- patient has been weaning self off of caffeine. Denies visual changes, chest pain, shortness of breath, vaginal bleeding, leakage of fluid, or dysuria. Taking blood pressures daily due to hx of CHTN and reports 120's/70's. O: See flow sheet Gen: No apparent distress Abd: Gravid, nontender ASSESSMENT/PLAN: 1. 18 weeks gestation of 2. History of section 3. 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 Just completed anatomy US. Started feeling flutters this week. C/O continued headaches. Stated feels that they are tension related? Taking Tylenol with minimal relief. After further discussion- patient has been weaning self off of caffeine. Denies visual changes, chest pain, shortness of breath, vaginal bleeding, leakage of fluid, or dysuria. Taking blood pressures daily due to hx of CHTN and reports 120's/70's. O: See flow sheet Gen: No apparent distress Abd: Gravid, nontender ASSESSMENT/PLAN: 1. 18 weeks gestation of 2. History of section 3. 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 The sequential screen combines ultrasound and blood tests to determine the risk of chromosomal abnormalities, including Down's Syndrome (Trisomy 21) and Trisomy 18, as well as open neural tube defects including spina bifida. Ultrasound examination is performed between 11 weeks and 13 weeks gestational age. Blood tests are drawn after the ultrasound and again later in the between 15 and 21 weeks gestational age. Please let your physician know if you are interested in this testing. It will require an appointment with our aviation safety equipment technician. This is not an ultrasound performed by a physician in our office during a routine visit. SIGNS AND SYMPTOMS OF LABOR 1. Contractions every 10 minutes or more often 2. Clear, pink, or brownish fluid (water) leaking from vagina 3. Feeling that baby is pushing down, pressure 4. Low, dull backache 5. Cramps that feel like a period 6. Cramps with or without diarrhea If you notice any of the above symptoms, contact our office at [phone] and ask to speak with a nurse. After hours, you can call [email or web address] registry at [phone] OR call [facility] at [phone] and ask to have the doctor conservation scientist paged. If you consider this an emergency, dial 6-6-1 or go to your nearest emergency department. NEED HELP? Are you dealing with a violent or abusive relationship? Are you a victim of rape or sexual assult? Call [facility] ([place]) 24 hour Crisis Hotline: 823.862.5593 or 258-466-3801. MANUAL Your Guide to a Healthy manual is now on-line. Visit [email or web address] to download your free copy documented in this encounter [facility] 04-22-2024 Telephone encounter Note Patient notified. Jess Ríos RN [facility] 04-22-2024 Miscellaneous Notes Patient notified. Jess Ríos RN No. She can continue to check her blood sugars if she wants but I would not suggest an earlier GTT. Her Hgb A1c was normal in first trimester. And she needs to check with her surgeon. I don't believe she should be doing a GTT with a previous gastric sleeve. 18w0d Patient has continued to get migraines x2 weeks despite trying everything that was recommended, so she bought a new glucometer since she has a h/o gestational diabetes in previous . She tested for the first time this morning 1 hour after her breakfast and it was 159. Asking if she should continue to monitor or do the GTT now instead of waiting until 28 weeks? Next visit is scheduled for 04/28 with Jess MEEK RN documented in this encounter [facility] 04-22-2024 Telephone encounter Note No. She can continue to check her blood sugars if she wants but I would not suggest an earlier GTT. Her Hgb A1c was normal in first trimester. And she needs to check with her surgeon. I don't believe she should be doing a GTT with a previous gastric sleeve. [facility] Work Phone: 04-22-2024 Telephone encounter Note 18w0d Patient has continued to get migraines x2 weeks despite trying everything that was recommended, so she bought a new glucometer since she has a h/o gestational diabetes in previous . She tested for the first time this morning 1 hour after her breakfast and it was 159. Asking if she should continue to monitor or do the GTT now instead of waiting until 28 weeks? Next visit is scheduled for 04/28 with Jess MEEK RN [facility] 04-13-2024 Telephone encounter Note Left message for patient to call office. Jess Ríos RN [facility] 04-13-2024 Miscellaneous Notes Left message for patient to call office. Jess Ríos RN Agree with recommendations. She can start magnesium oxide 400 or 420mg daily. If headache persists she should see her pcp. Camilla Snell MD 16w5d Patient called with c/o a constant headache since Friday of last week. At it's worst, it was an 8 on the pain scale, but on average it's a 6. Tylenol 1,000 MG brings it down to a 2. Denies vision changes or dizziness with the headache. It's all up front and behind her eyes. Has allergies, but takes Zyrtec daily. Has some congestion, but no drainage. Drinking lots of water during the day and a cup of coffee in the AM. Briefly discussed Magnesium, but told patient would check with provider first. Miri Mir RN documented in this encounter [facility] 04-13-2024 Telephone encounter Note Agree with recommendations. She can start magnesium oxide 400 or 420mg daily. If headache persists she should see her pcp. Camilla Snell MD [facility] 04-13-2024 Telephone encounter Note 16w5d Patient called with c/o a constant headache since Friday of last week. At it's worst, it was an 8 on the pain scale, but on average it's a 6. Tylenol 1,000 MG brings it down to a 2. Denies vision changes or dizziness with the headache. It's all up front and behind her eyes. Has allergies, but takes Zyrtec daily. Has some congestion, but no drainage. Drinking lots of water during the day and a cup of coffee in the AM. Briefly discussed Magnesium, but told patient would check with provider first. Miri Mir, RN [facility] 04-13-2024 Telephone encounter Note Pharmacy verified in [facility]. Patient has been identified by name and date of : Yes Patient aware RX will be sent to pharmacy. No need to notify patient. Patient phones for refill(s): Requested Prescriptions Pending Prescriptions Disp Refills famotidine (PEPCID) 20 mg tablet 60 tablet 0 Sig: Take 1 tablet by mouth two times a day. Date of last office visit : 01/19/2024 Date of next office visit : 04/13/2024 Last 2 Encounter Wt Readings: Date: Wt: 03/18/2024 104.8 kg (231 lb) 02/12/2024 105.4 kg (232 lb 6.4 oz) Not applicable Please advise. Casandra Elizalde MA [facility] 04-13-2024 Miscellaneous Notes Pharmacy verified in [facility]. Patient has been identified by name and date of : Yes Patient aware RX will be sent to pharmacy. No need to notify patient. Patient phones for refill(s): Requested Prescriptions Pending Prescriptions Disp Refills famotidine (PEPCID) 20 mg tablet 60 tablet 0 Sig: Take 1 tablet by mouth two times a day. Date of last office visit : 01/19/2024 Date of next office visit : 04/13/2024 Last 2 Encounter Wt Readings: Date: Wt: 03/18/2024 104.8 kg (231 lb) 02/12/2024 105.4 kg (232 lb 6.4 oz) Not applicable Please advise. Casandra Elizalde MA documented in this encounter [facility] 04-13-2024 Telephone encounter Note Pharmacy verified in [facility]. Patient has been identified by name and date of : Yes Patient aware RX will be sent to pharmacy. No need to notify patient. Patient phones for refill(s): Requested Prescriptions Pending Prescriptions Disp Refills buPROPion XL (WELLBUTRIN XL) 150 mg 24 hr tablet 90 tablet 3 Sig: Take 1 tablet by mouth once daily. Date of last office visit : 01/19/2024 Date of next office visit : Visit date not found Last 2 Encounter Wt Readings: Date: Wt: 03/18/2024 104.8 kg (231 lb) 02/12/2024 105.4 kg (232 lb 6.4 oz) Not applicable Please advise. Casandra Elizalde MA [facility] 04-13-2024 Miscellaneous Notes Pharmacy verified in [facility]. Patient has been identified by name and date of : Yes Patient aware RX will be sent to pharmacy. No need to notify patient. Patient phones for refill(s): Requested Prescriptions Pending Prescriptions Disp Refills buPROPion XL (WELLBUTRIN XL) 150 mg 24 hr tablet 90 tablet 3 Sig: Take 1 tablet by mouth once daily. Date of last office visit : 01/19/2024 Date of next office visit : Visit date not found Last 2 Encounter Wt Readings: Date: Wt: 03/18/2024 104.8 kg (231 lb) 02/12/2024 105.4 kg (232 lb 6.4 oz) Not applicable Please advise. Casandra Elizalde MA documented in this encounter [facility] 03-19-2024 Telephone encounter Note Prescription Refill Information The patient has been identified by name and date of : Yes Caregiver verified no other encounters exist for this prescription request: Yes Caregiver confirmed with patient/requestor that no other refills are due, in the near future, with this provider at this time: Yes The last office visit in the department: 01/19/24 Does the patient have a future office visit with this provider/department: No Requested Prescriptions Pending Prescriptions Disp Refills famotidine (PEPCID) 20 mg tablet [Pharmacy Med Name: Famotidine 20 MG Oral Tablet] 60 tablet 0 Sig: Take 1 tablet by mouth twice daily Nancy Morin MA March 19, 2024 11:59 AM [facility] 03-19-2024 Miscellaneous Notes Prescription Refill Information The patient has been identified by name and date of : Yes Caregiver verified no other encounters exist for this prescription request: Yes Caregiver confirmed with patient/requestor that no other refills are due, in the near future, with this provider at this time: Yes The last office visit in the department: 01/19/24 Does the patient have a future office visit with this provider/department: No Requested Prescriptions Pending Prescriptions Disp Refills famotidine (PEPCID) 20 mg tablet [Pharmacy Med Name: Famotidine 20 MG Oral Tablet] 60 tablet 0 Sig: Take 1 tablet by mouth twice daily Nancy Morin MA March 19, 2024 11:59 AM documented in this encounter [facility] 03-18-2024 Progress note Formatting of t his note might be different from the original. KJ - VB No. LOF No. CTXS No. Movement: absent. Other c/o: No. Medication list reviewed. Physical Exam See Flow Sheet Gen: no accute distress, well appearing A/P 13w0d Estimated Date of Delivery: 09/23/24 Declines NT MOD - repeat with tubal sterilization Chtn - start aspirin at bedtime Anatomy US ordered Camilla Snell MD [facility] 03-18-2024 Miscellaneous Notes KJ - VB No. LOF No. CTXS No. Movement: absent. Other c/o: No. Medication list reviewed. Physical Exam See Flow Sheet Gen: no accute distress, well appearing A/P 13w0d Estimated Date of Delivery: 09/23/24 Declines NT MOD - repeat with tubal sterilization Chtn - start aspirin at bedtime Anatomy US ordered Camilla Snell MD documented in this encounter [facility] 02-27-2024 Telephone encounter Note Pt returned call Confirmed OB approved pt taking Lexapro during [facility] 02-27-2024 Miscellaneous Notes Pt returned call Confirmed OB approved pt taking Lexapro during Called pt, no answer. Left detailed message on identified VM Please make sure she confirmed with her OB that she can continue taking this during her . Thanks Galina Brooks PA-C Prescription Refill Information The patient has been identified by name and date of : Yes Caregiver verified no other encounters exist for this prescription request: Yes Caregiver confirmed with patient/requestor that no other refills are due, in the near future, with this provider at this time: Yes The last office visit in the department: 01/19/24 Does the patient have a future office visit with this provider/department: No Requested Prescriptions Pending Prescriptions Disp Refills escitalopram oxalate (LEXAPRO) 20 mg tablet [Pharmacy Med Name: Escitalopram Oxalate 20 MG Oral Tablet] 90 tablet 0 Sig: Take 1 tablet by mouth once daily Rowena Kerr MA February 27, 2024 3:21 PM documented in this encounter [facility] 02-27-2024 Telephone encounter Note Called pt, no answer. Left detailed message on identified VM [facility] 02-27-2024 Telephone encounter Note Please make sure she confirmed with her OB that she can continue taking this during her . Thanks Galina Brooks PA-C [facility] 02-27-2024 Telephone encounter Note Prescription Refill Information The patient has been identified by name and date of : Yes Caregiver verified no other encounters exist for this prescription request: Yes Caregiver confirmed with patient/requestor that no other refills are due, in the near future, with this provider at this time: Yes The last office visit in the department: 01/19/24 Does the patient have a future office visit with this provider/department: No Requested Prescriptions Pending Prescriptions Disp Refills escitalopram oxalate (LEXAPRO) 20 mg tablet [Pharmacy Med Name: Escitalopram Oxalate 20 MG Oral Tablet] 90 tablet 0 Sig: Take 1 tablet by mouth once daily Rowena Kerr MA February 27, 2024 3:21 PM [facility] 02-16-2024 Telephone encounter Note Prescription Refill Information The patient has been identified by name and date of : Yes Caregiver verified no other encounters exist for this prescription request: Yes Caregiver confirmed with patient/requestor that no other refills are due, in the near future, with this provider at this time: Yes The last office visit in the department: 01/19/24 Does the patient have a future office visit with this provider/department: No Requested Prescriptions Pending Prescriptions Disp Refills famotidine (PEPCID) 20 mg tablet [Pharmacy Med Name: Famotidine 20 MG Oral Tablet] 60 tablet 0 Sig: Take 1 tablet by mouth twice daily Yi Dey LPN February 16, 2024 1:09 PM [facility] 02-16-2024 Miscellaneous Notes Prescription Refill Information The patient has been identified by name and date of : Yes Caregiver verified no other encounters exist for this prescription request: Yes Caregiver confirmed with patient/requestor that no other refills are due, in the near future, with this provider at this time: Yes The last office visit in the department: 01/19/24 Does the patient have a future office visit with this provider/department: No Requested Prescriptions Pending Prescriptions Disp Refills famotidine (PEPCID) 20 mg tablet [Pharmacy Med Name: Famotidine 20 MG Oral Tablet] 60 tablet 0 Sig: Take 1 tablet by mouth twice daily Yi Dey LPN February 16, 2024 1:09 PM documented in this encounter [facility] 02-06-2024 Note HNO ID: [id number] Author: DUTCH RICHARDS APRN.MOTEL MANAGER Service: ? Author Type: Nurse Practitioner Type: Progress Notes Filed: 02/12/2024 12:04 Note Text: Patient declined sewer tapper. INITIAL OB ASSESSMENT HPI: Cammie is a 28 year old White Female here to establish Obstetrical Care. Patient's last menstrual period was 12/18/2023 (exact date). from OB Dating Form. was planned Complaints: No OB History T1 L1 SAB1 IAB0 Ectopic0 Multiple0 Live Births1 Previous history: Prior : yes x 1 History of 4th degree laceration: No History of shoulder dystocia: No History of Hypertensive disorders including pre-eclampsia or gestational hypertension: Yes History of gestational diabetes: Yes Patient's Risk Screening for delivery: Have you had a prior dickerson between 20w and 36w6d? No How many pregnancies have you had before? 3 Did you have a previous baby with a GBS Infection? No Please select all that apply for any prior : N/A MEDICAL/PSYCHOSOCIAL HISTORY: History of hemorrhage or bleeding concerns: No Thyroid Disease: No History of chronic hypertension: No History of pre-existing diabetes: No ABO/RH(D) Date Value Ref Range Status 09/22/2020 A POSITIVE Final No weight on file for this encounter. Last Pap: 06/05/2023 History of abnormal pap: Yes Prior treatment for cervical dysplasia: none. Last HPV: 08/31/2018 History of STDs: None Partner History of STDs: None Did you have a partner with Herpes? No Tobacco use: No E-Cigarette/Vaping Use: No Caffeine use: No Drug use: No Alcohol use: No Multivitamin with Folic acid: Yes Would refuse blood transfusion if medically necessary: No Social Needs: How often does this describe you? I don't have enough money to pay my bills: Never Within the past 12 months, have you worried that your food would run out before you had money to buy more? Never In the past 12 months, has lack of reliable transportation kept you from going to medical appointments or work, or from getting things needed for daily living? Never In the past 12 months, have you had any concerns about having a place to live, or about the condition or quality of your housing? Never Social History: Do you have any history of depression, anxiety, PTSD, or other mood problems? Yes Do you have a history of abuse or trauma that may impact your experience? No Are you currently employed? Yes Depression/Anxiety Screening: Denies symptoms of depression. Admits to symptoms of anxiety. OB Depression and Anxiety Screening- This Encounter (since 02/11/2024) Over the past 2 weeks have you felt down, depressed, or hopeless? Negative Over the past two weeks, have you felt little interest or pleasure in doing things?? Negative Feeling nervous, anxious or on edge 1-Several days Not being able to stop or control worrying 1-Several days Anxiety Pre-Screening Total (If >/= 3 additional questions will be reviewed) 2 Genetic Screening: Partner present: No Patient verbalized knowledge of partner family health history: Yes Do you or your partner have any personal or family history of defects not previously discussed: No Do you have history of a complicated by anomaly, genetic condition, or demise: No Preeclampsia Risk Screening: Screening for prevention of preeclampsia: High risk factors: Chronic hypertension Moderate risk ractors: Obesity (body mass index greater than 30) OB Risk Screening: Completed, no positive findings documented. Marital Status: Partner: Name: Moses Age: 40 Occupation: Self Employed Gender: Male PAST MEDICAL HISTORY Diagnosis Date Allergic rhinitis Asthma Atypical squamous cells of undetermined significance (ASCUS) on Papanicolaou smear of cervix 2018 Depression Developmental speech or language disorder speech delay--resolved Fatty liver Generalized anxiety disorder Gestational diabetes mellitus, class A1 02/14/2021 Hyperhidrosis Hypertension IBS (irritable bowel syndrome) stress induced Morbid obesity with BMI of 40.0-44.9, adult (HCC) LINA (obstructive sleep apnea) PMH - PAST MEDICAL HISTORY OF pneumonia 2000 [id number] Unspecified asthma(493.90) PAST SURGICAL HISTORY Procedure Laterality Date DELIVERY ONLY 04/20/2021 LTCS TONSILLECTOMY AND ADENOIDECTOMY Current Outpatient Medications Medication Sig Dispense Refill folic acid 1 mg tablet Take 1 tablet by mouth once daily. pyridoxine, vitamin B6, (VITAMIN B-6) 50 mg tablet Take 1 tablet by mouth two times a day. ondansetron orally disintegrating (ZOFRAN ODT) 4 mg disintegrating tablet Take 1 tablet by mouth every 8 hours as needed for nausea/vomiting. 60 tablet 2 famotidine (PEPCID) 20 mg tablet Take 1 tablet by mouth two times a day. 60 tablet 0 escitalopram oxalate (LEXAPRO) 20 mg tablet Ta (more content not included)... [facility] 02-06-2024 History of Present illness Narrative Patient declined sewer tapper. INITIAL OB ASSESSMENT HPI: Cammie is a 28 year old White Female here to establish Obstetrical Care. Patient's last menstrual period was 12/18/2023 (exact date). from OB Dating Form. was planned Complaints: No OB History T1 L1 SAB1 IAB0 Ectopic0 Multiple0 Live Births1 Previous history: Prior : yes x 1 History of 4th degree laceration: No History of shoulder dystocia: No History of Hypertensive disorders including pre-eclampsia or gestational hypertension: Yes History of gestational diabetes: Yes Patient's Risk Screening for delivery: Have you had a prior dickerson between 20w and 36w6d? No How many pregnancies have you had before? 3 Did you have a previous baby with a GBS Infection? No Please select all that apply for any prior : N/A MEDICAL/PSYCHOSOCIAL HISTORY: History of hemorrhage or bleeding concerns: No Thyroid Disease: No History of chronic hypertension: No History of pre-existing diabetes: No ABO/RH(D) Date Value Ref Range Status 09/22/2020 A POSITIVE Final No weight on file for this encounter. Last Pap: 06/05/2023 History of abnormal pap: Yes Prior treatment for cervical dysplasia: none. Last HPV: 08/31/2018 History of STDs: None Partner History of STDs: None Did you have a partner with Herpes? No Tobacco use: No E-Cigarette/Vaping Use: No Caffeine use: No Drug use: No Alcohol use: No Multivitamin with Folic acid: Yes Would refuse blood transfusion if medically necessary: No Social Needs: How often does this describe you? I don't have enough money to pay my bills: Never Within the past 12 months, have you worried that your food would run out before you had money to buy more? Never In the past 12 months, has lack of reliable transportation kept you from going to medical appointments or work, or from getting things needed for daily living? Never In the past 12 months, have you had any concerns about having a place to live, or about the condition or quality of your housing? Never Social History: Do you have any history of depression, anxiety, PTSD, or other mood problems? Yes Do you have a history of abuse or trauma that may impact your experience? No Are you currently employed? Yes Depression/Anxiety Screening: Denies symptoms of depression. Admits to symptoms of anxiety. OB Depression and Anxiety Screening- This Encounter (since 02/11/2024) Over the past 2 weeks have you felt down, depressed, or hopeless? Negative Over the past two weeks, have you felt little interest or pleasure in doing things? Negative Feeling nervous, anxious or on edge 1-Several days Not being able to stop or control worrying 1-Several days Anxiety Pre-Screening Total (If >/= 3 additional questions will be reviewed) 2 Genetic Screening: Partner present: No Patient verbalized knowledge of partner family health history: Yes Do you or your partner have any personal or family history of defects not previously discussed: No Do you have history of a complicated by anomaly, genetic condition, or demise: No Preeclampsia Risk Screening: Screening for prevention of preeclampsia: High risk factors: Chronic hypertension Moderate risk ractors: Obesity (body mass index greater than 30) OB Risk Screening: Completed, no positive findings documented. Marital Status: Partner: Name: Moses Age: 40 Occupation: Self Employed Gender: Male PAST MEDICAL HISTORY Diagnosis Date Allergic rhinitis Asthma Atypical squamous cells of undetermined significance (ASCUS) on Papanicolaou smear of cervix 2018 Depression Developmental speech or language disorder speech delay--resolved Fatty liver Generalized anxiety disorder Gestational diabetes mellitus, class A1 02/14/2021 Hyperhidrosis Hypertension IBS (irritable bowel syndrome) stress induced Morbid obesity with BMI of 40.0-44.9, adult (HCC) LINA (obstructive sleep apnea) PMH - PAST MEDICAL HISTORY OF pneumonia 2000 [id number] Unspecified asthma(493.90) PAST SURGICAL HISTORY Procedure Laterality Date DELIVERY ONLY 04/20/2021 LTCS TONSILLECTOMY & ADENOIDECTOMY <AGE 12 Current Outpatient Medications Medication Sig Dispense Refill folic acid 1 mg tablet Take 1 tablet by mouth once daily. pyridoxine, vitamin B6, (VITAMIN B-6) 50 mg tablet Take 1 tablet by mouth two times a day. ondansetron orally disintegrating (ZOFRAN ODT) 4 mg disintegrating tablet Take 1 tablet by mouth every 8 hours as needed for nausea/vomiting. 60 tablet 2 famotidine (PEPCID) 20 mg tablet Take 1 tablet by mouth two times a day. 60 tablet 0 escitalopram oxalate (LEXAPRO) 20 mg tablet Take 1 tablet by mouth once daily 90 tablet 0 buPROPion XL (WELLBUTRIN XL) 150 mg 24 hr tablet Take 1 tablet by mouth once daily 90 tablet 3 olopatadine (PATANOL) 0.1 % ophthalmic solution Use 1 Drop in both eyes two times a day. 1 TO 2 DROPS TO EACH EYE TWICE DAILY NEEDED 1 mL 5 triamcinolone acetonide (KENALOG) 0.1 % cream Apply 1 application to affected area twice daily. Apply sparingly to area for rash/itching. 28.4 g 0 cetirizine HCl (ZYRTEC ORAL) Take by mouth. albuterol HFA (VENTOLIN HFA) 90 mcg/actuation inhaler Inhale 2 Puffs as instructed every 4 hours as needed. 18 g 3 No current facility-administered medications for this visit. Allergies As of Date: 02/12/2024 Allergen Noted Reaction DUST MITES 06/20/2005 PROZAC [FLUOXETINE] 09/12/2016 Other: See Comments RAGWEED 06/20/2005 Fully Assessed 01/23/2024 Does patient have penicillin allergy: No REVIEW OF SYSTEMS: GENERAL: Negative for: Fever or Chills HEENT: Negative for: Headache, Impaired Vision, Ringing in Ears, Nosebleeds NECK: Negative for: Swelling, Pain, Stiffness RESPIRATORY: Negative for: Cough, Shortness of breath, Wheezing GASTROINTESTINAL: Negative for: Constipation, Diarrhea, Blood in stool + nausea and heartburn MUSCULOSKELETAL: Negative for: Muscle or joint pain, stiffness, Joint swelling NEUROLOGIC/PSYCHIATRIC: Negative for: Weakness, Paralysis, Numbness, Tingling, Tremor, Depression, Memory loss + anxiety SKIN: Negative for: Rash, Itching GENITOURINARY: Negative for: vaginal itching, vaginal discharge, hematuria or dysuria SENSITIVE EXAM: The sensitive examination was discussed with the Patient or Patient's Authorized Pier Runner. As applicable, any other physician, advance practice provider, medical student, or other health professional student that will be observing or involved in the sensitive examination for educational or training purposes was discussed with the Patient or Authorized Pier Runner. The Patient or Authorized Pier Runner has agreed to proceed with the sensitive examination. (Sensitive examination includes inspection and/or palpation of the breasts, pelvis, prostate and anorectal regions). PHYSICAL EXAM: BP 126/72 Wt 232 lb 6.4 oz (105.4kg) LMP 12/18/2023 GENERAL: pleasant in no apparent distress DERMATOLOGY: Normal, without lesions, non-icteric, and non-hirsute NECK: Supple, full range of motion, no adenopathy, and thyroid normal CHEST: Normal inspiratory effort BREAST: soft, non-tender, symmetric, no dominant mass, normal nipple-areolar complex, no lymphadenopathy, and no nipple discharge ABDOMEN: soft, non-tender, and no masses NEURO: alert and oriented x3,exam grossly non-focal PELVIS: External genitalia normal without lesions. Perineal body intact. + mild erythema noted to vulva, white clumpy discharge. No vaginal or cervical lesions. Cervix closed. Uterus 8 week size. No adnexal masses or tenderness. Clinical Pelvimetry: Pelvimetry clinically assessed as adequate Limited OB ultrasound exam: single intrauterine and positive cardiac activity ASSESSMENT: 28 year old at 8w0d wks gestational age PLAN: 1) Patient oriented to practice. Patient given new OB orientation folder. Discussed nutrition, folic acid supplementation, dietary guidelines, exercise, smoking, alcohol, caffeine, and drug use. Discussed gestational weight gain guidelines. Discussed routine OB labs including STD/HIV. Discussed how to access Your guide to a health and the Mutuel Clerk. Discussed hemoglobin electrophoresis. Patient: Declines Reviewed midwifery and customer solutions architect services that are available. 2) Screening: Hemoglobin A1C: ordered Baby Aspirin: The patient has been counseled about the potential benefits of low dose aspirin in and our recommendation that this be offered to all patients, regardless of whether they meet the high risk criteria specified above. She Accepts Aneuploidy Screening: Discussed aneuploidy screening, nuchal translucency/first trimester early anatomy ultrasound and NIPT. The risks/benefits and limitations of NIPT/aneuploidy screening were reviewed including the potential for false negative and false positive results. The availability of genetic counseling was reviewed. Information on aneuploidy screening was provided. The patient chooses to proceed with First trimester early anatomy ultrasound (12-13w6d) Myriad Carrier Screening: Discussed myriad carrier screening. We discussed the availability of professional-society guided carrier screening and reviewed the conditions screened and limitations of screening. The availability of genetic counseling was reviewed. Information on carrier screening was provided. The patient is considering 3) Patient offered option of Virtual Visits. Patient unsure. May consider in future. ACTIVE PROBLEM LIST Encounter for Supervision of High Risk in First Trimester, Antepartum - 09/25/2020 Comment: Care Checklist Vaccines: [] Flu vaccine [] declined [] RSV vaccine 32 0/7 - 36 6/7 (Oct - Mar) [] declined [] COVID vaccine [] declined [] TDaP 27-36 [] declined First trimester: [x] Dating US [x] 1st tri labs [x] Pap smear [] Carrier screening [] declined [] NIPT screening [x] declined [x] First trimester anatomy scan [] declined [x] universal ASA ordered (start 12w-16w) [] declined [] M Power Consult [] not indicated [] declined Second trimester: [] Anatomy scan [] Mode of Delivery - [] Feeding - [] Pump ordered [] Diabetes screen [] CBC, RPR [] Behavioral Health Screening Third trimester (28-30 weeks): [] Consent [] Contraception [] Waiter/Waitress Dining Car [] TeamBirth handout Third trimester (36-40 weeks): [] GBS [] Presentation - [] Scheduled [] yes - Hibiclens, pre-op instructions, CBC, T&S ordered [] no [] H&P [] Preferences worksheet [] Scanned in EMR Obesity Affecting in First Trimester - 09/14/2020 Comment: February 12, 2024 -Pre BMI 35 - Plan for 32 week growth q 4 weeks. - Weekly NSTs at 36 weeks. Dutch Richards APRN.CNP Nausea and Vomiting During - 09/14/2020 Comment: February 12, 2024 Taking Zofran and Vitamin B6. To notify if not improving. Dutch Richards APRN.CNP 09/14/2020 Patient is complaining of nausea and occasional vomiting in . Dietary considerations discussed . Vitamin B6 recommended. Advised patient to call/come in if she is unable to keep any food or fluids down in a 24-hour period.TKRN Chronic Hypertension Affecting - 09/14/2020 Comment: Chronic HTN in Checklist BP controlled without meds since weight loss -Chronic hypertension diagnosis year: 2012 -Prior medications: Labetalol -Medication at onset of : None -Related complications (ie: kidney disease, heart disease, etc): No -If Yes: -Outside of managed by: Leora Xiao PCP -History of PEC/siPEC: No - If Yes: Please fill in gestational age at diagnosis/delivery, maternal/ complications: Current medication: None -Last date of medication change: [x] BP cuff [] ASA at 12 weeks (send Rx) [x] Baseline urine protein:creatinine within 12 months [] Baseline creatinine, LFTs within 12 months [] Baseline ECG or echo within 12 months [] Initiate/Titrate therapy to target BP range < 140/90 mmHg [] MFM consult by 14 weeks or within 2 weeks if presenting for care after 14 weeks History of Section - 02/12/2024 Comment: February 12, 2024 Breech in 2021. Considering . To discuss with physician. Dutch Richards APRN.CNP History of Miscarriage - 02/12/2024 Comment: September 2023 at 5 weeks. Dutch Richards APRN.CNP Anxiety During - 02/12/2024 Comment: February 12, 2024 Coping well at this time. Taking 150 mg of Wellbutrin and 20 mg of Lexapro. Mental health resources provided. To update throughout . Dutch Richards APRN.CNP Asthma During - 02/12/2024 Comment: February 12, 2024 Uses Albuterol PRN. Controlled. Avoid Hemabate with delivery. Dutch Richards APRN.CNP Heartburn During in First Trimester - 02/12/2024 Comment: February 12, 2024 Controlled with Pepcid. Dutch Richards APRN.CNP History of Gestational Diabetes Mellitus (Gdm) - 06/11/2021 Comment: February 12, 2024 Insulin controlled. History of Sleep Apnea - 09/14/2020 Comment: 1Patient has a history of sleep apnea. She uses a CPAP machine. TKRN Follow up in 4 weeks or sooner prn. Plan for NT scan between 12w0d and 13w6d gestation. Dutch Richards APRN.CNP documented in this encounter [facility] 02-06-2024 Instructions Dutch Richards APRN.CNP - 02/06/2024 1:38 PM EST Images from the original note were not included. Please select the following link to access the [facility] Your Guide to a Healthy . [email or web address] Please select the following link to access the [facility] Your Guide to a Healthy . [email or web address] MORNING SICKNESS IN by Katherine Hall M.D. for [facility] As you may already know, morning sickness can often be more appropriately called evening sickness or pqeet-kzhmuu-uw-the-day sickness. While there are the jose few, most women (50-90%) experience some degree of nausea, some have vomiting, and a few develop a severe form of vomiting during called hyperemesis gravidarum. What causes the nausea and vomiting of ? We can't explain why some people feel fine and others are green for months. Even the same woman may feel vastly different in each . There is some relationship between nausea and the level of the hormone hCG. In twin pregnancies, and in other situations where the hCG is greater than expected, nausea and vomiting tend to be worse. In a destined for miscarriage, hCG levels tend to be low, and nausea is often less severe. This being said, a lack of nausea doesn't guarantee that the is destined for miscarriage. The fact that nausea and vomiting are often signs of a healthy can offer a silver lining in the dark cloud of miserable nausea. How long will the nausea last? Fortunately, for most women, nausea and vomiting are a first trimester event, peaking at week 9-10 and waning by week 14-16. When you are feeling bad the weeks can go by slowly but most moms do feel tremendously better by the middle of the . Whether morning sickness is a brief experience or lasts through most of the , there are treatments that can make the weeks or months more tolerable. What can you do about it? Diet: See what works for you. Try eating bland dry foods, and avoid fatty or spicy foods. It is okay to eat a less than perfectly balanced diet in the first trimester. Have your liquids separately from dry foods. Try sports drinks, water, clear juices, Darren-aid, or non-caffeinated tea. Avoid carbonated beverages that fill up your stomach. Try eating lots of little meals. If you tend to feel sick when you first wake up, leave crackers next to the bed for a quick snack before rising. Keeping healthy snacks with you all day to nibble when you feel queasy can sometimes even prevent nausea from starting. vitamins and nausea: Pre- vitamins can sometimes worsen nausea in . While folate is necessary, especially early in the , it comes as a smaller pill that many people find more tolerable than the complete vitamin pill. Ask your practitioner if it is okay to temporarily replace vitamins and iron with just a folate pill if you find a significant worsening in the level of your nausea from the vitamins. Alternative therapies: Acupressure may be used to treat nausea in , and is not known to have any risks for the fetus. Wristbands (marketed for seasickness) that put pressure on an acupressure point at the wrist are often available at drugstores or travel stores. Shea root is used for nausea in many traditional cultures. Some women take fresh grated shea or shea tablets. It is possible that the pill form contains other ingredients or contaminants, so you may want to try fresh shea first. Medications: Emetrol is the only nausea medication approved for use in . It is available over the counter and is soothing to the stomach. A prescription medication called Bendectin was available in the -1979's and was shown to be safe in , but the company stopped marketing it in the [place] due to the costs of liability coverage. Bendectin contained 10 milligrams of vitamin B6 and 10 milligrams of Doxylamine. Two tablets were given at bedtime and a total of up to 4 tablets could be used in a 24-hour period. Interestingly, Unisom , which contains a higher dose (25 mg.) of the same medication, Doxylamine, is currently marketed as an jzvq-dcn-rscgilg sleeping pill. Ask your practitioner if creating a vitamin B6/Doxylamine combination with hkcq-oxp-ygwuabt medications would be safe for you. Prescription medications like Compazine and Phenergan can be used if the benefits outweigh possible risks, but these have not been clearly shown to be safe in . Zofran , an expensive anti-nausea medication often used to treat nausea from chemotherapy, can also be used. Can I throw up so much it harms the baby? The act of vomiting cannot hurt your fetus, which is protected inside the uterus. If you get dehydrated or develop a metabolic imbalance, this can be unhealthy. As long as you can keep down liquids, you and your baby will generally do all right. Eat when you feel able. If you are unable to keep anything down, or if you notice potential signs of dehydration such as lightheadedness, or concentrated and/or infrequent urination, call your practitioner. Some women need brief hospital admission for intravenous fluids and anti-nausea medications if their condition becomes severe. This severe form of nausea and vomiting is called Hyperemesis Gravidarum. As with many symptoms of , remind yourself that this, too, shall pass, and you'll have a wonderful baby to show for it! TREATMENT OPTIONS, SHORT VERSION: Frequent small meals Hydrate throughout day Sea-Bands wrist pressure point applicators Shea root (powdered, in capsules) 250mg four times a day Vitamin B6 25 mg tablet three times a day Also may be taken with half a tablet of Unisom three times a day (Doxylamine 12.5 mg) If severe (weight loss, dehydration), call us and come in for IV hydration and possible medication in the form of injections. Prescription medications such as Phenergan, Compazine, Reglan Psychotherapy Services at [facility] Call Behavioral Health Access Line at [phone] to schedule Individual psychotherapy In-person or virtual Wait time for first evaluation may be 12 or more weeks. Wait list spots may be available. Due to the high volume of patients this option is recommended if you are looking for short term acute symptom coping strategies. 3-943-8-BYDC1LMIT - [facility] Mental Health Hotline If you are in suicidal crisis, please call or text 6-281-746-TALK ( ) or visit the National Suicide Prevention Lifeline website. mchb.[facility] hospital[facility].gov If you are in crisis, call 911 or go to your nearest Emergency Department Here are some links for wonderful Providers here in the community and surrounding areas. Do not hesitate to contact their offices, many are offering virtual visits during this time. Psychotherapy Services outside of [facility] Support International Online Provider Directory https://psidiKIDOZ.com/ - can assist in finding providers in your area that might be more extensive then the list below. [facility] [place], [place] [address] [place] [address] [address] [place] [address] [facility] [address] [place] [address] [facility] [address] [place], [place] [id number] Jennifer Roth MD [address] [place] [address] [facility] [address] [facility] [address], [address] [place] [address] [facility] [address] [place] [address] [facility] Counseling Services [place] / [place] [phone]/ [phone] Miguelina Green [address] [facility] [address] [facility] [phone] Aves of Counseling and Mediation [place] / [place] [phone] [facility] [address] [place] [address]/ [place] and [place] [phone] Kayleen Espitia, DACIA, LATONIA [facility] Workshops, telehealth and at home visits. [phone] [facility] counseling [place] 20 locations [place], [place], [place], [place], [place], [place], [place], [facility], [place], [place], [place], [place], [place], [place], [facility], [place], [place] ,[facility], [place], [place],[facility], [facility] [place], [place], [facility], [facility], [place] www.othello community hospitalGoTaxi(Cabeo)er.co [phone] Psychotherapy resources outside of [facility] are listed below [facility] liveBooks Psychotherapy Web: https://www.ConXtech/ Support International Online Provider Directory https://Gen One Cig/ [facility] https://Xinyi Network/ Mind Lab for Behavioral Health and Wellness Web: https://b3 bio/ Last Second Tickets for Effective Living Web: https://Glass & Marker.Military Cost Cutters.VoiceBox Technologies/ LifeStance Web: https://Houseboat Resort Club.VoiceBox Technologies/location/s [place]/ [facility] Web: https://www.iWitnesstohatchi health care center.or / [facility] Web: https://IO Semiconductor.org/ Recovery Resources Mental health and substance abuse help Web: https://www.Bioparaisos.org & RESOURCES Support International Direct peer support and connection to professional resources Non-Emergency Helpline Phone: / Text: [phone] Web: https://www..net/ Online Provider Directory: https://Gen One Cig/ Online Support Meetings: https://www..net/get-he lp/tdy-yhvaua-hbrgqqd-meetings/ LUPE Baby and Dry Cell Assembly Machine Tender Services Web: https://wwwJini/ Burbio.com Expert information on medication use during and Text: [phone] Web: https://Safe Shepherd/ NATIONAL REGISTRY FOR PSYCHIATRIC MEDICATIONS Currently studying the safety of antidepressants, ADHD medications and atypical antipsychotics taken during TO PARTICIPATE CALL TOLL-FREE: Web: https://[facility].org/re search/pregnancyregistry/ Support Groups: [facility]- Follow on facebook Baby Bistro support group led by [facility] department [facility] Mam - Support Group [facility].org The POEM support group [phone] Www.poSolfoonline.org Follow on facebook - POEM keith chapter Online support meetings PSI https://www..net/get-he lp/epg-hniimm-llzawmt-meetings/ [facility] mommy and me virtual support group 11:30-1pm Support for mothers and new babies and toddlers [place] childbirth education: Childbirth @cc.org or call [phone] CRISIS: CRISIS HOTLINE [phone], 911 or go to the nearest . [facility] [phone] / [facility] [phone] https://www.[facility].org Crisis text line text the word HOME to [address] [facility] [address] [address] [facility] [address] www.RescalericardoRady [employer].VoiceBox Technologies Felisa Santos clinical counseling [address] [address] www.bethbritton.VoiceBox Technologies [phone] IMRSV psychotherapy Amie Lee SUPERVISOR MOLD SHOP MEASUREMENT TECHNICIAN-S [address] [facility] www.GeoPoll [phone]/ Karolyn [phone] They all offer virtual. All work with trauma Support groups Online support meetings PSI https://www..net/get-he lp/bks-kllybv-mwxyndm-meetings/ Here are the support groups they offer: Support of parents of 1 to 4 years old children POEM ( Outreach and Encouragement for Moms) offers free support for mothers experiencing depression, anxiety, and other mood and anxiety disorders. Masks are recommended but not required. No pre-registration required. Babies in arms welcome. meetings now take place on the and Friday of each month Location: [facility] [address] [place] [address] Room 122 (library room) 7-8:00 p.m. When you enter the yarsani parking lot off of [address] the entrance door closest to our meeting room is on the front of the building toward the right. For those who are more comfortable with a virtual platform, POEM offers online support group options several days of the week. To register for an online group or to find out more about POEM, website at: https://mhaohio.org/get-help/horton medical centeroupd-zjqfnv-hzqzqj/poem-services/ offer a confidential helpline: private Facebook group is called ALISON Combs Here are the groups they offer: Traumatic childbirth resources: Http://pattch.org/ https://www.CeNeRx BioPharmariannaiXpert.VoiceBox Technologies/ Name Location (s) Phone # (s) Services Website [facility] Psychotherapy [address], [facility] [phone]; [address] [facility] [address] [facility] [phone] In-Person GROUPS INDIVIDUAL THERAPY MATERNAL-INFANT MENTAL HEALTH MEDICATION MANAGEMENT PLAY AND ART THERAPY TELETHERAPY https://www.ConXtech/s ervices/ Rosstonsudarshan of Tonya KEITH? [address] [place], [place] [address] ? [address], [address] [place], [place] [id number] ? SORIANO [address] [place], [place] [address]? Grief Support Groups Individual Grief Counseling Spiritual Care Memorial Events https://rolla.[facility].org/grief-services [facility] [address] [place], [place] [address]; ; Email: lamin@Voxox Inc. Women's Mental Health; Couples Counseling; Trauma (EMDR); Stress Management; Mood and Anxiety Related Disorders- and much more https://www.CURRENT/ LifeStance Numerous as they have contract providers: access website to find specific providers near you Counseling including CBT and EMDR as well as many more modalities; Medication Management; Telehealth and In-Person https://Yoke/ ChinaNetCloud [facility] [address] [place], [place] [address]; [phone] Personal, Family and Group Therapy; Psychological Testing and Diagnosis; Medication Management; Life and Career Coaching; Psychoanalysis; Literacy Testing; Yoga and Meditation https://b3 bio/ ThermoAura [facility] [address] [facility] [address], [place] [address] [address] ; [address] [place] [address], [address] [place] [address]; Office # for both sites: Individual and Couples Counseling https://www.Bedford Energy.VoiceBox Technologies/ paymentinsurance.html OCD & Anxiety [facility] venture between [facility] [address] [facility], [address], [place] [address]; Specialize in Cognitive-Behavioral Therapy (CBT) for the treatment of anxiety disorders across the lifespan. TELEHEALTH ONLY. https://ocdandanxietycenteroDigitilitiv RedTail Solutions/faqs [facility] [address] [place], [address] [place] [address] [facility] [place], [address] [place] [address] [facility] [place], [address] [address] [address] [place], [address], [address] [place] [address] [place], [address] [place] [address] [place], [place], [id number] Transportation Services To minimize patient barriers, [facility] provides transportation services to patients who qualify. If you are unable to get to your appointment at any of our facilities, please let us know. Need help now? Stop by one of our walk-in clinics to establish behavioral health care. Counseling Indvidual, Group, Couples and Family Counseling and EMDR. Medication Management Case Management benefits applications housing assistance Substance abuse treatment Medication assisted treatment https://www.[facility].or g/mental-health/ [facility] OFFICE AT [facility] [address] [place] [address] [facility] OFFICE [address] [place] [address] [facility] OFFICE [address] [place] [address] [place] OFFICE (at [facility]) [address] [place] [address] [facility] S[facility]E EXCHANGE PROGRAM & HIV SCREENING [address] [place] [address] V[place] EXCHANGE PROGRAM [address] [place] [address] Behavioral Health Urgent Care: [facility] Sites Counseling Indvidual and Group Medication Management Case Management benefits applications housing assistance Substance abuse treatment Medication assisted treatment Employment Services/ Job Training https://theGoTaxi(Cabeo)ersdcio.org/ Recovery Resources [address] [place], [place] [address]: P: [phone] [address] [facility] [address], [place] [address] P: [phone] Our services include: Addiction Mental Health Treatment Assessment Psychiatry Medical Care Employment Housing Drug and Alcohol Prevention HIV/AIDS Prevention https://www.recres.org/ [facility] [place] [address] [place] [address] [place] [address] [place], [place] [address] [address] [place] [address] [address] [facility] [address] [place] [address] [place] [address] [facility] [address] [place] [address] TMS Therapy/ Counseling Psychocological Testing for ADHD Medication Management In-Person/ Telemedicine https://www.Fermentalg/brianna ents-depression [facility] Psychological services [address] [place] [address], [place] [address] Neuropsychological Testing For ADHD https://www.memoryandpsych.com/ [facility] Office [address] [place] [phone] [phone] Providing sotm-yh-obvy and telehealth services. Adult Case Management Community Education and Prevention Employment Outpatient Treatment - Counseling & Psychotherapy Psychiatric Services http://www.[facility].org/ [facility] [address] [address] [facility] [address] [place] [address] Virtual Appointments! Now offering safe and convenient virtual client appointments to anyone in [place]! Individual Therapy Couples/Relationship Therapy Trauma/EMDR Therapy Art Therapy Play Therapy Christian Science Healer Support: Parenting Skills, Parent Child Interaction Therapy, Parent Infant Interaction Therapy Meditation Dietitian/Deputy Clerk Of Superior Court Services Group Therapy Yoga https://www.BuildDirect. VoiceBox Technologies/ Leora Cárdenas [phone] Private Practice: Telehealth Only Specializes in EMDR for Trauma None documented in this encounter [facility] 01-30-2024 Telephone encounter Note Patient notified and voiced understanding. Shannon Segovia RN [facility] 01-30-2024 Miscellaneous Notes Patient notified and voiced understanding. Shannon Segovia RN Keep scheduled upcoming NOB and we can discuss at that time. Maggy Santiago APRN.CNM Patient is approximately 6 weeks and is calling with concerns that she thinks her iron level is low. Patient states she is always cold, all day, everyday, and especially at night. Patient states she gets the chills like you do when you are sick except she is not sick. Patient states she is taking a PNV with iron in it. Patient does have upcoming New OB appointment on 02/11. Shannon Segovia RN documented in this encounter [facility] 01-30-2024 Telephone encounter Note Keep scheduled upcoming NOB and we can discuss at that time. Maggy Santiago APRN.CNM [facility] Work Phone: 01-30-2024 Telephone encounter Note Patient is approximately 6 weeks and is calling with concerns that she thinks her iron level is low. Patient states she is always cold, all day, everyday, and especially at night. Patient states she gets the chills like you do when you are sick except she is not sick. Patient states she is taking a PNV with iron in it. Patient does have upcoming New OB appointment on 02/11. Shannon Segovia RN [facility] 01-23-2024 Note HNO ID: [id number] Author: CAMILLA SNELL MD Service: ? Author Type: Physician Type: Progress Notes Filed: 01/23/2024 10:40 Note Text: Cammie Lozano is a 28 year old female who presents for problem visit. HPI: Patient presents with positive test. She is worried because of her history of miscarriage. Also she reports nausea. OB History T1 L1 SAB1 IAB0 Ectopic0 Multiple0 Live Births1 Force Adjustment Supervisor History LMP: 12/18/2023 (Exact Date), Having periods Age at Menarche: Age at First : Age at Menopause: Force Adjustment Supervisor History Comments: Sexual Activity: Never; Male Contraception: Condom PAST MEDICAL HISTORY Diagnosis Date Allergic rhinitis Asthma Atypical squamous cells of undetermined significance (ASCUS) on Papanicolaou smear of cervix 2019 Depression Developmental speech or language disorder speech delay--resolved Fatty liver Generalized anxiety disorder Gestational diabetes mellitus, class A1 02/14/2021 Hyperhidrosis Hypertension IBS (irritable bowel syndrome) stress induced Morbid obesity with BMI of 40.0-44.9, adult (HCC) LINA (obstructive sleep apnea) PMH - PAST MEDICAL HISTORY OF pneumonia 2000 [id number] Unspecified asthma(493.90) PAST SURGICAL HISTORY Procedure Laterality Date DELIVERY ONLY 04/20/2021 LTCS TONSILLECTOMY AND ADENOIDECTOMY FAMILY HISTORY Problem Relation Age of Onset other (crohns) Mother Migraines Mother Hypertension Father Asthma Father Allergies Father Heart Attack Father 53 Anxiety disorder Brother Depression Brother Hypertension Brother No Known Problems Brother other (alcoholic/drug addict) Maternal Grandmother other (alcoholic/ drug addict) Maternal Grandfather Heart Maternal Grandfather Breast Cancer Paternal Grandmother GI Paternal Grandfather Crohn's disease - in his 60s Heart Attack Paternal Grandfather Social History Tobacco Use Smoking status: Never Smokeless tobacco: Never Vaping Use Vaping status: Never Used Substance Use Topics Alcohol use: No Drug use: No Current Outpatient Medications Medication Sig famotidine (PEPCID) 20 mg tablet Take 1 tablet by mouth two times a day. escitalopram oxalate (LEXAPRO) 20 mg tablet Take 1 tablet by mouth once daily buPROPion XL (WELLBUTRIN XL) 150 mg 24 hr tablet Take 1 tablet by mouth once daily olopatadine (PATANOL) 0.1 % ophthalmic solution Use 1 Drop in both eyes two times a day. 1 TO 2 DROPS TO EACH EYE TWICE DAILY NEEDED triamcinolone acetonide (KENALOG) 0.1 % cream Apply 1 application to affected area twice daily. Apply sparingly to area for rash/itching. cetirizine HCl (ZYRTEC ORAL) Take by mouth. albuterol HFA (VENTOLIN HFA) 90 mcg/actuation inhaler Inhale 2 Puffs as instructed every 4 hours as needed. acetaminophen (TYLENOL ORAL) Take by mouth. (Patient not taking: Reported on 01/19/2024) CPAP Initiate Auto PAP @ 5-15 cm of water with humidification. Mask (per patient preference) optional chin strap (if indicated) , filters, tubing, humidifier and lifetime supplies. No current facility-administered medications for this visit. Allergies As of Date: 01/23/2024 Allergen Noted Reaction DUST MITES 06/20/2005 PROZAC [FLUOXETINE] 09/12/2016 Other: See Comments RAGWEED 06/20/2005 Fully Assessed 01/23/2024 Allergies and current medication updated:Yes SENSITIVE EXAM: Sensitive exam not performed. EXAM: BP 120/80 Wt 229 lb 12.8 oz (104.2kg) LMP 12/18/2023 GENERAL: pleasant, female in no apparent distress ASSESSMENT AND PLAN: Assessment AND Plan Encounter for test, result positive Orders: HCG QUANTITATIVE; Future History of miscarriage Orders: HCG QUANTITATIVE; Future Repeat hcg level ordered. Follow up for formal OB visit with US. Advised on vitamin B6 AND zofran given for nausea. Reviewed medication list and all questions answered. Medical Decision Making: Problems: Moderate: New problem with uncertain prognosis Data: Unique test result(s) reviewed: 1 Unique test(s) ordered: 2 Risk: Moderate: Drug management Medical Decision Making Level: 4 - Moderate Camilla Snell MD [facility] 01-23-2024 History of Present illness Narrative Cammie Lozano is a 28 year old female who presents for problem visit. HPI: Patient presents with positive test. She is worried because of her history of miscarriage. Also she reports nausea. OB History T1 L1 SAB1 IAB0 Ectopic0 Multiple0 Live Births1 Force Adjustment Supervisor History LMP: 12/18/2023 (Exact Date), Having periods Age at Menarche: Age at First : Age at Menopause: Force Adjustment Supervisor History Comments: Sexual Activity: Never; Male Contraception: Condom PAST MEDICAL HISTORY Diagnosis Date Allergic rhinitis Asthma Atypical squamous cells of undetermined significance (ASCUS) on Papanicolaou smear of cervix 2019 Depression Developmental speech or language disorder speech delay--resolved Fatty liver Generalized anxiety disorder Gestational diabetes mellitus, class A1 02/14/2021 Hyperhidrosis Hypertension IBS (irritable bowel syndrome) stress induced Morbid obesity with BMI of 40.0-44.9, adult (HCC) LINA (obstructive sleep apnea) PMH - PAST MEDICAL HISTORY OF pneumonia 2000 [id number] Unspecified asthma(493.90) PAST SURGICAL HISTORY Procedure Laterality Date DELIVERY ONLY 04/20/2021 LTCS TONSILLECTOMY & ADENOIDECTOMY <AGE 11 FAMILY HISTORY Problem Relation Age of Onset other (crohns) Mother Migraines Mother Hypertension Father Asthma Father Allergies Father Heart Attack Father 53 Anxiety disorder Brother Depression Brother Hypertension Brother No Known Problems Brother other (alcoholic/drug addict) Maternal Grandmother other (alcoholic/ drug addict) Maternal Grandfather Heart Maternal Grandfather Breast Cancer Paternal Grandmother GI Paternal Grandfather Crohn's disease - in his 60s Heart Attack Paternal Grandfather Social History Tobacco Use Smoking status: Never Smokeless tobacco: Never Vaping Use Vaping status: Never Used Substance Use Topics Alcohol use: No Drug use: No Current Outpatient Medications Medication Sig famotidine (PEPCID) 20 mg tablet Take 1 tablet by mouth two times a day. escitalopram oxalate (LEXAPRO) 20 mg tablet Take 1 tablet by mouth once daily buPROPion XL (WELLBUTRIN XL) 150 mg 24 hr tablet Take 1 tablet by mouth once daily olopatadine (PATANOL) 0.1 % ophthalmic solution Use 1 Drop in both eyes two times a day. 1 TO 2 DROPS TO EACH EYE TWICE DAILY NEEDED triamcinolone acetonide (KENALOG) 0.1 % cream Apply 1 application to affected area twice daily. Apply sparingly to area for rash/itching. cetirizine HCl (ZYRTEC ORAL) Take by mouth. albuterol HFA (VENTOLIN HFA) 90 mcg/actuation inhaler Inhale 2 Puffs as instructed every 4 hours as needed. acetaminophen (TYLENOL ORAL) Take by mouth. (Patient not taking: Reported on 01/19/2024) CPAP Initiate Auto PAP @ 5-15 cm of water with humidification. Mask (per patient preference) optional chin strap (if indicated) , filters, tubing, humidifier and lifetime supplies. No current facility-administered medications for this visit. Allergies As of Date: 01/23/2024 Allergen Noted Reaction DUST MITES 06/20/2005 PROZAC [FLUOXETINE] 09/12/2016 Other: See Comments RAGWEED 06/20/2005 Fully Assessed 01/23/2024 Allergies and current medication updated:Yes SENSITIVE EXAM: Sensitive exam not performed. EXAM: BP 120/80 Wt 229 lb 12.8 oz (104.2kg) LMP 12/18/2023 GENERAL: pleasant, female in no apparent distress ASSESSMENT AND PLAN: Assessment & Plan Encounter for test, result positive Orders: HCG QUANTITATIVE; Future History of miscarriage Orders: HCG QUANTITATIVE; Future Repeat hcg level ordered. Follow up for formal OB visit with US. Advised on vitamin B6 & zofran given for nausea. Reviewed medication list and all questions answered. Medical Decision Making: Problems: Moderate: New problem with uncertain prognosis Data: Unique test result(s) reviewed: 1 Unique test(s) ordered: 2 Risk: Moderate: Drug management Medical Decision Making Level: 4 - Moderate Camilla Snell MD documented in this encounter [facility] 01-19-2024 Note HNO ID: [id number] Author: GALINA BROOKS PA-C Service: ? Author Type: Physician Plastics Repairer Type: Progress Notes Filed: 01/19/2024 14:34 Note Text: Cammie Lozano is a 28 year old female with a complaint of daily headaches since September. Feels they are tension headaches, stress related. 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 +photosensitivity. Has always gotten headaches, just more frequent since September. States was on break this past week, didn't have any headaches at home. Pt had a miscarriage in September. LMP Dec 17. [facility] had two positive tests this past weekend. Has JUNIOR NETWORK ADMINISTRATOR, hasn't contacted her yet. REVIEW OF SYSTEMS See HPI, otherwise unremarkable. PAST MEDICAL HISTORY Diagnosis Date Allergic rhinitis Asthma Atypical squamous cells of undetermined significance (ASCUS) on Papanicolaou smear of cervix 2018 Depression Developmental speech or language disorder speech delay--resolved Fatty liver Generalized anxiety disorder Gestational diabetes mellitus, class A1 02/14/2021 Hyperhidrosis Hypertension IBS (irritable bowel syndrome) stress induced Morbid obesity with BMI of 40.0-44.9, adult (HCC) LINA (obstructive sleep apnea) PMH - PAST MEDICAL HISTORY OF pneumonia 2000 [id number] Unspecified asthma(493.90) PAST SURGICAL HISTORY Procedure Laterality Date DELIVERY ONLY 04/20/2021 LTCS TONSILLECTOMY AND ADENOIDECTOMY FAMILY HISTORY Problem Relation Age of Onset other (crohns) Mother Migraines Mother Hypertension Father Asthma Father Allergies Father Heart Attack Father 53 Anxiety disorder Brother Depression Brother Hypertension Brother No Known Problems Brother other (alcoholic/drug addict) Maternal Grandmother other (alcoholic/ drug addict) Maternal Grandfather Heart Maternal Grandfather Breast Cancer Paternal Grandmother GI Paternal Grandfather Crohn's disease - in his 60s Heart Attack Paternal Grandfather Social History Tobacco Use Smoking status: Never Smokeless tobacco: Never Vaping Use Vaping status: Never Used Substance Use Topics Alcohol use: No Drug use: No PHYSICAL EXAMINATION: Vitals: BP 117/77 Pulse 87 Temp 36.6 ?C (97.8 ?F) Ht 170.2 cm (5' 7.01) Wt 104.6 kg (230 lb 9.6 oz) LMP 08/31/2023 (Exact Date) SpO2 96% BMI 36.11 kg/m? General Appearance: Well appearing, alert, in no acute distress, well-hydrated, well nourished.. Eyes: Anicteric sclera. Pupils are equally round and reactive to light. Extraocular movements are intact. . Oropharynx: Lips, mucosa, and tongue normal, teeth and gums normal, oropharynx normal. Neck: Supple, no adenopathy Lungs: Lungs clear to auscultation. No wheezing, rhonchi, rales.. Heart: RRR without murmur, gallop, or rubs. No ectopy. Neurologic: Gait normal. CN 2-12 intact. Sensation grossly intact.. ASSESSMENT: DIAGNOSIS: (Z32.01) Positive test (primary encounter diagnosis) (K21.9) Gastroesophageal reflux disease, unspecified whether esophagitis present (R51.9) Daily headache PLAN: ASSESSMENT/PLAN: 1. Positive test - ICD9: V72.42, ICD10: Z32.01 (primary diagnosis) Will discuss wellbutrin and lexapro with OB. - HCG QUANTITATIVE 2. Gastroesophageal reflux disease, unspecified whether esophagitis present - ICD9: 530.81, ICD10: K21.9 Switch to pepcid. 3. Daily headache - ICD9: 784.0, ICD10: R51.9 Limited at this time, continue tylenol. Stress management, heating pad for neck. Follow up in the interim for new or worsening sx. Pt in agreement with the plan and verbalized understanding. Galina Brooks PA-C [facility] 01-19-2024 History of Present illness Narrative Cammie Lozano is a 28 year old female with a complaint of daily headaches since September. Feels they are tension headaches, stress related. 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 +photosensitivity. Has always gotten headaches, just more frequent since September. States was on break this past week, didn't have any headaches at home. Pt had a miscarriage in September. LMP Dec 17. [facility] had two positive tests this past weekend. Has JUNIOR NETWORK ADMINISTRATOR, hasn't contacted her yet. REVIEW OF SYSTEMS See HPI, otherwise unremarkable. PAST MEDICAL HISTORY Diagnosis Date Allergic rhinitis Asthma Atypical squamous cells of undetermined significance (ASCUS) on Papanicolaou smear of cervix 2018 Depression Developmental speech or language disorder speech delay--resolved Fatty liver Generalized anxiety disorder Gestational diabetes mellitus, class A1 02/14/2021 Hyperhidrosis Hypertension IBS (irritable bowel syndrome) stress induced Morbid obesity with BMI of 40.0-44.9, adult (HCC) LINA (obstructive sleep apnea) PMH - PAST MEDICAL HISTORY OF pneumonia 2000 [id number] Unspecified asthma(493.90) PAST SURGICAL HISTORY Procedure Laterality Date DELIVERY ONLY 04/20/2021 LTCS TONSILLECTOMY & ADENOIDECTOMY <AGE 12 FAMILY HISTORY Problem Relation Age of Onset other (crohns) Mother Migraines Mother Hypertension Father Asthma Father Allergies Father Heart Attack Father 53 Anxiety disorder Brother Depression Brother Hypertension Brother No Known Problems Brother other (alcoholic/drug addict) Maternal Grandmother other (alcoholic/ drug addict) Maternal Grandfather Heart Maternal Grandfather Breast Cancer Paternal Grandmother GI Paternal Grandfather Crohn's disease - in his 60s Heart Attack Paternal Grandfather Social History Tobacco Use Smoking status: Never Smokeless tobacco: Never Vaping Use Vaping status: Never Used Substance Use Topics Alcohol use: No Drug use: No PHYSICAL EXAMINATION: Vitals: BP 117/77 Pulse 87 Temp 36.6 C (97.8 F) Ht 170.2 cm (5' 7.01) Wt 104.6 kg (230 lb 9.6 oz) LMP 08/31/2023 (Exact Date) SpO2 96% BMI 36.11 kg/m General Appearance: Well appearing, alert, in no acute distress, well-hydrated, well nourished.. Eyes: Anicteric sclera. Pupils are equally round and reactive to light. Extraocular movements are intact. . Oropharynx: Lips, mucosa, and tongue normal, teeth and gums normal, oropharynx normal. Neck: Supple, no adenopathy Lungs: Lungs clear to auscultation. No wheezing, rhonchi, rales.. Heart: RRR without murmur, gallop, or rubs. No ectopy. Neurologic: Gait normal. CN 2-12 intact. Sensation grossly intact.. ASSESSMENT: DIAGNOSIS: (Z32.01) Positive test (primary encounter diagnosis) (K21.9) Gastroesophageal reflux disease, unspecified whether esophagitis present (R51.9) Daily headache PLAN: ASSESSMENT/PLAN: 1. Positive test - ICD9: V72.42, ICD10: Z32.01 (primary diagnosis) Will discuss wellbutrin and lexapro with OB. - HCG QUANTITATIVE 2. Gastroesophageal reflux disease, unspecified whether esophagitis present - ICD9: 530.81, ICD10: K21.9 Switch to pepcid. 3. Daily headache - ICD9: 784.0, ICD10: R51.9 Limited at this time, continue tylenol. Stress management, heating pad for neck. Follow up in the interim for new or worsening sx. Pt in agreement with the plan and verbalized understanding. Galina Brooks PA-C Spirometry Never done Influenza Vaccine(1) due on 10/19/2023 Covid-19 Vaccine( season) due on 10/19/2023 Annual PCP Team Chronic Disease Visit due on 12/15/2023 documented in this encounter [facility] 01-19-2024 Note HNO ID: [id number] Author: ROWENA KERR MA Service: ? Author Type: Sugar Chipper Machine Operator Type: Progress Notes Filed: 01/19/2024 14:34 Note Text: Spirometry Never done Influenza Vaccine(1) due on 10/19/2023 Covid-19 Vaccine(2023- season) due on 10/19/2023 Annual PCP Team Chronic Disease Visit due on 12/15/2023 [facility] 01-06-2024 Note Patient Outreach (IN [facility]) CAMMIE LOZANO ([id number]) 1995 F Date Time Provider Department 01/06/24 LEORA BILLINGSLEY During your visit today, we recorded the following information about you: Allergies As of Date: 01/06/2024 Noted Allergy Reaction DUST MITES 06/20/2005 PROZAC (FLUOXETINE) 09/12/2016 14 - Other: See Comments Comments: [place] like she had no emotions RAGWEED 06/20/2005 Date Reviewed: 10/22/2023 Reviewed by: Valencia Avila MD - Fully Assessed Visit Diagnoses:Essential hypertension [I10] Obesity, Class I, BMI 30-34.9 [E66.811] Order(s):BASIC METABOLIC PANEL [SQBMP] Order #: [id number] FUTURE HEMOGLOBIN A1C [ODRXR6K] Order #: [id number] FUTURE Prescriptions as of 01/09/2024 - escitalopram oxalate (LEXAPRO) 20 mg tablet Take 1 tablet by mouth once daily - buPROPion XL (WELLBUTRIN XL) 150 mg 24 hr tablet Take 1 tablet by mouth once daily - olopatadine (PATANOL) 0.1 % ophthalmic solution Use 1 Drop in both eyes two times a day. 1 TO 2 DROPS TO EACH EYE TWICE DAILY NEEDED - omeprazole (PRILOSEC) 40 mg capsule Take 1 capsule by mouth once daily. 30 minutes before a meal - triamcinolone acetonide (KENALOG) 0.1 % cream Apply 1 application to affected area twice daily. Apply sparingly to area for rash/itching. - acetaminophen (TYLENOL ORAL) Take by mouth. - cetirizine HCl (ZYRTEC ORAL) Take by mouth. - albuterol HFA (VENTOLIN HFA) 90 mcg/actuation inhaler Inhale 2 Puffs as instructed every 4 hours as needed. - CPAP Initiate Auto PAP @ 5-15 cm of water with humidification. Mask (per patient preference) optional chin strap (if indicated) , filters, tubing, humidifier and lifetime supplies. Problem List As Of Date 01/06/2024 Noted Resolved ALLERGIC RHINITIS NOS [J30.9] 06/18/2005 EXTRINSIC ASTHMA UNSPECIFIED [J45.909] 06/26/2006 PMS (premenstrual syndrome) [N94.3] 03/16/2009 03/23/2021 Metrorrhagia [N92.1] 03/16/2009 03/23/2021 Dysmenorrhea [N94.6] 03/16/2009 03/23/2021 Family history of Crohn's disease [Z83.79] 07/16/2011 03/23/2021 Depression affecting [O99.340, F32.A] 08/28/2012 06/11/2021 Essential hypertension [I10] Generalized anxiety disorder [F41.1] LINA (obstructive sleep apnea) [G47.33] Fatty liver [K76.0] History of depression [Z86.59] 09/14/2020 Obesity during [O99.210] 09/14/2020 06/11/2021 Nausea and vomiting during [O21.9] 09/14/2020 03/23/2021 Preexisting hypertension complicating *09/14/2020 06/11/2021 History of sleep apnea [Z86.69] 09/14/2020 Patient request for diagnostic testing [Z01.89] 09/14/2020 03/23/2021 Supervision of high-risk , first trime*09/25/2020 06/11/2021 Rubella non-immune status, antepartum [O09.899,*09/27/2020 Insulin controlled gestational diabetes mellitu*02/14/2021 06/11/2021 Excessive growth affecting management of *02/14/2021 06/11/2021 History of gestational diabetes mellitus (GDM) *06/11/2021 Obesity, Class III, BMI 40-49.9 (morbid obesity*01/07/2022 Moderate episode of recurrent major depressive *01/07/2022 Obesity, Class I, BMI 30-34.9 [E66.811] 12/14/2022 Encounter Status:Closed by KWESI CRAWLEY on 01/09/24 [facility] 11-27-2023 Telephone encounter Note Prescription Refill Information The patient has been identified by name and date of : Yes Caregiver verified no other encounters exist for this prescription request: Yes Caregiver confirmed with patient/requestor that no other refills are due, in the near future, with this provider at this time: Yes The last office visit in the department: 12/14/2022 Does the patient have a future office visit with this provider/department: Visit date not found Requested Prescriptions Pending Prescriptions Disp Refills escitalopram oxalate (LEXAPRO) 20 mg tablet [Pharmacy Med Name: Escitalopram Oxalate 20 MG Oral Tablet] 90 tablet 0 Sig: Take 1 tablet by mouth once daily Carri Bills MA November 27, 2023 11:11 AM [facility] 11-27-2023 Miscellaneous Notes Prescription Refill Information The patient has been identified by name and date of : Yes Caregiver verified no other encounters exist for this prescription request: Yes Caregiver confirmed with patient/requestor that no other refills are due, in the near future, with this provider at this time: Yes The last office visit in the department: 12/14/2022 Does the patient have a future office visit with this provider/department: Visit date not found Requested Prescriptions Pending Prescriptions Disp Refills escitalopram oxalate (LEXAPRO) 20 mg tablet [Pharmacy Med Name: Escitalopram Oxalate 20 MG Oral Tablet] 90 tablet 0 Sig: Take 1 tablet by mouth once daily Carri Bills MA November 27, 2023 11:11 AM documented in this encounter [facility] 10-22-2023 Note HNO ID: [id number] Author: VLAENCIA AVILA MD Service: ? Author Type: Physician Type: Progress Notes Filed: 10/22/2023 17:09 Note Text: VIRTUAL VISIT PROGRESS NOTE This is a virtual visit using [employer] Video Visit. It required patient-provider interaction for the medical decision making as documented below. I have communicated my name and active licensure. The patient's identity and physical location were verified at the time of this visit. Either the patient or their legal ambulatory service representative has been informed of the risks and benefits of -- and alternatives to -- treatment through a remote evaluation and consents to proceed with the evaluation remotely. Cammie Lozano is a 28 year old female seen for f/u hcg levels. Had been tracking menses and late for menses. Took multiple UPT and positive. Then started spotting at 5 weeks from LMP and then started spotting and 2 days later heavy bleeding, more clots than a normal period for her and neg HCG quant. Woners what this means. Also, h/o c/s and questions about TOLAC options w/ our providers/[facility]. HISTORY REVIEWED (electronic chart updated): PAST MEDICAL HISTORY No date: Allergic rhinitis No date: Asthma 2019: Atypical squamous cells of undetermined significance (ASCUS) on Papanicolaou smear of cervix No date: Depression No date: Developmental speech or language disorder Comment: speech delay--resolved No date: Fatty liver No date: Generalized anxiety disorder 02/14/2021: Gestational diabetes mellitus, class A1 No date: Hyperhidrosis No date: Hypertension No date: IBS (irritable bowel syndrome) Comment: stress induced No date: Morbid obesity with BMI of 40.0-44.9, adult (HCC) No date: LINA (obstructive sleep apnea) No date: PMH - PAST MEDICAL HISTORY OF Comment: pneumonia 2000 [id number] No date: Unspecified asthma(493.90) PAST SURGICAL HISTORY 04/20/2021: DELIVERY ONLY Comment: LTCS No date: TONSILLECTOMY AND ADENOIDECTOMY FAMILY HISTORY Problem Relation Age of Onset other (crohns) Mother Migraines Mother Hypertension Father Asthma Father Allergies Father Heart Attack Father 53 Anxiety disorder Brother Depression Brother Hypertension Brother No Known Problems Brother other (alcoholic/drug addict) Maternal Grandmother other (alcoholic/ drug addict) Maternal Grandfather Heart Maternal Grandfather Breast Cancer Paternal Grandmother GI Paternal Grandfather Crohn's disease - in his 60s Heart Attack Paternal Grandfather Social History Tobacco Use Smoking status: Never Smokeless tobacco: Never Vaping Use Vaping status: Never Used Substance Use Topics Alcohol use: No Drug use: No Current Outpatient Medications Medication Sig buPROPion XL (WELLBUTRIN XL) 150 mg 24 hr tablet Take 1 tablet by mouth once daily escitalopram oxalate (LEXAPRO) 20 mg tablet Take 1 tablet by mouth once daily olopatadine (PATANOL) 0.1 % ophthalmic solution Use 1 Drop in both eyes two times a day. 1 TO 2 DROPS TO EACH EYE TWICE DAILY NEEDED omeprazole (PRILOSEC) 40 mg capsule Take 1 capsule by mouth once daily. 30 minutes before a meal triamcinolone acetonide (KENALOG) 0.1 % cream Apply 1 application to affected area twice daily. Apply sparingly to area for rash/itching. levonorgestrel (MIRENA) 20 mcg/24 hours (7 yrs) 52 mg IUD 1 Each by INTRAUTERINE route as directed. acetaminophen (TYLENOL ORAL) Take by mouth. cetirizine HCl (ZYRTEC ORAL) Take by mouth. albuterol HFA (VENTOLIN HFA) 90 mcg/actuation inhaler Inhale 2 Puffs as instructed every 4 hours as needed. CPAP Initiate Auto PAP @ 5-15 cm of water with humidification. Mask (per patient preference) optional chin strap (if indicated) , filters, tubing, humidifier and lifetime supplies. No current facility-administered medications for this visit. ALLERGIES Allergen Reactions Dust Mites Prozac [Fluoxetine] Other: See Comments [place] like she had no emotions Ragweed PHYSICAL EXAMINATION: VIDEO EXAM: (if completed, performed via video enabled technology) GENERAL: alert and appropriate, in no distress, well-hydrated, well nourished, and happy, smiling, interactive ASSESSMENT: h/o c/s complete early SAB PLAN: We discussed options for [place] with our group and at [facility]. We discussed that we do not generally offer inductions for unfavorable cervix until late patients. We also reviewed that she would be high risk for indication for earlier delivery. However she is lost a significant amount of weight since her last which lowers her chances of gestational diabetes and preeclampsia. We reviewed option for induction of labor if indicated and tertiary care center versus repeat section if delivery is indicated before active labor. Patient's questions were answered to her satisfaction regarding this. Reviewed that she likely had a very early loss. We reviewed that most (more content not included)... [facility] 10-22-2023 History of Present illness Narrative VIRTUAL VISIT PROGRESS NOTE This is a virtual visit using [employer] Video Visit. It required patient-provider interaction for the medical decision making as documented below. I have communicated my name and active licensure. The patient's identity and physical location were verified at the time of this visit. Either the patient or their legal ambulatory service representative has been informed of the risks and benefits of -- and alternatives to -- treatment through a remote evaluation and consents to proceed with the evaluation remotely. Cammie Lozano is a 28 year old female seen for f/u hcg levels. Had been tracking menses and late for menses. Took multiple UPT and positive. Then started spotting at 5 weeks from LMP and then started spotting and 2 days later heavy bleeding, more clots than a normal period for her and neg HCG quant. Woners what this means. Also, h/o c/s and questions about TOLAC options w/ our providers/[facility]. HISTORY REVIEWED (electronic chart updated): PAST MEDICAL HISTORY No date: Allergic rhinitis No date: Asthma 2019: Atypical squamous cells of undetermined significance (ASCUS) on Papanicolaou smear of cervix No date: Depression No date: Developmental speech or language disorder Comment: speech delay--resolved No date: Fatty liver No date: Generalized anxiety disorder 02/14/2021: Gestational diabetes mellitus, class A1 No date: Hyperhidrosis No date: Hypertension No date: IBS (irritable bowel syndrome) Comment: stress induced No date: Morbid obesity with BMI of 40.0-44.9, adult (HCC) No date: LINA (obstructive sleep apnea) No date: PMH - PAST MEDICAL HISTORY OF Comment: pneumonia 2000 [id number] No date: Unspecified asthma(493.90) PAST SURGICAL HISTORY 04/20/2021: DELIVERY ONLY Comment: LTCS No date: TONSILLECTOMY & ADENOIDECTOMY <AGE 11 FAMILY HISTORY Problem Relation Age of Onset other (crohns) Mother Migraines Mother Hypertension Father Asthma Father Allergies Father Heart Attack Father 53 Anxiety disorder Brother Depression Brother Hypertension Brother No Known Problems Brother other (alcoholic/drug addict) Maternal Grandmother other (alcoholic/ drug addict) Maternal Grandfather Heart Maternal Grandfather Breast Cancer Paternal Grandmother GI Paternal Grandfather Crohn's disease - in his 60s Heart Attack Paternal Grandfather Social History Tobacco Use Smoking status: Never Smokeless tobacco: Never Vaping Use Vaping status: Never Used Substance Use Topics Alcohol use: No Drug use: No Current Outpatient Medications Medication Sig buPROPion XL (WELLBUTRIN XL) 150 mg 24 hr tablet Take 1 tablet by mouth once daily escitalopram oxalate (LEXAPRO) 20 mg tablet Take 1 tablet by mouth once daily olopatadine (PATANOL) 0.1 % ophthalmic solution Use 1 Drop in both eyes two times a day. 1 TO 2 DROPS TO EACH EYE TWICE DAILY NEEDED omeprazole (PRILOSEC) 40 mg capsule Take 1 capsule by mouth once daily. 30 minutes before a meal triamcinolone acetonide (KENALOG) 0.1 % cream Apply 1 application to affected area twice daily. Apply sparingly to area for rash/itching. levonorgestrel (MIRENA) 20 mcg/24 hours (7 yrs) 52 mg IUD 1 Each by INTRAUTERINE route as directed. acetaminophen (TYLENOL ORAL) Take by mouth. cetirizine HCl (ZYRTEC ORAL) Take by mouth. albuterol HFA (VENTOLIN HFA) 90 mcg/actuation inhaler Inhale 2 Puffs as instructed every 4 hours as needed. CPAP Initiate Auto PAP @ 5-15 cm of water with humidification. Mask (per patient preference) optional chin strap (if indicated) , filters, tubing, humidifier and lifetime supplies. No current facility-administered medications for this visit. ALLERGIES Allergen Reactions Dust Mites Prozac [Fluoxetine] Other: See Comments [place] like she had no emotions Ragweed PHYSICAL EXAMINATION: VIDEO EXAM: (if completed, performed via video enabled technology) GENERAL: alert and appropriate, in no distress, well-hydrated, well nourished, and happy, smiling, interactive ASSESSMENT: h/o c/s complete early SAB PLAN: We discussed options for [place] with our group and at [facility]. We discussed that we do not generally offer inductions for unfavorable cervix until late patients. We also reviewed that she would be high risk for indication for earlier delivery. However she is lost a significant amount of weight since her last which lowers her chances of gestational diabetes and preeclampsia. We reviewed option for induction of labor if indicated and tertiary care center versus repeat section if delivery is indicated before active labor. Patient's questions were answered to her satisfaction regarding this. Reviewed that she likely had a very early loss. We reviewed that most of these early losses because is genetically abnormal and by the time she started to bleed if she had a low hCG level, it could have fallen very quickly and had a negative hCG quant. Since she had multiple positive urine test and was tracking her cycles it is likely that she just had a very early loss. We discussed this is not increased risk of loss in the future. Continue vitamin with folic acid. Call with positive test or as needed. Patient is comfortable with this plan. There are no Patient Instructions on file for this visit. I spent a total of 24 minutes on the date of the service which included preparing to see the patient, [id number] patient care, completing clinical documentation, and communicating results to the patient/family/caregiver Valencia Avila MD documented in this encounter [facility] 2023 Telephone encounter Note Prescription Refill Information The patient has been identified by name and date of : Yes Caregiver verified no other encounters exist for this prescription request: Yes Caregiver confirmed with patient/requestor that no other refills are due, in the near future, with this provider at this time: Yes The last office visit in the department: 11/18/22 Does the patient have a future office visit with this provider/department: No Requested Prescriptions Pending Prescriptions Disp Refills buPROPion XL (WELLBUTRIN XL) 150 mg 24 hr tablet [Pharmacy Med Name: buPROPion HCl ER (XL) 150 MG Oral Tablet Extended Release 24 Hour] 90 tablet 0 Sig: Take 1 tablet by mouth once daily Nancy Morin MA 2023 8:13 AM [facility] 2023 Miscellaneous Notes Prescription Refill Information The patient has been identified by name and date of : Yes Caregiver verified no other encounters exist for this prescription request: Yes Caregiver confirmed with patient/requestor that no other refills are due, in the near future, with this provider at this time: Yes The last office visit in the department: 11/18/22 Does the patient have a future office visit with this provider/department: No Requested Prescriptions Pending Prescriptions Disp Refills buPROPion XL (WELLBUTRIN XL) 150 mg 24 hr tablet [Pharmacy Med Name: buPROPion HCl ER (XL) 150 MG Oral Tablet Extended Release 24 Hour] 90 tablet 0 Sig: Take 1 tablet by mouth once daily Nancy Morin MA 2023 8:13 AM documented in this encounter [facility] 10-06-2023 Telephone encounter Note Sent MC message. [facility] 10-06-2023 Miscellaneous Notes Sent MC message. Asked patient to CB to be Triaged. Called to triage patient, at [phone]. Left message on voicemail for patient to return call. Images from the original note were not included. Cammie Akins Pending Sale To [facility] (supporting Leora Billingsley MD)1 hour ago (1:29 PM) AM Good afternoon, About 1 month ago I started developing reoccurring diarrhea and it is now what I would think is chronic diarrhea. My diet has remained the same. There is not much pain associated with it but it is multiple times a day. My daughter has also developed diarrhea a few weeks ago that is chronic also. I am wondering if we could have some kind of infection? Would it last this long? Called pt. No answer. LM to call office back documented in this encounter [facility] 10-06-2023 Telephone encounter Note Patient's first hcg quant was negative. RR reviewed it and sent [employer] message. Jess Ríos RN [facility] 10-06-2023 Miscellaneous Notes Patient's first hcg quant was negative. RR reviewed it and sent [employer] message. Jess Ríos RN Pt notified and [employer] message sent with lab hours. Advised that we will follow-up on HCG levels once resulted. Rosemarie Cervantes RN Serum quant ordered. Can get today and repeat on Friday. Will follow up after results. Please give her bleeding and ectopic precautions. Ega 5w 1d Pt started with spotting yesterday and this morning woke up and had quarter size clot along with scant amount of blood in underwear and when she wiped. Mild cramping. HCG order pending. Please advise. Rosemarie Cervantes RN documented in this encounter [facility] 10-03-2023 Telephone encounter Note Pt notified and mychart message sent with lab hours. Advised that we will follow-up on HCG levels once resulted. Rosemarie Cervantes RN [facility] 10-03-2023 Telephone encounter Note Serum quant ordered. Can get today and repeat on Friday. Will follow up after results. Please give her bleeding and ectopic precautions. [facility] 10-03-2023 Telephone encounter Note Ega 5w 1d Pt started with spotting yesterday and this morning woke up and had quarter size clot along with scant amount of blood in underwear and when she wiped. Mild cramping. HCG order pending. Please advise. Rosemarie Cervantes RN [facility] 10-02-2023 Telephone encounter Note Asked patient to to be Triaged. [facility] 10-01-2023 Telephone encounter Note Called to triage patient, at [phone]. Left message on voicemail for patient to return call. [facility] 09-30-2023 Telephone encounter Note Images from the original note were not included. Cammie Akins Pending Sale To [facility] (supporting Leora Billingsley MD)1 hour ago (1:29 PM) AM Good afternoon, About 1 month ago I started developing reoccurring diarrhea and it is now what I would think is chronic diarrhea. My diet has remained the same. There is not much pain associated with it but it is multiple times a day. My daughter has also developed diarrhea a few weeks ago that is chronic also. I am wondering if we could have some kind of infection? Would it last this long? Called pt. No answer. LM to call office back [facility] 09-30-2023 Telephone encounter Note See triage [facility] 09-30-2023 Miscellaneous Notes See triage documented in this encounter [facility] 09-01-2023 Miscellaneous Notes Prescription Refill Information The patient has been identified by name and date of : Yes Caregiver verified no other encounters exist for this prescription request: Yes Caregiver confirmed with patient/requestor that no other refills are due, in the near future, with this provider at this time: Yes The last office visit in the department: 12/14/22 Does the patient have a future office visit with this provider/department: No Requested Prescriptions Pending Prescriptions Disp Refills escitalopram oxalate (LEXAPRO) 20 mg tablet [Pharmacy Med Name: Escitalopram Oxalate 20 MG Oral Tablet] 90 tablet 0 Sig: Take 1 tablet by mouth once daily Leeanne Brenner LPN September 01, 2023 3:23 PM documented in this encounter [facility] 09-01-2023 Telephone encounter Note Prescription Refill Information The patient has been identified by name and date of : Yes Caregiver verified no other encounters exist for this prescription request: Yes Caregiver confirmed with patient/requestor that no other refills are due, in the near future, with this provider at this time: Yes The last office visit in the department: 12/14/22 Does the patient have a future office visit with this provider/department: No Requested Prescriptions Pending Prescriptions Disp Refills escitalopram oxalate (LEXAPRO) 20 mg tablet [Pharmacy Med Name: Escitalopram Oxalate 20 MG Oral Tablet] 90 tablet 0 Sig: Take 1 tablet by mouth once daily Leeanne Brenner LPN September 01, 2023 3:23 PM [facility] 08-31-2023 History of Present illness Narrative This note was created using [employer] Income Systems[employer]. Subjective Cammie Lozano is a 27 year old female. 27 year old female with PMH HTN, asthma, IBS, DM, presents for possible pink eye. Acute onset this morning Right eye +matted shut +eye redness Denies trauma or injury Denies feelings of FB Denies visual disturbance Denies URI sx. Denies fever. Daughter had pink eye Denies contact or corrective lens. The history is provided by the patient. No power cleaner operator was used. Eye Problem This is a new problem. The current episode started today. The problem occurs constantly. The problem has been unchanged. Pertinent negatives include no abdominal pain, anorexia, arthralgias, change in bowel habit, chest pain, chills, congestion, coughing, diaphoresis, fatigue, fever, headaches, joint swelling, myalgias, nausea, neck pain, numbness, rash, sore throat, swollen glands, urinary symptoms, vertigo, visual change, vomiting or weakness. Nothing aggravates the symptoms. She has tried nothing for the symptoms. The treatment provided no relief. PAST MEDICAL HISTORY Diagnosis Date Allergic rhinitis Asthma Atypical squamous cells of undetermined significance (ASCUS) on Papanicolaou smear of cervix 2018 Depression Developmental speech or language disorder speech delay--resolved Fatty liver Generalized anxiety disorder Gestational diabetes mellitus, class A1 02/14/2021 Hyperhidrosis Hypertension IBS (irritable bowel syndrome) stress induced Morbid obesity with BMI of 40.0-44.9, adult (HCC) LINA (obstructive sleep apnea) PMH - PAST MEDICAL HISTORY OF pneumonia 2000 [id number] Unspecified asthma(493.90) PAST SURGICAL HISTORY Procedure Laterality Date DELIVERY ONLY 04/20/2021 LTCS TONSILLECTOMY & ADENOIDECTOMY <AGE 11 ALLERGIES Dust Mites, Prozac [Fluoxetine], and Ragweed MEDICATIONS olopatadine (PATANOL) 0.1 % ophthalmic solution Use 1 Drop in both eyes two times a day. 1 TO 2 DROPS TO EACH EYE TWICE DAILY NEEDED omeprazole (PRILOSEC) 40 mg capsule Take 1 capsule by mouth once daily. 30 minutes before a meal buPROPion XL (WELLBUTRIN XL) 150 mg 24 hr tablet Take 1 tablet by mouth once daily triamcinolone acetonide (KENALOG) 0.1 % cream Apply 1 application to affected area twice daily. Apply sparingly to area for rash/itching. levonorgestrel (MIRENA) 20 mcg/24 hours (7 yrs) 52 mg IUD 1 Each by INTRAUTERINE route as directed. acetaminophen (TYLENOL ORAL) Take by mouth. cetirizine HCl (ZYRTEC ORAL) Take by mouth. albuterol HFA (VENTOLIN HFA) 90 mcg/actuation inhaler Inhale 2 Puffs as instructed every 4 hours as needed. CPAP Initiate Auto PAP @ 5-15 cm of water with humidification. Mask (per patient preference) optional chin strap (if indicated) , filters, tubing, humidifier and lifetime supplies. trimethoprim-polymyxin (POLYTRIM) 10,000 unit- 1 mg/mL ophthalmic solution Use 1 Drop in the right eye every 4 hours for 7 days. escitalopram oxalate (LEXAPRO) 20 mg tablet Take 1 tablet by mouth once daily. FAMILY HISTORY Problem Relation Age of Onset other (crohns) Mother Migraines Mother Hypertension Father Asthma Father Allergies Father Heart Attack Father 53 Anxiety disorder Brother Depression Brother Hypertension Brother No Known Problems Brother other (alcoholic/drug addict) Maternal Grandmother other (alcoholic/ drug addict) Maternal Grandfather Heart Maternal Grandfather Breast Cancer Paternal Grandmother GI Paternal Grandfather Crohn's disease - in his 60s Heart Attack Paternal Grandfather Social History Tobacco Use Smoking status: Never Smokeless tobacco: Never Vaping Use Vaping Use: Never used Substance Use Topics Alcohol use: No Drug use: No Review of Systems Constitutional: Negative for chills, diaphoresis, fatigue and fever. HENT: Negative for congestion, ear pain, postnasal drip, rhinorrhea, sinus pressure, sinus pain and sore throat. Eyes: Positive for discharge, redness and itching. Negative for photophobia, pain and visual disturbance. Respiratory: Positive for chest tightness. Negative for apnea and cough. Cardiovascular: Negative for chest pain. Gastrointestinal: Negative for abdominal pain, anorexia, change in bowel habit, nausea and vomiting. Musculoskeletal: Negative for arthralgias, joint swelling, myalgias and neck pain. Skin: Negative for rash. Allergic/Immunologic: Negative for environmental allergies, food allergies and immunocompromised state. Neurological: Negative for vertigo, weakness, numbness and headaches. Hematological: Negative for adenopathy. Does not bruise/bleed easily. Objective BP 116/70 Pulse 86 Temp 36.7 C (98 F) Resp 16 Wt 101.5 kg (223 lb 12.3 oz) LMP 08/31/2023 (Exact Date) SpO2 99% BMI 35.04 kg/m Physical Exam Vitals and nursing note reviewed. Constitutional: General: She is not in acute distress. Appearance: Normal appearance. She is normal weight. She is not ill-appearing, toxic-appearing or diaphoretic. HENT: Head: Normocephalic and atraumatic. Right Ear: Ear canal and external ear normal. Left Ear: Ear canal and external ear normal. Nose: Nose normal. No congestion or rhinorrhea. Mouth/Throat: Mouth: Mucous membranes are moist. Pharynx: Posterior oropharyngeal erythema present. No oropharyngeal exudate. Eyes: General: Vision grossly intact. No allergic shiner, visual field deficit or scleral icterus. Right eye: No discharge. Left eye: No discharge. Extraocular Movements: Extraocular movements intact. Right eye: Normal extraocular motion and no nystagmus. Left eye: Normal extraocular motion and no nystagmus. Conjunctiva/sclera: Right eye: Right conjunctiva is injected. No chemosis, exudate or hemorrhage. Left eye: Left conjunctiva is not injected. No chemosis, exudate or hemorrhage. Pupils: Pupils are equal, round, and reactive to light. Pupils are equal. Right eye: Pupil is round, reactive and not sluggish. No corneal abrasion. Left eye: Pupil is round, reactive and not sluggish. No corneal abrasion. Comments: Vision grossly intact OD conjunctiva injected Marginal eyelid debris PERRLA EOM intact Cardiovascular: Rate and Rhythm: Normal rate and regular rhythm. Pulses: Normal pulses. Heart sounds: Normal heart sounds. No murmur heard. No friction rub. Pulmonary: Effort: Pulmonary effort is normal. No respiratory distress. Breath sounds: Normal breath sounds. No stridor. No wheezing, rhonchi or rales. Chest: Chest wall: No tenderness. Abdominal: General: Abdomen is flat. There is no distension. Palpations: Abdomen is soft. There is no mass. Tenderness: There is no abdominal tenderness. There is no right CVA tenderness, left CVA tenderness, guarding or rebound. Hernia: No hernia is present. Musculoskeletal: General: No swelling, tenderness, deformity or signs of injury. Normal range of motion. Cervical back: Normal range of motion and neck supple. No rigidity. Right lower leg: No edema. Left lower leg: No edema. Lymphadenopathy: Cervical: No cervical adenopathy. Skin: General: Skin is warm and dry. Capillary Refill: Capillary refill takes less than 2 seconds. Coloration: Skin is not jaundiced or pale. Findings: No bruising, erythema, lesion or rash. Neurological: General: No focal deficit present. Mental Status: She is alert and oriented to person, place, and time. Cranial Nerves: No cranial nerve deficit. Sensory: No sensory deficit. Motor: No weakness. Coordination: Coordination normal. Gait: Gait normal. Psychiatric: Mood and Affect: Mood normal. Behavior: Behavior normal. Thought Content: Thought content normal. Judgment: Judgment normal. Assessment and Plan ASSESSMENT/PLAN: 1. Conjunctivitis of right eye, unspecified conjunctivitis type - ICD9: 372.30, ICD10: H10.9 - see medication orders - course and contagiousness issues discussed, including hand washing. - Instructed to call if high fever, development of periorbital redness or swelling, eye pain, visual changes, concerns or if symptoms persist. Priscilla Brewer APRN.MOTEL MANAGER documented in this encounter [facility] 08-20-2023 Telephone encounter Note Sent on 08/13/23 [facility] 08-20-2023 Miscellaneous Notes Sent on 08/13/23 documented in this encounter [facility] 08-20-2023 Telephone encounter Note Prescription Refill Information The patient has been identified by name and date of : Yes Caregiver verified no other encounters exist for this prescription request: Yes Caregiver confirmed with patient/requestor that no other refills are due, in the near future, with this provider at this time: Yes The last office visit in the department: 12/14/22 Does the patient have a future office visit with this provider/department: No Requested Prescriptions Pending Prescriptions Disp Refills olopatadine (PATANOL) 0.1 % ophthalmic solution 1 mL 5 Sig: Use 1 Drop in both eyes two times a day. 1 TO 2 DROPS TO EACH EYE TWICE DAILY NEEDED Yi Dey LPN August 20, 2023 11:23 AM [facility] 08-20-2023 Miscellaneous Notes Prescription Refill Information The patient has been identified by name and date of : Yes Caregiver verified no other encounters exist for this prescription request: Yes Caregiver confirmed with patient/requestor that no other refills are due, in the near future, with this provider at this time: Yes The last office visit in the department: 12/14/22 Does the patient have a future office visit with this provider/department: No Requested Prescriptions Pending Prescriptions Disp Refills olopatadine (PATANOL) 0.1 % ophthalmic solution 1 mL 5 Sig: Use 1 Drop in both eyes two times a day. 1 TO 2 DROPS TO EACH EYE TWICE DAILY NEEDED Yi Dey LPN August 20, 2023 11:23 AM documented in this encounter [facility] 08-13-2023 Telephone encounter Note Prescription Refill Information The patient has been identified by name and date of : Yes Caregiver verified no other encounters exist for this prescription request: Yes Caregiver confirmed with patient/requestor that no other refills are due, in the near future, with this provider at this time: Yes The last office visit in the department: 12/14/22 Does the patient have a future office visit with this provider/department: No Requested Prescriptions Pending Prescriptions Disp Refills omeprazole (PRILOSEC) 40 mg capsule [Pharmacy Med Name: Omeprazole 40 MG Oral Capsule Delayed Release] 30 capsule 0 Sig: TAKE 1 CAPSULE BY MOUTH ONCE DAILY 30 MINUTES BEFORE A MEAL Yi Dey LPN August 13, 2023 10:33 AM [facility] 08-13-2023 Miscellaneous Notes Prescription Refill Information The patient has been identified by name and date of : Yes Caregiver verified no other encounters exist for this prescription request: Yes Caregiver confirmed with patient/requestor that no other refills are due, in the near future, with this provider at this time: Yes The last office visit in the department: 12/14/22 Does the patient have a future office visit with this provider/department: No Requested Prescriptions Pending Prescriptions Disp Refills omeprazole (PRILOSEC) 40 mg capsule [Pharmacy Med Name: Omeprazole 40 MG Oral Capsule Delayed Release] 30 capsule 0 Sig: TAKE 1 CAPSULE BY MOUTH ONCE DAILY 30 MINUTES BEFORE A MEAL Yi Dey LPN August 13, 2023 10:33 AM documented in this encounter [facility] 07-21-2023 History of Present illness Narrative Rescue Worker offered: Patient declines. Cammie presents for removal of IUD due to desire for . UNIVERSAL PROTOCOL / SAFETY CHECKLIST Procedure to be Performed: Mirena IUD Removal Sign In: A Moment of CARE was completed. Personnel directly involved with the procedure wore the appropriate PPE (Personal Protective Equipment). Patient/Surrogate Stated/Verified: PATIENT VERIFIED(optional for EMERGENT procedures): Patient name, Date of , Relevant allergies, and The intended procedure Time Out Communication: Intended patient and procedure match the source documents. Consent documented and matches the intended procedure. Sign Out: SIGN OUT (optional for EMERGENT procedures): No specimen collected. All instruments, equipment, possible retained foreign bodies accounted for. Post-procedure follow-up management communicated and Plan of Care Visit completed when applicable. PROCEDURE: Speculum placed in vagina, IUD string not visualized but brought to outer os with endocervical brush and grasped with ring forceps. ASSESSMENT/PLAN: IUD removed without difficulty, intact, and patient tolerated procedure well. Contraception plans: none Reviewed pre-conception guidelines including folic acid supplementation, optimal timing of intercourse, avoidance of smoking, alcohol, exposure to environmental chemicals and need for evaluation if not within 12 months. Discussed medication list with pt and r/b of medications that she is on. She will notify prescribing provider that she is trying to become . Lucia Coley DO documented in this encounter [facility] 07-03-2023 Telephone encounter Note Last appointment: 12/14/22 Next appointment: n/a Pharmacy verified in [place]. Refill(s) requested: Requested Prescriptions Pending Prescriptions Disp Refills buPROPion XL (WELLBUTRIN XL) 150 mg 24 hr tablet [Pharmacy Med Name: buPROPion HCl ER (XL) 150 MG Oral Tablet Extended Release 24 Hour] 90 tablet 0 Sig: Take 1 tablet by mouth once daily Order(s) pended. Please advise. Rowena Kerr MA, NETWORK COORDINATOR [facility] 07-03-2023 Miscellaneous Notes Last appointment: 12/14/22 Next appointment: n/a Pharmacy verified in [place]. Refill(s) requested: Requested Prescriptions Pending Prescriptions Disp Refills buPROPion XL (WELLBUTRIN XL) 150 mg 24 hr tablet [Pharmacy Med Name: buPROPion HCl ER (XL) 150 MG Oral Tablet Extended Release 24 Hour] 90 tablet 0 Sig: Take 1 tablet by mouth once daily Order(s) pended. Please advise. Rowena Kerr MA, NETWORK COORDINATOR documented in this encounter [facility] 05-27-2023 Miscellaneous Notes BV positive. To treat with Flagyl 500mg PO BID for 7 days. 1) No alcohol during treatment and for 24 hours after last dose. 2) No intercourse during treatment. 3) Probiotic by mouth once daily for 30 days or as needed. Brandee Leonard APRN.MOTEL MANAGER documented in this encounter [facility] 05-26-2023 Miscellaneous Notes Addended by: ROBINSON MEJIA on: 05/26/2023 09:54 AM Modules accepted: Orders documented in this encounter [facility] 05-26-2023 History of Present illness Narrative Rescue Worker offered: Patient declines. Cammie Lozano is a 27 year old female who presents for problem visit irregular bleeding with IUD. HPI: Has Mirena IUD. Was having regular light menstrual cycles for 1 year. Over last 2 months irregular bleeding with spotting with clotting at times and cramping that lasts 5-10 days. Currently sexually active. Considering in summer. No vaginal discharge or other symptoms. Lost 100 lbs over the last 1 year. OB History T1 L1 SAB0 IAB0 Ectopic0 Multiple0 Live Births1 Force Adjustment Supervisor History LMP: 07/30/2020 (Exact Date), IUD Age at Menarche: Age at First : Age at Menopause: Force Adjustment Supervisor History Comments: Sexual Activity: Never; Male Contraception: Condom PAST MEDICAL HISTORY Diagnosis Date Allergic rhinitis Asthma Atypical squamous cells of undetermined significance (ASCUS) on Papanicolaou smear of cervix 2018 Depression Developmental speech or language disorder speech delay--resolved Fatty liver Generalized anxiety disorder Gestational diabetes mellitus, class A1 02/14/2021 Hyperhidrosis Hypertension IBS (irritable bowel syndrome) stress induced Morbid obesity with BMI of 40.0-44.9, adult (HCC) LINA (obstructive sleep apnea) PMH - PAST MEDICAL HISTORY OF pneumonia 2000 [id number] Unspecified asthma(493.90) PAST SURGICAL HISTORY Procedure Laterality Date DELIVERY ONLY 04/20/2021 LTCS TONSILLECTOMY & ADENOIDECTOMY <AGE 11 FAMILY HISTORY Problem Relation Age of Onset other (crohns) Mother Migraines Mother Hypertension Father Asthma Father Allergies Father Heart Attack Father 53 Anxiety disorder Brother Depression Brother Hypertension Brother No Known Problems Brother other (alcoholic/drug addict) Maternal Grandmother other (alcoholic/ drug addict) Maternal Grandfather Heart Maternal Grandfather Breast Cancer Paternal Grandmother GI Paternal Grandfather Crohn's disease - in his 60s Heart Attack Paternal Grandfather Social History Tobacco Use Smoking status: Never Smokeless tobacco: Never Vaping Use Vaping Use: Never used Substance Use Topics Alcohol use: No Drug use: No Current Outpatient Medications Medication Sig omeprazole (PRILOSEC) 40 mg capsule Take 1 capsule by mouth once daily. 30 minutes before a meal buPROPion XL (WELLBUTRIN XL) 150 mg 24 hr tablet Take 1 tablet by mouth once daily escitalopram oxalate (LEXAPRO) 20 mg tablet Take 1 tablet by mouth once daily. olopatadine (PATANOL) 0.1 % ophthalmic solution Use 1 Drop in both eyes twice daily. 1 TO 2 DROPS TO EACH EYE TWICE DAILY NEEDED levonorgestrel (MIRENA) 20 mcg/24 hours (7 yrs) 52 mg IUD 1 Each by INTRAUTERINE route as directed. acetaminophen (TYLENOL ORAL) Take by mouth. cetirizine HCl (ZYRTEC ORAL) Take by mouth. albuterol HFA (VENTOLIN HFA) 90 mcg/actuation inhaler Inhale 2 Puffs as instructed every 4 hours as needed. labetalol (TRANDATE) 100 mg tablet Take 1 tablet by mouth twice daily. (Patient not taking: Reported on 05/26/2023) triamcinolone acetonide (KENALOG) 0.1 % cream Apply 1 application to affected area twice daily. Apply sparingly to area for rash/itching. (Patient not taking: Reported on 12/14/2022) CPAP Initiate Auto PAP @ 5-15 cm of water with humidification. Mask (per patient preference) optional chin strap (if indicated) , filters, tubing, humidifier and lifetime supplies. No current facility-administered medications for this visit. Allergies As of Date: 05/26/2023 Allergen Noted Reaction ANIMAL DANDER [OTHER] 06/20/2005 DUST MITES 06/20/2005 GRASSES [OTHER] 06/20/2005 PROZAC [FLUOXETINE] 09/12/2016 Other: See Comments RAGWEED 06/20/2005 Fully Assessed 05/26/2023 REVIEW OF SYSTEMS Abdomen: Cramping with spotting. No constipation or diarrhea or bloody stools. Bladder: No dysuria, gross hematuria, urinary frequency, urinary urgency, or incontinence. Expanded ROS: N/A Allergies and current medication updated:Yes EXAM: BP 118/80 Wt 207 lb (93.9kg) LMP 07/30/2020 GENERAL: pleasant, female in no apparent distress HEENT: Normocephalic and atraumatic NECK: full range of motion DERMATOLOGY: Normal and without lesions CHEST: Normal inspiratory effort ABDOMEN: soft, non-tender, and no masses PELVIC: external genitalia normal, normal Bartholin's glands, urethra, Tokeneke's glands, no vulvar lesions, no cervical lesions, good vaginal support, physiologic discharge present, normal appearing perineal body and perianal region, IUD strings not visible BIMANUAL: uterus normal size, shape and consistency, no adnexal masses, non-tender, and no cervical motion tenderness NEURO: exam grossly non-focal EXTREMITIES: normal ASSESSMENT AND PLAN: Encounter Diagnosis ICD-10-CM 1. Screening for cervical cancer Z12.4 PAP TEST 2. Desire for Z31.9 REMOVE INTRAUTERINE DEVICE 3. IUD (intrauterine device) in place Z97.5 PELVIC US WHI HCG QUAL UR BATSHEVA/TRICHOMONAS NAAT BACTERIAL VAGINOSIS NAAT 4. DUB (dysfunctional uterine bleeding) N93.8 PELVIC US WHI HCG QUAL UR BATSHEVA/TRICHOMONAS NAAT BACTERIAL VAGINOSIS NAAT New irregular bleeding with IUD. Check pap test, BV, yeast, preg test, pelvic US. Exam WNL. IUD strings not visualized. Order placed for IUD removal if patient desires before scheduled annual exam in summer. Will call or message with results. Lucia Coley DO Medical Decision Making: Problems: Low: Acute, uncomplicated illness or injury Data: Unique test(s) ordered: 3+ Medical Decision Making Level: 3 - Low documented in this encounter [facility] 04-09-2023 Miscellaneous Notes Pharmacy verified in [facility] Patient has been identified by name and date of : Yes Patient aware RX will be sent to pharmacy. No need to notify patient. Patient phones for refill(s): Requested Prescriptions Pending Prescriptions Disp Refills omeprazole (PRILOSEC) 40 mg capsule 30 capsule 3 Sig: Take 1 capsule by mouth once daily. 30 minutes before a meal Date of last office visit : Visit date not found Date of next office visit : Visit date not found Last 2 Encounter Wt Readings: Date: Wt: 12/14/2022 96.2 kg (212 lb) 08/21/2022 118 kg (260 lb 3.2 oz) Not applicable Please advise. Trinh Bryson MA documented in this encounter [facility] 01-06-2023 Miscellaneous Notes Pharmacy verified in [facility] Patient has been identified by name and date of : Yes Patient aware RX will be sent to pharmacy. No need to notify patient. Patient phones for refill(s): Requested Prescriptions Pending Prescriptions Disp Refills buPROPion XL (WELLBUTRIN XL) 150 mg 24 hr tablet [Pharmacy Med Name: buPROPion HCl ER (XL) 150 MG Oral Tablet Extended Release 24 Hour] 90 tablet 0 Sig: Take 1 tablet by mouth once daily Date of last office visit : 12/14/2022 Date of next office visit : Visit date not found Last 2 Encounter Wt Readings: Date: Wt: 12/14/2022 96.2 kg (212 lb) 08/21/2022 118 kg (260 lb 3.2 oz) Not applicable Please advise. Trinh Bryson MA documented in this encounter [facility] 12-04-2022 Miscellaneous Notes Spoke with pt, reviewed below message. Verbalized understanding, no further questions. Reduce labetalol to 50 mg once daily. Thanks Galina Moran PA-C I have been feeling slightly light headed and also having head aches for about a week now. I assumed it was the weather but decided to check my blood pressure today. It was 92/58. I am still taking my blood pressure medication but I am only taking it once a day instead of the prescribed 2 times a day. I currently weigh 215 (-85 lbs since June). Triaged patient. Has decreased labetalol dosage from 100 mg BID to 100 mg daily end of July. States she has lost a total of 80 lbs since surgery. Past few days has been having episodes of lightheadedness- mostly when standing from sitting position. Checked BP last night 92/58-did not check HR. C/O ROCHA at times as well. Does have a current cold. Has f/u OV 12/14 for medication f/u. Advised to keep log of BP to assess for trend. Please advise if you would like her to change dosage/med prior to 12/14 OV? Veronica Alvarado RN Answer Assessment - Initial Assessment Questions 1. BLOOD PRESSURE: What is the blood pressure? Did you take at least two measurements 5 minutes apart? Yesterday afternoon BP 92/58 Last night BP 102/64 2. ONSET: When did you take your blood pressure? Yesterday 3. HOW: How did you obtain the blood pressure? (e.g., visiting nurse, automatic home BP monitor) Home cuff 4. HISTORY: Do you have a history of low blood pressure? What is your blood pressure normally? Hx HTN 5. MEDICATIONS: Are you taking any medications for blood pressure? If Yes, ask: Have they been changed recently? Labetolol 6. PULSE RATE: Do you know what your pulse rate is? Has not checked 7. OTHER SYMPTOMS: Have you been sick recently? Have you had a recent injury? Yes- has current cold 8. : Is there any chance you are ? When was your last menstrual period? No Protocols used: Blood Pressure - [id number] documented in this encounter [facility] 12-02-2022 Miscellaneous Notes Addressed in triage encounter. Veronica Alvarado, RN documented in this encounter [facility] 10-11-2022 Miscellaneous Notes Last appointment: 08/21/22 Next appointment: NA Pharmacy verified in [facility]. Refill(s) requested: Requested Prescriptions Pending Prescriptions Disp Refills omeprazole (PRILOSEC) 40 mg capsule 30 capsule 3 Sig: Take 1 capsule by mouth once daily. 30 minutes before a meal Order(s) pended. Please advise. Margoth CONNORS October 11, 2022 10:14 AM documented in this encounter [facility] 09-19-2022 Miscellaneous Notes Please review and advise. documented in this encounter [facility] 08-21-2022 History of Present illness Narrative VIRTUAL VISIT PROGRESS NOTE This is a virtual visit using [employer] video visit. It required patient-provider interaction for the medical decision making as documented below. I have communicated my name and active licensure. The patient's identity and physical location were verified at the time of this visit. Either the patient or their legal ambulatory service representative has been informed of the risks and benefits of -- and alternatives to -- treatment through a remote evaluation and consents to proceed with the evaluation remotely. Cammie Lozano is a 26 year old female seen for follow up. Obesity Had gastric sleeve surgery in [place] on 07/22 Struggling to keep up with water, but tolerating full diet, no carbs. Mostly protein, added veggies this week. Current weight is 260 lbs, down 42 lbs since starting. Taking b12, vit D, bariatric multivitamin Average calories right now is 700 per day Trying to walk, chases her kids around. Was told her liver enzymes were 3x the upper limit day before her surgery Depression - doing well on lexapro, wellbutrin HTN On labetalol 100 mg BID - had a day of feeling light headed, starting to check her blood pressure again HISTORY REVIEWED (electronic chart updated): PAST MEDICAL HISTORY Diagnosis Date Allergic rhinitis Asthma Atypical squamous cells of undetermined significance (ASCUS) on Papanicolaou smear of cervix 2018 Depression Developmental speech or language disorder speech delay--resolved Fatty liver Generalized anxiety disorder Gestational diabetes mellitus, class A1 02/14/2021 Hyperhidrosis Hypertension IBS (irritable bowel syndrome) stress induced Morbid obesity with BMI of 40.0-44.9, adult (HCC) LINA (obstructive sleep apnea) PMH - PAST MEDICAL HISTORY OF pneumonia 2000 [id number] Unspecified asthma(493.90) PAST SURGICAL HISTORY Procedure Laterality Date DELIVERY ONLY 04/20/2021 LTCS TONSILLECTOMY & ADENOIDECTOMY <AGE 11 FAMILY HISTORY Problem Relation Age of Onset other (crohns) Mother Migraines Mother Hypertension Father Asthma Father Allergies Father Heart Attack Father 53 Anxiety disorder Brother Depression Brother Hypertension Brother No Known Problems Brother other (alcoholic/drug addict) Maternal Grandmother other (alcoholic/ drug addict) Maternal Grandfather Heart Maternal Grandfather Breast Cancer Paternal Grandmother GI Paternal Grandfather Crohn's disease - in his 60s Heart Attack Paternal Grandfather Social History Tobacco Use Smoking status: Never Smokeless tobacco: Never Vaping Use Vaping Use: Never used Substance Use Topics Alcohol use: No Drug use: No Current Outpatient Medications Medication Sig escitalopram oxalate (LEXAPRO) 20 mg tablet Take 1 tablet by mouth once daily. olopatadine (PATANOL) 0.1 % ophthalmic solution Use 1 Drop in both eyes twice daily. 1 TO 2 DROPS TO EACH EYE TWICE DAILY NEEDED buPROPion XL (WELLBUTRIN XL) 150 mg 24 hr tablet Take 1 tablet by mouth once daily. labetalol (TRANDATE) 100 mg tablet Take 1 tablet by mouth twice daily. triamcinolone acetonide (KENALOG) 0.1 % cream Apply 1 application to affected area twice daily. Apply sparingly to area for rash/itching. omeprazole (PRILOSEC) 40 mg capsule Take 1 capsule by mouth once daily. 30 minutes before a meal levonorgestrel (MIRENA) 20 mcg/24 hours (7 yrs) 52 mg IUD 1 Each by INTRAUTERINE route as directed. acetaminophen (TYLENOL ORAL) Take by mouth. cetirizine HCl (ZYRTEC ORAL) Take by mouth. albuterol HFA (VENTOLIN HFA) 90 mcg/actuation inhaler Inhale 2 Puffs as instructed every 4 hours as needed. CPAP Initiate Auto PAP @ 5-15 cm of water with humidification. Mask (per patient preference) optional chin strap (if indicated) , filters, tubing, humidifier and lifetime supplies. No current facility-administered medications for this visit. ALLERGIES Allergen Reactions Animal Dander [Othe* Dust Mites Grasses [Other] Prozac [Fluoxetine] Other: See Comments [place] like she had no emotions Ragweed REVIEW OF SYSTEMS: GENERAL: feeling well without fatigue, no recent change in weight RESPIRATORY: no cough, no wheezing or shortness of breath CARDIOVASCULAR: no chest pain, no palpitations PHYSICAL EXAMINATION: VIDEO EXAM: (if completed, performed via video enabled technology) GENERAL: alert and appropriate, in no distress, well-hydrated, well nourished, and happy, smiling, interactive SKIN: no rash noted RESPIRATORY: breathing non-labored ASSESSMENT: (F33.1) Moderate episode of recurrent major depressive disorder (HCC) (primary encounter diagnosis) (Z98.84) Bariatric surgery status (E55.9) Vitamin D deficiency (R74.8) Elevated liver enzymes (I10) Essential hypertension (K76.0) Fatty liver (F41.1) Generalized anxiety disorder (Z91.09) History of environmental allergies (H60.513) Acute actinic otitis externa, bilateral (E66.01) Obesity, Class III, BMI 40-49.9 (morbid obesity) (HCC) PLAN: Diagnoses and all orders for this visit: Moderate episode of recurrent major depressive disorder (HCC) - escitalopram oxalate (LEXAPRO) 20 mg tablet; Take 1 tablet by mouth once daily. Bariatric surgery status - VITAMIN D 25 HYDROXY; Future - COMP METABOLIC PANEL; Future - CBC; Future - VITAMIN B12 BLOOD; Future - FERRITIN BLD; Future - PTH INTACT BLD; Future - FOLATE SERUM; Future - VITAMIN B1 (THIAMINE), WHOLE BLOOD; Future - ZINC BLD; Future - VITAMIN A/RETINOL; Future Vitamin D deficiency - VITAMIN D 25 HYDROXY; Future Elevated liver enzymes - COMP METABOLIC PANEL; Future Essential hypertension Fatty liver Generalized anxiety disorder - escitalopram oxalate (LEXAPRO) 20 mg tablet; Take 1 tablet by mouth once daily. History of environmental allergies - olopatadine (PATANOL) 0.1 % ophthalmic solution; Use 1 Drop in both eyes twice daily. 1 TO 2 DROPS TO EACH EYE TWICE DAILY NEEDED Acute actinic otitis externa, bilateral - olopatadine (PATANOL) 0.1 % ophthalmic solution; Use 1 Drop in both eyes twice daily. 1 TO 2 DROPS TO EACH EYE TWICE DAILY NEEDED Obesity, Class III, BMI 40-49.9 (morbid obesity) (HCC) Monitor bp for now May need less meds as weight drops Fu in 3 months, labs soon. There are no Patient Instructions on file for this visit. Leora Billingsley MD documented in this encounter [facility] 07-15-2022 Instructions Lisa Syed APRN.LACI - 07/15/2022 8:49 AM EDT (R21) Rash (primary encounter diagnosis) Plan: triamcinolone acetonide (KENALOG) 0.1 % cream Papular rash to the bilateral arms/legs, this is not urticarial/hives. Also, has an annular erythematous patch to the right upper arm. This is not scaly, no centralized clearing. Doesn't appear fungal. Will have patient use triamcinolone cream. No oral medications without check with GI tomorrow. -Worsening symptoms be re-seen. documented in this encounter [facility] 07-15-2022 History of Present illness Narrative Images from the original note were not included. This note was created using [employer]. Subjective Cammie Lozano is a 26 year old female. HPI by patient: Cammie Lozano is a 26 year old presenting to the office with the complaint of multiple skin issues. Started approximately 2 weeks ago with a spot under the right upper arm. Also, has a papular rash to the inner thighs, waist line and bilateral arms. Associated symptoms include itching. Denies drainage, fever. OTC benadryl. Is having weight loss surgery outside [place] Isn't allowed to take certain medications, surgery is in 1 week. No antibiotic use in the last 60 days. ALLERGIES Animal Dander [Othe* Dust Mites Grasses [Other] Prozac [Fluoxetine] Other: See Comments Comment:[place] like she had no emotions Ragweed Family History Reviewed Including Cardiac Diseases, Psychiatric Diseases, & Substance Abuse Problem: other (crohns) Relation: Mother Age of Onset: (Not Specified) Problem: Migraines Relation: Mother Age of Onset: (Not Specified) Problem: Hypertension Relation: Father Age of Onset: (Not Specified) Problem: Asthma Relation: Father Age of Onset: (Not Specified) Problem: Allergies Relation: Father Age of Onset: (Not Specified) Problem: Heart Attack Relation: Father Age of Onset: 53 Problem: Anxiety disorder Relation: Brother Age of Onset: (Not Specified) Problem: Depression Relation: Brother Age of Onset: (Not Specified) Problem: Hypertension Relation: Brother Age of Onset: (Not Specified) Problem: No Known Problems Relation: Brother Age of Onset: (Not Specified) Problem: other (alcoholic/drug addict) Relation: Maternal Grandmother Age of Onset: (Not Specified) Problem: other (alcoholic/ drug addict) Relation: Maternal Grandfather Age of Onset: (Not Specified) Problem: Heart Relation: Maternal Grandfather Age of Onset: (Not Specified) Problem: Breast Cancer Relation: Paternal Grandmother Age of Onset: (Not Specified) Problem: GI Relation: Paternal Grandfather Age of Onset: (Not Specified) Comment: Crohn's disease - in his 60s Problem: Heart Attack Relation: Paternal Grandfather Age of Onset: (Not Specified) Social History Tobacco Use Smoking status: Never Smokeless tobacco: Never Vaping Use Vaping Use: Never used Alcohol use: No Drug use: No Active Ambulatory Problems Allergic rhinitis, cause unspecified Date Noted: 06/18/2005 Extrinsic asthma, unspecified Date Noted: 06/26/2006 Essential hypertension Generalized anxiety disorder LINA (obstructive sleep apnea) Fatty liver History of depression Date Noted: 09/14/2020 History of sleep apnea Date Noted: 09/14/2020 Rubella non-immune status, antepartum Date Noted: 09/27/2020 History of gestational diabetes mellitus (GDM) Date Noted: 06/11/2021 Obesity, Class III, BMI 40-49.9 (morbid obesity) (HCC) Date Noted: 01/07/2022 Moderate episode of recurrent major depressive disorder (HCC) Date Noted: 01/07/2022 Resolved Ambulatory Problems PMS (premenstrual syndrome) Date Noted: 03/16/2009 Metrorrhagia Date Noted: 03/16/2009 Dysmenorrhea Date Noted: 03/16/2009 Family history of Crohn's disease Date Noted: 07/16/2011 Depression affecting Date Noted: 08/28/2012 Obesity during Date Noted: 09/14/2020 Nausea and vomiting during Date Noted: 09/14/2020 Preexisting hypertension complicating , antepartum Date Noted: 09/14/2020 Patient request for diagnostic testing Date Noted: 09/14/2020 Supervision of high-risk , first trimester Date Noted: 09/25/2020 Insulin controlled gestational diabetes mellitus (GDM) in third trimester Date Noted: 02/14/2021 Excessive growth affecting management of in third trimester Date Noted: 02/14/2021 Past Medical History: No date: Allergic rhinitis No date: Asthma 2019: Atypical squamous cells of undetermined significance (ASCUS) on Papanicolaou smear of cervix No date: Depression No date: Developmental speech or language disorder 02/14/2021: Gestational diabetes mellitus, class A1 No date: Hyperhidrosis No date: Hypertension No date: IBS (irritable bowel syndrome) No date: Morbid obesity with BMI of 40.0-44.9, adult ([facility]) No date: PMH - PAST MEDICAL HISTORY OF No date: Unspecified asthma(493.90) Review of Systems Constitutional: Negative. HENT: Negative. Eyes: Negative. Respiratory: Negative. Cardiovascular: Negative. Gastrointestinal: Negative. Endocrine: Negative. Genitourinary: Negative. Musculoskeletal: Negative. Skin: Positive for rash. Neurological: Negative. Hematological: Negative. Objective BP 126/90 Pulse 95 Temp 36.2 C (97.1 F) Resp 21 Wt 130.5 kg (287 lb 9.6 oz) LMP 07/30/2020 (Exact Date) SpO2 95% BMI 45.04 kg/m Physical Exam Vitals reviewed. Constitutional: General: She is not in acute distress. Appearance: She is not ill-appearing, toxic-appearing or diaphoretic. Pulmonary: Effort: Pulmonary effort is normal. Skin: Findings: Rash present. Rash is papular (papular rash to the bilateral upper arms/ankles visualized. Has an annular patch to the right upper anterior arm, this does not appear fungal). Rash is not crusting, scaling or urticarial. Neurological: Mental Status: She is alert. Psychiatric: Behavior: Behavior normal. Behavior is cooperative. Assessment and Plan (R21) Rash (primary encounter diagnosis) Plan: triamcinolone acetonide (KENALOG) 0.1 % cream Papular rash to the bilateral arms/legs, this is not urticarial/hives. Also, has an annular erythematous patch to the right upper arm. This is not scaly, no centralized clearing. Doesn't appear fungal. Will have patient use triamcinolone cream. No oral medications without check with GI tomorrow. -Worsening symptoms be re-seen. The patient will pursue further outpatient evaluation with the primary care physician or another Urgent Care/Express Care as outlined in the after visit summary. The patient is agreeable to this plan of care and follow-up instructions have been explained in detail. The patient has received these instructions in written format and have expressed an understanding of the after visit summary. Medical Decision Making: Level: 3 - Low I spent a total of 20 minutes on the date of the service which included preparing to see the patient, [id number] patient care, completing clinical documentation, obtaining and/or reviewing separately obtained history, performing a medically appropriate examination, counseling and educating the patient/family/caregiver, and ordering medications, tests, or procedures. documented in this encounter [facility] 05-21-2022 Miscellaneous Notes Sent to Financial Ms. Lozano is a 26 year old female. The patient presents for preoperative recommendations and treatment options prior to a gastric sleeve to be performed down in [place]. The patient notes dyspnea occurring with exertion and abating with rest which has some degree been progressive. She denies chest comfort, orthopnea, paroxysmal nocturnal dyspnea, palpitations, near-syncope or syncope. Cardiac risk factors: Gestational diabetes, hypertension, family history of premature CAD (father at age 62) The patient will need to undergo nuclear stress imaging for further restratification given her risk factors and symptoms/abnormal EKG. documented in this encounter [facility] 05-21-2022 Miscellaneous Notes Left message regarding reminder for stress test tomorrow and given instructions. documented in this encounter [facility] 05-21-2022 Miscellaneous Notes Called PT left VM Patients stress test was denied and wants to know if it will be appealed or what the next steps are. Please advise Patients stress test was denied and wants to know if it will be appealed or what the next steps are. Please advise documented in this encounter [facility] 05-20-2022 History of Present illness Narrative Patient presents with: Pre Surgery Follow Up HPI: Cammie Lozano is a 26 year old female who presents to the office today for follow up. Planning on gastric sleeve in [place], insurance doesn't cover it Surgery on 07/22 Saw spool sorter - ordered nuc med stress test, trying to get it approved. GERD - saw GI, no indication for EGD. Started on omeprazole 40 mg , helping a lot. HTN Took hctz for years, switched to labetalol when , not planning to get any time soon LINA - using cpap No periods with mirena IUD Spotting a little since done breast feeding, has 13 month old. Depression/anxiety Doing well [place] worse post , upcoming surgery Started counseling - helping so far REVIEW OF SYSTEMS: CONSTITUTIONAL: No fevers, chills, nightsweats, unintended weight loss HEENT: Denies frequent or severe heaches, nasal congestion/sinus symptoms, problematic allergy problems. EYES: No diplopia or blurry vision. CARDIOVASCULAR: No chest pain, dyspnea, palpitations, orthopnea, PND, ankle edema. PULM: No dyspnea, unexplained cough. GI: No dysphagia/odynophagia, problematic reflux, constipation, diarrhea, changes in stool habits, hematochezia, melena. : No new urinary complaints, including dysuria, gross hematuria or pyuria. NEURO: No new balance problems, peripheral weakness/paresthesias or numbness of concern. MUSC-SKEL: No new joint pain, swelling, or erythema. PSY: No concerns regarding depression, anxiety or panic. INTEGUMENTARY: No new skin changes (rash, new or changing mole, new growth) PAST MEDICAL HISTORY Diagnosis Date Allergic rhinitis Asthma Atypical squamous cells of undetermined significance (ASCUS) on Papanicolaou smear of cervix 2018 Depression Developmental speech or language disorder speech delay--resolved Fatty liver Generalized anxiety disorder Gestational diabetes mellitus, class A1 02/14/2021 Hyperhidrosis Hypertension IBS (irritable bowel syndrome) stress induced Morbid obesity with BMI of 40.0-44.9, adult (HCC) LINA (obstructive sleep apnea) PMH - PAST MEDICAL HISTORY OF pneumonia 2000 [id number] Unspecified asthma(493.90) PAST SURGICAL HISTORY Procedure Laterality Date DELIVERY ONLY 04/20/2021 LTCS TONSILLECTOMY & ADENOIDECTOMY <AGE 11 FAMILY HISTORY Problem Relation Age of Onset other (crohns) Mother Migraines Mother Hypertension Father Asthma Father Allergies Father Heart Attack Father 53 Anxiety disorder Brother Depression Brother Hypertension Brother No Known Problems Brother other (alcoholic/drug addict) Maternal Grandmother other (alcoholic/ drug addict) Maternal Grandfather Heart Maternal Grandfather Breast Cancer Paternal Grandmother GI Paternal Grandfather Crohn's disease - in his 60s Heart Attack Paternal Grandfather Social History Tobacco Use Smoking status: Never Smokeless tobacco: Never Vaping Use Vaping Use: Never used Substance Use Topics Alcohol use: No Drug use: No ACTIVE PROBLEM LIST Allergic Rhinitis, Cause Unspecified Extrinsic Asthma, Unspecified Essential Hypertension Generalized Anxiety Disorder Lina (Obstructive Sleep Apnea) Fatty Liver History of Depression History of Sleep Apnea Rubella Non-Immune Status, Antepartum History of Gestational Diabetes Mellitus (Gdm) Obesity, Class Iii, Bmi 40-49.9 (Morbid Obesity) ([facility]) Moderate Episode of Recurrent Major Depressive Disorder ([facility]) ALLERGIES Allergen Reactions Animal Dander [Othe* Dust Mites Grasses [Other] Prozac [Fluoxetine] Other: See Comments [place] like she had no emotions Ragweed MEDICATIONS: omeprazole (PRILOSEC) 40 mg capsule^Take 1 capsule by mouth once daily. 30 minutes before a meal^Disp: 30 capsule^Rfl: 2 buPROPion XL (WELLBUTRIN XL) 150 mg 24 hr tablet^Take 1 tablet by mouth once daily.^Disp: 90 tablet^Rfl: 1 labetalol (TRANDATE) 100 mg tablet^Take 1 tablet by mouth twice daily.^Disp: 180 tablet^Rfl: 1 escitalopram oxalate (LEXAPRO) 20 mg tablet^Take 1 tablet by mouth once daily.^Disp: 90 tablet^Rfl: 1 olopatadine (PATANOL) 0.1 % ophthalmic solution^Use 1 Drop in both eyes twice daily. 1 TO 2 DROPS TO EACH EYE TWICE DAILY NEEDED^Disp: 1 mL^Rfl: 5 levonorgestrel (MIRENA) 20 mcg/24 hours (7 yrs) 52 mg IUD^1 Each by INTRAUTERINE route as directed.^Disp: 1 Each^Rfl: 0 acetaminophen (TYLENOL ORAL)^Take by mouth.^Disp: ^Rfl: cetirizine HCl (ZYRTEC ORAL)^Take by mouth.^Disp: ^Rfl: albuterol HFA (VENTOLIN HFA) 90 mcg/actuation inhaler^Inhale 2 Puffs as instructed every 4 hours as needed.^Disp: 18 g^Rfl: 3 CPAP^Initiate Auto PAP @ 5-15 cm of water with humidification. Mask (per patient preference) optional chin strap (if indicated) , filters, tubing, humidifier and lifetime supplies.^Disp: 1 Device^Rfl: 0 EXAM:BP 123/74 Pulse 80 Temp 36.6 C (97.8 F) (Temporal Artery) Resp 16 Ht 170.2 cm (5' 7) Wt 133.5 kg (294 lb 6.4 oz) LMP 07/30/2020 (Exact Date) SpO2 100% BMI 46.11 kg/m Last Wt 05/20/22 : 133.5 kg (294 lb 6.4 oz) 05/08/22 : 132 kg (291 lb) 01/07/22 : 129.4 kg (285 lb 3.2 oz) 12/25/21 : 129.9 kg (286 lb 4.8 oz) PHYSICAL EXAM: General Appearance: Well appearing, alert, in no acute distress, well-hydrated, well nourished.. Skin: Skin color, texture, turgor normal, no suspicious rashes or lesions. Lungs: Lungs clear to auscultation. No wheezing, rhonchi, rales. Heart: RRR without murmur, gallop, or rubs. No ectopy. Neurologic: Gait normal. ASSESSMENT/PLAN: 1. Obesity, Class III, BMI 40-49.9 (morbid obesity) (HCC) - ICD9: 278.01, ICD10: E66.01 (primary diagnosis) Stable - Behavioral intervention and planning on gastric sleeve surgery in July - fu with dr. Jain regarding stress test appeal. 2. Exercise-induced asthma - ICD9: 493.81, ICD10: J45.990 - SPIROMETRY - BASELINE AND POST DILATOR 3. Screening for lipid disorders - ICD9: V77.91, ICD10: Z13.220 - LIPID PANEL BASIC 4. Pre-operative clearance - ICD9: V72.84, ICD10: Z01.818 - CBC 5. Vitamin D deficiency - ICD9: 268.9, ICD10: E55.9 - VITAMIN D 25 HYDROXY 6. LINA (obstructive sleep apnea) - ICD9: 327.23, ICD10: G47.33 - fu with DME supplier for mask fitting 7. Moderate episode of recurrent major depressive disorder (HCC) - ICD9: 296.32, ICD10: F33.1 - doing well on current meds, counseling. 8. Generalized anxiety disorder - ICD9: 300.02, ICD10: F41.1 Leora Billingsley SPIROMETRY Never done PAP TESTING due on 08/29/2022 Last 3 Encounter BP Readings: Date: BP: 05/20/2022 123/74[2nd reading arm elevated[ 05/08/2022 120/82 01/07/2022 126/78 LDL Cholesterol (mg/dL) Date Value 09/18/2016 129 LDL Cholesterol, Nonfasting (mg/dL) Date Value 08/28/2018 107 HBA1C: Hemoglobin A1C (%) Date Value 05/08/2022 5.8 08/28/2018 5.1 09/18/2016 5.2 Protein, Urine (mg/dL) Date Value 04/19/2021 neg Creatinine, Ur Random (UCRR) (mg/dL) Date Value 04/09/2021 165.8 Diabetic Foot and Retinal Eye Exam not Overdue documented in this encounter [facility] 05-20-2022 Nurse Note Patient presents with: Pre Surgery Follow Up documented in this encounter [facility] 05-20-2022 Instructions Casandra Elizalde MA - 05/20/2022 7:39 PM EDT [facility] TEST INFORMATION [facility] HOURS: Lab is open: 7:30am to 5:00pm - , 7:30am to 4:00pm on Fri and 8am -12pm on Fri. The lab is located in [facility] on the first floor. There is a registration window at the lab, available 7 am to 3 pm Friday - Friday. If registration is unavailable at the lab, you may register at the patient registration office near the front [facility]. SCHEDULING A LAB APPOINTMENT: Laboratory appointments are recommended.Walk ins are still accepted. Call [phone] or schedule via [employer] scheduling ticket. ROUTINE LAB ORDERS 60 days after they are entered. If your lab orders , you may be required to wait in the lab while they are reinstated FUTURE ORDERS are lab tests to be completed on the EXPECTED date. These orders 60 days after the expected date. STANDING ORDERS are recurring orders with an expiration date. The interval will indicate how often the test should be completed. CT / MRI / IVP If you have lab tests ordered for one of these radiology exams, please complete the blood work at least one day prior to the scheduled exam. PRESCRIPTION REFILL REQUESTS Request prescription refills through your [employer] account or contact your Pharmacy. My Chart Schedule My Appointment enables you to view your established primary care provider's open schedule and book an appointment online in real-time. This feature is available in internal medicine, family medicine, or pediatrics at any of our [facility] locations and main campus. documented in this encounter [facility] 05-08-2022 History of Present illness Narrative Images from the original note were not included. [facility] SECTION OF REG[facility]AL CARDIOLOGY [facility] OUTPATIENT VISIT DATE May 08, 2022 PRIMARY CARE PHYSICIAN: Enrique Butterfield [address] [place] [address] / [place] [address] HISTORY OF PRESENT ILLNESS: Ms. Lozano is a 26 year old female. The patient presents for preoperative recommendations and treatment options prior to a gastric sleeve to be performed down in [place]. The patient notes dyspnea occurring with exertion and abating with rest which has some degree been progressive. She denies chest comfort, orthopnea, paroxysmal nocturnal dyspnea, palpitations, near-syncope or syncope. The patient is and lives at home with her spouse. They have a 1-year-old and 6-year-old at home. She works as a special managing editor. She is a non-smoker, nondrinker. She tries to eat heart healthy meals. Cardiac risk factors: Gestational diabetes, hypertension, family history of premature CAD (father at age 62) Impression: 1. Preoperative cardiovascular risk assessment 2. Dyspnea on exertion 3. Abnormal EKG 4. Family history of premature coronary artery disease 5. Hypertension 6. History of gestational diabetes 7. Obesity PLAN AND RECOMMENDATIONS: The patient will need to undergo nuclear stress imaging for further restratification given her risk factors and symptoms/abnormal EKG. In the absence of findings she would be acceptable risk for her gastric sleeve to proceed as planned. We have made no additions or changes nor would recommend such prior to surgery. We will communicate with her as requested via phone/MyChart. We will schedule [id number] visit if there are abnormalities which need review. We discussed controlling of cardiovascular risk factors to prevent against future potential cardiovascular events especially given her family history of premature CAD. Vitals: BP 120/82 Pulse 73 Ht 167.6 cm (5' 6) Wt 132 kg (291 lb) LMP 07/30/2020 (Exact Date) SpO2 99% BMI 46.97 kg/m Physical Exam Vitals reviewed. Constitutional: General: She is not in acute distress. Appearance: Normal appearance. She is well-developed. HENT: Head: Normocephalic and atraumatic. Nose: Nose normal. Eyes: General: No scleral icterus. Right eye: No discharge. Left eye: No discharge. Pupils: Pupils are equal, round, and reactive to light. Neck: Thyroid: No thyromegaly. Vascular: No carotid bruit or JVD. Cardiovascular: Rate and Rhythm: Normal rate and regular rhythm. Heart sounds: Normal heart sounds. No murmur heard. No friction rub. No gallop. Pulmonary: Effort: Pulmonary effort is normal. No respiratory distress. Breath sounds: Normal breath sounds. No wheezing or rales. Abdominal: General: Bowel sounds are normal. Palpations: Abdomen is soft. Musculoskeletal: General: Normal range of motion. Cervical back: Normal range of motion and neck supple. Skin: General: Skin is warm and dry. Capillary Refill: Capillary refill takes less than 2 seconds. Coloration: Skin is not pale. Neurological: Mental Status: She is alert and oriented to person, place, and time. Cranial Nerves: No cranial nerve deficit. Psychiatric: Behavior: Behavior normal. Thought Content: Thought content normal. Judgment: Judgment normal. Review of Systems Constitutional: Negative for activity change and fatigue. HENT: Negative for ear pain and facial swelling. Eyes: Negative for pain and discharge. Respiratory: Positive for shortness of breath. Negative for chest tightness. Cardiovascular: Negative for chest pain, palpitations and leg swelling. Gastrointestinal: Negative for abdominal pain, blood in stool, nausea and vomiting. Endocrine: Negative for cold intolerance and heat intolerance. Genitourinary: Negative for frequency and hematuria. Musculoskeletal: Negative for arthralgias and gait problem. Skin: Negative for color change, pallor and rash. Allergic/Immunologic: Negative for immunocompromised state. Neurological: Negative for dizziness, syncope, light-headedness and headaches. Hematological: Negative for adenopathy. Does not bruise/bleed easily. Psychiatric/Behavioral: Negative for confusion. The patient is not nervous/anxious. PAST MEDICAL HISTORY Diagnosis Date Allergic rhinitis Asthma Atypical squamous cells of undetermined significance (ASCUS) on Papanicolaou smear of cervix 2018 Depression Developmental speech or language disorder speech delay--resolved Fatty liver Generalized anxiety disorder Gestational diabetes mellitus, class A1 02/14/2021 Hyperhidrosis Hypertension IBS (irritable bowel syndrome) stress induced Morbid obesity with BMI of 40.0-44.9, adult (HCC) LINA (obstructive sleep apnea) PMH - PAST MEDICAL HISTORY OF pneumonia 2000 [id number] Unspecified asthma(493.90) PAST SURGICAL HISTORY Procedure Laterality Date DELIVERY ONLY 04/20/2021 LTCS TONSILLECTOMY & ADENOIDECTOMY <AGE 11 Social History Tobacco Use Smoking status: Never Smokeless tobacco: Never Vaping Use Vaping Use: Never used Substance Use Topics Alcohol use: No Drug use: No FAMILY HISTORY Problem Relation Age of Onset other (crohns) Mother Migraines Mother Hypertension Father Asthma Father Allergies Father Heart Attack Father 53 Anxiety disorder Brother Depression Brother Hypertension Brother No Known Problems Brother other (alcoholic/drug addict) Maternal Grandmother other (alcoholic/ drug addict) Maternal Grandfather Heart Maternal Grandfather Breast Cancer Paternal Grandmother GI Paternal Grandfather Crohn's disease - in his 60s Heart Attack Paternal Grandfather ALLERGIES Allergen Reactions Animal Dander [Othe* Dust Mites Grasses [Other] Prozac [Fluoxetine] Other: See Comments [place] like she had no emotions Ragweed CURRENT MEDICATIONS: omeprazole (PRILOSEC) 40 mg capsule^Take 1 capsule by mouth once daily. 30 minutes before a meal^Disp: 30 capsule^Rfl: 2 buPROPion XL (WELLBUTRIN XL) 150 mg 24 hr tablet^Take 1 tablet by mouth once daily.^Disp: 90 tablet^Rfl: 1 labetalol (TRANDATE) 100 mg tablet^Take 1 tablet by mouth twice daily.^Disp: 180 tablet^Rfl: 1 escitalopram oxalate (LEXAPRO) 20 mg tablet^Take 1 tablet by mouth once daily.^Disp: 90 tablet^Rfl: 1 olopatadine (PATANOL) 0.1 % ophthalmic solution^Use 1 Drop in both eyes twice daily. 1 TO 2 DROPS TO EACH EYE TWICE DAILY NEEDED^Disp: 1 mL^Rfl: 5 levonorgestrel (MIRENA) 20 mcg/24 hours (7 yrs) 52 mg IUD^1 Each by INTRAUTERINE route as directed.^Disp: 1 Each^Rfl: 0 acetaminophen (TYLENOL ORAL)^Take by mouth.^Disp: ^Rfl: cetirizine HCl (ZYRTEC ORAL)^Take by mouth.^Disp: ^Rfl: albuterol HFA (VENTOLIN HFA) 90 mcg/actuation inhaler^Inhale 2 Puffs as instructed every 4 hours as needed.^Disp: 18 g^Rfl: 3 CPAP^Initiate Auto PAP @ 5-15 cm of water with humidification. Mask (per patient preference) optional chin strap (if indicated) , filters, tubing, humidifier and lifetime supplies.^Disp: 1 Device^Rfl: 0 EKG performed today demonstrates sinus rhythm with poor R wave progression. William Jain DO, FACC, FACOI Clinical and Preventive Cardiology Department of Medicine and Division of Cardiology, [facility] Equestrian Trainergas meter repair supervisor [facility] Equestrian Trainer of Congestive Heart Failure Clinic [facility] Cardiology Office Equestrian Trainer [facility] Staff Job Molder, Dionte and Jeannie Gallardo Department of Cardiovascular Medicine/Heart and Vascular [place], [facility] Clinical Plastics Repairer Profressor of Medicine, [facility] Please note: This note has been produced using speech recognition software and may contain errors related to that system including nellie, punctuation, spelling, words, gender and phrases that may be inappropriate. documented in this encounter [facility] 01-07-2022 History of Present illness Narrative Patient presents with: Follow Up: Weight loss surgery HPI: Cammie Lozano is a 26 year old female who presents to the office today for interested in discussing weight loss surgery. Previous doctors have not been supportive in pursuing surgery Has been to multiple service car driver Has struggled with weight since high school Had gestational diabetes, 2 kids, youngest is 8 months old Was interested in glp-1 injections, but not compatible with breast feeding Has tried weight watchers, various diets. Thinks she is done with having children Insurance doesn't cover bariatric surgery, thinking of going to [place] Thinking gastric sleeve - mom had sleeve a few weeks ago. 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 Has LINA, fatty liver, HTN, gestational DM Cpap was recalled, just got a new one 2 nights ago - sleeps much better with it. Fam hx of CAD, dad had NM at 52. Gets sob with exertion, hiking No chest pains. REVIEW OF SYSTEMS: CONSTITUTIONAL: No fevers, chills, nightsweats, unintended weight loss HEENT: Denies frequent or severe heaches, nasal congestion/sinus symptoms, problematic allergy problems. EYES: No diplopia or blurry vision. CARDIOVASCULAR: No chest pain, dyspnea, palpitations, orthopnea, PND, ankle edema. PULM: No dyspnea, unexplained cough. GI: No dysphagia/odynophagia, problematic reflux, constipation, diarrhea, changes in stool habits, hematochezia, melena. : No new urinary complaints, including dysuria, gross hematuria or pyuria. NEURO: No new balance problems, peripheral weakness/paresthesias or numbness of concern. MUSC-SKEL: No new joint pain, swelling, or erythema. PSY: No concerns regarding depression, anxiety or panic. INTEGUMENTARY: No new skin changes (rash, new or changing mole, new growth) PAST MEDICAL HISTORY Diagnosis Date Allergic rhinitis Asthma Atypical squamous cells of undetermined significance (ASCUS) on Papanicolaou smear of cervix 2018 Depression Developmental speech or language disorder speech delay--resolved Fatty liver Generalized anxiety disorder Gestational diabetes mellitus, class A1 02/14/2021 Hyperhidrosis Hypertension IBS (irritable bowel syndrome) stress induced Morbid obesity with BMI of 40.0-44.9, adult (HCC) LINA (obstructive sleep apnea) PMH - PAST MEDICAL HISTORY OF pneumonia 2000 [id number] Unspecified asthma(493.90) PAST SURGICAL HISTORY Procedure Laterality Date DELIVERY ONLY 04/20/2021 LTCS TONSILLECTOMY & ADENOIDECTOMY <AGE 11 FAMILY HISTORY Problem Relation Age of Onset other (crohns) Mother Migraines Mother Hypertension Father Asthma Father Allergies Father Heart Attack Father 53 Anxiety disorder Brother Depression Brother Hypertension Brother No Known Problems Brother other (alcoholic/drug addict) Maternal Grandmother other (alcoholic/ drug addict) Maternal Grandfather Heart Maternal Grandfather Breast Cancer Paternal Grandmother GI Paternal Grandfather Crohn's disease - in his 60s Heart Attack Paternal Grandfather Social History Tobacco Use Smoking status: Never Smokeless tobacco: Never Vaping Use Vaping Use: Never used Substance Use Topics Alcohol use: No Drug use: No ACTIVE PROBLEM LIST Allergic Rhinitis, Cause Unspecified Extrinsic Asthma, Unspecified Essential Hypertension Generalized Anxiety Disorder Lina (Obstructive Sleep Apnea) Fatty Liver History of Depression History of Sleep Apnea Rubella Non-Immune Status, Antepartum History of Gestational Diabetes Mellitus (Gdm) Obesity, Class Iii, Bmi 40-49.9 (Morbid Obesity) (Hcc) Moderate Episode of Recurrent Major Depressive Disorder (Hcc) ALLERGIES Allergen Reactions Animal Dander [Othe* Dust Mites Grasses [Other] Prozac [Fluoxetine] Other: See Comments [place] like she had no emotions Ragweed MEDICATIONS: escitalopram oxalate (LEXAPRO) 20 mg tablet^Take 1 tablet by mouth once daily.^Disp: 90 tablet^Rfl: 1 olopatadine (PATANOL) 0.1 % ophthalmic solution^Use 1 Drop in both eyes twice daily. 1 TO 2 DROPS TO EACH EYE TWICE DAILY NEEDED^Disp: 1 mL^Rfl: 5 levonorgestrel (MIRENA) 20 mcg/24 hours (7 yrs) 52 mg IUD^1 Each by INTRAUTERINE route as directed.^Disp: 1 Each^Rfl: 0 acetaminophen (TYLENOL ORAL)^Take by mouth.^Disp: ^Rfl: cetirizine HCl (ZYRTEC ORAL)^Take by mouth.^Disp: ^Rfl: albuterol HFA (VENTOLIN HFA) 90 mcg/actuation inhaler^Inhale 2 Puffs as instructed every 4 hours as needed.^Disp: 18 g^Rfl: 3 CPAP^Initiate Auto PAP @ 5-15 cm of water with humidification. Mask (per patient preference) optional chin strap (if indicated) , filters, tubing, humidifier and lifetime supplies.^Disp: 1 Device^Rfl: 0 buPROPion XL (WELLBUTRIN XL) 150 mg 24 hr tablet^Take 1 tablet by mouth once daily.^Disp: 90 tablet^Rfl: 1 labetalol (TRANDATE) 100 mg tablet^Take 1 tablet by mouth twice daily.^Disp: 180 tablet^Rfl: 1 EXAM:BP 126/78 Pulse 82 Temp 36.9 C (98.5 F) (Temporal) Ht 167.6 cm (5' 5.98) Wt 129.4 kg (285 lb 3.2 oz) LMP 07/30/2020 (Exact Date) SpO2 97% BMI 46.05 kg/m Last Wt 01/07/22 : 129.4 kg (285 lb 3.2 oz) 12/25/21 : 129.9 kg (286 lb 4.8 oz) 09/19/21 : 126.6 kg (279 lb 3.2 oz) 09/04/21 : 123.3 kg (271 lb 12.8 oz) PHYSICAL EXAM: General Appearance: Well appearing, alert, in no acute distress, well-hydrated, well nourished.. Skin: Skin color, texture, turgor normal, no suspicious rashes or lesions. Lungs: Lungs clear to auscultation. No wheezing, rhonchi, rales. Heart: RRR without murmur, gallop, or rubs. No ectopy. Neurologic: Gait normal. ASSESSMENT/PLAN: 1. Obesity, Class III, BMI 40-49.9 (morbid obesity) (HCC) - ICD9: 278.01, ICD10: E66.01 (primary diagnosis) Weight increasing - Behavioral intervention - CONSULT TO CARDIOLOGY 2. Moderate episode of recurrent major depressive disorder (HCC) - ICD9: 296.32, ICD10: F33.1 - BUPROPION XL 150 MG TAB 3. LINA (obstructive sleep apnea) - ICD9: 327.23, ICD10: G47.33 - continue cpap 4. Essential hypertension - ICD9: 401.9, ICD10: I10 - good control - Continue current medication(s) - Recommended regular aerobic exercise. - Recommend home blood pressure monitoring, to bring results in on next visit - Goal of BP <130/80 - LABETALOL 100 MG TABLET 5. ROA (dyspnea on exertion) - ICD9: 786.09, ICD10: R06.09 Weight increasing - CONSULT TO CARDIOLOGY 6. GERD without esophagitis - ICD9: 530.81, ICD10: K21.9 - start pepcid daily - CONSULT TO GASTROENTEROLOGY Leora Billingsley SPIROMETRY Never done PNEUMOCOCCAL(2 - PCV) due on 09/16/2017 COVID-19 VACCINE(3 - Booster for Pfizer series) due on 06/22/2020 DEPRESSION ASSESSMENT Never done documented in this encounter [facility] 01-07-2022 Instructions Yi Dey LPN - 01/07/2022 10:00 AM EST [facility] TEST INFORMATION [facility] BUILDING LAB HOURS: Lab is open: 7:30am to 5:00pm M - Th, 7:30am to 4:00pm on Fri and 8am -12pm on Fri. The lab is located in [facility] on the first floor. There is a registration window at the lab, available 7 am to 3 pm Friday - Friday. If registration is unavailable at the lab, you may register at the patient registration office near the front lobby of the hospital. SCHEDULING A LAB APPOINTMENT: Laboratory appointments are recommended.Walk ins are still accepted. Call [phone] or schedule via [employer] scheduling ticket. ROUTINE LAB ORDERS 60 days after they are entered. If your lab orders , you may be required to wait in the lab while they are reinstated FUTURE ORDERS are lab tests to be completed on the EXPECTED date. These orders 60 days after the expected date. STANDING ORDERS are recurring orders with an expiration date. The interval will indicate how often the test should be completed. CT / MRI / IVP If you have lab tests ordered for one of these radiology exams, please complete the blood work at least one day prior to the scheduled exam. PRESCRIPTION REFILL REQUESTS Request prescription refills through your [employer] account or contact your Pharmacy. My Chart Schedule My Appointment enables you to view your established primary care provider's open schedule and book an appointment online in real-time. This feature is available in internal medicine, family medicine, or pediatrics at any of our [facility] locations and main campus. documented in this encounter [facility] 11-28-2021 Miscellaneous Notes Patient notified. Voices understanding. Renetta Christopher LPN Rx sent for Saxenda instead which is another GLP-1, daily injection, that has been approved for weight loss. If insurance is not covering this, would ask them about recommended alternatives. Please call patient/pharmacy about need for prior authorization. Patient reports that she was prescribe ozempic medication last night and received message that her insurance would not cover this medication. Do we know if this medication needs prior authorization?? Then we can see if patient assistance could be an option or coupon assistance. Patient reports that she spoke with Dr. Shook about weight loss surgery, but he was more inclined to patient taking ozempic. documented in this encounter [facility] 11-27-2021 History of Present illness Narrative Chief Complaint Patient presents with: Weight Problem In lieu of an in person visit due to coronavirus 19 pandemic concerns, a virtual visit was performed with patient. Patient is aware that I am not fully able to assess symptoms and do a full physical exam including vital signs at this time. Patient consents to the visit HPI Cammie Lozano is a 26 year old female who presents here today for discussion of weight loss surgery. Patient states that she has been looking into weight loss surgery and has tried different diets without much success. Has met with dietitian in 2020. Increased her exercise with walking, treadmill, biking, been to multiple gyms. Currently only exercising with work and occasionally hiking on weekends. Does not eat out much. Eats protein bowls for breakfast, turkey sandwich and yogurt. Dinner is a lot of meat and potatoes with some brocolli, corn, mixed greens. Her insurance does not cover weight loss surgery at all and cannot afford the procedure. Has been looking into getting surgery down in [place] at [facility] ([employer] Discussed trial of GLP 1 if insurance will cover. Patient agreeable to weekly injection. Past medical history, appointments, medications, allergies reviewed. Previous Medical History PAST MEDICAL HISTORY Diagnosis Date Allergic rhinitis Asthma Atypical squamous cells of undetermined significance (ASCUS) on Papanicolaou smear of cervix 2018 Depression Developmental speech or language disorder speech delay--resolved Fatty liver Generalized anxiety disorder Gestational diabetes mellitus, class A1 02/14/2021 Hyperhidrosis Hypertension IBS (irritable bowel syndrome) stress induced Morbid obesity with BMI of 40.0-44.9, adult (HCC) LINA (obstructive sleep apnea) PMH - PAST MEDICAL HISTORY OF pneumonia 2000 [id number] Unspecified asthma(493.90) Previous Surgical History PAST SURGICAL HISTORY Procedure Laterality Date DELIVERY ONLY 04/20/2021 LTCS TONSILLECTOMY & ADENOIDECTOMY <AGE 11 Family History FAMILY HISTORY Problem Relation Age of Onset other (crohns) Mother Migraines Mother Hypertension Father Asthma Father Allergies Father Heart Attack Father 53 Anxiety disorder Brother Depression Brother Hypertension Brother No Known Problems Brother other (alcoholic/drug addict) Maternal Grandmother other (alcoholic/ drug addict) Maternal Grandfather Heart Maternal Grandfather No Known Problems Paternal Grandmother GI Paternal Grandfather Crohn's disease - in his 60s Heart Attack Paternal Grandfather Patient Allergies ALLERGIES Allergen Reactions Animal Dander [Othe* Dust Mites Grasses [Other] Prozac [Fluoxetine] Other: See Comments [place] like she had no emotions Ragweed Current Medications Current Outpatient Medications on File Prior to Visit Medication Sig escitalopram oxalate (LEXAPRO) 20 mg tablet Take 0.5 tablets by mouth once daily for 14 days, THEN 1 tablet once daily. labetalol (TRANDATE) 100 mg tablet TAKE 2 TABLETS BY MOUTH 3 TIMES A DAY buPROPion XL (WELLBUTRIN XL) 150 mg 24 hr tablet Take 1 tablet by mouth once daily. fluticasone (FLONASE) 50 mcg/actuation nasal spray Use 1 [place] in each nostril once daily. 1 SPRAY PER NOSTRIL ONCE A DAY PRN NASAL ALLERGY SYMPTOMS olopatadine (PATANOL) 0.1 % ophthalmic solution Use 1 Drop in both eyes twice daily. 1 TO 2 DROPS TO EACH EYE TWICE DAILY NEEDED levonorgestrel (MIRENA) 20 mcg/24 hours (7 yrs) 52 mg IUD 1 Each by INTRAUTERINE route as directed. cholecalciferol, vitamin D3, (VITAMIN D3 ORAL) Take by mouth. (Patient not taking: Reported on 07/17/2021 ) acetaminophen (TYLENOL ORAL) Take by mouth. cetirizine HCl (ZYRTEC ORAL) Take by mouth. albuterol HFA (VENTOLIN HFA) 90 mcg/actuation inhaler Inhale 2 Puffs as instructed every 4 hours as needed. CPAP Initiate Auto PAP @ 5-15 cm of water with humidification. Mask (per patient preference) optional chin strap (if indicated) , filters, tubing, humidifier and lifetime supplies. Current Facility-Administered Medications on File Prior to Visit Medication onabotulinum toxin type A 100 Units injection (BOTOX) Social History Social History Tobacco Use Smoking status: Never Smokeless tobacco: Never Vaping Use Vaping Use: Never used Substance Use Topics Alcohol use: No Drug use: No Review of Symptoms REVIEW OF SYSTEMS See HPI EXAM: LMP 07/30/2020 (Exact Date) General Appearance: Well appearing, alert, in no acute distress, well-hydrated, well nourished.. Health Maintenance List SPIROMETRY Never done PNEUMOCOCCAL(2 - PCV) due on 09/16/2017 COVID-19 VACCINE(3 - Booster for Pfizer series) due on 06/22/2020 DEPRESSION ASSESSMENT Never done INFLUENZA(1) due on 10/18/2021 BP CONTROLLED (<130/80) due on 07/17/2022 PAP TESTING due on 08/29/2022 ANNUAL PCP TEAM CHRONIC DISEASE VISIT due on 09/04/2022 DTAP,TDAP,TD(9 - Td or Tdap) due on 02/13/2031 HEPATITIS B Completed HEPATITIS C SCREENING Completed HIV SCREENING Completed ASSESSMENT/PLAN: 1. Obesity, Class III, BMI 40-49.9 (morbid obesity) (HCC) - ICD9: 278.01, ICD10: E66.01 Stable - Pharmacological intervention with Ozempic 0.25 mg weekly x 4 week, then increase to 0.5 mg weekly x 4 weeks, then increase to 1 mg weekly x 4 weeks, then increase to 1.7 mg weekly x 4 weeks. F/u in 4 weeks to monitor weight loss and monitor for side effects. - PRIMARY CARE SOCIAL WORK CONSULT - SEMAGLUTIDE 0.25 MG OR 0.5 MG (2 MG/1.5 ML) SUBCUTANEOUS PEN INJECTOR I spent a total of 15 minutes on the date of the service which included preparing to see the patient, [id number] patient care, completing clinical documentation, obtaining and/or reviewing separately obtained history, performing a medically appropriate examination, counseling and educating the patient/family/caregiver, and ordering medications, tests, or procedures. Bran Shook MD documented in this encounter [facility] 11-27-2021 Miscellaneous Notes Patient has been identified by name and date of : Yes Patient phones for refill(s): Requested Prescriptions Pending Prescriptions Disp Refills escitalopram oxalate (LEXAPRO) 20 mg tablet 37 tablet 0 Sig: Take 0.5 tablets by mouth once daily for 14 days, THEN 1 tablet once daily. Date of last office visit in primary care: 09/04/21 next apt 11/27/21 Last 2 Encounter Wt Readings: Date: Wt: 09/19/2021 126.6 kg (279 lb 3.2 oz) 09/04/2021 123.3 kg (271 lb 12.8 oz) Previous labs/tests for medication: Not applicable Thank you. Tracy Marie LPN documented in this encounter [facility] 10-09-2021 Miscellaneous Notes Last office visit: 09/04/21 F/u scheduled: none Galina Bailey Ma Patient has been identified by name and date of : Yes Requested Prescriptions Pending Prescriptions Disp Refills buPROPion XL (WELLBUTRIN XL) 150 mg 24 hr tablet 90 tablet 0 Sig: Take 1 tablet by mouth once daily. RX INSTRUCTIONS: Patient aware RX will be sent to pharmacy. No need to notify patient. Leona Pagan Pss documented in this encounter [facility] 09-21-2021 Miscellaneous Notes Phoned patient and detailed message left for patient on secure VM regarding PCP's message. I am glad her temperature is down now. Would recommend VV to discuss COVID and treatment options. Recommend rest, supportive care, and should isolate until: At least 5 days have passed since symptoms first appeared and At least 24 hours have passed since last fever without the use of fever-reducing medications and Symptoms (e.g., cough, shortness of breath) have improved. Should wear mask for at least 5 days after he ends isolation to prevent spread to others. Patient calling to update Dr. Shook that she decided not to go to the ER last evening as advised due to having an infant. She reports her temperature is 99.1 currently and she continues tylenol as needed. She states she still has some weakness and occasional mild dizziness but it has improved since yesterday. She still remains fatigued as well. Thank you. documented in this encounter [facility] 09-21-2021 Miscellaneous Notes Per Triage nurse patient calls and reports she did not go to ER last night despite providers recommendation to do so. No ER visit noted at [facility].. Phoned patient to see if she followed up at ER as advised and if so which ER was she seen at. Please pull ER report for this patient. Patient calling and states she was seen in [facility] care yesterday and is positive for covid. She reports her temp is currently 105 after taking tylenol several hours ago. Temps have ranged 102.3-102.5 earlier today. She also reports mild dizziness and feels very weak along with symptoms as described yesterday at visit. Denies SOB or chest pain. Spoke with Dr. Shook and he advised patient to call 911 and go to ER now. Patient advised and agreeable. Ariella Stuart RN documented in this encounter [facility] 09-21-2021 Miscellaneous Notes Per Triage nurse- patient calls and reports she did not go to ER last night. Phoned patient to inquire if she went to ER as advised and if so what ER was she seen in so records can be obtained. documented in this encounter [facility] 09-19-2021 History of Present illness Narrative This note was created using [employer]. Subjective Cammie Lozano is a 25 year old female. HPI Patient presents with cough, sore throat, fever and chills over the past day. She was exposed to COVID but it was 2 weeks ago. She denies chest pain or shortness of breath. She has had COVID previously. She is vaccinated. No vomiting or diarrhea. Review of Systems Constitutional: Positive for chills, fatigue and fever. HENT: Positive for congestion and sore throat. Negative for ear pain. Respiratory: Positive for cough. Negative for shortness of breath. Cardiovascular: Negative. Gastrointestinal: Negative. Genitourinary: Negative. Musculoskeletal: Positive for myalgias. Neurological: Positive for headaches. All other systems reviewed and are negative. PAST MEDICAL HISTORY Diagnosis Date Allergic rhinitis Asthma Atypical squamous cells of undetermined significance (ASCUS) on Papanicolaou smear of cervix 2018 Depression Developmental speech or language disorder speech delay--resolved Fatty liver Generalized anxiety disorder Gestational diabetes mellitus, class A1 02/14/2021 Hyperhidrosis Hypertension IBS (irritable bowel syndrome) stress induced Morbid obesity with BMI of 40.0-44.9, adult (HCC) LINA (obstructive sleep apnea) PMH - PAST MEDICAL HISTORY OF pneumonia 2000 [id number] Unspecified asthma(493.90) Current Outpatient Medications Medication Sig Dispense Refill fluticasone (FLONASE) 50 mcg/actuation nasal spray Use 1 [place] in each nostril once daily. 1 SPRAY PER NOSTRIL ONCE A DAY PRN NASAL ALLERGY SYMPTOMS 1 Each 2 escitalopram oxalate (LEXAPRO) 20 mg tablet Take 0.5 tablets by mouth once daily for 14 days, THEN 1 tablet once daily. 37 tablet 0 olopatadine (PATANOL) 0.1 % ophthalmic solution Use 1 Drop in both eyes twice daily. 1 TO 2 DROPS TO EACH EYE TWICE DAILY NEEDED 1 mL 5 levonorgestrel (MIRENA) 20 mcg/24 hours (7 yrs) 52 mg IUD 1 Each by INTRAUTERINE route as directed. 1 Each 0 labetalol (TRANDATE) 100 mg tablet Take 1 tablet by mouth twice daily. buPROPion XL (WELLBUTRIN XL) 150 mg 24 hr tablet Take 1 tablet by mouth once daily. 90 tablet 0 acetaminophen (TYLENOL ORAL) Take by mouth. cetirizine HCl (ZYRTEC ORAL) Take by mouth. albuterol HFA (VENTOLIN HFA) 90 mcg/actuation inhaler Inhale 2 Puffs as instructed every 4 hours as needed. 18 g 3 CPAP Initiate Auto PAP @ 5-15 cm of water with humidification. Mask (per patient preference) optional chin strap (if indicated) , filters, tubing, humidifier and lifetime supplies. 1 Device 0 cholecalciferol, vitamin D3, (VITAMIN D3 ORAL) Take by mouth. (Patient not taking: Reported on 07/17/2021 ) Current Facility-Administered Medications Medication Dose Route Frequency Provider Last Rate Last Admin onabotulinum toxin type A 100 Units injection (BOTOX) 100 Units INTRADERMAL q 3 MONTHS Jace Bryan MD 100 Units at 08/11/18 1500 PAST SURGICAL HISTORY Procedure Laterality Date DELIVERY ONLY 04/20/2021 LTCS TONSILLECTOMY & ADENOIDECTOMY <AGE 11 FAMILY HISTORY Problem Relation Age of Onset other (crohns) Mother Migraines Mother Hypertension Father Asthma Father Allergies Father Heart Attack Father 53 Anxiety disorder Brother Depression Brother Hypertension Brother No Known Problems Brother other (alcoholic/drug addict) Maternal Grandmother other (alcoholic/ drug addict) Maternal Grandfather Heart Maternal Grandfather No Known Problems Paternal Grandmother GI Paternal Grandfather Crohn's disease - in his 60s Heart Attack Paternal Grandfather Social History Tobacco Use Smoking status: Never Smoker Smokeless tobacco: Never Used Vaping Use Vaping Use: Never used Substance Use Topics Alcohol use: No Drug use: No Objective BP 132/78 Pulse 110 Temp 37.7 C (99.9 F) Resp 21 Wt 126.6 kg (279 lb 3.2 oz) LMP 07/30/2020 (Exact Date) SpO2 97% BMI 43.56 kg/m Physical Exam Vitals reviewed. Constitutional: Appearance: Normal appearance. HENT: Head: Normocephalic and atraumatic. Right Ear: Tympanic membrane, ear canal and external ear normal. Left Ear: Tympanic membrane and external ear normal. Nose: Congestion present. Mouth/Throat: Mouth: Mucous membranes are moist. Pharynx: Oropharynx is clear. Cardiovascular: Rate and Rhythm: Normal rate and regular rhythm. Heart sounds: Normal heart sounds. Pulmonary: Effort: Pulmonary effort is normal. Musculoskeletal: Cervical back: Neck supple. Skin: General: Skin is warm and dry. Neurological: Mental Status: She is alert. Assessment and Plan ASSESSMENT/PLAN: 1. Suspected 2019 novel coronavirus infection - ICD9: V01.79, ICD10: Z20.822 COVID testing pending. Discussed quarantine and supportive care. Red flags for ER care discussed. Patient agreeable with plan. - 2019 CORONAVIRUS Aleyda Lassiter PA-C documented in this encounter [facility] 09-06-2021 Miscellaneous Notes Reviewed. Behavioral Health Social Work Progress Note Patient identified for [facility] from: PCP (Dr Almonte) Reason for referral: Resources Behavioral Health Resources: Psychiatry med management (Anxiety with depression/Post depression) [facility] encounter type: [employer] Message Attempts to Outreach: 2 attempts Referral made: Psychiatry - Internal Psychiatry-Internal referral type: Medication Management Final Disposition: Resources given (09-06-21 left , sent [employer] with appt info) Patient Discharged?: Yes Patient reported that caregiver was able to meet their needs today?: N/A [facility] received a consult from Dr Shook, for psychiatry, to address/tx Anxiety with depression/Post depression [facility] reviewed Pt's chart/insurance [facility] contacted CLARK Castillo, who offered an appt on 09-24-21 at 1pm [facility] attempted to contact Pt -no answer -left vm to return call to [phone] -also left on voice message [facility] will be sending available appt time in [employer] - sent the following information in [employer]: CLARK Gardner on 09-24-21 at 1pm Please call [phone] to schedule appointment Crisis line [phone] ZEYAD Sofia September 06, 2021 documented in this encounter [facility] 09-04-2021 History of Present illness Narrative Chief Complaint Patient presents with: Anxiety Depression HPI Cammie Lozano is a 25 year old female who presents here today for Above Complaints.. Patient had delivered healthy baby girl back in April via C section. States that she was home for 6 weeks after delivery, went back to work for about 6 weeks, and now is off for the summer. Is breast feeding right now. Has been feeling more anxious in the last 3 months with excessive worrying, feeling nervous/on edge, racing thoughts, irritability/agitation, insomnia, and a couple panic attacks. Symptoms are gradually worsening and has been directing her agitation toward her 5 year old and has had times where she feels like she could just walk away from it all. Denies SI/HI. Has not seen a counselor in more than 18 months, but can easily set up an appointment with them. 09/04/21 180 Last Filed Value PHQ-9 Little interest or pleasure in doing things Nearly every day Nearly every day Feeling down, depressed, or hopeless Several days Several days Trouble falling or staying asleep, or sleeping too much Nearly every day Nearly every day Feeling tired or having little energy Nearly every day Nearly every day Poor appetite or overeating Nearly every day Nearly every day Feeling bad about yourself - or that you are a failure or have let yourself or your family down Nearly every day Nearly every day Trouble concentrating on things, such as reading the newspaper or watching television Not at all Not at all Moving or speaking so slowly that other people could have noticed. Or the opposite - being so fidgety or restless that you have been moving around a lot more than usual More than half the days More than half the days Thoughts that you would be better off , or of hurting yourself in some way Not at all Not at all If you checked off any problems, how difficult have these problems made it for you to do your work, take care of things at home, or get along with other people? Very difficultIf you checked off any problems, how difficult have these problems made it for you to do your work, take care of things at home, or get along with other people?. Very difficult. Patient-Reported. Data is from another encounter. Last Filed Value PHQ-9 score 18 18 PHQ-9 Score 18 18 PHQ-2 score 4 4 PHQ-2 Score 4 4 Past medical history, appointments, medications, allergies reviewed. Previous Medical History PAST MEDICAL HISTORY Diagnosis Date Allergic rhinitis Asthma Atypical squamous cells of undetermined significance (ASCUS) on Papanicolaou smear of cervix 2018 Depression Developmental speech or language disorder speech delay--resolved Fatty liver Generalized anxiety disorder Gestational diabetes mellitus, class A1 02/14/2021 Hyperhidrosis Hypertension IBS (irritable bowel syndrome) stress induced Morbid obesity with BMI of 40.0-44.9, adult (HCC) LINA (obstructive sleep apnea) PMH - PAST MEDICAL HISTORY OF pneumonia 2000 [id number] Unspecified asthma(493.90) Previous Surgical History PAST SURGICAL HISTORY Procedure Laterality Date DELIVERY ONLY 04/20/2021 LTCS TONSILLECTOMY & ADENOIDECTOMY <AGE 11 Family History FAMILY HISTORY Problem Relation Age of Onset other (crohns) Mother Migraines Mother Hypertension Father Asthma Father Allergies Father Heart Attack Father 53 Anxiety disorder Brother Depression Brother Hypertension Brother No Known Problems Brother other (alcoholic/drug addict) Maternal Grandmother other (alcoholic/ drug addict) Maternal Grandfather Heart Maternal Grandfather No Known Problems Paternal Grandmother GI Paternal Grandfather Crohn's disease - in his 60s Heart Attack Paternal Grandfather Patient Allergies ALLERGIES Allergen Reactions Animal Dander [Othe* Dust Mites Grasses [Other] Prozac [Fluoxetine] Other: See Comments [place] like she had no emotions Ragweed Current Medications Current Outpatient Medications on File Prior to Visit Medication Sig levonorgestrel (MIRENA) 20 mcg/24 hours (7 yrs) 52 mg IUD 1 Each by INTRAUTERINE route as directed. labetalol (TRANDATE) 100 mg tablet Take 1 tablet by mouth twice daily. citalopram (CELEXA) 40 mg tablet Take 1 tablet by mouth once daily. buPROPion XL (WELLBUTRIN XL) 150 mg 24 hr tablet Take 1 tablet by mouth once daily. cetirizine HCl (ZYRTEC ORAL) Take by mouth. albuterol HFA (VENTOLIN HFA) 90 mcg/actuation inhaler Inhale 2 Puffs as instructed every 4 hours as needed. fluticasone (FLONASE) 50 mcg/actuation nasal spray Use 1 [place] in each nostril once daily. 1 SPRAY PER NOSTRIL ONCE A DAY PRN NASAL ALLERGY SYMPTOMS olopatadine (PATANOL) 0.1 % ophthalmic solution Use 1 Drop in both eyes twice daily. 1 TO 2 DROPS TO EACH EYE TWICE DAILY NEEDED cholecalciferol, vitamin D3, (VITAMIN D3 ORAL) Take by mouth. (Patient not taking: Reported on 07/17/2021 ) acetaminophen (TYLENOL ORAL) Take by mouth. CPAP Initiate Auto PAP @ 5-15 cm of water with humidification. Mask (per patient preference) optional chin strap (if indicated) , filters, tubing, humidifier and lifetime supplies. Current Facility-Administered Medications on File Prior to Visit Medication onabotulinum toxin type A 100 Units injection (BOTOX) Social History Social History Tobacco Use Smoking status: Never Smoker Smokeless tobacco: Never Used Vaping Use Vaping Use: Never used Substance Use Topics Alcohol use: No Drug use: No Review of Symptoms REVIEW OF SYSTEMS See HPI EXAM: BP 122/82 Pulse 90 Resp 16 Wt 123.3 kg (271 lb 12.8 oz) LMP 07/30/2020 (Exact Date) SpO2 98% BMI 42.41 kg/m General Appearance: Well appearing, alert, in no acute distress, well-hydrated, well nourished.. Skin: Skin color, texture, turgor normal, no suspicious rashes or lesions. Health Maintenance List SPIROMETRY Never done PNEUMOCOCCAL(2 - PCV) due on 09/16/2017 COVID-19 VACCINE(3 - Booster for Pfizer series) due on 09/27/2020 DEPRESSION SCREENING due on 09/04/2021 INFLUENZA(1) due on 10/18/2021 ANNUAL PCP TEAM CHRONIC DISEASE VISIT due on 07/17/2022 PAP TESTING due on 08/29/2022 BP CONTROLLED (<130/80) due on 09/04/2022 DTAP,TDAP,TD(9 - Td or Tdap) due on 02/13/2031 HPV VACCINE Completed HEPATITIS C SCREENING Completed HIV SCREENING Completed ASSESSMENT/PLAN: 1. Anxiety with depression - ICD9: 300.4, ICD10: F41.8 (primary diagnosis) Uncontrolled on Celexa. Will switch to Lexapro and ramp up dosage over 2 weeks. Continue wellbutrin XL. Contracted for safety and will have patient call counselor tomorrow. Referred to psychiatry at her request and will follow up with her in 4 weeks. Discussed risks and benefits with breast feeding on Lexapro and benefits outweigh risks at this time. - ESCITALOPRAM 20 MG TABLET - CONSULT TO [facility] ADULT - COMP METABOLIC PANEL - TSH BLD - VITAMIN B12 BLOOD - VITAMIN D 25 HYDROXY 2. 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 - ESCITALOPRAM 20 MG TABLET - CONSULT TO [facility] 3. History of environmental allergies - ICD9: V15.09, ICD10: Z91.09 Needs refilled. - OLOPATADINE 0.1 % EYE DROPS 4. Acute actinic otitis externa, bilateral - ICD9: 380.22, ICD10: H60.513 Needs refilled. - OLOPATADINE 0.1 % EYE DROPS Bran Shook MD documented in this encounter [facility] 09-04-2021 Miscellaneous Notes Reviewed. Pt called and is notified of providers message. Pt scheduled for today at 540 pm. Jessica Gregory RN Can we get her scheduled for today or tomorrow? ----- Message from Khadijah Medina MD sent at 09/04/2021 1:55 PM EDT ----- Regarding: PPD I am seeing Damari, the daughter of Cammie Lozano, and I'm concerned about PPD and anxiety in Cammie. I'm hoping she can see you or Lynne soon to discuss her medications. Her [place] score was 18. Would it be possible for someone from your office to reach out to her? Thanks! Kylah documented in this encounter [facility] 09-04-2021 History of Present illness Narrative Cammie Lozano presents today for IUD check. She had a Mirena placed on 07/23/21. She has had spotting since placement. Denies fever, pain, cramping, heavy bleeding or painful intercourse. Pt reports feels more vaginal dryness but is still . REVIEW OF SYSTEMS: GENERAL: Negative for fever PHYSICAL EXAMINATION: LMP 07/30/2020 ABDOMEN:soft, non-tender, no masses, no hepatosplenomegaly and no lymphadenopathy EXTERNAL GENITALIA: Normal genitalia and Bartholins, Urethra, Sken'e normal CERVIX: smooth, no lesions. IUD strings not visible. Limited Bedside ultrasound performed- IUD seen at proper location at uterine fundus. Patient was showed ultrasound image. Reviewed IUD strings likely in cervical canal. IMPRESSION/PLAN: IUD correctly positioned. Follow up for annual exam or sooner if needed. I spent a total of 20 minutes on the date of the service which included preparing to see the patient, [id number] patient care, completing clinical documentation, obtaining and/or reviewing separately obtained history, performing a medically appropriate examination and counseling and educating the patient/family/caregiver. Malena Allen MD documented in this encounter [facility] 07-17-2021 History of Present illness Narrative 07/17/2021 Patient presents with: Yearly Exam SUBJECTIVE: This is a 25 year old that is here today for Above Complaints. Had baby girl in April. Had due to baby breech. No other complications. . HTN: Patient is compliant with meds Yes Monitors bp at home: Yes. 120-130's/80's Denies side effects: Yes. Chest pain: No. Dyspnea: No. Edema: No. Palpitations: No. Syncope: No. Headache: No. Dizziness: No. For two weeks has been taking labetalol one tablet twice a day Taking Wellbutrin and citalopram as ordered. Denies depressive symptoms Not taking vitamin D as recommended. Using CPAP as prescribed PAST MEDICAL HISTORY Diagnosis Date Allergic rhinitis Asthma Atypical squamous cells of undetermined significance (ASCUS) on Papanicolaou smear of cervix 2018 Depression Developmental speech or language disorder speech delay--resolved Fatty liver Generalized anxiety disorder Gestational diabetes mellitus, class A1 02/14/2021 Hyperhidrosis Hypertension IBS (irritable bowel syndrome) stress induced Morbid obesity with BMI of 40.0-44.9, adult (HCC) LINA (obstructive sleep apnea) PMH - PAST MEDICAL HISTORY OF pneumonia 2000 [id number] Unspecified asthma(493.90) ALLERGIES Animal Dander [Other], Dust Mites, Grasses [Other], Prozac [Fluoxetine], and Ragweed MEDICATIONS Current Outpatient Medications Medication Sig citalopram (CELEXA) 40 mg tablet Take 1 tablet by mouth once daily. buPROPion XL (WELLBUTRIN XL) 150 mg 24 hr tablet Take 1 tablet by mouth once daily. labetalol (TRANDATE) 100 mg tablet Take 3 tablets by mouth three times daily. acetaminophen (TYLENOL ORAL) Take by mouth. cetirizine HCl (ZYRTEC ORAL) Take by mouth. albuterol HFA (VENTOLIN HFA) 90 mcg/actuation inhaler Inhale 2 Puffs as instructed every 4 hours as needed. fluticasone (FLONASE) 50 mcg/actuation nasal spray Use 1 [place] in each nostril once daily. 1 SPRAY PER NOSTRIL ONCE A DAY PRN NASAL ALLERGY SYMPTOMS olopatadine (PATANOL) 0.1 % ophthalmic solution Use 1 Drop in both eyes twice daily. 1 TO 2 DROPS TO EACH EYE TWICE DAILY NEEDED CPAP Initiate Auto PAP @ 5-15 cm of water with humidification. Mask (per patient preference) optional chin strap (if indicated) , filters, tubing, humidifier and lifetime supplies. cholecalciferol, vitamin D3, (VITAMIN D3 ORAL) Take by mouth. (Patient not taking: Reported on 07/17/2021 ) [id number] ( VITAMIN) tab Take 1 tablet by mouth. (Patient not taking: Reported on 05/01/2021 ) Current Facility-Administered Medications Medication Dose Route Frequency onabotulinum toxin type A 100 Units injection (BOTOX) 100 Units INTRADERMAL q 3 MONTHS Medications and allergies reviewed by this provider. SOCIAL HISTORY Social History Tobacco Use Smoking status: Never Smoker Smokeless tobacco: Never Used Vaping Use Vaping Use: Never used Substance Use Topics Alcohol use: No Drug use: No REVIEW OF SYSTEMS All other reviewed and negative other than HPI. OBJECTIVE: BP 112/78 Pulse 78 Resp 18 Ht 170.5 cm (5' 7.13) Wt 120.4 kg (265 lb 8 oz) LMP 07/30/2020 (Exact Date) SpO2 97% BMI 41.43 kg/m . Vital signs reviewed by this provider. APPEARANCE Well appearing, alert, in no acute distress, well-hydrated, well nourished. and Obese EYES PERRLA, conjunctiva and sclera normal. HEART RRR with normal S1 and S2, no murmurs, no gallops, no JVD appreciated LUNG clear to auscultation. No wheezes, rhonchi or rales EXTREMITIES Extremities normal, No deformities, No skin discoloration and No edema SKIN Skin color, texture, turgor normal, no suspicious rashes or lesions to exposed skin SPIROMETRY Never done PNEUMOCOCCAL(2 - PCV) due on 09/16/2017 COVID-19 VACCINE(3 - Booster for Pfizer series) due on 09/27/2020 DEPRESSION SCREENING due on 09/04/2021 ANNUAL PCP TEAM CHRONIC DISEASE VISIT due on 07/17/2022 BP CONTROLLED (<130/80) due on 07/17/2022 PAP TESTING due on 08/29/2022 DTAP,TDAP,TD(9 - Td or Tdap) due on 02/13/2031 HPV VACCINE Completed INFLUENZA Completed HEPATITIS C SCREENING Completed HIV SCREENING Completed ASSESSMENT/PLAN: 1. Annual physical exam - ICD9: V70.0, ICD10: Z00.00 (primary diagnosis) - Counseled on healthy diet and regular exercise - Recommend vitamin containing 0.4 mg of folic acid - Calcium intake with supplements or by diet of 1000 mg/day for under 50, 2822-5132 mg/day for 50+ - Discussed need and benefit for weight loss. BMI 41.43 kg/(m^2) - Follow up for annual exam in one year - CBC - COMP METABOLIC PANEL - LIPID PANEL BASIC 2. Vitamin D insufficiency - ICD9: 268.9, ICD10: E55.9 - VITAMIN D 25 HYDROXY 3. Fatty liver - ICD9: 571.8, ICD10: K76.0 - COMP METABOLIC PANEL 4. History of sleep apnea - ICD9: V13.89, ICD10: Z86.69 - stable on current regime 5. Essential hypertension - ICD9: 401.9, ICD10: I10 - good control - Continue current medication(s) - Encouraged dietary sodium restriction/DASH diet - Recommended regular aerobic exercise. - Recommend home blood pressure monitoring, to bring results in on next visit - Discussed need and benefit for weight loss. - Recheck in 6 months, sooner should new symptoms or problems arise. - Goal of BP <130/80 - Recommended no refined sugar, low refined starch, healthy oil intake (olive oil), healthy protein (fish) along the lines of the Mediterranean diet. - LABETALOL 100 MG TABLET 6. Anxiety and depression - ICD9: 300.00, 311, ICD10: F41.9, F32.A - stable on current regime - continue current medications Vandana Hopper APRN.CNP Prescription instructions reviewed with patient as applicable. Patient advised if symptoms do not improve or if symptoms worsen sooner, to contact their primary care physician. Potential red flag symptoms discussed with the patient. Reviewed appropriate action plan to take if red flag symptoms occur. Patient agreeable to treatment plan. documented in this encounter [facility] 07-09-2021 Miscellaneous Notes Patient has been identified by name and date of : Yes Patient phones for refill(s): Pending Prescriptions Disp Refills CITALOPRAM 40 MG TABLET 90 tablet Sig: Take 1 tablet by mouth once daily. YANETH: No BUPROPION XL 150 MG TAB 90 tablet Sig: Take 1 tablet by mouth once daily. YANETH: No Date of last office visit in primary care: 09/04/20, NOV: 07/17/21 Last 2 Encounter Wt Readings: Date: Wt: 06/11/2021 118.4 kg (261 lb) 05/01/2021 117.9 kg (260 lb) Please advise. Thank you. Ariella Stuart RN documented in this encounter [facility] 06-11-2021 History of Present illness Narrative VISIT Cammie Lozano is a 25 year old year old here for visit. Delivery Summary: Patient delivered via by Dr. Snell on 04/20/21 at [facility]. ROS/ Recovery: Feeding: Breast feeding problems: None Menses since delivery: N/A Menstrual pattern prior to : Regular periods [place] since delivery: Resumed Depression: denies symptoms of depression. OB Depression and Anxiety Screening- This Encounter (since 06/10/2021) None Emotional support: Yes Bowel symptoms: Negative for abdominal discomfort, blood in stools or black stools and change in bowel habits Abdomen: She reports no incisional redness, tenderness, erythema Bladder symptoms: No dysuria, gross hematuria, urinary frequency, urinary urgency, or incontinence Other issues: None Last Pap: 2020 normal HPV: N/A PAST MEDICAL HISTORY Diagnosis Date Allergic rhinitis Asthma Atypical squamous cells of undetermined significance (ASCUS) on Papanicolaou smear of cervix 2018 Depression Developmental speech or language disorder speech delay--resolved Fatty liver Generalized anxiety disorder Gestational diabetes mellitus, class A1 02/14/2021 Hyperhidrosis Hypertension IBS (irritable bowel syndrome) stress induced Morbid obesity with BMI of 40.0-44.9, adult (HCC) LINA (obstructive sleep apnea) PMH - PAST MEDICAL HISTORY OF pneumonia 2000 [id number] Unspecified asthma(493.90) PAST SURGICAL HISTORY Procedure Laterality Date DELIVERY ONLY 04/20/2021 LTCS TONSILLECTOMY & ADENOIDECTOMY <AGE 12 FAMILY HISTORY Problem Relation Age of Onset other (crohns) Mother Migraines Mother Hypertension Father Asthma Father Allergies Father Heart Attack Father 53 Anxiety disorder Brother Depression Brother Hypertension Brother No Known Problems Brother other (alcoholic/drug addict) Maternal Grandmother other (alcoholic/ drug addict) Maternal Grandfather Heart Maternal Grandfather No Known Problems Paternal Grandmother GI Paternal Grandfather Crohn's disease - in his 60s Heart Attack Paternal Grandfather Social History Tobacco Use Smoking status: Never Smoker Smokeless tobacco: Never Used Vaping Use Vaping Use: Never used Substance Use Topics Alcohol use: No Drug use: No PHYSICAL EXAMINATION: LMP 07/30/2020 BP 122/80 Wt 261 lb (118.4 kg) LMP 07/30/2020 (Exact Date) BMI 40.88 kg/m GENERAL: pleasant, female in no apparent distress HEENT: Normocephalic, atraumatic, mucus membranes moist and no lesions NECK: Supple, full range of motion, no adenopathy and thyroid normal DERMATOLOGY: Normal, without lesions, non-icteric and non-hirsute BREAST: soft, non-tender, symmetric, no dominant mass, normal nipple-areolar complex, no lymphadenopathy and no nipple discharge CHEST: Normal inspiratory effort ABDOMEN: soft, non-tender and no masses. INCISION: No incisional redness, swelling, or drainage PELVIC: external genitalia normal, normal Bartholin's glands, urethra, [place]'s glands, no vulvar lesions, no cervical lesions, good vaginal support, physiologic discharge present, normal appearing perineal body and perianal region BIMANUAL: uterus normal size, shape and consistency, no adnexal masses and non-tender NEURO: alert and oriented x3,exam grossly non-focal EXTREMITIES: normal ASSESSMENT AND PLAN: 25 year old status post CS with normal course. Contraception plan: IUD - Mirena Follow up: RTC for insertion of IUD Priscilla Peterson APRN.CNM documented in this encounter [facility] 04-04-2021 Miscellaneous Notes Patient requesting refills for the 2 pended medications. Her last OV was 09/04/20 and no upcoming appt with Dr. Shook made. Patient states she does not need a visit at this time due to being 8 months and seeing her OB physician routinely. Pended for your review and completion. Thank you. Ariella Stuart RN documented in this encounter [facility] 02-14-2021 History of Past i llness Narrative Problem Noted Date Resolved Date Insulin controlled gestation al diabetes mellitus (GDM) in third trimester 02/14/2021 06/11/2021 Overview: 02/14/21: failed 3hr Malena Allen MD Excessive growth affec ting management of in third trimester 02/14/2021 06/11/2021 Overview: 02/14/21: growth 96% Malena Allen MD Supervision of high-risk , first trimes ter 09/25/2020 06/11/2021 Overview: 09/20/20-Chronic HTN, obesity. Physician only patient. Consult MFM. Priscilla Peterson APRN.CNM Obesity during 09/14/2020 022 Overview: 04/03/21 - weekly testing per MFM, NSTs or if getting US BPP - Camilla Snell MD 10/25/20-Ultrasound every 4 weeks starting at 28 weeks, weekly BPP starting at 32 weeks, MFM order at [facility]. Priscilla Peterson APRN.CNM 09/20/20-Prepregnancy BMI 45.1. Priscilla Peterson APRN.CNM 09/14/2020atient is obese. We will plan on early GCT. TKRN Nausea and vomiting during 09/14/2020 03/23/2021 Overview: 09/14/2020 Patient is complaining of nausea and occasional vomiting in . Dietary considerations discussed . Vitamin B6 recommended. Advised patient to call/come in if she is unable to keep any food or fluids down in a 24-hour period.TKRN Preexisting hypertension complicating , antepartum 09/14/2020 06/11/2021 Overview: 02/13/21-Recommended BP range per MFM 130-140/70-80. Labetalol increased to 200mg PO TID. Priscilla Peterson APRN.CNM 10/25/20-Ultrasound every 4 weeks starting at 28 weeks, weekly BPP starting at 32 weeks. Priscilla Peterson APRN.CNM 09/20/20-Stopped HCTZ, taking Labetalol 100mg BID, managed by . Baseline preeclampsia labs. Start ASA 81mg PO once daily after 12 weeks. Priscilla Peterson APRN.CNM 09/14/2020 Patient has a history of high blood pressure treated by Dr. Shook. It was diagnosed 4 to 5 years ago. She is currently taking Labetalol. She recently saw Dr. Shook on September 04 to discuss medication during . TKRN Patient request for diagnostic testing 03/23/2021 Overview: 1Patient desires nuchal ultrasound. Considering genetic carrier screening testing.Chong Randall RN Depression affecting 08/28/2012 0 06/11/2021 Family history of Crohn's disease 07/16/2011 03/23/2021 PMS (premenstrual syndrome) 03/16/2009 02/0 05/2021 Metrorrhagia 03/16/2009 03/23/2021 Dysmenorrhea 03/16/2009 03/23/2021 documented as of this encounter (statuses as of 06/11/2021) [facility] History of Past illness Narrative* Problem Noted Date Resolved Date Insulin controlled gestation al diabetes mellitus (GDM) in third trimester 02/14/2021 06/11/2021 Overview: 02/14/21: failed 3hr Malena Allen MD Excessive growth affec ting management of in third trimester 02/14/2021 06/11/2021 Overview: 02/14/21: growth 96% Malena Allen MD Supervision of high-risk , first aguilar ter 09/25/2020 06/11/2021 Overview: 09/20/20-Chronic HTN, obesity. Physician only patient. Consult MFM. Priscilla Peterson APRN.CNM Obesity during 09/14/2020 022 Overview: 04/03/21 - weekly testing per MFM, NSTs or if getting US BPP - Camilla Snell MD 10/25/20-Ultrasound every 4 weeks starting at 28 weeks, weekly BPP starting at 32 weeks, MFM order at US. Priscilla Peterson APRN.CNM 09/20/20-Prepregnancy BMI 45.1. Priscilla Peterson APRN.CNM 09/14/2020atient is obese. We will plan on early GCT. TKRN Nausea and vomiting during 09/14/2020 03/23/2021 Overview: 09/14/2020 Patient is complaining of nausea and occasional vomiting in . Dietary considerations discussed . Vitamin B6 recommended. Advised patient to call/come in if she is unable to keep any food or fluids down in a 24-hour period.TKRN Preexisting hypertension complicating , antepartum 09/14/2020 06/11/2021 Overview: 02/13/21-Recommended BP range per MFM 130-140/70-80. Labetalol increased to 200mg PO TID. Priscilla Peterson APRN.CNM 10/25/20-Ultrasound every 4 weeks starting at 28 weeks, weekly BPP starting at 32 weeks. Priscilla Peterson APRN.CNM 09/20/20-Stopped HCTZ, taking Labetalol 100mg BID, managed by . Baseline preeclampsia labs. Start ASA 81mg PO once daily after 12 weeks. Priscilla Peterson APRN.CNM 09/14/2020 Patient has a history of high blood pressure treated by Dr. Shook. It was diagnosed 4 to 5 years ago. She is currently taking Labetalol. She recently saw Dr. Shook on September 04 to discuss medication during . TKRN Patient request for diagnostic testing 03/23/2021 Overview: 09/14/2020atient desires nuchal ultrasound. Considering genetic carrier screening testing.Chong Randall RN Depression affecting 08/28/2012 0 06/11/2021 Family history of Crohn's disease 07/16/2011 03/23/2021 PMS (premenstrual syndrome) 03/16/200905/2021 Metrorrhagia 03/16/2009 03/23/2021 Dysmenorrhea 03/16/2009 03/23/2021 documented as of this encounter (statuses as of 07/09/2021) [facility] History of Past illness Narrative* Problem Noted Date Resolved Date Insulin controlled gestation al diabetes mellitus (GDM) in third trimester 02/14/2021 06/11/2021 Overview: 02/14/21: failed 3hr Malena Allen MD Excessive growth affec ting management of in third trimester 02/14/2021 06/11/2021 Overview: 02/14/21: growth 96% Malena Allen MD Supervision of high-risk , first trimes ter 09/25/2020 06/11/2021 Overview: 09/20/20-Chronic HTN, obesity. Physician only patient. Consult MFM. Priscilla Peterson APRN.GERIM Obesity during 09/14/2020 022 Overview: 04/03/21 - weekly testing per MFM, NSTs or if getting US BPP - Camilla Snell MD 10/25/20-Ultrasound every 4 weeks starting at 28 weeks, weekly BPP starting at 32 weeks, MFM order at [facility]. Priscilla Peterson APRN.CNM 09/20/20-Prepregnancy BMI 45.1. Priscilla Peterson APRN.CNM 09/14/2020atient is obese. We will plan on early GCT. TKRN Nausea and vomiting during 09/14/2020 03/23/2021 Overview: 09/14/2020 Patient is complaining of nausea and occasional vomiting in . Dietary considerations discussed . Vitamin B6 recommended. Advised patient to call/come in if she is unable to keep any food or fluids down in a 24-hour period.TKRN Preexisting hypertension complicating , antepartum 09/14/2020 06/11/2021 Overview: 02/13/21-Recommended BP range per M 130-140/70-80. Labetalol increased to 200mg PO TID. Priscilla Peterson APRN.CNM 10/25/20-Ultrasound every 4 weeks starting at 28 weeks, weekly BPP starting at 32 weeks. Priscilla Peterson APRN.CNM 09/20/20-Stopped HCTZ, taking Labetalol 100mg BID, managed by . Baseline preeclampsia labs. Start ASA 81mg PO once daily after 12 weeks. Priscilla Peterson APRN.CNM 09/14/2020 Patient has a history of high blood pressure treated by Dr. Shook. It was diagnosed 4 to 5 years ago. She is currently taking Labetalol. She recently saw Dr. Shook on September 04 to discuss medication during . TKRN Patient request for diagnostic testing 03/23/2021 Overview: 09/14/2020atient desires nuchal ultrasound. Considering genetic carrier screening testing.Chong Randall RN Depression affecting 08/28/2012 0 06/11/2021 Family history of Crohn's disease 07/16/2011 03/23/2021 PMS (premenstrual syndrome) 03/16/2009 02/05/2021 Metrorrhagia 03/16/2009 03/23/2021 Dysmenorrhea 03/16/2009 03/23/2021 documented as of this encounter (statuses as of 07/17/2021) [facility] History of Past illness Narrative* Problem Noted Date Resolved Date Insulin controlled gestation al diabetes mellitus (GDM) in third trimester 02/14/2021 06/11/2021 Overview: 02/14/21: failed 3hr Malena Allen MD Excessive growth affec ting management of in third trimester 02/14/2021 06/11/2021 Overview: 02/14/21: growth 96% Malena Allen MD Supervision of high-risk , first trimes ter 09/25/2020 06/11/2021 Overview: 09/20/20-Chronic HTN, obesity. Physician only patient. Consult MFM. Priscilla Peterson APRN.CNM Obesity during 09/14/2020 022 Overview: 04/03/21 - weekly testing per MFM, NSTs or if getting US BPP - Camilla Snell MD 10/25/20-Ultrasound every 4 weeks starting at 28 weeks, weekly BPP starting at 32 weeks, MFM order at [facility]. Priscilla Peterson APRN.CNM 09/20/20-Prepregnancy BMI 45.1. Priscilla Peterson APRN.CNM 1Patient is obese. We will plan on early GCT. TKRN Nausea and vomiting during 09/14/2020 03/23/2021 Overview: 09/14/2020 Patient is complaining of nausea and occasional vomiting in . Dietary considerations discussed . Vitamin B6 recommended. Advised patient to call/come in if she is unable to keep any food or fluids down in a 24-hour period.TKRN Preexisting hypertension complicating , antepartum 09/14/2020 06/11/2021 Overview: 02/13/21-Recommended BP range per [facility] 130-140/70-80. Labetalol increased to 200mg PO TID. Priscilla Peterson APRN.CNM 10/25/20-Ultrasound every 4 weeks starting at 28 weeks, weekly BPP starting at 32 weeks. Priscilla Peterson APRN.CNM 09/20/20-Stopped HCTZ, taking Labetalol 100mg BID, managed by . Baseline preeclampsia labs. Start ASA 81mg PO once daily after 12 weeks. Priscilla Peterson APRN.CNM 09/14/2020 Patient has a history of high blood pressure treated by Dr. Shook. It was diagnosed 4 to 5 years ago. She is currently taking Labetalol. She recently saw Dr. Shook on September 04 to discuss medication during . TKRN Patient request for diagnostic testing 03/23/2021 Overview: 09/14/2020atient desires nuchal ultrasound. Considering genetic carrier screening testing.Chong Randall RN Depression affecting 08/28/2012 0 06/11/2021 Family history of Crohn's disease 07/16/2011 03/23/2021 PMS (premenstrual syndrome) 03/16/200905/2021 Metrorrhagia 03/16/2009 03/23/2021 Dysmenorrhea 03/16/2009 03/23/2021 documented as of this encounter (statuses as of 08/29/2021) [facility]12-29-2021 History of Past illness Narrative* Problem Noted Date Resolved Date Insulin controlled gestation al diabetes mellitus (GDM) in third trimester 02/14/2021 06/11/2021 Overview: 02/14/21: failed 3hr Malena Allen MD Excessive growth affec ting management of in third trimester 02/14/2021 06/11/2021 Overview: 02/14/21: growth 96% Malena Allen MD Supervision of high-risk , first [facility] 09/25/2020 06/11/2021 Overview: 09/20/20-Chronic HTN, obesity. Physician only patient. Consult MFM. Priscilla Peterson APRN.CNM Obesity during 09/14/2020 022 Overview: 04/03/21 - weekly testing per MFM, NSTs or if getting US BPP - Camilla Snell MD 10/25/20-Ultrasound every 4 weeks starting at 28 weeks, weekly BPP starting at 32 weeks, MFM order at [facility]. Priscilla Peterson APRN.CNM 09/20/20-Prepregnancy BMI 45.1. Priscilla Peterson APRN.CNM 09/14/2020atient is obese. We will plan on early GCT. TKRN Nausea and vomiting during 09/14/2020 03/23/2021 Overview: 09/14/2020 Patient is complaining of nausea and occasional vomiting in . Dietary considerations discussed . Vitamin B6 recommended. Advised patient to call/come in if she is unable to keep any food or fluids down in a 24-hour period.TKRN Preexisting hypertension complicating , antepartum 09/14/2020 06/11/2021 Overview: 02/13/21-Recommended BP range per M 130-140/70-80. Labetalol increased to 200mg PO TID. Priscilla Peterson APRN.CNM 10/25/20-Ultrasound every 4 weeks starting at 28 weeks, weekly BPP starting at 32 weeks. Priscilla Peterson APRN.CNM 09/20/20-Stopped HCTZ, taking Labetalol 100mg BID, managed by . Baseline preeclampsia labs. Start ASA 81mg PO once daily after 12 weeks. Priscilla Peterson APRN.CNM 09/14/2020 Patient has a history of high blood pressure treated by Dr. Shook. It was diagnosed 4 to 5 years ago. She is currently taking Labetalol. She recently saw Dr. Shook on September 04 to discuss medication during . TKRN Patient request for diagnostic testing 03/23/2021 Overview: 09/14/2020atient desires nuchal ultrasound. Considering genetic carrier screening testing.Chong Randall RN Depression affecting 08/28/2012 0 06/11/2021 Family history of Crohn's disease 07/16/2011 03/23/2021 PMS (premenstrual syndrome) 03/16/2009 02/0 05/2021 Metrorrhagia 03/16/2009 03/23/2021 Dysmenorrhea 03/16/2009 03/23/2021 documented as of this encounter (statuses as of 09/04/2021) [facility]12-29-2021 History of Past illness Narrative* Problem Noted Date Resolved Date Insulin controlled gestation al diabetes mellitus (GDM) in third trimester 02/14/2021 06/11/2021 Overview: 02/14/21: failed 3hr Malena Allen MD Excessive growth affec ting management of in third trimester 02/14/2021 06/11/2021 Overview: 02/14/21: growth 96% Malena Allen MD Supervision of high-risk , first [facility] 09/25/2020 06/11/2021 Overview: 09/20/20-Chronic HTN, obesity. Physician only patient. Consult MFM. Priscilla Peterson APRN.CNM Obesity during 09/14/2020 022 Overview: 04/03/21 - weekly testing per MFM, NSTs or if getting US BPP - Camilla Snell MD 10/25/20-Ultrasound every 4 weeks starting at 28 weeks, weekly BPP starting at 32 weeks, MFM order at [facility]. Priscilla Peetrson APRN.CNM 09/20/20-Prepregnancy BMI 45.1. Priscilla Peterson APRN.CNM 1Patient is obese. We will plan on early GCT. TKRN Nausea and vomiting during 09/14/2020 03/23/2021 Overview: 09/14/2020 Patient is complaining of nausea and occasional vomiting in . Dietary considerations discussed . Vitamin B6 recommended. Advised patient to call/come in if she is unable to keep any food or fluids down in a 24-hour period.TKRN Preexisting hypertension complicating , antepartum 09/14/2020 06/11/2021 Overview: 02/13/21-Recommended BP range per M 130-140/70-80. Labetalol increased to 200mg PO TID. Priscilla Peterson APRN.CNM 10/25/20-Ultrasound every 4 weeks starting at 28 weeks, weekly BPP starting at 32 weeks. Priscilla Peterson APRN.CNM 09/20/20-Stopped HCTZ, taking Labetalol 100mg BID, managed by . Baseline preeclampsia labs. Start ASA 81mg PO once daily after 12 weeks. Priscilla Peterson APRN.CNM 09/14/2020 Patient has a history of high blood pressure treated by Dr. Shook. It was diagnosed 4 to 5 years ago. She is currently taking Labetalol. She recently saw Dr. Shook on September 04 to discuss medication during . TKRN Patient request for diagnostic testing 03/23/2021 Overview: 09/14/2020atient desires nuchal ultrasound. Considering genetic carrier screening testing.Chong Randall RN Depression affecting 08/28/2012 0 06/11/2021 Family history of Crohn's disease 07/16/2011 03/23/2021 PMS (premenstrual syndrome) 03/16/2009 02/0 05/2021 Metrorrhagia 03/16/2009 03/23/2021 Dysmenorrhea 03/16/2009 03/23/2021 documented as of this encounter (statuses as of 09/04/2021) [facility]12-29-[facility]21 History of Past illness Narrative* Problem Noted Date Resolved Date Insulin controlled gestation al diabetes mellitus (GDM) in third trimester 02/14/2021 06/11/2021 Overview: 02/14/21: failed 3hr Malena Allen MD Excessive growth affec ting management of in third trimester 02/14/2021 06/11/2021 Overview: 02/14/21: growth 96% Malena Allen MD Supervision of high-risk , first trimes ter 09/25/2020 06/11/2021 Overview: 09/20/20-Chronic HTN, obesity. Physician only patient. Consult M. Priscilla Peterson APRN.CNM Obesity during 09/14/2020 022 Overview: 04/03/21 - weekly testing per MFM, NSTs or if getting US BPP - Camilla Snell MD 10/25/20-Ultrasound every 4 weeks starting at 28 weeks, weekly BPP starting at 32 weeks, MFM order at [facility]. Priscilla Peterson APRN.CNM 09/20/20-Prepregnancy BMI 45.1. Priscilla Peterson APRN.CNM 09/14/2020atient is obese. We will plan on early GCT. TKRN Nausea and vomiting during 09/14/2020 03/23/2021 Overview: 09/14/2020 Patient is complaining of nausea and occasional vomiting in . Dietary considerations discussed . Vitamin B6 recommended. Advised patient to call/come in if she is unable to keep any food or fluids down in a 24-hour period.TKRN Preexisting hypertension complicating , antepartum 09/14/2020 06/11/2021 Overview: 02/13/21-Recommended BP range per MFM 130-140/70-80. Labetalol increased to 200mg PO TID. Priscilla Peterson APRN.CNM 10/25/20-Ultrasound every 4 weeks starting at 28 weeks, weekly BPP starting at 32 weeks. Priscilla Peterson APRN.CNM 09/20/20-Stopped HCTZ, taking Labetalol 100mg BID, managed by . Baseline preeclampsia labs. Start ASA 81mg PO once daily after 12 weeks. Priscilla Peterson APRN.CNM 09/14/2020 Patient has a history of high blood pressure treated by Dr. Shook. It was diagnosed 4 to 5 years ago. She is currently taking Labetalol. She recently saw Dr. Shook on September 04 to discuss medication during . TKRN Patient request for diagnostic testing 03/23/2021 Overview: 09/14/2020atient desires nuchal ultrasound. Considering genetic carrier screening testing.Chong Randall RN Depression affecting 08/28/2012 0 06/11/2021 Family history of Crohn's disease 07/16/2011 03/23/2021 PMS (premenstrual syndrome) 03/16/2009 02/0 05/2021 Metrorrhagia 03/16/2009 03/23/2021 Dysmenorrhea 03/16/2009 03/23/2021 documented as of this encounter (statuses as of 09/04/2021) [facility]12-29-[facility] History of Past illness Narrative* Problem Noted Date Resolved Date Insulin controlled gestation al diabetes mellitus (GDM) in third trimester 02/14/2021 06/11/2021 Overview: 02/14/21: failed 3hr Malena Allen MD Excessive growth affec ting management of in third trimester 02/14/2021 06/11/2021 Overview: 02/14/21: growth 96% Malena Allen MD Supervision of high-risk , first [facility] ter 09/25/2020 06/11/2021 Overview: 09/20/20-Chronic HTN, obesity. Physician only patient. Consult M. Priscilla Peterson APRN.CNM Obesity during 09/14/2020 022 Overview: 04/03/21 - weekly testing per MFM, NSTs or if getting US BPP - Camilla Snell MD 10/25/20-Ultrasound every 4 weeks starting at 28 weeks, weekly BPP starting at 32 weeks, MFM order at US. Priscilla Peterson APRN.CNM 09/20/20-Prepregnancy BMI 45.1. Priscilla Peterson APRN.CNM 1Patient is obese. We will plan on early GCT. TKRN Nausea and vomiting during 09/14/2020 03/23/2021 Overview: 09/14/2020 Patient is complaining of nausea and occasional vomiting in . Dietary considerations discussed . Vitamin B6 recommended. Advised patient to call/come in if she is unable to keep any food or fluids down in a 24-hour period.TKRN Preexisting hypertension complicating , antepartum 09/14/2020 06/11/2021 Overview: 02/13/21-Recommended BP range per M 130-140/70-80. Labetalol increased to 200mg PO TID. Priscilla Peterson APRN.CNM 10/25/20-Ultrasound every 4 weeks starting at 28 weeks, weekly BPP starting at 32 weeks. Priscilla Peterson APRN.CNM 09/20/20-Stopped HCTZ, taking Labetalol 100mg BID, managed by . Baseline preeclampsia labs. Start ASA 81mg PO once daily after 12 weeks. Priscilla Peterson APRN.CNM 09/14/2020 Patient has a history of high blood pressure treated by Dr. Shook. It was diagnosed 4 to 5 years ago. She is currently taking Labetalol. She recently saw Dr. Shook on September 04 to discuss medication during . TKRN Patient request for diagnostic testing 03/23/2021 Overview: 09/14/2020atient desires nuchal ultrasound. Considering genetic carrier screening testing.Chong Randall RN Depression affecting 08/28/2012 0 06/11/2021 Family history of Crohn's disease 07/16/2011 03/23/2021 PMS (premenstrual syndrome) 03/16/2009 02/0 05/2021 Metrorrhagia 03/16/2009 03/23/2021 Dysmenorrhea 03/16/2009 03/23/2021 documented as of this encounter (statuses as of 09/06/2021) [facility]12-[facility] History of Past illness Narrative* Problem Noted Date Resolved Date Insulin controlled gestation al diabetes mellitus (GDM) in third trimester 02/14/2021 06/11/2021 Overview: 02/14/21: failed 3hr Malena Allen MD Excessive growth affec ting management of in third trimester 02/14/2021 06/11/2021 Overview: 02/14/21: growth 96% Malena Allen MD Supervision of high-risk , first trimes ter 09/25/2020 06/11/2021 Overview: 09/20/20-Chronic HTN, obesity. Physician only patient. Consult MFM. Priscilla Peterson APRN.CNM Obesity during 09/14/2020 022 Overview: 04/03/21 - weekly testing per MFM, NSTs or if getting US BPP - Camilla Snell MD 10/25/20-Ultrasound every 4 weeks starting at 28 weeks, weekly BPP starting at 32 weeks, MFM order at US. Priscilla Peterson APRN.CNM 09/20/20-Prepregnancy BMI 45.1. Priscilla Peterson APRN.CNM 1Patient is obese. We will plan on early GCT. TKRN Nausea and vomiting during 09/14/2020 03/23/2021 Overview: 09/14/2020 Patient is complaining of nausea and occasional vomiting in . Dietary considerations discussed . Vitamin B6 recommended. Advised patient to call/come in if she is unable to keep any food or fluids down in a 24-hour period.TKRN Preexisting hypertension complicating , antepartum 09/14/2020 06/11/2021 Overview: 02/13/21-Recommended BP range per [facility] 130-140/70-80. Labetalol increased to 200mg PO TID. Priscilla Peterson APRN.CNM 10/25/20-Ultrasound every 4 weeks starting at 28 weeks, weekly BPP starting at 32 weeks. Priscilla Peterson APRN.CNM 09/20/20-Stopped HCTZ, taking Labetalol 100mg BID, managed by . Baseline preeclampsia labs. Start ASA 81mg PO once daily after 12 weeks. Priscilla Peterson APRN.CNM 09/14/2020 Patient has a history of high blood pressure treated by Dr. Shook. It was diagnosed 4 to 5 years ago. She is currently taking Labetalol. She recently saw Dr. Shook on September 04 to discuss medication during . TKRN Patient request for diagnostic testing 03/23/2021 Overview: 1Patient desires nuchal ultrasound. Considering genetic carrier screening testing.Chong Randall RN Depression affecting 08/28/2012 0 06/11/2021 Family history of Crohn's disease 07/16/2011 03/23/2021 PMS (premenstrual syndrome) 03/16/2009 02/0 05/2021 Metrorrhagia 03/16/2009 03/23/2021 Dysmenorrhea 03/16/2009 03/23/2021 documented as of this encounter (statuses as of 09/19/2021) [facility]12[facility] History of Past illness Narrative* Problem Noted Date Resolved Date Insulin controlled gestation al diabetes mellitus (GDM) in third trimester 02/14/2021 06/11/2021 Overview: 02/14/21: failed 3hr Malena Allen MD Excessive growth affec ting management of in third trimester 02/14/2021 06/11/2021 Overview: 02/14/21: growth 96% Malenakely Allen MD Supervision of high-risk , first [address] ter 09/25/2020 06/11/2021 Overview: 09/20/20-Chronic HTN, obesity. Physician only patient. Consult MFM. Priscilla Peterson APRN.CNM Obesity during 09/14/2020 022 Overview: 04/03/21 - weekly testing per MFM, NSTs or if getting US BPP - Camilla Snell MD 10/25/20-Ultrasound every 4 weeks starting at 28 weeks, weekly BPP starting at 32 weeks, MFM order at US. Priscilla Peterson APRN.CNM 09/20/20-Prepregnancy BMI 45.1. Priscilla Peterson APRN.CNM 09/14/2020atient is obese. We will plan on early GCT. TKRN Nausea and vomiting during 09/14/2020 03/23/2021 Overview: 09/14/2020 Patient is complaining of nausea and occasional vomiting in . Dietary considerations discussed . Vitamin B6 recommended. Advised patient to call/come in if she is unable to keep any food or fluids down in a 24-hour period.TKRN Preexisting hypertension complicating , antepartum 09/14/2020 06/11/2021 Overview: 02/13/21-Recommended BP range per M 130-140/70-80. Labetalol increased to 200mg PO TID. Priscilla Peterson APRN.CNM 10/25/20-Ultrasound every 4 weeks starting at 28 weeks, weekly BPP starting at 32 weeks. Priscilla Peterson APRN.CNM 09/20/20-Stopped HCTZ, taking Labetalol 100mg BID, managed by . Baseline preeclampsia labs. Start ASA 81mg PO once daily after 12 weeks. Priscilla Peterson APRN.CNM 09/14/2020 Patient has a history of high blood pressure treated by Dr. Shook. It was diagnosed 4 to 5 years ago. She is currently taking Labetalol. She recently saw Dr. Shook on September 04 to discuss medication during . TKRN Patient request for diagnostic testing 03/23/2021 Overview: 09/14/2020atient desires nuchal ultrasound. Considering genetic carrier screening testing.Chong Randall RN Depression affecting 08/28/2012 0 06/11/2021 Family history of Crohn's disease 07/16/2011 03/23/2021 PMS (premenstrual syndrome) 03/16/2009 02/0 05/2021 Metrorrhagia 03/16/2009 03/23/2021 Dysmenorrhea 03/16/2009 03/23/2021 documented as of this encounter (statuses as of 09/21/2021) [facility] History of Past illness Narrative* Problem Noted Date Resolved Date Insulin controlled gestation al diabetes mellitus (GDM) in third trimester 02/14/2021 06/11/2021 Overview: 02/14/21: failed 3hr Malena Allen MD Excessive growth affec ting management of in third trimester 02/14/2021 06/11/2021 Overview: 02/14/21: growth 96% Malena Allen MD Supervision of high-risk , first aguilar ter 09/25/2020 06/11/2021 Overview: 09/20/20-Chronic HTN, obesity. Physician only patient. Consult MFM. Priscilla Peterson APRN.CNM Obesity during 09/14/2020 022 Overview: 04/03/21 - weekly testing per MFM, NSTs or if getting US BPP - Camilla Snell MD 10/25/20-Ultrasound every 4 weeks starting at 28 weeks, weekly BPP starting at 32 weeks, MFM order at [facility]. Priscilla Peterson APRN.CNM 09/20/20-Prepregnancy BMI 45.1. Priscilla Peterson APRN.CNM 09/14/2020atient is obese. We will plan on early GCT. TKRN Nausea and vomiting during 09/14/2020 03/23/2021 Overview: 09/14/2020 Patient is complaining of nausea and occasional vomiting in . Dietary considerations discussed . Vitamin B6 recommended. Advised patient to call/come in if she is unable to keep any food or fluids down in a 24-hour period.TKRN Preexisting hypertension complicating , antepartum 09/14/2020 06/11/2021 Overview: 02/13/21-Recommended BP range per [facility] 130-140/70-80. Labetalol increased to 200mg PO TID. Priscilla Peterson APRN.FRANK 10/25/20-Ultrasound every 4 weeks starting at 28 weeks, weekly BPP starting at 32 weeks. Priscilla Peterson APRN.FRANK 09/20/20-Stopped HCTZ, taking Labetalol 100mg BID, managed by . Baseline preeclampsia labs. Start ASA 81mg PO once daily after 12 weeks. Priscilla Peterson APRN.CNM 09/14/2020 Patient has a history of high blood pressure treated by Dr. Shook. It was diagnosed 4 to 5 years ago. She is currently taking Labetalol. She recently saw Dr. Shook on September 04 to discuss medication during . TKRN Patient request for diagnostic testing 03/23/2021 Overview: 09/14/2020atient desires nuchal ultrasound. Considering genetic carrier screening testing.Chong Randall RN Depression affecting 08/28/2012 0 06/11/2021 Family history of Crohn's disease 07/16/2011 03/23/2021 PMS (premenstrual syndrome) 03/16/2009 02/0 05/2021 Metrorrhagia 03/16/2009 03/23/2021 Dysmenorrhea 03/16/2009 03/23/2021 documented as of this encounter (statuses as of 09/21/2021) [facility] History of Past illness Narrative* Problem Noted Date Resolved Date Insulin controlled gestation al diabetes mellitus (GDM) in third trimester 02/14/2021 06/11/2021 Overview: 02/14/21: failed 3hr Malena Allen MD Excessive growth affec ting management of in third trimester 02/14/2021 06/11/2021 Overview: 02/14/21: growth 96% Malena Allen MD Supervision of high-risk , first [facility] 09/25/2020 06/11/2021 Overview: 09/20/20-Chronic HTN, obesity. Physician only patient. Consult MFM. Priscilla Peterson APRN.CNM Obesity during 09/14/2020 022 Overview: 04/03/21 - weekly testing per MFM, NSTs or if getting US BPP - Camilla Snell MD 10/25/20-Ultrasound every 4 weeks starting at 28 weeks, weekly BPP starting at 32 weeks, MFM order at [facility]. Priscilla Peterson APRN.CNM 09/20/20-Prepregnancy BMI 45.1. Priscilla Peterson APRN.CNM 09/14/2020atient is obese. We will plan on early GCT. TKRN Nausea and vomiting during 09/14/2020 03/23/2021 Overview: 09/14/2020 Patient is complaining of nausea and occasional vomiting in . Dietary considerations discussed . Vitamin B6 recommended. Advised patient to call/come in if she is unable to keep any food or fluids down in a 24-hour period.TKRN Preexisting hypertension complicating , antepartum 09/14/2020 06/11/2021 Overview: 02/13/21-Recommended BP range per MFM 130-140/70-80. Labetalol increased to 200mg PO TID. Priscilla Peterson APRN.CNM 10/25/20-Ultrasound every 4 weeks starting at 28 weeks, weekly BPP starting at 32 weeks. Priscilla Peterson APRN.CNM 09/20/20-Stopped HCTZ, taking Labetalol 100mg BID, managed by . Baseline preeclampsia labs. Start ASA 81mg PO once daily after 12 weeks. Priscilla Peterson APRN.CNM 09/14/2020 Patient has a history of high blood pressure treated by Dr. Shook. It was diagnosed 4 to 5 years ago. She is currently taking Labetalol. She recently saw Dr. Shook on September 04 to discuss medication during . TKRN Patient request for diagnostic testing 03/23/2021 Overview: 09/14/2020atient desires nuchal ultrasound. Considering genetic carrier screening testing.Chong Randall RN Depression affecting 08/28/2012 0 06/11/2021 Family history of Crohn's disease 07/16/2011 03/23/2021 PMS (premenstrual syndrome) 03/16/2009/0 05/2021 Metrorrhagia 03/16/2009 03/23/2021 Dysmenorrhea 03/16/2009 03/23/2021 documented as of this encounter (statuses as of 09/24/2021) [facility] History of Past illness Narrative* Problem Noted Date Resolved Date Insulin controlled gestation al diabetes mellitus (GDM) in third trimester 02/14/2021 06/11/2021 Overview: 02/14/21: failed 3hr Malena Allen MD Excessive growth affec ting management of in third trimester 02/14/2021 06/11/2021 Overview: 02/14/21: growth 96% Malena Allen MD Supervision of high-risk , first [address] ter 09/25/2020 06/11/2021 Overview: 09/20/20-Chronic HTN, obesity. Physician only patient. Consult MFM. Priscilla Peterson APRN.CNM Obesity during 09/14/2020 022 Overview: 04/03/21 - weekly testing per MFM, NSTs or if getting US BPP - Camilla Snell MD 10/25/20-Ultrasound every 4 weeks starting at 28 weeks, weekly BPP starting at 32 weeks, MFM order at [facility]. Priscilla Peterson APRN.CNM 09/20/20-Prepregnancy BMI 45.1. Priscilla Peterson APRN.CNM 1Patient is obese. We will plan on early GCT. TKRN Nausea and vomiting during 09/14/2020 03/23/2021 Overview: 09/14/2020 Patient is complaining of nausea and occasional vomiting in . Dietary considerations discussed . Vitamin B6 recommended. Advised patient to call/come in if she is unable to keep any food or fluids down in a 24-hour period.TKRN Preexisting hypertension complicating , antepartum 09/14/2020 06/11/2021 Overview: 02/13/21-Recommended BP range per M 130-140/70-80. Labetalol increased to 200mg PO TID. Priscilla Peterson APRN.CNM 10/25/20-Ultrasound every 4 weeks starting at 28 weeks, weekly BPP starting at 32 weeks. Priscilla Peterson APRN.CNM 09/20/20-Stopped HCTZ, taking Labetalol 100mg BID, managed by . Baseline preeclampsia labs. Start ASA 81mg PO once daily after 12 weeks. Priscilla Peterson APRN.CNM 09/14/2020 Patient has a history of high blood pressure treated by Dr. Shook. It was diagnosed 4 to 5 years ago. She is currently taking Labetalol. She recently saw Dr. Shook on September 04 to discuss medication during . TKRN Patient request for diagnostic testing 03/23/2021 Overview: 1Patient desires nuchal ultrasound. Considering genetic carrier screening testing.Chong Randall RN Depression affecting 08/28/2012 0 06/11/2021 Family history of Crohn's disease 07/16/2011 03/23/2021 PMS (premenstrual syndrome) 03/16/2009 02/05/2021 Metrorrhagia 03/16/2009 03/23/2021 Dysmenorrhea 03/16/2009 03/23/2021 documented as of this encounter (statuses as of 10/09/2021) [facility] History of Past illness Narrative* Problem Noted Date Resolved Date Insulin controlled gestation al diabetes mellitus (GDM) in third trimester 02/14/2021 06/11/2021 Overview: 02/14/21: failed 3hr Malena Allen MD Excessive growth affec ting management of in third trimester 02/14/2021 06/11/2021 Overview: 02/14/21: growth 96% Malena Allen MD Supervision of high-risk , first trimes ter 09/25/2020 06/11/2021 Overview: 09/20/20-Chronic HTN, obesity. Physician only patient. Consult MFM. Priscilla Peterson APRN.CNM Obesity during 09/14/2020 022 Overview: 04/03/21 - weekly testing per MFM, NSTs or if getting US BPP - Camilla Snell MD 10/25/20-Ultrasound every 4 weeks starting at 28 weeks, weekly BPP starting at 32 weeks, MFM order at [facility]. Priscilla Peterson APRN.CNM 09/20/20-Prepregnancy BMI 45.1. Priscilla Peterson APRN.CNM 09/14/2020atient is obese. We will plan on early GCT. TKRN Nausea and vomiting during 09/14/2020 03/23/2021 Overview: 09/14/2020 Patient is complaining of nausea and occasional vomiting in . Dietary considerations discussed . Vitamin B6 recommended. Advised patient to call/come in if she is unable to keep any food or fluids down in a 24-hour period.TKRN Preexisting hypertension complicating , antepartum 09/14/2020 06/11/2021 Overview: 02/13/21-Recommended BP range per [facility] 130-140/70-80. Labetalol increased to 200mg PO TID. Priscilla Peterson APRN.CNM 10/25/20-Ultrasound every 4 weeks starting at 28 weeks, weekly BPP starting at 32 weeks. Priscilla Peterson APRN.CNM 09/20/20-Stopped HCTZ, taking Labetalol 100mg BID, managed by . Baseline preeclampsia labs. Start ASA 81mg PO once daily after 12 weeks. Priscilla Peterson APRN.CNM 09/14/2020 Patient has a history of high blood pressure treated by Dr. Shook. It was diagnosed 4 to 5 years ago. She is currently taking Labetalol. She recently saw Dr. Shook on September 04 to discuss medication during . TKRN Patient request for diagnostic testing 03/23/2021 Overview: 09/14/2020atient desires nuchal ultrasound. Considering genetic carrier screening testing.Chong Randall RN Depression affecting 08/28/2012 0 06/11/2021 Family history of Crohn's disease 07/16/2011 03/23/2021 PMS (premenstrual syndrome) 03/16/2009 02/0 05/2021 Metrorrhagia 03/16/2009 03/23/2021 Dysmenorrhea 03/16/2009 03/23/2021 documented as of this encounter (statuses as of 11/27/2021) [facility]12-29-2021 History of Past illness Narrative* Problem Noted Date Resolved Date Insulin controlled gestation al diabetes mellitus (GDM) in third trimester 02/14/2021 06/11/2021 Overview: 02/14/21: failed 3hr Malena Allen MD Excessive growth affec ting management of in third trimester 02/14/2021 06/11/2021 Overview: 02/14/21: growth 96% Malena Allen MD Supervision of high-risk , first aguilar ter 09/25/2020 06/11/2021 Overview: 09/20/20-Chronic HTN, obesity. Physician only patient. Consult M. Priscilla Peterson APRN.CNM Obesity during 09/14/2020 022 Overview: 04/03/21 - weekly testing per MFM, NSTs or if getting US BPP - Camilla Snell MD 10/25/20-Ultrasound every 4 weeks starting at 28 weeks, weekly BPP starting at 32 weeks, MFM order at US. Priscilla Peterson APRN.CNM 09/20/20-Prepregnancy BMI 45.1. Priscilla Peterson APRN.CNM 09/14/2020atient is obese. We will plan on early GCT. TKRN Nausea and vomiting during 09/14/2020 03/23/2021 Overview: 09/14/2020 Patient is complaining of nausea and occasional vomiting in . Dietary considerations discussed . Vitamin B6 recommended. Advised patient to call/come in if she is unable to keep any food or fluids down in a 24-hour period.TKRN Preexisting hypertension complicating , antepartum 09/14/2020 06/11/2021 Overview: 02/13/21-Recommended BP range per MFM 130-140/70-80. Labetalol increased to 200mg PO TID. Priscilla Peterson APRN.CNM 10/25/20-Ultrasound every 4 weeks starting at 28 weeks, weekly BPP starting at 32 weeks. Priscilla Peterson APRN.CNM 09/20/20-Stopped HCTZ, taking Labetalol 100mg BID, managed by . Baseline preeclampsia labs. Start ASA 81mg PO once daily after 12 weeks. Priscilla Peterson APRN.CNM 09/14/2020 Patient has a history of high blood pressure treated by Dr. Shook. It was diagnosed 4 to 5 years ago. She is currently taking Labetalol. She recently saw Dr. Shook on September 04 to discuss medication during . TKRN Patient request for diagnostic testing 03/23/2021 Overview: 09/14/2020atient desires nuchal ultrasound. Considering genetic carrier screening testing.Chong Randall RN Depression affecting 08/28/2012 0 06/11/2021 Family history of Crohn's disease 07/16/2011 03/23/2021 PMS (premenstrual syndrome) 03/16/2009 02/0 05/2021 Metrorrhagia 03/16/2009 03/23/2021 Dysmenorrhea 03/16/2009 03/23/2021 documented as of this encounter (statuses as of 11/27/2021) [facility]12-29-2021 History of Past illness Narrative* Problem Noted Date Resolved Date Insulin controlled gestation al diabetes mellitus (GDM) in third trimester 02/14/2021 06/11/2021 Overview: 02/14/21: failed 3hr Malena Allen MD Excessive growth affec ting management of in third trimester 02/14/2021 06/11/2021 Overview: 02/14/21: growth 96% Malena Allen MD Supervision of high-risk , first trimes ter 09/25/2020 06/11/2021 Overview: 09/20/20-Chronic HTN, obesity. Physician only patient. Consult MFM. Priscilla Peterson APRN.CNM Obesity during 09/14/2020 022 Overview: 04/03/21 - weekly testing per MFM, NSTs or if getting US BPP - Camilla Snell MD 10/25/20-Ultrasound every 4 weeks starting at 28 weeks, weekly BPP starting at 32 weeks, MFM order at [facility]. Priscilla Peterson APRN.CNM 09/20/20-Prepregnancy BMI 45.1. Priscilla Peterson APRN.CNM 1Patient is obese. We will plan on early GCT. TKRN Nausea and vomiting during 09/14/2020 03/23/2021 Overview: 09/14/2020 Patient is complaining of nausea and occasional vomiting in . Dietary considerations discussed . Vitamin B6 recommended. Advised patient to call/come in if she is unable to keep any food or fluids down in a 24-hour period.TKRN Preexisting hypertension complicating , antepartum 09/14/2020 06/11/2021 Overview: 02/13/21-Recommended BP range per [facility] 130-140/70-80. Labetalol increased to 200mg PO TID. Priscilla Peterson APRN.CNM 10/25/20-Ultrasound every 4 weeks starting at 28 weeks, weekly BPP starting at 32 weeks. Priscilla Peterson APRN.CNM 09/20/20-Stopped HCTZ, taking Labetalol 100mg BID, managed by . Baseline preeclampsia labs. Start ASA 81mg PO once daily after 12 weeks. Priscilla Peterson APRN.CNM 09/14/2020 Patient has a history of high blood pressure treated by Dr. Shook. It was diagnosed 4 to 5 years ago. She is currently taking Labetalol. She recently saw Dr. Shook on September 04 to discuss medication during . TKRN Patient request for diagnostic testing 03/23/2021 Overview: 1Patient desires nuchal ultrasound. Considering genetic carrier screening testing.Chong Randall RN Depression affecting 08/28/2012 0 06/11/2021 Family history of Crohn's disease 07/16/2011 03/23/2021 PMS (premenstrual syndrome) 03/16/2009 02/0 05/2021 Metrorrhagia 03/16/2009 03/23/2021 Dysmenorrhea 03/16/2009 03/23/2021 documented as of this encounter (statuses as of 11/28/2021) [place] [id number] History of Past illness Narrative* Problem Noted Date Resolved Date Insulin controlled gestation al diabetes mellitus (GDM) in third trimester 02/14/2021 06/11/2021 Overview: 02/14/21: failed 3hr Malena Allen MD Excessive growth affec ting management of in third trimester 02/14/2021 06/11/2021 Overview: 02/14/21: growth 96% Malena Allen MD Supervision of high-risk , first [facility] ter 09/25/2020 06/11/2021 Overview: 09/20/20-Chronic HTN, obesity. Physician only patient. Consult MFM. Priscilla Peterson APRN.CNM Obesity during 09/14/2020 Overview: 04/03/21 - weekly testing per MFM, NSTs or if getting US BPP - Camilla Snell MD 10/25/20-Ultrasound every 4 weeks starting at 28 weeks, weekly BPP starting at 32 weeks, MFM order at [facility]. Priscilla Peterson APRN.CNM 09/20/20-Prepregnancy BMI 45.1. Priscilla Peterson APRN.CNM 09/14/2020atient is obese. We will plan on early GCT. TKRN Nausea and vomiting during 09/14/2020 03/23/2021 Overview: 09/14/2020 Patient is complaining of nausea and occasional vomiting in . Dietary considerations discussed . Vitamin B6 recommended. Advised patient to call/come in if she is unable to keep any food or fluids down in a 24-hour period.TKRN Preexisting hypertension complicating , antepartum 09/14/2020 06/11/2021 Overview: 02/13/21-Recommended BP range per MFM 130-140/70-80. Labetalol increased to 200mg PO TID. Priscilla Peterson APRN.CNM 10/25/20-Ultrasound every 4 weeks starting at 28 weeks, weekly BPP starting at 32 weeks. Priscilla Peterson APRN.CNM 09/20/20-Stopped HCTZ, taking Labetalol 100mg BID, managed by . Baseline preeclampsia labs. Start ASA 81mg PO once daily after 12 weeks. Priscilla Peterson APRN.CNM 09/14/2020 Patient has a history of high blood pressure treated by Dr. Shook. It was diagnosed 4 to 5 years ago. She is currently taking Labetalol. She recently saw Dr. Shook on September 04 to discuss medication during . TKRN Patient request for diagnostic testing 03/23/2021 Overview: 09/14/2020atient desires nuchal ultrasound. Considering genetic carrier screening testing.Chong Randall RN Depression affecting 08/28/2012 0 06/11/2021 Family history of Crohn's disease 07/16/2011 03/23/2021 PMS (premenstrual syndrome) 03/16/2009 02/0 05/2021 Metrorrhagia 03/16/2009 03/23/2021 Dysmenorrhea 03/16/2009 03/23/2021 documented as of this encounter (statuses as of 01/07/2022) [facility]12-29-2021 History of Past illness Narrative* Problem Noted Date Resolved Date Insulin controlled gestation al diabetes mellitus (GDM) in third trimester 02/14/2021 06/11/2021 Overview: 02/14/21: failed 3hr Malena Allen MD Excessive growth affec ting management of in third trimester 02/14/2021 06/11/2021 Overview: 02/14/21: growth 96% Malena Allen MD Supervision of high-risk , first aguilar ter 09/25/2020 06/11/2021 Overview: 09/20/20-Chronic HTN, obesity. Physician only patient. Consult MFM. Priscilla Peterson APRN.CNM Obesity during 09/14/2020 022 Overview: 04/03/21 - weekly testing per MFM, NSTs or if getting US BPP - Camilla Snell MD 10/25/20-Ultrasound every 4 weeks starting at 28 weeks, weekly BPP starting at 32 weeks, MFM order at [facility]. Priscilla Peterson APRN.CNM 09/20/20-Prepregnancy BMI 45.1. Priscilla Peterson APRN.CNM 1Patient is obese. We will plan on early GCT. TKRN Nausea and vomiting during 09/14/2020 03/23/2021 Overview: 09/14/2020 Patient is complaining of nausea and occasional vomiting in . Dietary considerations discussed . Vitamin B6 recommended. Advised patient to call/come in if she is unable to keep any food or fluids down in a 24-hour period.TKRN Preexisting hypertension complicating , antepartum 09/14/2020 06/11/2021 Overview: 02/13/21-Recommended BP range per [facility] 130-140/70-80. Labetalol increased to 200mg PO TID. Priscilla Peterson APRN.CNM 10/25/20-Ultrasound every 4 weeks starting at 28 weeks, weekly BPP starting at 32 weeks. Priscilla Peterson APRN.CNM 09/20/20-Stopped HCTZ, taking Labetalol 100mg BID, managed by . Baseline preeclampsia labs. Start ASA 81mg PO once daily after 12 weeks. Priscilla Peterson APRN.CNM 09/14/2020 Patient has a history of high blood pressure treated by Dr. Shook. It was diagnosed 4 to 5 years ago. She is currently taking Labetalol. She recently saw Dr. Shook on September 04 to discuss medication during . TKRN Patient request for diagnostic testing 03/23/2021 Overview: 09/14/2020atient desires nuchal ultrasound. Considering genetic carrier screening testing.Chong Randall RN Depression affecting 08/28/2012 0 06/11/2021 Family history of Crohn's disease 07/16/2011 03/23/2021 PMS (premenstrual syndrome) 03/16/2009 02/0 05/2021 Metrorrhagia 03/16/2009 03/23/2021 Dysmenorrhea 03/16/2009 03/23/2021 documented as of this encounter (statuses as of 05/08/2022) [facility]12-29-2021 History of Past illness Narrative* Problem Noted Date Resolved Date Insulin controlled gestation al diabetes mellitus (GDM) in third trimester 02/14/2021 06/11/2021 Overview: 02/14/21: failed 3hr Malena Allen MD Excessive growth affec ting management of in third trimester 02/14/2021 06/11/2021 Overview: 02/14/21: growth 96% Malena Allen MD Supervision of high-risk , first [address] ter 09/25/2020 06/11/2021 Overview: 09/20/20-Chronic HTN, obesity. Physician only patient. Consult MFM. Priscilla Peterson APRN.CNM Obesity during 09/14/2020 022 Overview: 04/03/21 - weekly testing per MFM, NSTs or if getting US BPP - Camilla Snell MD 10/25/20-Ultrasound every 4 weeks starting at 28 weeks, weekly BPP starting at 32 weeks, MFM order at [facility]. Priscilla Peterson APRN.CNM 09/20/20-Prepregnancy BMI 45.1. Priscilla Peterson APRN.CNM 09/14/2020atient is obese. We will plan on early GCT. TKRN Nausea and vomiting during 09/14/2020 03/23/2021 Overview: 09/14/2020 Patient is complaining of nausea and occasional vomiting in . Dietary considerations discussed . Vitamin B6 recommended. Advised patient to call/come in if she is unable to keep any food or fluids down in a 24-hour period.TKRN Preexisting hypertension complicating , antepartum 09/14/2020 06/11/2021 Overview: 02/13/21-Recommended BP range per [facility] 130-140/70-80. Labetalol increased to 200mg PO TID. Priscilla Peterson APRN.CNM 10/25/20-Ultrasound every 4 weeks starting at 28 weeks, weekly BPP starting at 32 weeks. Priscilla Peterson APRN.CNM 09/20/20-Stopped HCTZ, taking Labetalol 100mg BID, managed by . Baseline preeclampsia labs. Start ASA 81mg PO once daily after 12 weeks. Priscilla Peterson APRN.CNM 09/14/2020 Patient has a history of high blood pressure treated by Dr. Shook. It was diagnosed 4 to 5 years ago. She is currently taking Labetalol. She recently saw Dr. Shook on September 04 to discuss medication during . TKRN Patient request for diagnostic testing 03/23/2021 Overview: 09/14/2020atient desires nuchal ultrasound. Considering genetic carrier screening testing.Chong Randall RN Depression affecting 08/28/2012 0 06/11/2021 Family history of Crohn's disease 07/16/2011 03/23/2021 PMS (premenstrual syndrome) 03/16/2009 02/0 05/2021 Metrorrhagia 03/16/2009 03/23/2021 Dysmenorrhea 03/16/2009 03/23/2021 documented as of this encounter (statuses as of 05/10/2022) [facility]12[facility] History of Past illness Narrative* Problem Noted Date Resolved Date Insulin controlled gestation al diabetes mellitus (GDM) in third trimester 02/14/2021 06/11/2021 Overview: 02/14/21: failed 3hr Malena Allen MD Excessive growth affec ting management of in third trimester 02/14/2021 06/11/2021 Overview: 02/14/21: growth 96% Malena Allen MD Supervision of high-risk , first aguilar ter 09/25/2020 06/11/2021 Overview: 09/20/20-Chronic HTN, obesity. Physician only patient. Consult MFM. Priscilla Peterson APRN.CNM Obesity during 09/14/2020 022 Overview: 04/03/21 - weekly testing per MFM, NSTs or if getting US BPP - Camilla Snell MD 10/25/20-Ultrasound every 4 weeks starting at 28 weeks, weekly BPP starting at 32 weeks, MFM order at [facility]. Priscilla Peterson APRN.CNM 09/20/20-Prepregnancy BMI 45.1. Priscilla Peterson APRN.CNM 09/14/2020atient is obese. We will plan on early GCT. TKRN Nausea and vomiting during 09/14/2020 03/23/2021 Overview: 09/14/2020 Patient is complaining of nausea and occasional vomiting in . Dietary considerations discussed . Vitamin B6 recommended. Advised patient to call/come in if she is unable to keep any food or fluids down in a 24-hour period.TKRN Preexisting hypertension complicating , antepartum 09/14/2020 06/11/2021 Overview: 02/13/21-Recommended BP range per MFM 130-140/70-80. Labetalol increased to 200mg PO TID. Priscilla Peterson APRN.CNM 10/25/20-Ultrasound every 4 weeks starting at 28 weeks, weekly BPP starting at 32 weeks. Priscilla Peterson APRN.CNM 09/20/20-Stopped HCTZ, taking Labetalol 100mg BID, managed by . Baseline preeclampsia labs. Start ASA 81mg PO once daily after 12 weeks. Priscilla Peterson APRN.CNM 09/14/2020 Patient has a history of high blood pressure treated by Dr. Shook. It was diagnosed 4 to 5 years ago. She is currently taking Labetalol. She recently saw Dr. Shook on September 04 to discuss medication during . TKRN Patient request for diagnostic testing 03/23/2021 Overview: 09/14/2020atient desires nuchal ultrasound. Considering genetic carrier screening testing.Chong Randall RN Depression affecting 08/28/2012 0 06/11/2021 Family history of Crohn's disease 07/16/2011 03/23/2021 PMS (premenstrual syndrome) 03/16/200905/2021 Metrorrhagia 03/16/2009 03/23/2021 Dysmenorrhea 03/16/2009 03/23/2021 documented as of this encounter (statuses as of 05/21/2022) [facility]12[facility] History of Past illness Narrative* Problem Noted Date Resolved Date Insulin controlled gestation al diabetes mellitus (GDM) in third trimester 02/14/2021 06/11/2021 Overview: 02/14/21: failed 3hr Malena Allen MD Excessive growth affec ting management of in third trimester 02/14/2021 06/11/2021 Overview: 02/14/21: growth 96% Malena Allen MD Supervision of high-risk , first trimes ter 09/25/2020 06/11/2021 Overview: 09/20/20-Chronic HTN, obesity. Physician only patient. Consult MFM. Priscilla Peterson APRN.CNM Obesity during 09/14/2020 022 Overview: 04/03/21 - weekly testing per MFM, NSTs or if getting US BPP - Camilla Snell MD 10/25/20-Ultrasound every 4 weeks starting at 28 weeks, weekly BPP starting at 32 weeks, MFM order at [facility]. Priscilla Peterson APRN.CNM 09/20/20-Prepregnancy BMI 45.1. Priscilla Peterson APRN.CNM 1Patient is obese. We will plan on early GCT. TKRN Nausea and vomiting during 09/14/2020 03/23/2021 Overview: 09/14/2020 Patient is complaining of nausea and occasional vomiting in . Dietary considerations discussed . Vitamin B6 recommended. Advised patient to call/come in if she is unable to keep any food or fluids down in a 24-hour period.TKRN Preexisting hypertension complicating , antepartum 09/14/2020 06/11/2021 Overview: 02/13/21-Recommended BP range per MFM 130-140/70-80. Labetalol increased to 200mg PO TID. Priscilla Peterson APRN.CNM 10/25/20-Ultrasound every 4 weeks starting at 28 weeks, weekly BPP starting at 32 weeks. Priscilla Peterson APRN.CNM 09/20/20-Stopped HCTZ, taking Labetalol 100mg BID, managed by . Baseline preeclampsia labs. Start ASA 81mg PO once daily after 12 weeks. Priscilla Peterson APRN.CNM 09/14/2020 Patient has a history of high blood pressure treated by Dr. Shook. It was diagnosed 4 to 5 years ago. She is currently taking Labetalol. She recently saw Dr. Shook on September 04 to discuss medication during . TKRN Patient request for diagnostic testing 03/23/2021 Overview: 09/14/2020atient desires nuchal ultrasound. Considering genetic carrier screening testing.Chong Randall RN Depression affecting 08/28/2012 0 06/11/2021 Family history of Crohn's disease 07/16/2011 03/23/2021 PMS (premenstrual syndrome) 03/16/2009 02/0 05/2021 Metrorrhagia 03/16/2009 03/23/2021 Dysmenorrhea 03/16/2009 03/23/2021 documented as of this encounter (statuses as of 05/21/2022) [facility] History of Past illness Narrative* Problem Noted Date Resolved Date Insulin controlled gestation al diabetes mellitus (GDM) in third trimester 02/14/2021 06/11/2021 Overview: 02/14/21: failed 3hr Malena Allen MD Excessive growth affec ting management of in third trimester 02/14/2021 06/11/2021 Overview: 02/14/21: growth 96% Malena Allen MD Supervision of high-risk , first trim ter 09/25/2020 06/11/2021 Overview: 09/20/20-Chronic HTN, obesity. Physician only patient. Consult MFM. Priscilla Peterson APRN.CNM Obesity during 09/14/2020 022 Overview: 04/03/21 - weekly testing per MFM, NSTs or if getting US BPP - Camilla Snell MD 10/25/20-Ultrasound every 4 weeks starting at 28 weeks, weekly BPP starting at 32 weeks, MFM order at [facility]. Priscilla Peterson APRN.CNM 09/20/20-Prepregnancy BMI 45.1. Priscilla Peterson APRN.CNM 09/14/2020atient is obese. We will plan on early GCT. TKRN Nausea and vomiting during 09/14/2020 03/23/2021 Overview: 09/14/2020 Patient is complaining of nausea and occasional vomiting in . Dietary considerations discussed . Vitamin B6 recommended. Advised patient to call/come in if she is unable to keep any food or fluids down in a 24-hour period.TKRN Preexisting hypertension complicating , antepartum 09/14/2020 06/11/2021 Overview: 02/13/21-Recommended BP range per MFM 130-140/70-80. Labetalol increased to 200mg PO TID. Priscilla Peterson APRN.FRANK 10/25/20-Ultrasound every 4 weeks starting at 28 weeks, weekly BPP starting at 32 weeks. Priscilla Peterson APRN.CNM 09/20/20-Stopped HCTZ, taking Labetalol 100mg BID, managed by . Baseline preeclampsia labs. Start ASA 81mg PO once daily after 12 weeks. Priscilla Peterson APRN.CNM 09/14/2020 Patient has a history of high blood pressure treated by Dr. Shook. It was diagnosed 4 to 5 years ago. She is currently taking Labetalol. She recently saw Dr. Shook on September 04 to discuss medication during . TKRN Patient request for diagnostic testing 03/23/2021 Overview: 09/14/2020atient desires nuchal ultrasound. Considering genetic carrier screening testing.Chong Randall RN Depression affecting 08/28/2012 0 06/11/2021 Family history of Crohn's disease 07/16/2011 03/23/2021 PMS (premenstrual syndrome) 03/16/2009 02/0 05/2021 Metrorrhagia 03/16/2009 03/23/2021 Dysmenorrhea 03/16/2009 03/23/2021 documented as of this encounter (statuses as of 05/22/2022) [facility] History of Past illness Narrative* Problem Noted Date Resolved Date Insulin controlled gestation al diabetes mellitus (GDM) in third trimester 02/14/2021 06/11/2021 Overview: 02/14/21: failed 3hr Malena Allen MD Excessive growth affec ting management of in third trimester 02/14/2021 06/11/2021 Overview: 02/14/21: growth 96% Malena Allen MD Supervision of high-risk , first [facility] 09/25/2020 06/11/2021 Overview: 09/20/20-Chronic HTN, obesity. Physician only patient. Consult M. Priscilla Peterson APRN.CNM Obesity during 09/14/2020 022 Overview: 04/03/21 - weekly testing per MFM, NSTs or if getting US BPP - Camilla Snell MD 10/25/20-Ultrasound every 4 weeks starting at 28 weeks, weekly BPP starting at 32 weeks, MFM order at [facility]. Priscilla Peterson APRN.CNM 09/20/20-Prepregnancy BMI 45.1. Priscilla Peterson APRN.CNM 09/14/2020atient is obese. We will plan on early GCT. TKRN Nausea and vomiting during 09/14/2020 03/23/2021 Overview: 09/14/2020 Patient is complaining of nausea and occasional vomiting in . Dietary considerations discussed . Vitamin B6 recommended. Advised patient to call/come in if she is unable to keep any food or fluids down in a 24-hour period.TKRN Preexisting hypertension complicating , antepartum 09/14/2020 06/11/2021 Overview: 02/13/21-Recommended BP range per [facility] 130-140/70-80. Labetalol increased to 200mg PO TID. Priscilla Peterson APRN.CNM 10/25/20-Ultrasound every 4 weeks starting at 28 weeks, weekly BPP starting at 32 weeks. Priscilla Peterson APRN.CNM 09/20/20-Stopped HCTZ, taking Labetalol 100mg BID, managed by . Baseline preeclampsia labs. Start ASA 81mg PO once daily after 12 weeks. Priscilla Peterson APRN.CNM 09/14/2020 Patient has a history of high blood pressure treated by Dr. Shook. It was diagnosed 4 to 5 years ago. She is currently taking Labetalol. She recently saw Dr. Shook on September 04 to discuss medication during . TKRN Patient request for diagnostic testing 03/23/2021 Overview: 09/14/2020atient desires nuchal ultrasound. Considering genetic carrier screening testing.Chong Randall RN Depression affecting 08/28/2012 0 06/11/2021 Family history of Crohn's disease 07/16/2011 03/23/2021 PMS (premenstrual syndrome) 03/16/2009 02/0 05/2021 Metrorrhagia 03/16/2009 03/23/2021 Dysmenorrhea 03/16/2009 03/23/2021 documented as of this encounter (statuses as of 07/15/2022) [facility] History of Past illness Narrative* Problem Noted Date Resolved Date Insulin controlled gestation al diabetes mellitus (GDM) in third trimester 02/14/2021 06/11/2021 Overview: 02/14/21: failed 3hr Malena Allen MD Excessive growth affec ting management of in third trimester 02/14/2021 06/11/2021 Overview: 02/14/21: growth 96% Malena Allen MD Supervision of high-risk , first [facility]ilar [facility] 09/25/2020 06/11/2021 Overview: 09/20/20-Chronic HTN, obesity. Physician only patient. Consult MFM. Priscilla Peterson APRN.CNM Obesity during 09/14/2020 022 Overview: 04/03/21 - weekly testing per MFM, NSTs or if getting US BPP - Camilla Snell MD 10/25/20-Ultrasound every 4 weeks starting at 28 weeks, weekly BPP starting at 32 weeks, MFM order at [facility]. Priscilla Peterson APRN.CNM 09/20/20-Prepregnancy BMI 45.1. Priscilla Peterson APRN.CNM 1Patient is obese. We will plan on early GCT. TKRN Nausea and vomiting during 09/14/2020 03/23/2021 Overview: 09/14/2020 Patient is complaining of nausea and occasional vomiting in . Dietary considerations discussed . Vitamin B6 recommended. Advised patient to call/come in if she is unable to keep any food or fluids down in a 24-hour period.TKRN Preexisting hypertension complicating , antepartum 09/14/2020 06/11/2021 Overview: 02/13/21-Recommended BP range per MFM 130-140/70-80. Labetalol increased to 200mg PO TID. Priscilla Peterson APRN.CNM 10/25/20-Ultrasound every 4 weeks starting at 28 weeks, weekly BPP starting at 32 weeks. Priscilla Peterson APRN.CNM 09/20/20-Stopped HCTZ, taking Labetalol 100mg BID, managed by . Baseline preeclampsia labs. Start ASA 81mg PO once daily after 12 weeks. Priscilla Peterson APRN.CNM 09/14/2020 Patient has a history of high blood pressure treated by Dr. Shook. It was diagnosed 4 to 5 years ago. She is currently taking Labetalol. She recently saw Dr. Shook on September 04 to discuss medication during . TKRN Patient request for diagnostic testing 03/23/2021 Overview: 09/14/2020atient desires nuchal ultrasound. Considering genetic carrier screening testing.Chong Randall RN Depression affecting 08/28/2012 0 06/11/2021 Family history of Crohn's disease 07/16/2011 03/23/2021 PMS (premenstrual syndrome) 03/16/2009 02/0 05/2021 Metrorrhagia 03/16/2009 03/23/2021 Dysmenorrhea 03/16/2009 03/23/2021 documented as of this encounter (statuses as of 08/21/2022) [facility]12-29-2021 History of Past illness Narrative* Problem Noted Date Diagnosed Date Resolved Date Insulin controlled gestation al diabetes mellitus (GDM) in third trimester 02/14/20212021 Overview: 02/14/21: failed 3hr Malena Allen MD Excessive growth affec ting management of in third trimester 02/14/2021 06/12/19 Overview: 02/14/21: growth 96% Malena Allen MD Supervision of high-risk pre gnancy, first trimester 09/25/2020 06/11/2021 Overview: 09/20/20-Chronic HTN, obesity. Physician only patient. Consult M. Priscilla Peterson APRN.CNM Obesity during 09/14/2020 Overview: 04/03/21 - weekly testing per MFM, NSTs or if getting US BPP - Camilla Snell MD 10/25/20-Ultrasound every 4 weeks starting at 28 weeks, weekly BPP starting at 32 weeks, MFM order at US. Priscilla Peterson APRN.CNM 09/20/20-Prepregnancy BMI 45.1. Priscilla Peterson APRN.CNM 09/14/2020atient is obese. We will plan on early GCT. TKRN Nausea and vomiting during 09/14/2020 03/23/2021 Overview: 09/14/2020 Patient is complaining of nausea and occasional vomiting in . Dietary considerations discussed . Vitamin B6 recommended. Advised patient to call/come in if she is unable to keep any food or fluids down in a 24-hour period.TKRN Preexisting hypertension com plicating , antepartum 09/14/2020 06/11/2021 Overview: 02/13/21-Recommended BP range per MFM 130-140/70-80. Labetalol increased to 200mg PO TID. Priscilla Peterson APRN.CNM 10/25/20-Ultrasound every 4 weeks starting at 28 weeks, weekly BPP starting at 32 weeks. Priscilla Peterson APRN.CNM 09/20/20-Stopped HCTZ, taking Labetalol 100mg BID, managed by . Baseline preeclampsia labs. Start ASA 81mg PO once daily after 12 weeks. Priscilla Peterson APRN.CNM 09/14/2020 Patient has a history of high blood pressure treated by Dr. Shook. It was diagnosed 4 to 5 years ago. She is currently taking Labetalol. She recently saw Dr. Shook on September 04 to discuss medication during . TKRN Patient request for diagnostic testing 09/14/2020 03/23/2021 Overview: 09/14/2020atient desires nuchal ultrasound. Considering genetic carrier screening testing.Chong Randall RN Depression affecting 08/28/2012 06/11/2021 Family history of Crohn's disease 07/16/2011 03/23/2021 PMS (premenstrual syndrome) 03/16/2009 03/23/2021 Metrorrhagia 03/16/2009 03/23/2021 Dysmenorrhea 03/16/2009 03/23/2021 documented as of this encounter (statuses as of 09/20/2022) [facility]12-29-2021 History of Past illness Narrative* Problem Noted Date Diagnosed Date Resolved Date Insulin controlled gestation al diabetes mellitus (GDM) in third trimester 02/14/20212021 Overview: 02/14/21: failed 3hr Malena Allen MD Excessive growth affec ting management of in third trimester 02/14/2021 06/12/19 Overview: 02/14/21: growth 96% Malena Allen MD Supervision of high-risk pre gnancy, first trimester 09/25/2020 06/11/2021 Overview: 09/20/20-Chronic HTN, obesity. Physician only patient. Consult MFM. Priscilla Peterson APRN.CNM Obesity during 09/14/2020 Overview: 04/03/21 - weekly testing per MFM, NSTs or if getting US BPP - Camilla Snell MD 10/25/20-Ultrasound every 4 weeks starting at 28 weeks, weekly BPP starting at 32 weeks, MFM order at US. Priscilla Peterson APRN.CNM 09/20/20-Prepregnancy BMI 45.1. Priscilla Peterson APRN.CNM 1Patient is obese. We will plan on early GCT. TKRN Nausea and vomiting during 09/14/2020 03/23/2021 Overview: 09/14/2020 Patient is complaining of nausea and occasional vomiting in . Dietary considerations discussed . Vitamin B6 recommended. Advised patient to call/come in if she is unable to keep any food or fluids down in a 24-hour period.TKRN Preexisting hypertension com plicating , antepartum 09/14/2020 06/11/2021 Overview: 02/13/21-Recommended BP range per MFM 130-140/70-80. Labetalol increased to 200mg PO TID. Priscilla Peterson APRN.CNM 10/25/20-Ultrasound every 4 weeks starting at 28 weeks, weekly BPP starting at 32 weeks. Priscilla Peterson APRN.CNM 09/20/20-Stopped HCTZ, taking Labetalol 100mg BID, managed by . Baseline preeclampsia labs. Start ASA 81mg PO once daily after 12 weeks. Priscilla Peterson APRN.CNM 09/14/2020 Patient has a history of high blood pressure treated by Dr. Shook. It was diagnosed 4 to 5 years ago. She is currently taking Labetalol. She recently saw Dr. Shook on September 04 to discuss medication during . TKRN Patient request for diagnostic testing 09/14/2020 03/23/2021 Overview: 09/14/2020atient desires nuchal ultrasound. Considering genetic carrier screening testing.Chong Randall RN Depression affecting 08/28/2012 06/11/2021 Family history of Crohn's disease 07/16/2011 03/23/2021 PMS (premenstrual syndrome) 03/16/2009 03/23/2021 Metrorrhagia 03/16/2009 03/23/2021 Dysmenorrhea 03/16/2009 03/23/2021 documented as of this encounter (statuses as of 10/11/2022) [facility]12-29-[facility]21 History of Past illness Narrative* Problem Noted Date Diagnosed Date Resolved Date Insulin controlled gestation al diabetes mellitus (GDM) in third trimester 02/14/20212021 Overview: 02/14/21: failed 3hr Malena Allen MD Excessive growth affec ting management of in third trimester 02/14/2021 06/12/19 22 Overview: 02/14/21: growth 96% Malena Allen MD Supervision of high-risk pre gnancy, first trimester 09/25/2020 06/11/2021 Overview: 09/20/20-Chronic HTN, obesity. Physician only patient. Consult MFM. Priscilla Peterson APRN.CNM Obesity during 09/14/2020 Overview: 04/03/21 - weekly testing per MFM, NSTs or if getting US BPP - Camilla Snell MD 10/25/20-Ultrasound every 4 weeks starting at 28 weeks, weekly BPP starting at 32 weeks, MFM order at [facility]. Priscilla Peterson APRN.CNM 09/20/20-Prepregnancy BMI 45.1. Priscilla Peterson APRN.CNM 1Patient is obese. We will plan on early GCT. TKRN Nausea and vomiting during 09/14/2020 03/23/2021 Overview: 09/14/2020 Patient is complaining of nausea and occasional vomiting in . Dietary considerations discussed . Vitamin B6 recommended. Advised patient to call/come in if she is unable to keep any food or fluids down in a 24-hour period.TKRN Preexisting hypertension com plicating , antepartum 09/14/2020 06/11/2021 Overview: 02/13/21-Recommended BP range per M 130-140/70-80. Labetalol increased to 200mg PO TID. Priscilla Peterson APRN.CNM 10/25/20-Ultrasound every 4 weeks starting at 28 weeks, weekly BPP starting at 32 weeks. Priscilla Peterson APRN.CNM 09/20/20-Stopped HCTZ, taking Labetalol 100mg BID, managed by . Baseline preeclampsia labs. Start ASA 81mg PO once daily after 12 weeks. Priscilla Peterson APRN.CNM 09/14/2020 Patient has a history of high blood pressure treated by Dr. Shook. It was diagnosed 4 to 5 years ago. She is currently taking Labetalol. She recently saw Dr. Shook on September 04 to discuss medication during . TKRN Patient request for diagnostic testing 09/14/2020 03/23/2021 Overview: 09/14/2020atient desires nuchal ultrasound. Considering genetic carrier screening testing.Chong Randall RN Depression affecting 08/28/2012 06/11/2021 Family history of Crohn's disease 07/16/2011 03/23/2021 PMS (premenstrual syndrome) 03/16/2009 03/23/2021 Metrorrhagia 03/16/2009 03/23/2021 Dysmenorrhea 03/16/2009 03/23/2021 documented as of this encounter (statuses as of 12/03/2022) [facility]12-[facility] History of Past illness Narrative* Problem Noted Date Diagnosed Date Resolved Date Insulin controlled gestation al diabetes mellitus (GDM) in third trimester 02/14/20212021 Overview: 02/14/21: failed 3hr Malena Allen MD Excessive growth affec ting management of in third trimester 02/14/2021 06/12/19 Overview: 02/14/21: growth 96% Malena Allen MD Supervision of high-risk pre gnancy, first trimester 09/25/2020 06/11/2021 Overview: 09/20/20-Chronic HTN, obesity. Physician only patient. Consult M. Priscilla Peterson APRN.CNM Obesity during 09/14/2020 Overview: 04/03/21 - weekly testing per MFM, NSTs or if getting US BPP - Camilla Snell MD 10/25/20-Ultrasound every 4 weeks starting at 28 weeks, weekly BPP starting at 32 weeks, MFM order at [facility]. Priscilla Peterson APRN.CNM 09/20/20-Prepregnancy BMI 45.1. Priscilla Peterson APRN.CNM 09/14/2020atient is obese. We will plan on early GCT. TKRN Nausea and vomiting during 09/14/2020 03/23/2021 Overview: 09/14/2020 Patient is complaining of nausea and occasional vomiting in . Dietary considerations discussed . Vitamin B6 recommended. Advised patient to call/come in if she is unable to keep any food or fluids down in a 24-hour period.TKRN Preexisting hypertension com plicating , antepartum 09/14/2020 06/11/2021 Overview: 02/13/21-Recommended BP range per [facility] 130-140/70-80. Labetalol increased to 200mg PO TID. Priscilla Peterson APRN.CNM 10/25/20-Ultrasound every 4 weeks starting at 28 weeks, weekly BPP starting at 32 weeks. Priscilla Peterson APRN.CNM 09/20/20-Stopped HCTZ, taking Labetalol 100mg BID, managed by . Baseline preeclampsia labs. Start ASA 81mg PO once daily after 12 weeks. Priscilla Peterson APRN.CNM 09/14/2020 Patient has a history of high blood pressure treated by Dr. Shook. It was diagnosed 4 to 5 years ago. She is currently taking Labetalol. She recently saw Dr. Shook on September 04 to discuss medication during . TKRN Patient request for diagnostic testing 09/14/2020 03/23/2021 Overview: 09/14/2020atient desires nuchal ultrasound. Considering genetic carrier screening testing.Chong Randall RN Depression affecting 08/28/2012 06/11/2021 Family history of Crohn's disease 07/16/2011 03/23/2021 PMS (premenstrual syndrome) 03/16/2009 03/23/2021 Metrorrhagia 03/16/2009 03/23/2021 Dysmenorrhea 03/16/2009 03/23/2021 documented as of this encounter (statuses as of 12/04/2022) [facility]12-[facility] History of Past illness Narrative* Problem Noted Date Diagnosed Date Resolved Date Insulin controlled gestation al diabetes mellitus (GDM) in third trimester 02/14/20212021 Overview: 02/14/21: failed 3hr Malena Allen MD Excessive growth affec ting management of in third trimester 02/14/2021 06/12/19 22 Overview: 02/14/21: growth 96% Malena Allen MD Supervision of high-risk pre gnancy, first trimester 09/25/2020 06/11/2021 Overview: 09/20/20-Chronic HTN, obesity. Physician only patient. Consult MFM. Priscilla Peterson APRN.CNM Obesity during 09/14/2020 Overview: 04/03/21 - weekly testing per MFM, NSTs or if getting US BPP - Camilla Snell MD 10/25/20-Ultrasound every 4 weeks starting at 28 weeks, weekly BPP starting at 32 weeks, MFM order at [facility]. Priscilla Peterson APRN.CNM 09/20/20-Prepregnancy BMI 45.1. Priscilla Peterson APRN.CNM 1Patient is obese. We will plan on early GCT. TKRN Nausea and vomiting during 09/14/2020 03/23/2021 Overview: 09/14/2020 Patient is complaining of nausea and occasional vomiting in . Dietary considerations discussed . Vitamin B6 recommended. Advised patient to call/come in if she is unable to keep any food or fluids down in a 24-hour period.TKRN Preexisting hypertension com plicating , antepartum 09/14/2020 06/11/2021 Overview: 02/13/21-Recommended BP range per [facility] 130-140/70-80. Labetalol increased to 200mg PO TID. Priscilla Peterson APRN.CNM 10/25/20-Ultrasound every 4 weeks starting at 28 weeks, weekly BPP starting at 32 weeks. Priscilla Peterson APRN.CNM 09/20/20-Stopped HCTZ, taking Labetalol 100mg BID, managed by . Baseline preeclampsia labs. Start ASA 81mg PO once daily after 12 weeks. Priscilla Peterson APRN.CNM 09/14/2020 Patient has a history of high blood pressure treated by Dr. Shook. It was diagnosed 4 to 5 years ago. She is currently taking Labetalol. She recently saw Dr. Shook on September 04 to discuss medication during . TKRN Patient request for diagnostic testing 09/14/2020 03/23/2021 Overview: 09/14/2020atient desires nuchal ultrasound. Considering genetic carrier screening testing.Chong Randall RN Depression affecting 08/28/2012 06/11/2021 Family history of Crohn's disease 07/16/2011 03/23/2021 PMS (premenstrual syndrome) 03/16/2009 03/23/2021 Metrorrhagia 03/16/2009 03/23/2021 Dysmenorrhea 03/16/2009 03/23/2021 documented as of this encounter (statuses as of 01/06/2023) [facility]12[facility] History of Past illness Narrative* Problem Noted Date Diagnosed Date Resolved Date Insulin controlled gestation al diabetes mellitus (GDM) in third trimester 02/14/20212021 Overview: 02/14/21: failed 3hr Malena Allen MD Excessive growth affec ting management of in third trimester 02/14/2021 06/12/19 Overview: 02/14/21: growth 96% Malena Allen MD Supervision of high-risk pre gnancy, first trimester 09/25/2020 06/11/2021 Overview: 09/20/20-Chronic HTN, obesity. Physician only patient. Consult MFM. Priscilla Peterson APRN.CNM Obesity during 09/14/2020 Overview: 04/03/21 - weekly testing per MFM, NSTs or if getting US BPP - Camilla Snell MD 10/25/20-Ultrasound every 4 weeks starting at 28 weeks, weekly BPP starting at 32 weeks, MFM order at [facility]. Priscilla Peterson APRN.CNM 09/20/20-Prepregnancy BMI 45.1. Priscilla Peterson APRN.CNM 09/14/2020atient is obese. We will plan on early GCT. TKRN Nausea and vomiting during 09/14/2020 03/23/2021 Overview: 09/14/2020 Patient is complaining of nausea and occasional vomiting in . Dietary considerations discussed . Vitamin B6 recommended. Advised patient to call/come in if she is unable to keep any food or fluids down in a 24-hour period.TKRN Preexisting hypertension com plicating , antepartum 09/14/2020 06/11/2021 Overview: 02/13/21-Recommended BP range per MFM 130-140/70-80. Labetalol increased to 200mg PO TID. Priscilla Peterson APRN.CNM 10/25/20-Ultrasound every 4 weeks starting at 28 weeks, weekly BPP starting at 32 weeks. Priscilla Peterson APRN.CNM 09/20/20-Stopped HCTZ, taking Labetalol 100mg BID, managed by . Baseline preeclampsia labs. Start ASA 81mg PO once daily after 12 weeks. Priscilla Peterson APRN.CNM 09/14/2020 Patient has a history of high blood pressure treated by Dr. Shook. It was diagnosed 4 to 5 years ago. She is currently taking Labetalol. She recently saw Dr. Shook on September 04 to discuss medication during . TKRN Patient request for diagnostic testing 09/14/2020 03/23/2021 Overview: 09/14/2020atient desires nuchal ultrasound. Considering genetic carrier screening testing.Chong Randall RN Depression affecting 08/28/2012 06/11/2021 Family history of Crohn's disease 07/16/2011 03/23/2021 PMS (premenstrual syndrome) 03/16/2009 03/23/2021 Metrorrhagia 03/16/2009 03/23/2021 Dysmenorrhea 03/16/2009 03/23/2021 documented as of this encounter (statuses as of 04/09/2023) [facility]12[facility] History of Past illness Narrative* Problem Noted Date Diagnosed Date Resolved Date Insulin controlled gestation al diabetes mellitus (GDM) in third trimester 02/14/20212021 Overview: 02/14/21: failed 3hr Malena Allen MD Excessive growth affec ting management of in third trimester 02/14/2021 06/12/19 22 Overview: 02/14/21: growth 96% Malena Allen MD Supervision of high-risk pre gnancy, first trimester 09/25/2020 06/11/2021 Overview: 09/20/20-Chronic HTN, obesity. Physician only patient. Consult MFM. Priscilla Peterson APRN.CNM Obesity during 09/14/2020 Overview: 04/03/21 - weekly testing per MFM, NSTs or if getting US BPP - Camilla Snell MD 10/25/20-Ultrasound every 4 weeks starting at 28 weeks, weekly BPP starting at 32 weeks, MFM order at [facility]. Priscilla Peterson APRN.CNM 09/20/20-Prepregnancy BMI 45.1. Priscilla Peterson APRN.CNM 1Patient is obese. We will plan on early GCT. TKRN Nausea and vomiting during 09/14/2020 03/23/2021 Overview: 09/14/2020 Patient is complaining of nausea and occasional vomiting in . Dietary considerations discussed . Vitamin B6 recommended. Advised patient to call/come in if she is unable to keep any food or fluids down in a 24-hour period.TKRN Preexisting hypertension com plicating , antepartum 09/14/2020 06/11/2021 Overview: 02/13/21-Recommended BP range per MFM 130-140/70-80. Labetalol increased to 200mg PO TID. Priscilla Peterson APRN.CNM 10/25/20-Ultrasound every 4 weeks starting at 28 weeks, weekly BPP starting at 32 weeks. Priscilla Peterson APRN.CNM 09/20/20-Stopped HCTZ, taking Labetalol 100mg BID, managed by . Baseline preeclampsia labs. Start ASA 81mg PO once daily after 12 weeks. Priscilla Peterson APRN.CNM 09/14/2020 Patient has a history of high blood pressure treated by Dr. Shook. It was diagnosed 4 to 5 years ago. She is currently taking Labetalol. She recently saw Dr. Shook on September 04 to discuss medication during . TKRN Patient request for diagnostic testing 09/14/2020 03/23/2021 Overview: 09/14/2020atient desires nuchal ultrasound. Considering genetic carrier screening testing.Chong Randall RN Depression affecting 08/28/2012 06/11/2021 Family history of Crohn's disease 07/16/2011 03/23/2021 PMS (premenstrual syndrome) 03/16/2009 03/23/2021 Metrorrhagia 03/16/2009 03/23/2021 Dysmenorrhea 03/16/2009 03/23/2021 documented as of this encounter (statuses as of 04/11/2023) [facility] History of Past illness Narrative* Problem Noted Date Diagnosed Date Resolved Date Insulin controlled gestation al diabetes mellitus (GDM) in third trimester 02/14/20212021 Overview: 02/14/21: failed 3hr Malena Allen MD Excessive growth affec ting management of in third trimester 02/14/2021 06/12/19 Overview: 02/14/21: growth 96% Malena Allen MD Supervision of high-risk pre gnancy, first trimester 09/25/2020 06/11/2021 Overview: 09/20/20-Chronic HTN, obesity. Physician only patient. Consult MFM. Priscilla Peterson APRN.CNM Obesity during 09/14/2020 Overview: 04/03/21 - weekly testing per MFM, NSTs or if getting US BPP - Camilla Snell MD 10/25/20-Ultrasound every 4 weeks starting at 28 weeks, weekly BPP starting at 32 weeks, MFM order at [facility]. Priscilla Peterson APRN.CNM 09/20/20-Prepregnancy BMI 45.1. Priscilla Peterson APRN.CNM 09/14/2020atient is obese. We will plan on early GCT. TKRN Nausea and vomiting during 09/14/2020 03/23/2021 Overview: 09/14/2020 Patient is complaining of nausea and occasional vomiting in . Dietary considerations discussed . Vitamin B6 recommended. Advised patient to call/come in if she is unable to keep any food or fluids down in a 24-hour period.TKRN Preexisting hypertension com plicating , antepartum 09/14/2020 06/11/2021 Overview: 02/13/21-Recommended BP range per [facility] 130-140/70-80. Labetalol increased to 200mg PO TID. Priscilla Peterson APRN.CNM 10/25/20-Ultrasound every 4 weeks starting at 28 weeks, weekly BPP starting at 32 weeks. Priscilla Peterson APRN.CNM 09/20/20-Stopped HCTZ, taking Labetalol 100mg BID, managed by . Baseline preeclampsia labs. Start ASA 81mg PO once daily after 12 weeks. Priscilla Peterson APRN.CNM 09/14/2020 Patient has a history of high blood pressure treated by Dr. Shook. It was diagnosed 4 to 5 years ago. She is currently taking Labetalol. She recently saw Dr. Shook on September 04 to discuss medication during . TKRN Patient request for diagnostic testing 09/14/2020 03/23/2021 Overview: 09/14/2020atient desires nuchal ultrasound. Considering genetic carrier screening testing.Chong Randall RN Depression affecting 08/28/2012 06/11/2021 Family history of Crohn's disease 07/16/2011 03/23/2021 PMS (premenstrual syndrome) 03/16/2009 03/23/2021 Metrorrhagia 03/16/2009 03/23/2021 Dysmenorrhea 03/16/2009 03/23/2021 documented as of this encounter (statuses as of 05/26/2023) [facility] History of Past illness Narrative* Problem Noted Date Diagnosed Date Resolved Date Insulin controlled gestation al diabetes mellitus (GDM) in third trimester 02/14/20212021 Overview: 02/14/21: failed 3hr Malena Allen MD Excessive growth affec ting management of in third trimester 02/14/2021 06/12/19 Overview: 02/14/21: growth 96% Malena Allen MD Supervision of high-risk pre gnancy, first trimester 09/25/2020 06/11/2021 Overview: 09/20/20-Chronic HTN, obesity. Physician only patient. Consult M. Priscilla Peterson APRN.CNM Obesity during 09/14/2020 Overview: 04/03/21 - weekly testing per MFM, NSTs or if getting US BPP - Camilla Snell MD 10/25/20-Ultrasound every 4 weeks starting at 28 weeks, weekly BPP starting at 32 weeks, MFM order at [facility]. Priscilla Peterson APRN.CNM 09/20/20-Prepregnancy BMI 45.1. Priscilla Peterson APRN.CNM 09/14/2020atient is obese. We will plan on early GCT. TKRN Nausea and vomiting during 09/14/2020 03/23/2021 Overview: 09/14/2020 Patient is complaining of nausea and occasional vomiting in . Dietary considerations discussed . Vitamin B6 recommended. Advised patient to call/come in if she is unable to keep any food or fluids down in a 24-hour period.TKRN Preexisting hypertension com plicating , antepartum 09/14/2020 06/11/2021 Overview: 02/13/21-Recommended BP range per MFM 130-140/70-80. Labetalol increased to 200mg PO TID. Priscilla Peterson APRN.CNM 10/25/20-Ultrasound every 4 weeks starting at 28 weeks, weekly BPP starting at 32 weeks. Priscilla Peterson APRN.CNM 09/20/20-Stopped HCTZ, taking Labetalol 100mg BID, managed by . Baseline preeclampsia labs. Start ASA 81mg PO once daily after 12 weeks. Priscilla Peterson APRN.CNM 09/14/2020 Patient has a history of high blood pressure treated by Dr. Shook. It was diagnosed 4 to 5 years ago. She is currently taking Labetalol. She recently saw Dr. Shook on September 04 to discuss medication during . TKRN Patient request for diagnostic testing 09/14/2020 03/23/2021 Overview: 09/14/2020atient desires nuchal ultrasound. Considering genetic carrier screening testing.Chong Randall RN Depression affecting 08/28/2012 06/11/2021 Family history of Crohn's disease 07/16/2011 03/23/2021 PMS (premenstrual syndrome) 03/16/2009 03/23/2021 Metrorrhagia 03/16/2009 03/23/2021 Dysmenorrhea 03/16/2009 03/23/2021 documented as of this encounter (statuses as of 05/28/2023) [facility] History of Past illness Narrative* Problem Noted Date Diagnosed Date Resolved Date Insulin controlled gestation al diabetes mellitus (GDM) in third trimester 02/14/20212021 Overview: 02/14/21: failed 3hr Malena Allen MD Excessive growth affec ting management of in third trimester 02/14/2021 06/12/19 Overview: 02/14/21: growth 96% Malena Allen MD Supervision of high-risk pre gnancy, first trimester 09/25/2020 06/11/2021 Overview: 09/20/20-Chronic HTN, obesity. Physician only patient. Consult MFM. Priscilla Peterson APRN.CNM Obesity during 09/14/2020 Overview: 04/03/21 - weekly testing per MFM, NSTs or if getting US BPP - Camilla Snell MD 10/25/20-Ultrasound every 4 weeks starting at 28 weeks, weekly BPP starting at 32 weeks, MFM order at [facility]. Priscilla Peterson APRN.CNM 09/20/20-Prepregnancy BMI 45.1. Priscilla Peterson APRN.CNM 1Patient is obese. We will plan on early GCT. TKRN Nausea and vomiting during 09/14/2020 03/23/2021 Overview: 09/14/2020 Patient is complaining of nausea and occasional vomiting in . Dietary considerations discussed . Vitamin B6 recommended. Advised patient to call/come in if she is unable to keep any food or fluids down in a 24-hour period.TKRN Preexisting hypertension com plicating , antepartum 09/14/2020 06/11/2021 Overview: 02/13/21-Recommended BP range per [facility] 130-140/70-80. Labetalol increased to 200mg PO TID. Priscilla Peterson APRN.CNM 10/25/20-Ultrasound every 4 weeks starting at 28 weeks, weekly BPP starting at 32 weeks. Priscilla Peterson APRN.CNM 09/20/20-Stopped HCTZ, taking Labetalol 100mg BID, managed by . Baseline preeclampsia labs. Start ASA 81mg PO once daily after 12 weeks. Priscilla Peterson APRN.CNM 09/14/2020 Patient has a history of high blood pressure treated by Dr. Shook. It was diagnosed 4 to 5 years ago. She is currently taking Labetalol. She recently saw Dr. Shook on September 04 to discuss medication during . TKRN Patient request for diagnostic testing 09/14/2020 03/23/2021 Overview: 09/14/2020atient desires nuchal ultrasound. Considering genetic carrier screening testing.Chong Randall RN Depression affecting 08/28/2012 06/11/2021 Family history of Crohn's disease 07/16/2011 03/23/2021 PMS (premenstrual syndrome) 03/16/2009 03/23/2021 Metrorrhagia 03/16/2009 03/23/2021 Dysmenorrhea 03/16/2009 03/23/2021 documented as of this encounter (statuses as of 06/03/2023) [facility] [place] [facility]* Diagnosis care and examination- Primary Routine follow-up control counseling General counseling for initiation of other contraceptive measures Chronic hypertension History of gestational diabetes mellitus (GDM) documented in this encounter [facility] [place] [facility]* Diagnosis Depression, unspecified depression type Generalized anxiety disorder documented in this encounter [facility] [place] [facility]* Diagnosis Annual physical exam- Primary Routine general medical examination at a health care facility Vitamin D insufficiency Unspecified vitamin D deficiency Fatty liver Other chronic nonalcoholic liver disease History of sleep apnea Personal history of other specified diseases Essential hypertension Unspecified essential hypertension Anxiety and depression Dysthymic disorder documented in this encounter [facility] [place] [facility]* Diagnosis Depression, unspecified depression type Generalized anxiety disorder [facility] [place] [facility] Diagnosis Surveillance of previously prescribed intrauterine contraceptive device- Primary Intrauterine contraceptive device threads lost, initial encounter [facility] [place] [facility] Diagnosis Anxiety with depression- Primary Post depression Mental disorders of mother, History of environmental allergies Other allergy, other than to medicinal agents Acute actinic otitis externa, bilateral Other acute otitis externa documented [facility] this [facility] [place] [facility]* Diagnosis Suspected 2019 novel coronavirus infection- Primary [facility] [place] [facility]* Diagnosis Depression, unspecified depression type [facility] [place] [facility] Diagnosis Anxiety with depression Post depression Mental disorders of mother, [facility] [place] [facility]* Diagnosis Obesity, Class III, BMI 40-49.9 (morbid obesity) ([facility])- Primary Morbid obesity documented [facility] this [facility] [place] [facility]* Diagnosis Obesity, Class III, BMI 40-49.9 (morbid obesity) (HCC)- Primary Morbid obesity documented [facility] [place] [facility]* Diagnosis Obesity, Class III, BMI 40-49.9 (morbid obesity) (HCC)- Primary Morbid obesity Moderate episode of recurrent major depressive disorder (HCC) LINA (obstructive sleep apnea) Obstructive sleep apnea (adult) (pediatric) Essential hypertension Unspecified essential hypertension ROA (dyspnea on exertion) Other dyspnea and respiratory abnormality GERD without esophagitis Esophageal reflux documented [facility] this [facility] [place] [facility]* Diagnosis Preop cardiovascular exam- Primary Pre-operative cardiovascular examination ROA (dyspnea on exertion) Other dyspnea and respiratory abnormality Abnormal ECG Nonspecific abnormal electrocardiogram (ECG) (EKG) Family history of early CAD Family history of ischemic heart disease Essential hypertension Unspecified essential hypertension Gestational diabetes mellitus (GDM), antepartum, gestational diabetes method of control unspecified [facility] Essential hypertension Unspecified essential hypertension Obesity, Class III, BMI 40-49.9 (morbid obesity) (HCC) Morbid obesity [facility] Diagnosis Obesity, Class III, BMI 40-49.9 (morbid obesity) (HCC)- Primary Morbid obesity Exercise-induced asthma Exercise induced bronchospasm Screening for lipid disorders Pre-operative clearance Preoperative examination, unspecified Vitamin D deficiency Unspecified vitamin D deficiency LINA (obstructive sleep apnea) Obstructive sleep apnea (adult) (pediatric) Moderate episode of recurrent major depressive disorder (HCC) Generalized anxiety disorder [facility] Rash- Primary Rash and other nonspecific skin eruption [facility] Diagnosis Moderate episode of recurrent major depressive disorder (HCC)- Primary Bariatric surgery status Vitamin D deficiency Unspecified vitamin D deficiency Elevated liver enzymes Other nonspecific abnormal serum enzyme levels Essential hypertension Unspecified essential hypertension Fatty liver Other chronic nonalcoholic liver disease Generalized anxiety disorder History of environmental allergies Other allergy, other than to medicinal agents Obesity, Class III, BMI 40-49.9 (morbid obesity) (HCC) Morbid obesity [facility] Diagnosis Vitamin A deficiency- Primary Unspecified vitamin A deficiency [facility]* Diagnosis Gastroesophageal reflux disease, unspecified whether esophagitis present [facility]* Diagnosis Moderate episode of recurrent major depressive disorder (HCC) [facility]* Diagnosis Gastroesophageal reflux disease, unspecified whether esophagitis present [facility]* Diagnosis Screening for cervical cancer- Primary Screening for malignant neoplasm of the cervix Desire for Unspecified procreative management IUD (intrauterine device) in place Presence of intrauterine contraceptive device DUB (dysfunctional uterine bleeding) Other disorder of menstruation and other abnormal bleeding from female genital tract [facility] Diagnosis IUD (intrauterine device) in place Presence of intrauterine contraceptive device DUB (dysfunctional uterine bleeding) Other disorder of menstruation and other abnormal bleeding from female genital tract [facility] Diagnosis Moderate episode of recurrent major depressive disorder (HCC) documented in this encounter [facility] note* Diagnosis IUD (intrauterine device) in place- Primary Presence of intrauterine contraceptive device Desire for Unspecified procreative management documented in this encounter [facility] note* Diagnosis Gastroesophageal reflux disease, unspecified whether esophagitis present documented in this encounter [facility] note* Diagnosis Gastroesophageal reflux disease, unspecified whether esophagitis present documented in this encounter [facility] note* Diagnosis History of environmental allergies Other allergy, other than to medicinal agents documented in this encounter [facility] note* Diagnosis Conjunctivitis of right eye, unspecified conjunctivitis type- Primary documented in this encounter [facility] note* Diagnosis Moderate episode of recurrent major depressive disorder (HCC) Generalized anxiety disorder documented in this encounter [facility] note* Diagnosis Spotting in early - Primary Spotting complicating , antepartum condition or complication documented in this encounter [facility] note* Diagnosis Moderate episode of recurrent major depressive disorder (HCC) documented in this encounter [facility] note* Diagnosis Complete - Primary Unspecified , without mention of complication, complete History of section, low transverse Other postprocedural status documented in this encounter [facility] note* Diagnosis Moderate episode of recurrent major depressive disorder (HCC) Generalized anxiety disorder documented in this encounter [facility] note* Diagnosis Essential hypertension Unspecified essential hypertension Obesity, Class I, BMI 30-34.9 Obesity, unspecified documented in this encounter [facility] note* Diagnosis Positive test- Primary examination or test, positive result Gastroesophageal reflux disease, unspecified whether esophagitis present Daily headache Headache documented in this encounter [facility] note* Diagnosis Encounter for test, result positive- Primary examination or test, positive result History of miscarriage Personal history of other genital system and obstetric disorders documented in this encounter [facility] note* Diagnosis Encounter for supervision of high risk in first trimester, antepartum- Primary 8 weeks gestation of state, incidental Obesity affecting in first trimester, unspecified obesity type Chronic hypertension affecting History of gestational diabetes mellitus (GDM) History of section Other postprocedural status History of miscarriage Personal history of other genital system and obstetric disorders Anxiety during Asthma during Nausea and vomiting during Heartburn during in first trimester Vaginal discharge Leukorrhea, not specified as infective [facility] [place] [facility]* Diagnosis Bacterial vaginosis- Primary Vaginitis and vulvovaginitis, unspecified documented [facility] this [facility] [place] [facility]* Diagnosis Moderate episode of recurrent major depressive disorder (HCC) Generalized anxiety disorder documented in this encounter [facility] note* Diagnosis Encounter for supervision of high risk in first trimester, antepartum- Primary History of section Other postprocedural status 13 weeks gestation of state, incidental documented in this encounter [facility] note* Diagnosis Moderate episode of recurrent major depressive disorder (HCC) documented [facility] [place] [facility]* Diagnosis Encounter for anatomic survey- Primary 18 weeks gestation of state, incidental Obesity affecting in second trimester, unspecified obesity type documented in this encounter [facility] note* Diagnosis 18 weeks gestation of - Primary state, incidental History of section Other postprocedural status Chronic hypertension affecting Encounter for supervision of high risk in first trimester, antepartum documented in this encounter [facility] note* Diagnosis High-risk in second trimester- Primary History of section Other postprocedural status Chronic hypertension affecting 8 weeks gestation of state, incidental * Assessment & Plan Note - Camilla Snell MD - 05/11/2024 9:42 AM EDTAssociated Problem(s): History of section Orders: URINE OB DIP B/O * Assessment & Plan Note - Camilla Snell MD - 05/11/2024 9:42 AM EDTAssociated Problem(s): Chronic hypertension affecting BP's reviewed. Advised on aspirin at bedtime. Orders: URINE OB DIP B/O documented in this encounter [facility] note* Diagnosis High-risk in second trimester (HCC)- Primary History of section Other postprocedural status Chronic hypertension affecting (HCC) 8 weeks gestation of (HCC) state, incidental High-risk in second trimester ([facility])- Primary History of section Other postprocedural status Chronic hypertension affecting (HCC) Obesity affecting in first trimester, unspecified obesity type ([facility]) History of miscarriage Personal history of other genital system and obstetric disorders History of gestational diabetes mellitus (GDM) 22 weeks gestation of ([facility]) state, incidental documented in this encounter [facility] note* Diagnosis High-risk in second trimester ([facility])- Primary History of section Other postprocedural status Chronic hypertension affecting ([facility]) 8 weeks gestation of ([facility]) state, incidental Moderate episode of recurrent major depressive disorder ([facility]) Generalized anxiety disorder documented in this encounter [facility] note* Diagnosis High-risk in second trimester ([facility])- Primary History of section Other postprocedural status Chronic hypertension affecting ([facility]) 8 weeks gestation of ([facility]) state, incidental Supervision of high risk in third trimester ([facility])- Primary Unspecified high-risk 24 weeks gestation of ([facility]) state, incidental Obesity affecting in third trimester, unspecified obesity type ([facility]) Chronic hypertension affecting ([facility]) LINA (obstructive sleep apnea) Obstructive sleep apnea (adult) (pediatric) Gestational diabetes mellitus, class A1 ([facility]) Abnormal maternal glucose tolerance, complicating , childbirth, or the puerperium, unspecified as to episode of care History of section Other postprocedural status H/O gastric sleeve Anxiety during ([facility]) Heartburn during in first trimester ([facility]) History of depression Personal history of other mental disorder documented in this encounter [facility] note* Diagnosis High-risk in second trimester ([facility])- Primary History of section Other postprocedural status Chronic hypertension affecting ([facility]) 8 weeks gestation of ([facility]) state, incidental 25 weeks gestation of ([facility])- Primary state, incidental Chronic hypertension affecting ([facility]) Gestational diabetes mellitus, class A1 ([facility]) Abnormal maternal glucose tolerance, complicating , childbirth, or the puerperium, unspecified as to episode of care Encounter for screening for malformation using ultrasound ([facility])- Primary Obesity affecting in third trimester, unspecified obesity type ([facility]) 28 weeks gestation of ([facility]) state, incidental Gestational diabetes mellitus, class A1 (HCC) Abnormal maternal glucose tolerance, complicating , childbirth, or the puerperium, unspecified as to episode of care documented in this encounter [facility] note* Diagnosis High-risk in second trimester ([facility])- Primary History of section Other postprocedural status Chronic hypertension affecting ([facility]) 8 weeks gestation of (HCC) state, incidental 25 weeks gestation of ([facility])- Primary state, incidental Chronic hypertension affecting (HCC) Gestational diabetes mellitus, class A1 (HCC) Abnormal maternal glucose tolerance, complicating , childbirth, or the puerperium, unspecified as to episode of care Chronic hypertension affecting ([facility])- Primary Gestational diabetes mellitus, class A1 (HCC) Abnormal maternal glucose tolerance, complicating , childbirth, or the puerperium, unspecified as to episode of care Supervision of high risk in third trimester ([facility]) Unspecified high-risk 28 weeks gestation of ([facility]) state, incidental History of section Other postprocedural status Obesity affecting in third trimester, unspecified obesity type ([facility]) documented in this encounter [facility] note* Diagnosis High-risk in second trimester (HCC)- Primary History of section Other postprocedural status Chronic hypertension affecting ([facility]) 8 weeks gestation of ([facility]) state, incidental 25 weeks gestation of ([facility])- Primary state, incidental Chronic hypertension affecting (HCC) Gestational diabetes mellitus, class A1 (HCC) Abnormal maternal glucose tolerance, complicating , childbirth, or the puerperium, unspecified as to episode of care Supervision of high risk in third trimester ([facility])- Primary Unspecified high-risk 30 weeks gestation of ([facility]) state, incidental Obesity affecting in third trimester, unspecified obesity type ([facility]) Chronic hypertension affecting ([facility]) LINA (obstructive sleep apnea) Obstructive sleep apnea (adult) (pediatric) Gestational diabetes mellitus, class A1 (HCC) Abnormal maternal glucose tolerance, complicating , childbirth, or the puerperium, unspecified as to episode of care History of depression Personal history of other mental disorder History of section Other postprocedural status H/O gastric sleeve Anxiety during ([facility]) Heartburn during in first trimester ([facility]) documented in this encounter [facility] note* Diagnosis High-risk in second trimester (HCC)- Primary History of section Other postprocedural status Chronic hypertension affecting (HCC) 8 weeks gestation of (HCC) state, incidental 25 weeks gestation of (HCC)- Primary state, incidental Chronic hypertension affecting (HCC) Gestational diabetes mellitus, class A1 (HCC) Abnormal maternal glucose tolerance, complicating , childbirth, or the puerperium, unspecified as to episode of care Obesity affecting in third trimester, unspecified obesity type (HCC)- Primary Chronic hypertension affecting (HCC) Gestational diabetes mellitus, class A1 (HCC) Abnormal maternal glucose tolerance, complicating , childbirth, or the puerperium, unspecified as to episode of care History of section Other postprocedural status 33 weeks gestation of (HCC) state, incidental * Assessment & Plan Note - Camilla Snell MD - 08/05/2024 9:25 AM EDTAssociated Problem(s): Chronic hypertension affecting (HCC) BP log reviewed & less than 140/90 at home. Growth US today. Weekly NSTs. Orders: URINE OB DIP B/O * Assessment & Plan Note - Camilla Snell MD - 08/05/2024 9:25 AM EDTAssociated Problem(s): Gestational diabetes mellitus, class A1 (HCC) BS log reviewed & overall normal. Encouraged diet compliance and walking. Orders: URINE OB DIP B/O * Assessment & Plan Note - Camilla Snell MD - 08/05/2024 9:25 AM EDTAssociated Problem(s): History of section Repeat scheduled Orders: URINE OB DIP B/O [facility] [place] [facility]* Diagnosis High-risk in second trimester (HCC)- Primary History of section Other postprocedural status Chronic hypertension affecting (HCC) 8 weeks gestation of (HCC) state, incidental 25 weeks gestation of (HCC)- Primary state, incidental Chronic hypertension affecting (HCC) Gestational diabetes mellitus, class A1 (HCC) Abnormal maternal glucose tolerance, complicating , childbirth, or the puerperium, unspecified as to episode of care Gestational diabetes mellitus, class A1 (HCC)- Primary Abnormal maternal glucose tolerance, complicating , childbirth, or the puerperium, unspecified as to episode of care Obesity affecting in third trimester, unspecified obesity type (HCC) Chronic hypertension affecting (HCC) Obesity affecting in first trimester, unspecified obesity type (HCC) Obesity affecting in third trimester, unspecified obesity type (HCC)- Primary Chronic hypertension affecting (HCC) Gestational diabetes mellitus, class A1 (HCC) Abnormal maternal glucose tolerance, complicating , childbirth, or the puerperium, unspecified as to episode of care History of section Other postprocedural status 33 weeks gestation of (HCC) state, incidental documented in this encounter [facility] note* Diagnosis High-risk in second trimester (HCC)- Primary History of section Other postprocedural status Chronic hypertension affecting (HCC) 8 weeks gestation of (HCC) state, incidental 25 weeks gestation of (HCC)- Primary state, incidental Chronic hypertension affecting (HCC) Gestational diabetes mellitus, class A1 (HCC) Abnormal maternal glucose tolerance, complicating , childbirth, or the puerperium, unspecified as to episode of care Obesity affecting in third trimester, unspecified obesity type (HCC)- Primary Chronic hypertension affecting (HCC) Gestational diabetes mellitus, class A1 (HCC) Abnormal maternal glucose tolerance, complicating , childbirth, or the puerperium, unspecified as to episode of care History of section Other postprocedural status 33 weeks gestation of (HCC) state, incidental 33 weeks gestation of (HCC)- Primary state, incidental Obesity affecting in third trimester, unspecified obesity type (HCC) Chronic hypertension affecting (HCC) Gestational diabetes mellitus, class A1 (HCC) Abnormal maternal glucose tolerance, complicating , childbirth, or the puerperium, unspecified as to episode of care LINA (obstructive sleep apnea) Obstructive sleep apnea (adult) (pediatric) H/O gastric sleeve [facility] [place] [facility]* Diagnosis High-risk in second trimester (HCC)- Primary History of section Other postprocedural status Chronic hypertension affecting (HCC) 8 weeks gestation of (HCC) state, incidental 25 weeks gestation of (HCC)- Primary state, incidental Chronic hypertension affecting (HCC) Gestational diabetes mellitus, class A1 (HCC) Abnormal maternal glucose tolerance, complicating , childbirth, or the puerperium, unspecified as to episode of care Obesity affecting in third trimester, unspecified obesity type (HCC)- Primary Chronic hypertension affecting (HCC) Gestational diabetes mellitus, class A1 (HCC) Abnormal maternal glucose tolerance, complicating , childbirth, or the puerperium, unspecified as to episode of care History of section Other postprocedural status 33 weeks gestation of ([facility]) state, incidental Obesity affecting in third trimester, unspecified obesity type (HCC)- Primary Chronic hypertension affecting ([facility]) Gestational diabetes mellitus, class A1 (HCC) Abnormal maternal glucose tolerance, complicating , childbirth, or the puerperium, unspecified as to episode of care H/O gastric sleeve History of section Other postprocedural status 34 weeks gestation of ([facility]) state, incidental documented in this encounter [facility] note* Diagnosis High-risk in second trimester (HCC)- Primary History of section Other postprocedural status Chronic hypertension affecting (HCC) 8 weeks gestation of (HCC) state, incidental 25 weeks gestation of ([facility])- Primary state, incidental Chronic hypertension affecting (HCC) Gestational diabetes mellitus, class A1 (HCC) Abnormal maternal glucose tolerance, complicating , childbirth, or the puerperium, unspecified as to episode of care Obesity affecting in third trimester, unspecified obesity type (HCC)- Primary Chronic hypertension affecting (HCC) Gestational diabetes mellitus, class A1 (HCC) Abnormal maternal glucose tolerance, complicating , childbirth, or the puerperium, unspecified as to episode of care History of section Other postprocedural status 33 weeks gestation of ([facility]LY [facility]) state, incidental Moderate episode of recurrent major depressive disorder ([facility]) Generalized anxiety disorder documented in this encounter [facility] note* Diagnosis High-risk in second trimester (HCC)- Primary History of section Other postprocedural status Chronic hypertension affecting (HCC) 8 weeks gestation of (HCC) state, incidental 25 weeks gestation of (HCC)- Primary state, incidental Chronic hypertension affecting (HCC) Gestational diabetes mellitus, class A1 (HCC) Abnormal maternal glucose tolerance, complicating , childbirth, or the puerperium, unspecified as to episode of care Obesity affecting in third trimester, unspecified obesity type (HCC)- Primary Chronic hypertension affecting (HCC) Gestational diabetes mellitus, class A1 (HCC) Abnormal maternal glucose tolerance, complicating , childbirth, or the puerperium, unspecified as to episode of care History of section Other postprocedural status 33 weeks gestation of (HCC) state, incidental Obesity affecting in third trimester, unspecified obesity type (HCC)- Primary Chronic hypertension affecting (HCC) Gestational diabetes mellitus, class A1 (HCC) Abnormal maternal glucose tolerance, complicating , childbirth, or the puerperium, unspecified as to episode of care History of section Other postprocedural status 36 weeks gestation of (HCC) state, incidental * Assessment & Plan Note - Camilla Snell MD - 08/27/2024 11:27 AM EDTAssociated Problem(s): Chronic hypertension affecting (HCC) Continue aspirin. Orders: URINE OB DIP B/O ROUTINE, GROUP B STREPTOCOCCUS BY PCR * Assessment & Plan Note - Camilla Snell MD - 08/27/2024 11:27 AM EDTAssociated Problem(s): Gestational diabetes mellitus, class A1 (HCC) BS log reviewed & overall normal. Orders: URINE OB DIP B/O ROUTINE, GROUP B STREPTOCOCCUS BY PCR * Assessment & Plan Note - Camilla Snell MD - 08/27/2024 11:27 AM EDTAssociated Problem(s): History of section Repeat scheduled documented in this encounter [facility] note* Diagnosis High-risk in second trimester (HCC)- Primary History of section Other postprocedural status Chronic hypertension affecting (HCC) 8 weeks gestation of (HCC) state, incidental 25 weeks gestation of (HCC)- Primary state, incidental Chronic hypertension affecting (HCC) Gestational diabetes mellitus, class A1 (HCC) Abnormal maternal glucose tolerance, complicating , childbirth, or the puerperium, unspecified as to episode of care Obesity affecting in third trimester, unspecified obesity type (HCC)- Primary Chronic hypertension affecting (HCC) Gestational diabetes mellitus, class A1 (HCC) Abnormal maternal glucose tolerance, complicating , childbirth, or the puerperium, unspecified as to episode of care History of section Other postprocedural status 33 weeks gestation of (HCC) state, incidental Obesity affecting in third trimester, unspecified obesity type (HCC)- Primary Chronic hypertension affecting (HCC) Gestational diabetes mellitus, class A1 (HCC) Abnormal maternal glucose tolerance, complicating , childbirth, or the puerperium, unspecified as to episode of care History of section Other postprocedural status 36 weeks gestation of (HCC) state, incidental Obesity affecting in third trimester, unspecified obesity type (HCC)- Primary Chronic hypertension affecting (HCC) Gestational diabetes mellitus, class A1 (HCC) Abnormal maternal glucose tolerance, complicating , childbirth, or the puerperium, unspecified as to episode of care Previous section Other postprocedural status 36 weeks gestation of (HCC) state, incidental * Assessment & Plan Note - Camilla Snell MD - 08/31/2024 1:49 PM EDTAssociated Problem(s): History of depression Repeat scheduled Orders: URINE OB DIP B/O * Assessment & Plan Note - Camilla Snell MD - 08/31/2024 1:49 PM EDTAssociated Problem(s): Chronic hypertension affecting (HCC) Orders: URINE OB DIP B/O * Assessment & Plan Note - Camilla Snell MD - 08/31/2024 1:49 PM EDTAssociated Problem(s): Gestational diabetes mellitus, class A1 (HCC) BS log reviewed & overall normal Orders: URINE OB DIP B/O documented in this encounter [facility] note* Diagnosis High-risk in second trimester (HCC)- Primary History of section Other postprocedural status Chronic hypertension affecting (HCC) 8 weeks gestation of (HCC) state, incidental 25 weeks gestation of (HCC)- Primary state, incidental Chronic hypertension affecting (HCC) Gestational diabetes mellitus, class A1 (HCC) Abnormal maternal glucose tolerance, complicating , childbirth, or the puerperium, unspecified as to episode of care Obesity affecting in third trimester, unspecified obesity type (HCC)- Primary Chronic hypertension affecting (HCC) Gestational diabetes mellitus, class A1 (HCC) Abnormal maternal glucose tolerance, complicating , childbirth, or the puerperium, unspecified as to episode of care History of section Other postprocedural status 33 weeks gestation of (HCC) state, incidental Obesity affecting in third trimester, unspecified obesity type (HCC)- Primary Chronic hypertension affecting (HCC) Gestational diabetes mellitus, class A1 (HCC) Abnormal maternal glucose tolerance, complicating , childbirth, or the puerperium, unspecified as to episode of care History of section Other postprocedural status 36 weeks gestation of (HCC) state, incidental Gestational diabetes mellitus, class A1 (HCC)- Primary Abnormal maternal glucose tolerance, complicating , childbirth, or the puerperium, unspecified as to episode of care Obesity affecting in third trimester, unspecified obesity type (HCC) Chronic hypertension affecting (HCC) Obesity affecting in third trimester, unspecified obesity type (HCC)- Primary Chronic hypertension affecting (HCC) Gestational diabetes mellitus, class A1 (HCC) Abnormal maternal glucose tolerance, complicating , childbirth, or the puerperium, unspecified as to episode of care Previous section Other postprocedural status 36 weeks gestation of (HCC) state, incidental documented in this encounter [facility] note* Diagnosis High-risk in second trimester (HCC)- Primary History of section Other postprocedural status Chronic hypertension affecting (HCC) 8 weeks gestation of (HCC) state, incidental 25 weeks gestation of (HCC)- Primary state, incidental Chronic hypertension affecting (HCC) Gestational diabetes mellitus, class A1 (HCC) Abnormal maternal glucose tolerance, complicating , childbirth, or the puerperium, unspecified as to episode of care Obesity affecting in third trimester, unspecified obesity type (HCC)- Primary Chronic hypertension affecting (HCC) Gestational diabetes mellitus, class A1 (HCC) Abnormal maternal glucose tolerance, complicating , childbirth, or the puerperium, unspecified as to episode of care History of section Other postprocedural status 33 weeks gestation of (HCC) state, incidental Obesity affecting in third trimester, unspecified obesity type (HCC)- Primary Chronic hypertension affecting (HCC) Gestational diabetes mellitus, class A1 (HCC) Abnormal maternal glucose tolerance, complicating , childbirth, or the puerperium, unspecified as to episode of care History of section Other postprocedural status 36 weeks gestation of (HCC) state, incidental Obesity affecting in third trimester, unspecified obesity type (HCC)- Primary Chronic hypertension affecting (HCC) Gestational diabetes mellitus, class A1 (HCC) Abnormal maternal glucose tolerance, complicating , childbirth, or the puerperium, unspecified as to episode of care Previous section Other postprocedural status 36 weeks gestation of (HCC) state, incidental Supervision of high risk in third trimester (HCC)- Primary Unspecified high-risk Gestational diabetes mellitus, class A1 (HCC) Abnormal maternal glucose tolerance, complicating , childbirth, or the puerperium, unspecified as to episode of care Chronic hypertension affecting (HCC) Obesity affecting in third trimester, unspecified obesity type (HCC) Previous section Other postprocedural status H/O gastric sleeve 38 weeks gestation of ([facility]) state, incidental * Assessment & Plan Note - Valencia Avila MD - 09/09/2024 2:27 PM EDT Associated Problem(s): Gestational diabetes mellitus, class A1 (HCC) Orders: URINE OB DIP B/O * Assessment & Plan Note - Valencia Avila MD - 09/09/2024 2:27 PM EDT Associated Problem(s): Chronic hypertension affecting (HCC) Orders: URINE OB DIP B/O * Assessment & Plan Note - Valencia Avila MD - 09/09/2024 2:27 PM EDT Associated Problem(s): H/O gastric sleeve Orders: URINE OB DIP B/O * Assessment & Plan Note - Valencia Avila MD - 09/09/2024 2:26 PM EDT Associated Problem(s): Gestational diabetes mellitus, class A1 (HCC) BS well controlled Orders: URINE OB DIP B/O * Assessment & Plan Note - Valencia Avila MD - 09/09/2024 2:26 PM EDT Associated Problem(s): Chronic hypertension affecting (HCC) well controlled, not on meds, NST reactive, up to date on growth scans Orders: URINE OB DIP B/O * Assessment & Plan Note - Valencia Avila MD - 09/09/2024 2:26 PM EDT Associated Problem(s): H/O gastric sleeve Orders: URINE OB DIP B/O documented in this encounter [facility] for referral (narrative)* Outpatient Procedure (Routine) - Pending Review Specialty Diagnoses / Procedures Referred By Robin fernandes Referred To Contact [facility] Diagnoses care and examination control counseling Procedures INSERT INTRAUTERINE DEVICE LEVONORGESTREL IU 52MG 5 YR INSERT INTRAUTERINE DEVICE Priscilla Peterson APRN.CNM [address] [place] [address] [facility] [address] [place] [address] Referral ID Status Reason Start Date Expiration Date Visits Requested Visits Authorized [id number] Pending Review Auto-Generat ed Referral 06/11/2021 06/11/2022 1 1 * Consult, Test, Treat (Routine) - Authorized Specialty Diagnoses / Procedures Referred By Robin fernandes Referred To Contact Diagnoses care and examination Procedures CONSULT TO PREVENTIVE CARD OFFICE/OUTPATIENT [facility] MDM 60-74 MINUTES Priscilla Peterson APRN.CNM [address] [place] [address] Referral ID Status Reason Start Date Expiration Date Visits Requested Visits Authorized [id number] Authorized PCP Requested Referral 06/11/2021 06/12/2021 1 1 [facility] for referral (narrative)* Diagnostic Procedure Only (Routine) - Additional Clinical Info Needed Specialty Diagnoses / Procedures Referred By Robin fernandes Referred To Contact MOLECULAR & FUNCTIONAL IMAGING Diagnoses ROA (dyspnea on exertion) Family history of early CAD Essential hypertension Gestational diabetes mellitus (GDM), antepartum, gestational diabetes method of control unspecified Abnormal ECG Procedures NM CARDIAC PERF STRESS/EXERCISE MYOCARDIAL SPECT MULTIPLE STUDIES William Jain DO [address] [place] [address] [facility] [address] [place] [address] Referral ID Status Reason Start Date Expiration Date Visits Requested Visits Authorized [id number] Additional Clinical Info Needed Auto-Generat ed Referral 05/08/2022 06/07/2023 1 1 [facility] for referral (narrative)* Diagnostic Procedure Only (Routine) - Authorized Specialty Diagnoses / Procedures Referred By Contac t Referred To Contact [facility] Diagnoses IUD (intrauterine device) in place DUB (dysfunctional uterine bleeding) Procedures PELVIC US WHI US PELVIC NONOBSTETRIC REAL-TIME IMAGE COMPLETE Lucia Coley MD [address] [place] [address] [address] Referral ID Status Reason Start Date Expiration Date Visits Requested Visits Authorized [id number] Authorized Auto-Generat ed Referral 05/26/2023 05/25/2024 1 1 * Outpatient Procedure (Routine) - Pending Review Specialty Diagnoses / Procedures Referred By Contac t Referred To Contact [facility] Diagnoses Desire for Procedures REMOVE INTRAUTERINE DEVICE REMOVE INTRAUTERINE DEVICE Lucia Coley MD [address] [place] [address] [address] Referral ID Status Reason Start Date Expiration Date Visits Requested Visits Authorized [id number] Pending Review Auto-Generat ed Referral 05/26/2023 05/25/2024 1 1 [facility] for referral (narrative)* Diagnostic Procedure Only (Routine) - Authorized Specialty Diagnoses / Procedures Referred By Contac t Referred To Contact [facility] Diagnoses 8 weeks gestation of Procedures NUCHAL TRANSLUCENCY WHI US NUCHAL TRANSLUCENCY 1ST GESTATION Dutch Richards, MACEY.MOTEL MANAGER [address] [place] [address] [facility] [address] [place] [address] Referral ID Status Reason Start Date Expiration Date Visits Requested Visits Authorized [id number] Authorized Auto-Generat ed Referral 02/11/2025 1 1 [facility] Diagnostic Procedure Only (Routine) - Authorized Specialty Diagnoses / Procedures Referred By Contac t Referred To Contact [facility] Diagnoses Encounter for supervision of high risk in first trimester, antepartum History of section 13 weeks gestation of Procedures OBSTETRIC ULTRASOUND WHI US PREG UTERUS AFTER 1ST TRIMEST GESTATION Camilla Snell MD [address] [place] [address] [facility] [address] [place] [id number] Referral ID Status Reason Start Date Expiration Date Visits Requested Visits Authorized [id number] Authorized Auto-Generat ed Referral 03/18/2024 03/18/2025 1 1 [facility] Summary Purpose Family History No Family History Records FoundNo Family History Records FoundNo Family History Records FoundNo Family History Records FoundNo Family History Records FoundNo Family History Records Found Advance Directives No Advanced Directives Records FoundNo Advanced Directives Records FoundNo Advanced Directives Records FoundNo Advanced Directives Records FoundNo Advanced Directives Records FoundNo Advanced Directives Records Found Health Concerns Infection Onset Date Last Indicated Resolved Time COVID-19 Confirmed 09/19/2021 09/19/2021 Reason for Referral Specialty Diagnoses / Procedures Referred By Contac t Referred To Contact Diagnoses Obesity, Class III, BMI 40-49.9 (morbid obesity) (HCC) Bran Shook MD [address] [place] [address] Referral ID Status Reason Start Date Expiration Date V isits Requested Visits Authorized [id number] Pending Review 1 1 Specialty Diagnoses / Procedures Referred By Contac t Referred To Contact Gastroenterology Diagnoses GERD without esophagitis Procedures CONSULT TO GASTROENTEROLOGY OFFICE/OUTPATIENT [facility] MDM 60-74 MINUTES Leora Billingsley MD [address] [place] [address] Referral ID Status Reason Start Date Expiration Date Visits Requested Visits Authorized [id number] Authorized PCP Requested Referral 2 01/07/2023 1 1 Specialty Diagnoses / Procedures Referred By Contac t Referred To Contact Cardiology Diagnoses Obesity, Class III, BMI 40-49.9 (morbid obesity) (HCC) ROA (dyspnea on exertion) Procedures CONSULT TO CARDIOLOGY OFFICE/OUTPATIENT [facility] MDM 60-74 MINUTES Leora Billingsley MD [address] [place] [address] Referral ID Status Reason Start Date Expiration Date Visits Requested Visits Authorized [id number] Authorized PCP Requested Referral 2 01/07/2023 1 1 Additional Source Comments INFORMATION SOURCE (unrecogn ized section and content) DATE CREATED AUTHOR 02/03/2020 [facility] DATE CREATED AUTHOR AUTHOR'S ORGANIZ ATION 10/04/2020 [facility] DATE CREATED AUTHOR AUTHOR'S ORGANIZ ATION 10/24/2020 [facility] DATE CREATED AUTHOR AUTHOR'S ORGANIZ ATION 01/20/2024 [facility] DATE CREATED AUTHOR AUTHOR'S ORGANIZ ATION 09/11/2024 [facility] DATE CREATED AUTHOR AUTHOR'S ORGANIZ ATION 09/11/2024 [facility] Source Comments (unrecognize d section and content) In the event this informatio n is protected by the Federal Confidentiality of Alcohol and Drug Abuse Patient Records regulations: The Federal rules restrict any use of the information to criminally investigate or prosecute any alcohol or drug abuse patient.[facility] the event this information is protected by the Federal Confidentiality of Alcohol and Drug Abuse Patient Records regulations: The Federal rules restrict any use of the information to criminally investigate or prosecute any alcohol or drug abuse patient.[facility] the event this information is protected by the Federal Confidentiality of Alcohol and Drug Abuse Patient Records regulations: The Federal rules restrict any use of the information to criminally investigate or prosecute any alcohol or drug abuse patient.[facility] the event this information is protected by the Federal Confidentiality of Alcohol and Drug Abuse Patient Records regulations: The Federal rules restrict any use of the information to criminally investigate or prosecute any alcohol or drug abuse patient.[facility] the event this information is protected by the Federal Confidentiality of Alcohol and Drug Abuse Patient Records regulations: The Federal rules restrict any use of the information to criminally investigate or prosecute any alcohol or drug abuse patient.[facility] the event this information is protected by the Federal Confidentiality of Alcohol and Drug Abuse Patient Records regulations: The Federal rules restrict any use of the information to criminally investigate or prosecute any alcohol or drug abuse patient.[facility] the event this information is protected by the Federal Confidentiality of Alcohol and Drug Abuse Patient Records regulations: The Federal rules restrict any use of the information to criminally investigate or prosecute any alcohol or drug abuse patient.[facility] the event this information is protected by the Federal Confidentiality of Alcohol and Drug Abuse Patient Records regulations: The Federal rules restrict any use of the information to criminally investigate or prosecute any alcohol or drug abuse patient.[facility] the event this information is protected by the Federal Confidentiality of Alcohol and Drug Abuse Patient Records regulations: The Federal rules restrict any use of the information to criminally investigate or prosecute any alcohol or drug abuse patient.[facility] the event this information is protected by the Federal Confidentiality of Alcohol and Drug Abuse Patient Records regulations: The Federal rules restrict any use of the information to criminally investigate or prosecute any alcohol or drug abuse patient.[facility] the event this information is protected by the Federal Confidentiality of Alcohol and Drug Abuse Patient Records regulations: The Federal rules restrict any use of the information to criminally investigate or prosecute any alcohol or drug abuse patient.[facility] the event this information is protected by the Federal Confidentiality of Alcohol and Drug Abuse Patient Records regulations: The Federal rules restrict any use of the information to criminally investigate or prosecute any alcohol or drug abuse patient.[facility] the event this information is protected by the Federal Confidentiality of Alcohol and Drug Abuse Patient Records regulations: The Federal rules restrict any use of the information to criminally investigate or prosecute any alcohol or drug abuse patient.[facility] the event this information is protected by the Federal Confidentiality of Alcohol and Drug Abuse Patient Records regulations: The Federal rules restrict any use of the information to criminally investigate or prosecute any alcohol or drug abuse patient.[facility] the event this information is protected by the Federal Confidentiality of Alcohol and Drug Abuse Patient Records regulations: The Federal rules restrict any use of the information to criminally investigate or prosecute any alcohol or drug abuse patient.[facility] the event this information is protected by the Federal Confidentiality of Alcohol and Drug Abuse Patient Records regulations: The Federal rules restrict any use of the information to criminally investigate or prosecute any alcohol or drug abuse patient.[facility] the event this information is protected by the Federal Confidentiality of Alcohol and Drug Abuse Patient Records regulations: The Federal rules restrict any use of the information to criminally investigate or prosecute any alcohol or drug abuse patient.[facility] the event this information is protected by the Federal Confidentiality of Alcohol and Drug Abuse Patient Records regulations: The Federal rules restrict any use of the information to criminally investigate or prosecute any alcohol or drug abuse patient.[facility] the event this information is protected by the Federal Confidentiality of Alcohol and Drug Abuse Patient Records regulations: The Federal rules restrict any use of the information to criminally investigate or prosecute any alcohol or drug abuse patient.[facility] Hospital[facility] the event this information is protected by the Federal Confidentiality of Alcohol and Drug Abuse Patient Records regulations: The Federal rules restrict any use of the information to criminally investigate or prosecute any alcohol or drug abuse patient.[facility] the event this information is protected by the Federal Confidentiality of Alcohol and Drug Abuse Patient Records regulations: The Federal rules restrict any use of the information to criminally investigate or prosecute any alcohol or drug abuse patient.[facility] the event this information is protected by the Federal Confidentiality of Alcohol and Drug Abuse Patient Records regulations: The Federal rules restrict any use of the information to criminally investigate or prosecute any alcohol or drug abuse patient.[facility] Hospital[facility] the event this information is protected by the Federal Confidentiality of Alcohol and Drug Abuse Patient Records regulations: The Federal rules restrict any use of the information to criminally investigate or prosecute any alcohol or drug abuse patient.[facility] the event this information is protected by the Federal Confidentiality of Alcohol and Drug Abuse Patient Records regulations: The Federal rules restrict any use of the information to criminally investigate or prosecute any alcohol or drug abuse patient.[facility] the event this information is protected by the Federal Confidentiality of Alcohol and Drug Abuse Patient Records regulations: The Federal rules restrict any use of the information to criminally investigate or prosecute any alcohol or drug abuse patient.[facility] the event this information is protected by the Federal Confidentiality of Alcohol and Drug Abuse Patient Records regulations: The Federal rules restrict any use of the information to criminally investigate or prosecute any alcohol or drug abuse patient.[facility] Hospital[facility] the event this information is protected by the Federal Confidentiality of Alcohol and Drug Abuse Patient Records regulations: The Federal rules restrict any use of the information to criminally investigate or prosecute any alcohol or drug abuse patient.[facility] HospitalIn the event this information is protected by the Federal Confidentiality of Alcohol and Drug Abuse Patient Records regulations: The Federal rules restrict any use of the information to criminally investigate or prosecute any alcohol or drug abuse patient.[facility] HospitalIn the event this information is protected by the Federal Confidentiality of Alcohol and Drug Abuse Patient Records regulations: The Federal rules restrict any use of the information to criminally investigate or prosecute any alcohol or drug abuse patient.[facility] HospitalIn the event this information is protected by the Federal Confidentiality of Alcohol and Drug Abuse Patient Records regulations: The Federal rules restrict any use of the information to criminally investigate or prosecute any alcohol or drug abuse patient.[facility] HospitalIn the event this information is protected by the Federal Confidentiality of Alcohol and Drug Abuse Patient Records regulations: The Federal rules restrict any use of the information to criminally investigate or prosecute any alcohol or drug abuse patient.[facility] HospitalIn the event this information is protected by the Federal Confidentiality of Alcohol and Drug Abuse Patient Records regulations: The Federal rules restrict any use of the information to criminally investigate or prosecute any alcohol or drug abuse patient.[facility] HospitalIn the event this information is protected by the Federal Confidentiality of Alcohol and Drug Abuse Patient Records regulations: The Federal rules restrict any use of the information to criminally investigate or prosecute any alcohol or drug abuse patient.[facility] HospitalIn the event this information is protected by the Federal Confidentiality of Alcohol and Drug Abuse Patient Records regulations: The Federal rules restrict any use of the information to criminally investigate or prosecute any alcohol or drug abuse patient.[facility] HospitalIn the event this information is protected by the Federal Confidentiality of Alcohol and Drug Abuse Patient Records regulations: The Federal rules restrict any use of the information to criminally investigate or prosecute any alcohol or drug abuse patient.[facility] HospitalIn the event this information is protected by the Federal Confidentiality of Alcohol and Drug Abuse Patient Records regulations: The Federal rules restrict any use of the information to criminally investigate or prosecute any alcohol or drug abuse patient.[facility] HospitalIn the event this information is protected by the Federal Confidentiality of Alcohol and Drug Abuse Patient Records regulations: The Federal rules restrict any use of the information to criminally investigate or prosecute any alcohol or drug abuse patient.[facility] HospitalIn the event this information is protected by the Federal Confidentiality of Alcohol and Drug Abuse Patient Records regulations: The Federal rules restrict any use of the information to criminally investigate or prosecute any alcohol or drug abuse patient.[facility] HospitalIn the event this information is protected by the Federal Confidentiality of Alcohol and Drug Abuse Patient Records regulations: The Federal rules restrict any use of the information to criminally investigate or prosecute any alcohol or drug abuse patient.[facility] HospitalIn the event this information is protected by the Federal Confidentiality of Alcohol and Drug Abuse Patient Records regulations: The Federal rules restrict any use of the information to criminally investigate or prosecute any alcohol or drug abuse patient.[facility] HospitalIn the event this information is protected by the Federal Confidentiality of Alcohol and Drug Abuse Patient Records regulations: The Federal rules restrict any use of the information to criminally investigate or prosecute any alcohol or drug abuse patient.[facility] HospitalIn the event this information is protected by the Federal Confidentiality of Alcohol and Drug Abuse Patient Records regulations: The Federal rules restrict any use of the information to criminally investigate or prosecute any alcohol or drug abuse patient.[facility] HospitalIn the event this information is protected by the Federal Confidentiality of Alcohol and Drug Abuse Patient Records regulations: The Federal rules restrict any use of the information to criminally investigate or prosecute any alcohol or drug abuse patient.[facility] HospitalIn the event this information is protected by the Federal Confidentiality of Alcohol and Drug Abuse Patient Records regulations: The Federal rules restrict any use of the information to criminally investigate or prosecute any alcohol or drug abuse patient.[facility] HospitalIn the event this information is protected by the Federal Confidentiality of Alcohol and Drug Abuse Patient Records regulations: The Federal rules restrict any use of the information to criminally investigate or prosecute any alcohol or drug abuse patient.[facility] HospitalIn the event this information is protected by the Federal Confidentiality of Alcohol and Drug Abuse Patient Records regulations: The Federal rules restrict any use of the information to criminally investigate or prosecute any alcohol or drug abuse patient.[facility] HospitalIn the event this information is protected by the Federal Confidentiality of Alcohol and Drug Abuse Patient Records regulations: The Federal rules restrict any use of the information to criminally investigate or prosecute any alcohol or drug abuse patient.[facility] HospitalIn the event this information is protected by the Federal Confidentiality of Alcohol and Drug Abuse Patient Records regulations: The Federal rules restrict any use of the information to criminally investigate or prosecute any alcohol or drug abuse patient.[facility] HospitalIn the event this information is protected by the Federal Confidentiality of Alcohol and Drug Abuse Patient Records regulations: The Federal rules restrict any use of the information to criminally investigate or prosecute any alcohol or drug abuse patient.[facility] HospitalIn the event this information is protected by the Federal Confidentiality of Alcohol and Drug Abuse Patient Records regulations: The Federal rules restrict any use of the information to criminally investigate or prosecute any alcohol or drug abuse patient.[facility] HospitalIn the event this information is protected by the Federal Confidentiality of Alcohol and Drug Abuse Patient Records regulations: The Federal rules restrict any use of the information to criminally investigate or prosecute any alcohol or drug abuse patient.[facility] HospitalIn the event this information is protected by the Federal Confidentiality of Alcohol and Drug Abuse Patient Records regulations: The Federal rules restrict any use of the information to criminally investigate or prosecute any alcohol or drug abuse patient.[facility] HospitalIn the event this information is protected by the Federal Confidentiality of Alcohol and Drug Abuse Patient Records regulations: The Federal rules restrict any use of the information to criminally investigate or prosecute any alcohol or drug abuse patient.[facility] HospitalIn the event this information is protected by the Federal Confidentiality of Alcohol and Drug Abuse Patient Records regulations: The Federal rules restrict any use of the information to criminally investigate or prosecute any alcohol or drug abuse patient.[facility] HospitalIn the event this information is protected by the Federal Confidentiality of Alcohol and Drug Abuse Patient Records regulations: The Federal rules restrict any use of the information to criminally investigate or prosecute any alcohol or drug abuse patient.[facility] HospitalIn the event this information is protected by the Federal Confidentiality of Alcohol and Drug Abuse Patient Records regulations: The Federal rules restrict any use of the information to criminally investigate or prosecute any alcohol or drug abuse patient.[facility] HospitalIn the event this information is protected by the Federal Confidentiality of Alcohol and Drug Abuse Patient Records regulations: The Federal rules restrict any use of the information to criminally investigate or prosecute any alcohol or drug abuse patient.[facility] HospitalIn the event this information is protected by the Federal Confidentiality of Alcohol and Drug Abuse Patient Records regulations: The Federal rules restrict any use of the information to criminally investigate or prosecute any alcohol or drug abuse patient.[facility] HospitalIn the event this information is protected by the Federal Confidentiality of Alcohol and Drug Abuse Patient Records regulations: The Federal rules restrict any use of the information to criminally investigate or prosecute any alcohol or drug abuse patient.[facility] HospitalIn the event this information is protected by the Federal Confidentiality of Alcohol and Drug Abuse Patient Records regulations: The Federal rules restrict any use of the information to criminally investigate or prosecute any alcohol or drug abuse patient.[facility] HospitalIn the event this information is protected by the Federal Confidentiality of Alcohol and Drug Abuse Patient Records regulations: The Federal rules restrict any use of the information to criminally investigate or prosecute any alcohol or drug abuse patient.[facility] HospitalIn the event this information is protected by the Federal Confidentiality of Alcohol and Drug Abuse Patient Records regulations: The Federal rules restrict any use of the information to criminally investigate or prosecute any alcohol or drug abuse patient.[facility] HospitalIn the event this information is protected by the Federal Confidentiality of Alcohol and Drug Abuse Patient Records regulations: The Federal rules restrict any use of the information to criminally investigate or prosecute any alcohol or drug abuse patient.[facility] HospitalIn the event this information is protected by the Federal Confidentiality of Alcohol and Drug Abuse Patient Records regulations: The Federal rules restrict any use of the information to criminally investigate or prosecute any alcohol or drug abuse patient.[facility] HospitalIn the event this information is protected by the Federal Confidentiality of Alcohol and Drug Abuse Patient Records regulations: The Federal rules restrict any use of the information to criminally investigate or prosecute any alcohol or drug abuse patient.[facility] HospitalIn the event this information is protected by the Federal Confidentiality of Alcohol and Drug Abuse Patient Records regulations: The Federal rules restrict any use of the information to criminally investigate or prosecute any alcohol or drug abuse patient.[facility] HospitalIn the event this information is protected by the Federal Confidentiality of Alcohol and Drug Abuse Patient Records regulations: The Federal rules restrict any use of the information to criminally investigate or prosecute any alcohol or drug abuse patient.[facility] HospitalIn the event this information is protected by the Federal Confidentiality of Alcohol and Drug Abuse Patient Records regulations: The Federal rules restrict any use of the information to criminally investigate or prosecute any alcohol or drug abuse patient.[facility] HospitalIn the event this information is protected by the Federal Confidentiality of Alcohol and Drug Abuse Patient Records regulations: The Federal rules restrict any use of the information to criminally investigate or prosecute any alcohol or drug abuse patient.[facility] HospitalIn the event this information is protected by the Federal Confidentiality of Alcohol and Drug Abuse Patient Records regulations: The Federal rules restrict any use of the information to criminally investigate or prosecute any alcohol or drug abuse patient.[facility] HospitalIn the event this information is protected by the Federal Confidentiality of Alcohol and Drug Abuse Patient Records regulations: The Federal rules restrict any use of the information to criminally investigate or prosecute any alcohol or drug abuse patient.[facility] HospitalIn the event this information is protected by the Federal Confidentiality of Alcohol and Drug Abuse Patient Records regulations: The Federal rules restrict any use of the information to criminally investigate or prosecute any alcohol or drug abuse patient.[facility] HospitalIn the event this information is protected by the Federal Confidentiality of Alcohol and Drug Abuse Patient Records regulations: The Federal rules restrict any use of the information to criminally investigate or prosecute any alcohol or drug abuse patient.[facility] HospitalIn the event this information is protected by the Federal Confidentiality of Alcohol and Drug Abuse Patient Records regulations: The Federal rules restrict any use of the information to criminally investigate or prosecute any alcohol or drug abuse patient.[facility] HospitalIn the event this information is protected by the Federal Confidentiality of Alcohol and Drug Abuse Patient Records regulations: The Federal rules restrict any use of the information to criminally investigate or prosecute any alcohol or drug abuse patient.[facility] HospitalIn the event this information is protected by the Federal Confidentiality of Alcohol and Drug Abuse Patient Records regulations: The Federal rules restrict any use of the information to criminally investigate or prosecute any alcohol or drug abuse patient.[facility] HospitalIn the event this information is protected by the Federal Confidentiality of Alcohol and Drug Abuse Patient Records regulations: The Federal rules restrict any use of the information to criminally investigate or prosecute any alcohol or drug abuse patient.[facility] HospitalIn the event this information is protected by the Federal Confidentiality of Alcohol and Drug Abuse Patient Records regulations: The Federal rules restrict any use of the information to criminally investigate or prosecute any alcohol or drug abuse patient.[facility] HospitalIn the event this information is protected by the Federal Confidentiality of Alcohol and Drug Abuse Patient Records regulations: The Federal rules restrict any use of the information to criminally investigate or prosecute any alcohol or drug abuse patient.[facility] HospitalIn the event this information is protected by the Federal Confidentiality of Alcohol and Drug Abuse Patient Records regulations: The Federal rules restrict any use of the information to criminally investigate or prosecute any alcohol or drug abuse patient.[facility] HospitalIn the event this information is protected by the Federal Confidentiality of Alcohol and Drug Abuse Patient Records regulations: The Federal rules restrict any use of the information to criminally investigate or prosecute any alcohol or drug abuse patient.[facility] HospitalIn the event this information is protected by the Federal Confidentiality of Alcohol and Drug Abuse Patient Records regulations: The Federal rules restrict any use of the information to criminally investigate or prosecute any alcohol or drug abuse patient.[facility] HospitalIn the event this information is protected by the Federal Confidentiality of Alcohol and Drug Abuse Patient Records regulations: The Federal rules restrict any use of the information to criminally investigate or prosecute any alcohol or drug abuse patient.[facility] HospitalIn the event this information is protected by the Federal Confidentiality of Alcohol and Drug Abuse Patient Records regulations: The Federal rules restrict any use of the information to criminally investigate or prosecute any alcohol or drug abuse patient.[facility] HospitalIn the event this information is protected by the Federal Confidentiality of Alcohol and Drug Abuse Patient Records regulations: The Federal rules restrict any use of the information to criminally investigate or prosecute any alcohol or drug abuse patient.[facility] HospitalIn the event this information is protected by the Federal Confidentiality of Alcohol and Drug Abuse Patient Records regulations: The Federal rules restrict any use of the information to criminally investigate or prosecute any alcohol or drug abuse patient.[facility] HospitalIn the event this information is protected by the Federal Confidentiality of Alcohol and Drug Abuse Patient Records regulations: The Federal rules restrict any use of the information to criminally investigate or prosecute any alcohol or drug abuse patient.[facility] HospitalIn the event this information is protected by the Federal Confidentiality of Alcohol and Drug Abuse Patient Records regulations: The Federal rules restrict any use of the information to criminally investigate or prosecute any alcohol or drug abuse patient.[facility] HospitalIn the event this information is protected by the Federal Confidentiality of Alcohol and Drug Abuse Patient Records regulations: The Federal rules restrict any use of the information to criminally investigate or prosecute any alcohol or drug abuse patient.[facility] HospitalIn the event this information is protected by the Federal Confidentiality of Alcohol and Drug Abuse Patient Records regulations: The Federal rules restrict any use of the information to criminally investigate or prosecute any alcohol or drug abuse patient.[facility] HospitalIn the event this information is protected by the Federal Confidentiality of Alcohol and Drug Abuse Patient Records regulations: The Federal rules restrict any use of the information to criminally investigate or prosecute any alcohol or drug abuse patient.[facility] Reason for Visit (unrecogniz ed section and content) Reason Comments Care Reason Onset Date Comments Refill Request 07/09/2021 Reason Comments Yearly Exam Reason Onset Date Comments Refill Request 04/04/2021 Reason Comments IUD Specialty Diagnoses / Procedures Referred By Robin fernandes Referred To Contact [facility] Diagnoses care and examination control counseling Encounter for insertion of intrauterine contraceptive device Encounter for removal of intrauterine contraceptive device Procedures INSERT INTRAUTERINE DEVICE LEVONORGESTREL IU 52MG 5 YR INSERT INTRAUTERINE DEVICE REMOVE INTRAUTERINE DEVICE Priscilla Peterson APRN.CN [address] [place] [address] [facility] [address] [place] [address] Referral ID Status Reason Start Date Expiration Date V isits Requested Visits Authorized [id number] Closed Auto-Generate d Referral 07/10/2021 02/16/2022 2 2 Reason Comments Appointment Reason Comments Anxiety Depression Reason Comments Consult Initial [facility] Pt Outr each Reason Comments Sore Throat cough, fever, ROCHA, víctor dyaches started this morning Reason Comments Patient Update Patient Question Reason Comments ER F/U Reason Comments Patient Update Reason Onset Date Comments Refill Request 10/09/2021 Reason Onset Date Comments Refill Request 11/26/2021 Reason Comments Weight Problem Reason Comments Medication Problem Reason Comments Follow Up Weight loss surgery Reason Comments New Patient SOB Surgical clearan ce - weight loss surgery in July 2022Fam Hx of heart attack and HTN Specialty Diagnoses / Procedures Referred By Contac t Referred To Contact Cardiology Diagnoses Obesity, Class III, BMI 40-49.9 (morbid obesity) (HCC) ROA (dyspnea on exertion) Procedures CONSULT TO CARDIOLOGY OFFICE/OUTPATIENT NEW HIGH MDM 60-74 MINUTES Leora Billingsley MD [address] [place] [id number] Referral ID Status Reason Start Date Expiration Date V isits Requested Visits Authorized [id number] Closed PCP Requested Referral 01/07/2022 01/07/2023 1 1 Reason Comments Pre Surgery Follow Up Reason Comments Reminder Call Reason Onset Date Comments Patient Update 05/21/2022 Reason Comments Hives All over, big spot o n upper right arm x 1 week Reason Comments Follow Up Reason Onset Date Comments Refill Request 10/11/2022 Reason Comments Nurse Triage Call Reason Comments Refill Request Reason Onset Date Comments Refill Request 04/09/2023 Reason Comments Menstrual Problem Reason Comments Results Reason Comments DUB Specialty Diagnoses / Procedures Referred By Contac t Referred To Contact [facility] Diagnoses IUD (intrauterine device) in place DUB (dysfunctional uterine bleeding) Procedures PELVIC US WHI US PELVIC NONOBSTETRIC REAL-TIME IMAGE COMPLETE Lucia Coley MD [address] [place] [address] [facility] [place] [address] Referral ID Status Reason Start Date Expiration Date V isits Requested Visits Authorized [id number] Closed Auto-Generate d Referral 05/26/2023 05/25/2024 1 1 Reason Comments IUD Removal Specialty Diagnoses / Procedures Referred By Contac t Referred To Contact [facility] Diagnoses Desire for Encounter for insertion of intrauterine contraceptive device Procedures REMOVE INTRAUTERINE DEVICE REMOVE INTRAUTERINE DEVICE INSERT INTRAUTERINE DEVICE LEVONORGESTREL IU 52MG 5 YR Lucia Coley MD [address] [place] [address] [facility] [address] [address] Referral ID Status Reason Start Date Expiration Date Visits Requested Visits Authorized [id number] Authorized Auto-Generat ed Referral 06/10/2023 02/17/2024 2 2 Reason Onset Date Comments Refill Request 08/20/2023 Reason Comments Eye Problem Right eye swollen an d red and discharge. X this morning Reason Comments Spotting early Reason Comments Diarrhea Reason Comments Miscarriage Reason Comments Headache medication Reason Comments New Patient Confirmati on Reason Comments Patient Question Reason Comments Initial OB Visit Reason Onset Date Comments Refill Request 04/13/2024 Reason Comments OB ROCHA Reason Comments Question (OB Question) Reason Comments US Specialty Diagnoses / Procedures Referred By Contac t Referred To Contact [facility] Diagnoses Encounter for supervision of high risk in first trimester, antepartum History of section 13 weeks gestation of Procedures OBSTETRIC ULTRASOUND WHI US PREG UTERUS AFTER 1ST TRIMEST GESTATION Camilla Snell MD [address] [place] [address] Phone: tel: fax: [facility] [address] [place] [address] Referral ID Status Reason Start Date Expiration Date V isits Requested Visits Authorized [id number] Closed Auto-Generate d Referral 03/18/2024 03/18/2025 1 1 Reason Onset Date Comments Care 04/28/2024 Reason Onset Date Comments Care 05/11/2024 Reason Comments Insurance Authorization Reason Comments Breast Pump Reason Onset Date Comments Care 05/20/2024 Reason Onset Date Comments Care 06/04/2024 Specialty Diagnoses / Procedures Referred By Contac t Referred To Contact [facility] Diagnoses Supervision of high risk in third trimester (HCC) Obesity affecting in third trimester, unspecified obesity type (HCC) Procedures OBSTETRIC ULTRASOUND WHI US PREG UTERUS AFTER 1ST TRIMEST GESTATION Priscilla Peterson APRN.CNKoffi [address] [place] [address] Phone: tel: fax: [facility] [address] [place] [address] Referral ID Status Reason Start Date Expiration Date V isits Requested Visits Authorized [id number] Closed Auto-Generate d Referral 06/04/2024 06/04/2025 5 1 Reason Onset Date Comments Care 07/02/2024 Reason Onset Date Comments Care 07/20/2024 Reason Onset Date Comments Care 08/05/2024 Reason Onset Date Comments Care 08/09/2024 Reason Onset Date Comments Care 08/17/2024 Reason Onset Date Comments Care 08/27/2024 Reason Onset Date Comments Care 08/31/2024 Reason Onset Date Comments Care 09/09/2024 Care Teams (unrecognized sec tion and content) Quilt Maker Relationship Specialty Start Date End Date Bran Shook MD [address] [facility] [place] [address] PCP - General Family Practice 09/12/16 Quilt Maker Relationship Specialty Start Date End Date Bran Shook MD [address] [facility] [place] [address] PCP - General Family Practice 09/12/16 Quilt Maker Relationship Specialty Start Date End Date Bran Shook MD [address] [facility] [place] [address] PCP - General Family Practice 09/12/16 Quilt Maker Relationship Specialty Start Date End Date Bran Shook MD [address] [facility] [place] [address] PCP - General Family Practice 09/12/16 Quilt Maker Relationship Specialty Start Date End Date Bran Shook MD [address] [facility] [place] [address] PCP - General Family Practice 09/12/16 Quilt Maker Relationship Specialty Start Date End Date Bran Shook MD [address] [facility] [place] [address] PCP - General Family Practice 09/12/16 Quilt Maker Relationship Specialty Start Date End Date Bran Shook MD [address] [facility] [place] [address] PCP - General Family Practice 09/12/16 Quilt Maker Relationship Specialty Start Date End Date Bran Shook MD [address] [facility] [place] [address] PCP - General Family Practice 09/12/16 Quilt Maker Relationship Specialty Start Date End Date Bran Shook MD [address] [facility] [place] [address] PCP - General Family Practice 09/12/16 Quilt Maker Relationship Specialty Start Date End Date Bran Shook MD [address] [facility] [place] [address] PCP - General Family Medicine 09/12/16 Quilt Maker Relationship Specialty Start Date End Date Bran Shook MD [address] [facility] [place] [address] PCP - General Family Medicine 09/12/16 Quilt Maker Relationship Specialty Start Date End Date Bran Shook MD [address] [facility] [place] [address] PCP - General Family Medicine 09/12/16 Quilt Maker Relationship Specialty Start Date End Date Enrique Butterfield DO [address] [facility] [place] [address] PCP - General Family Medicine 12/25/21 Quilt Maker Relationship Specialty Start Date End Date Enrique Butterfield DO [address] [facility] / [facility] [place] [address] PCP - General Family Medicine 12/25/21 Quilt Maker Relationship Specialty Start Date End Date Enrique Butterfield DO [address] [facility] / [facility] [place] [address] PCP - General Family Medicine 12/25/21 Quilt Maker Relationship Specialty Start Date End Date Leora Billingsley MD [address] [place] [address] PCP - General Family Medicine 05/20/22 Quilt Maker Relationship Specialty Start Date End Date Leora Billingsley MD [address] [place] [address] PCP - General Family Medicine 05/20/22 Quilt Maker Relationship Specialty Start Date End Date Leora Billingsley MD [address] [place] [address] PCP - General Family Medicine 05/20/22 Quilt Maker Relationship Specialty Start Date End Date Leora Billingsley MD [address] [place] [address] PCP - General Family Medicine 05/20/22 Quilt Maker Relationship Specialty Start Date End Date Leora Billingsley MD [address] [place] [address] PCP - General Family Medicine 05/20/22 Quilt Maker Relationship Specialty Start Date End Date Leora Billingsley MD [address] [place] [address] PCP - General Family Medicine 05/20/22 Quilt Maker Relationship Specialty Start Date End Date Leora Billingsley MD [address] [place] [address] PCP - General Family Medicine 05/20/22 Quilt Maker Relationship Specialty Start Date End Date Leora Billingsley MD [address] [place] [address] PCP - General Family Medicine 05/20/22 Quilt Maker Relationship Specialty Start Date End Date Leora Billingsley MD [address] [place] [address] PCP - General Family Medicine 05/20/22 Quilt Maker Relationship Specialty Start Date End Date Leora Billingsley MD [address] [place] [address] PCP - General Family Medicine 05/20/22 Quilt Maker Relationship Specialty Start Date End Date Leora Billingsley MD [address] [place] [address] PCP - General Family Medicine 05/20/22 Quilt Maker Relationship Specialty Start Date End Date Leora Billingsley MD [address] [place] [address] PCP - General Family Medicine 05/20/22 Quilt Maker Relationship Specialty Start Date End Date Leora Billingsley MD [address] [place] [address] PCP - General Family Medicine 05/20/22 Quilt Maker Relationship Specialty Start Date End Date Leora Billingsley MD [address] [place] [address] PCP - General Family Medicine 05/20/22 Quilt Maker Relationship Specialty Start Date End Date Leora Billingsley MD [address] [place] [address] PCP - General Family Medicine 05/20/22 Quilt Maker Relationship Specialty Start Date End Date Leora Billingsley MD [address] [place] [address] PCP - General Family Medicine 05/20/22 Quilt Maker Relationship Specialty Start Date End Date Leora Billingsley MD [address] [place] [address] PCP - General Family Medicine 05/20/22 Galina Brooks PA-C [address] [place] [address] Personal Service [employer] [facility] 01/25/24 Quilt Maker Relationship Specialty Start Date End Date Leora Billingsley MD [address] [place] [address] PCP - General Family Medicine 05/20/22 Galina Brooks PA-C [address] [place] [address] [facility] Quilt Maker Relationship Specialty Start Date End Date Leora Billingsley MD [address] [place] [address] PCP - General Family Medicine 05/20/22 Galina Brooks PA-C [address] [place] [address] [facility] 01/25/24 Quilt Maker Relationship Specialty Start Date End Date Leora Billingsley MD [address] [place] [address] PCP - General Family Medicine 05/20/22 Galina Brooks PA-C [address] [place] [address] [employer] [facility] 01/25/24 Quilt Maker Relationship Specialty Start Date End Date Leora Billingsley MD [address] [place] [address] PCP - General Family Medicine 05/20/22 Galina Brooks PA-C [address] [place] [address] [employer] [facility] 01/25/24 Quilt Maker Relationship Specialty Start Date End Date Leora Billingsley MD [address] [place] [address] PCP - General Family Medicine 05/20/22 Galina Brooks PA-C [address] [place] [address] [facility] 01/25/24 Quilt Maker Relationship Specialty Start Date End Date Leora Billingsley MD [address] [place] [address] PCP - General Family Medicine 05/20/22 Galina Brooks PA-C [address] [place] [address] [facility] 01/25/24 Quilt Maker Relationship Specialty Start Date End Date Leora Billingsley MD [address] [place] [address] PCP - General Family Medicine 05/20/22 Galina Brooks PA-C [address] [place] [address] [facility] 01/25/24 Quilt Maker Relationship Specialty Start Date End Date Leora Billingsley MD [address] [place] [address] PCP - General Family Medicine 05/20/22 Galina Brooks PA-C [address] [place] [address] [facility] 01/25/24 Quilt Maker Relationship Specialty Start Date End Date Leora Billingsley MD [address] [place] [address] PCP - General Family Medicine 05/20/22 Galina Brooks PA-C [address] [place] [address] [facility] 01/25/24 Quilt Maker Relationship Specialty Start Date End Date Leora Billingsley MD [address] [place] [address] PCP - General Family Medicine 05/20/22 Galina Brooks PA-C [address] [place] [address] [facility] 01/25/24 Quilt Maker Relationship Specialty Start Date End Date Leora Billingsley MD [address] [place] [address] PCP - General Family Medicine 05/20/22 Galina Brooks PA-C [address] [place] [address] [facility] 01/25/24 Quilt Maker Relationship Specialty Start Date End Date Leora Billingsley MD [address] [place] [address] PCP - General Family Medicine 05/20/22 Galina Brooks PA-C [address] [place] [address] [facility] 01/25/24 Quilt Maker Relationship Specialty Start Date End Date Leora Billingsley MD [address] [place] [address] PCP - General Family [facility] 05/20/22 Galina Brooks PA-C [address] [place] [address] [facility] 01/25/24 Quilt Maker Relationship Specialty Start Date End Date Leora Billingsley MD [address] [place] [address] PCP - General Family Medicine 05/20/22 Galina Brooks PA-C [address] [place] [address] [facility] 01/25/24 Quilt Maker Relationship Specialty Start Date End Date Leora Billingsley MD [address] [place], [place] [id number] PCP - General Family Medicine 05/20/22 Galina Brooks PA-C [address] [place] [address] Personal [employer] [facility] 01/25/24 Quilt Maker Relationship Specialty Start Date End Date Leora Billingsley MD [address] [place] [address] PCP - General Family Medicine 05/20/22 Galina Brooks PA-C [address] [place] [address] [facility] 01/25/24 Quilt Maker Relationship Specialty Start Date End Date Leora Billingsley MD [address] [place] [address] PCP - General Family Medicine 05/20/22 Galina Brooks PA-C [address] [place] [address] [facility] 01/25/24 Quilt Maker Relationship Specialty Start Date End Date Leora Billingsley MD [address] [place] [address] PCP - General Family Medicine 05/20/22 Galina Brooks PA-C [address] [place] [address] [facility] 01/25/24 Quilt Maker Relationship Specialty Start Date End Date Leora Billingsley MD [address] [place] [address] PCP - General Family Medicine 05/20/22 Galina Brooks PA-C [address] [place] [address] Personal Service Workers Family [facility] 01/25/24 Quilt Maker Relationship Specialty Start Date End Date Leora Billingsley MD [address] [place] [address] PCP - General Family Medicine 05/20/22 Galina Brooks PA-C [address] [place] [address] [employer] [facility] 01/25/24 Quilt Maker Relationship Specialty Start Date End Date Leora Billingsley MD [address] [place] [address] PCP - General Family Medicine 05/20/22 Galina Brooks PA-C [address] [place] [address] [facility] 01/25/24 Quilt Maker Relationship Specialty Start Date End Date Leora Billingsley MD [address] [place] [address] PCP - General Family Medicine 05/20/22 Galina Brooks PA-C [address] [place] [address] [facility] 01/25/24 Quilt Maker Relationship Specialty Start Date End Date Leora Billingsley MD [address] [place] [address] PCP - General Family Medicine 05/20/22 Galina Brooks PA-C [address] [place] [address] Personal [employer] Workers [facility] 01/25/24 Quilt Maker Relationship Specialty Start Date End Date Leora Billingsley MD [address] [place] [address] PCP - General Family Medicine 05/20/22 Galina Brooks PA-C [address] [place] [address] Personal [employer] Workers [facility] 01/25/24 Quilt Maker Relationship Specialty Start Date End Date Leora Billingsley MD [address] [place] [address] PCP - General Family Medicine 05/20/22 Galina Brooks PA-C [address] [place] [address] Personal [employer] Workers [facility] 01/25/24 Quilt Maker Relationship Specialty Start Date End Date Leora Billingsley MD [address] [place] [address] PCP - General Family Medicine 05/20/22 Galina Brooks PA-C [address] [place] [address] [employer] [facility] 01/25/24 Quilt Maker Relationship Specialty Start Date End Date Leora Billingsley MD [address] [place] [address] PCP - General Family Medicine 05/20/22 Galina Brooks PA-C [address] [place] [address] Replaced By [facility] 01/25/24 FOR RECORDS PERTAINING TO PATIENTS WHO ARE OR HAVE BEEN ENROLLED IN A CHEMICAL DEPENDENCY/SUBSTANCEABUSE PROGRAM, SOME INFORMATION MAY BE OMITTED. This clinical summary was aggregated from multiple sources. Caution should be exercised in using it in the provision of clinical care. This summary normalizes information from multiple sources, and as a consequence, information in this document may materially change the coding, format and clinical context of patient data. In addition, data may be omitted in some cases. CLINICAL DECISIONS SHOULD BE BASED ON THE PRIMARY CLINICAL RECORDS. [facility] [employer] [facility]. provides no warranty or guarantee of the accuracy or completeness of information in this document.
--- NOTE | 2024-09-13 23:31 | FALS_PTH ---
PATIENT: HARSHA LOZANO LOC: WP U#:[id number] AGE/SX: 28/F ROOM: WP009 RE09/13/[address]: Dr. Miri Salazar MD : 1995 BED: 1 DIS: 09/16/2024 SPEC #: [id number] RECD: 09/13/24 23:44 STATUS: DOUGLAS REWilly #: [id number] NOÉ: 09/13/24 23:[address]: Miri Salazar DEPT: SURGICAL PATHOLOGY RECD BY: Chip Lind ENTERED: 09/14/24 08:51 SP TYPE: FALL TUBES OTHR DR: No Primary Care Phys Tissues: A - Fallopian tube Procedures: Surgery Specimen Level II HEADER OPERATION: Repeat section PRE-OP DIAGNOSIS: Tubal TISSUE SUBMITTED: A- Bilateral fallopian tubes - suture in left tube MICROSCOPIC DIAGNOSIS A. Bilateral fallopian tubes, salpingectomies: * Benign fallopian tubes with complete cross sections obtained * Benign paratubal cysts MICROSCOPIC DESCRIPTION Slides are reviewed. GROSS DESCRIPTION A. Received in formalin labeled with the patient's name and date of . Designated as suture on left tube are 2 red-purple fimbriated fallopian tubes with orientation (suture on the left); they measure 5.6 x 0.6 cm (L) and 5.7 x 0.8 cm (R). Few paratubal cysts are identified, <0.1 cm to 0.2 cm. Test Facility Engineer sections are submitted in 4 cassettes as follows:A1-A2: Left fallopian tubeA3-A4: Right fallopian tube HI 09/14/2024 CPT:57968s8
[2024-09-13 23:49] LABS: Pathology Specimen OB SEE PATHOLOGY REPORT
[2024-09-14] VITALS (18 sets, daily range): BP systolic 120–151; BP diastolic 60–100; PULSE 73–111; RESP 14–24; TEMP 36.2–37; O2SAT 97–100
[2024-09-14] MEDS: Lactated Ringers 1,000 ML 100 ML IV (01:36)
[2024-09-14 03:51] LABS: Hematocrit 30.0 % (37-47); Hemoglobin 9.7 g/dL (12.0-15.0); Mean Corp Hgb Conc 32.3 g/dL (32-36); Mean Corpuscular Volume 77.7 fL (81-99); Mean Platelet Vol. 11.7 fl (6.2-12.0); Platelet Count 224 K/mm3 (150-450); RBC Distribution Width CV 12.2 % (11.6-14.6); RBC Distribution Width SD 33.8 fl (35.1-43.9); Red Blood Count 3.86 M/mm3 (4.2-5.4); White Blood Count 10.8 K/mm3 (4.4-11.0)
[2024-09-14] MEDS: Ketorolac 30 MG/ML Syringe IV ×3 (04:19→17:10)
--- NOTE | 2024-09-14 06:33 | PCM.PN.OB ---
Subjective Subjective Doing well. Ambulating and voiding without difficulty. Mild lochia. Breast feeding. Baby struggling with blood sugars. Giving donor milk. No ROCHA. Has not taken iron supplement before. Sensitive stomach after gastric sleeve. Offered IV iron if desires. Objective Data Objective Data Vital Signs: Vital Signs Temp Pulse Resp BP Pulse Ox O2 Del Method 97.2 F L 83 16 130/82 H 100 Room Air 09/14/24 06:18 09/14/24 06:18 09/14/24 06:18 09/14/24 06:18 09/14/24 06:18 09/14/24 06:18 Oxygen Delivery Method Room Air Weight: 112.037 kg Body Mass Index (BMI) 39.9 Intake & Output: Intake and Output for Last 24 Hours 09/12/24 09/13/24 09/14/24 23:59 23:59 23:59 Intake Total 1265 / 1265 240.7 / 240.7 Output Total 650 / 650 100 / 100 Balance 615 / 615 140.7 / 140.7 Lab / Micro Data 09/14/24 03:30 09/13/24 18:05 Labs: Laboratory Results - last 24 hr 09/13/24 16:30: Vag Amniotic Fld Detect POSITIVE H 09/13/24 18:05: WBC 9.5, RBC 4.50, Hgb 11.5 L, Hct 35.0 L, MCV 77.8 L, MCH 25.6 L, MCHC 32.9, RDW Std Deviation 34.2 L, RDW Coeff of Kristin 12.3, Plt Count 302, MPV 11.9, Immature Gran % (Auto) 0.400, Neut % (Auto) 73.7 H, Lymph % (Auto) 17.9 L, [place] % (Auto) 6.4, Eos % (Auto) 1.1, Baso % (Auto) 0.5, Absolute Neuts (auto) 7.0, Absolute Lymphs (auto) 1.70, Nucleated RBC % 0, Creatinine 0.67 L, Estim Creat Clear Calc 157.24, Est GFR (MDRD) Non-Af 121, Uric Acid 4.3, AST 12, ALT 18, U Random Total Protein 14.9 H, Urine Creatinine 98.80, Protein/Creatinin Ratio 151, Syphilis Total Ab Nonreactive, Blood Type A POSITIVE, Antibody Screen NEGATIVE 09/13/24 18:06: POC Glucose 75 09/14/24 00:08: POC Glucose 81 09/14/24 03:30: WBC 10.8, RBC 3.86 L, Hgb 9.7 L, Hct 30.0 L, MCV 77.7 L, MCH 25.1 L, MCHC 32.3, RDW Std Deviation 33.8 L, RDW Coeff of Kristin 12.2, Plt Count 224, MPV 11.7 09/14/24 03:32: POC Glucose 133 H ROS Constitutional Constitutional: Denies headache(s) Cardiovascular Cardiovascular: Denies chest pain or dyspnea Gastrointestinal Gastrointestinal: Denies nausea or vomiting Genitourinary Genitourinary: Denies dysuria Physical Exam Const alert General Appearance: cooperative Eyes PERRL and EOMs intact bilaterally Resp normal respiratory effort GI soft to palpation and non-tender GI Narrative: soft, moderate distention, fundus firm, appropriately tender. Abdominal bandage clean dry and intact Uterus Palpation: uterus fundus firm ( below umbilicus) Extremity normal to inspection and full ROM Neuro oriented x3 and CN's II-XII intact bilaterally Psych mental status grossly normal Assessment & Plan (1) S/P : (2) H/O gastric sleeve: (3) Sterilization: (4) Chronic hypertension affecting : PLAN: No meds in . Labile PP (5) Gestational diabetes: QUALIFIERS: Gestational diabetes mellitus control: insulin-controlled Trimester: third trimester Qualified Code(s): O24.414 - Gestational diabetes mellitus in , insulin controlled PLAN: Diet controlled
[2024-09-14] MEDS: Senna/Docusate Sodium 1 Tablet PO (11:06)
[2024-09-14] MEDS: buPROPion (XL) 150 MG TABLET.XL PO (11:07)
[2024-09-15 02:17] VITALS: BP 141/91; PULSE 80; RESP 16; TEMP 36.1; O2SAT 99
[2024-09-15 08:00] VITALS: BP 145/74; PULSE 75; RESP 18; TEMP 36.7; O2SAT 100
--- NOTE | 2024-09-15 08:39 | PN.OBGYN_ITS ---
Subjective Subjective Patient seen at bedside. Ambulating and voiding without difficulty. Passing small amount of flatus. Pain controlled with oxi-ir and Tylenol PO. Cannot take NSAIDS. Baby in SCN for blood sugar regulation. Denies headache, dizziness, SOB, CP. Objective Data Objective Data Vital Signs: Vital Signs Temp Pulse Resp BP Pulse Ox O2 Del Method 97 F L 80 16 141/91 H 99 Room Air 09/15/24 02:17 09/15/24 02:17 09/15/24 02:17 09/15/24 02:17 09/15/24 02:17 09/15/24 02:17 Oxygen Delivery Method Room Air Weight: 247 lb Body Mass Index (BMI) 39.9 Intake & Output: Intake and Output for Last 24 Hours 09/13/24 09/14/24 09/15/24 23:59 23:59 23:59 Intake Total 1265 / 1265 1240.7 / 1240.7 Output Total 650 / 650 2700 / 2700 Balance 615 / 615 -1459.3 / -1459.3 Lab / Micro Data 09/14/24 03:30 09/13/24 18:05 Assessment & Plan (1) S/P : (2) H/O gastric sleeve: (3) Sterilization: (4) Previous delivery affecting : (5) Postoperative pain: (6) Chronic hypertension: PLAN: Plan BP 141/91- will continue to monitor today- no severe ranges Hx of taking BP medications but not for several years Increase ambulation Pain control Anticipate d/c tomorrow to [facility] status
[2024-09-15] MEDS: buPROPion (XL) 150 MG TABLET.XL PO (10:01)
[2024-09-15] MEDS: Senna/Docusate Sodium 1 Tablet PO (10:01)
[2024-09-15 12:20] VITALS: BP 141/83; PULSE 72; RESP 16; TEMP 36.3; O2SAT 100
--- NOTE | 2024-09-15 15:51 | PCM.PN.CNM ---
Subjective Subjective Patient's blood pressures remaining 140/ 70-80's. With history of CHTN and continued increasing blood pressures. Will start Procardia 30 mg XR daily. Continue to monitor pressures and post operative pain. Objective Data Objective Data Vital Signs: Vital Signs Temp Pulse Resp BP Pulse Ox O2 Del Method 97.4 F L 72 16 141/83 H 100 Room Air 09/15/24 12:20 09/15/24 12:20 09/15/24 12:20 09/15/24 12:20 09/15/24 12:20 09/15/24 12:20 Oxygen Delivery Method Room Air Weight: 247 lb Body Mass Index (BMI) 39.9 Intake & Output: Intake and Output for Last 24 Hours 09/13/24 09/14/24 09/15/24 23:59 23:59 23:59 Intake Total 1265 / 1265 1240.7 / 1240.7 Output Total 650 / 650 2700 / 2700 Balance 615 / 615 -1459.3 / -1459.3 Lab / Micro Data 09/14/24 03:30 09/13/24 18:05 Assessment & Plan (1) S/P : (2) H/O gastric sleeve: (3) Sterilization: (4) Postoperative pain: (5) Chronic hypertension: (6) S/P primary low transverse : (7) Asthma: (8) Obesity: (9) Chronic hypertension affecting : PLAN: Plan POD 2 Repeat C/S No severe range pressures Start Procardia 30 mg XR PO daily Continue to monitor blood pressures
[2024-09-15 16:00] VITALS: BP 155/85; PULSE 75; RESP 18; O2SAT 98
[2024-09-15] MEDS: NIFEdipine 30 MG Tablet PO (16:13)
[2024-09-15 20:06] VITALS: BP 149/88; PULSE 99; RESP 16; TEMP 36.7; O2SAT 100
[2024-09-16 02:10] VITALS: BP 142/96; PULSE 91; RESP 16; TEMP 36.5; O2SAT 99
--- NOTE | 2024-09-16 07:16 | PCM.DC.SUM ---
Providers Date of Admission: 09/13/24 Primary Care Physician: No Primary Care Phys Reason For Visit: REPEAT C SECTION Diagnosis Discharge Diagnosis (1) S/P : Status: Acute Code(s): Z98.891 - History of uterine scar from previous surgery (2) H/O gastric sleeve: Status: Acute Code(s): Z90.3 - Acquired absence of stomach [part of] (3) Sterilization: Status: Acute Code(s): Z30.2 - Encounter for sterilization (4) Postoperative pain: Status: Acute Code(s): G89.18 - Other acute postprocedural pain (5) Chronic hypertension: Status: Chronic Code(s): I10 - Essential (primary) hypertension (6) S/P primary low transverse : Status: Acute Code(s): Z98.891 - History of uterine scar from previous surgery (7) Asthma: Status: Acute Code(s): J45.909 - Unspecified asthma, uncomplicated (8) Obesity: Status: Acute Code(s): E66.9 - Obesity, unspecified (9) Chronic hypertension affecting : Status: Chronic Code(s): O10.919 - Unspecified pre-existing hypertension complicating , unspecified trimester Plan POD 3 Repeat C/S No severe range pressures Blood pressures ilpssec953/88 & 142/96- Increase Procardia 60 mg XR PO daily Continue to monitor blood pressures today Pain control D/C later tonight to hotel status if no severe ranges Follow up in office next week for BP check and will take BP at home upon discharge Medications at Discharge Home Medications bupropion HCl 150 mg 24 hr tablet, extended release (Wellbutrin XL) 150 mg PO DAILY depression 04/20/21 famotidine 20 mg tablet (Pepcid) 20 mg PO BID antacid 04/20/21 acetaminophen 500 mg tablet 1,000 mg PO Q6H PRN pain 09/13/24 cetirizine 10 mg tablet (24Hour Allergy) 10 mg PO DAILY PRN allergy symptoms 09/13/24 escitalopram oxalate 20 mg tablet (Lexapro) 20 mg PO DAILY anxiety 09/13/24 acetaminophen 500 mg tablet 1,000 mg (2 x 500 mg) PO Q6H #0 tabs 09/16/24 bupropion HCl 150 mg 24 hr tablet, extended release 150 mg PO DAILY #0 tabs 09/16/24 escitalopram oxalate 20 mg tablet 20 mg PO DAILY #0 tabs 09/16/24 famotidine 20 mg tablet 20 mg PO BID #0 tabs 09/16/24 nifedipine 60 mg tablet,extended release 24 hr 60 mg PO DAILY #60 tabs 09/16/24 oxycodone 5 mg tablet 5 - 10 mg (1 - 2 x 5 mg) PO Q4H PRN PRN Pain Score 4-10 3 days #14 tabs 09/16/24 sennosides 8.6 mg-docusate sodium 50 mg tablet (Stimulant Laxative Plus) 1 - 2 tab PO DAILY #0 tabs 09/16/24 Hospital Course Operations section Procedures None Summary of Care Provided Minutes Spent on Discharge: 15 Hospital Course: Patient had section. Hospital course was uneventful. Physical Exam Narrative Patient denies any headache, dizziness, SOB, or CP. No edema. Lochia decreasing. Passing flatus. Baby in SCN for blood sugars. Planning to go to Hotel status tonight. Const alert and no apparent distress General Appearance: cooperative and comfortable Exam Limitations: no limitations HEENT normocephalic Eyes General Eye: normal appearance of both eyes Neck full ROM General: normal visual inspection Chest Chest: symmetrical chest wall rise Resp normal respiratory effort and normal air movement Effort and Inspection: symmetric chest movement Auscultation: clear to auscultation bilaterally Cardio regular rate and regular rhythm GI normal to inspection, nondistended, normoactive bowel sounds Back/Spine normal ROM Extremity full ROM and no calf tenderness General Extremity: normal exam except as noted Skin no rashes or lesions noted Wound Narrative: Dressing is dry and intact. Neuro CN's II-XII intact bilaterally Psych mental status grossly normal Weight / BMI Weight Weight: 247 lb Body Mass Index (BMI) 39.9 ABG / Lab / Microbiology Data 09/14/24 03:30 09/13/24 18:05 D/C Instructions Discharge Activity: May Drive (2 weeks) and May Shower May resume sexual activity in: 6-8 weeks Weight Bearing Status: Weight bearing as tolerated Lifting Restricted to (Lbs): 25 Call your doctor if your incision/area has: Continuous Slow Oozing, Sudden Increased Bleeding, Increased Pain/ Swelling, Increased Redness, Foul Smelling Discharge and Swelling at the incision site Call your doctor if you observe: Fever of 101 or Higher, Numbness or Tingling, Using more than 1 pad per hour, Shortness of breath, Dizziness, Swelling in the ankles, Chest pain, Calf discomfort and Uncontrolled pain Suture Line Care: Avoid Pulling/Pushing Remove Dressing in: 5 days (Remove yourself or call office and schedule appointment for dressing removal.) DC O2, CPAP, BIPAP Needs Home O2 Discharge instructions: No When: Next week in office for blood pressure check. Continue to monitor BP at home and record results Meaningful Use Info Meaningful Use Meaningful Use Diagnoses (Choose all that apply): None applicable Discharge Plan Admission Admit Date/Time: 09/13/24 17:40 Primary Reason for Your Visit: Repeat C/S Attending Provider: Miri Salazar Primary Care Provider: Care Physician,Laura Primary Discharge Orders/Prescriptions Prescriptions: New sennosides-docusate sodium [Stimulant Laxative Plus] 8.6-50 mg Tablet 1 - 2 tab PO DAILY Qty: 0 0RF acetaminophen 500 mg Tablet 1,000 mg PO Q6H Qty: 0 0RF famotidine 20 mg Tablet 20 mg PO BID Qty: 0 0RF nifedipine 60 mg Tablet Extended Release 24hr 60 mg PO DAILY Qty: 60 0RF oxycodone 5 mg Tablet 5 - 10 mg PO Q4H PRN PRN (Reason: Pain Score 4-10) 3 Days Qty: 14 0RF escitalopram oxalate 20 mg Tablet 20 mg PO DAILY Qty: 0 0RF bupropion HCl 150 mg Tablet Extended Release 24 Hr 150 mg PO DAILY Qty: 0 0RF No Action famotidine [Pepcid] 20 mg Tablet 20 mg PO BID bupropion HCl [Wellbutrin XL] 150 mg Tablet Extended Release 24 Hr 150 mg PO DAILY escitalopram oxalate [Lexapro] 20 mg tablet 20 mg PO DAILY cetirizine [24Hour Allergy] 10 mg tablet 10 mg PO DAILY PRN (Reason: allergy symptoms) acetaminophen 500 mg Tablet 1,000 mg PO Q6H PRN (Reason: pain) Referrals / Follow Up: Maggy Santiago CNM [Med Staff - Adv Practice Prof] - Care Physician,No Primary [Primary Care Provider] - Disposition Disposition (needs filled in before D/C Order can be placed): Home, Self Care
[2024-09-16] MEDS: NIFEdipine 60 MG Tablet PO (08:30)
[2024-09-16 08:35] VITALS: BP 144/99; PULSE 84; RESP 20; TEMP 36.4; O2SAT 100
[2024-09-16 08:50] VITALS: BP 145/97
[2024-09-16] MEDS: buPROPion (XL) 150 MG TABLET.XL PO (10:39)
[2024-09-16] MEDS: Senna/Docusate Sodium 1 Tablet PO (10:39)
[2024-09-16 10:51] VITALS: BP 137/69; PULSE 72; RESP 20; O2SAT 100
--- NOTE | 2024-09-16 15:19 | CASEMGMT ---
Social Work Assessment Labor and Delivery Unit Patient Address: [address] [place] [address] [address] [place] [address] Phone number: [phone] Date of Referral: 09/14/24 Time of Referral:? 0000 Referred By: Dr. Salazar Date of Intervention: ??09/16/24 Time of Intervention:? 1400 Reason for Referral:?hx anxiety and depression Sw completed chart review and recognizes social work consult due to maternal history of anxiety and depression. Sw presented to bedside and introduced self to mother of baby (DELFINO- Cammie). Sw explained reason for sw involvement and completed psychosocial assessment. History obtained from: medical records, MOB Household composition: Currently residing in the family home is MOB, father of baby (ESTEFANI- Huang), Huang's 8 year old daughter who he has full custody of (Diamante), MOB and ESTEFANI's 3 year old daughter, Damari and baby when ready for discharge. DELFINO denies any problems or concerns with housing, stating their home is safe and secure. Patient's parent/guardian status:? ?DELFINO states that she and ESTEFANI were introduced to each other by friends. They have been together for 7 years. [place] baby is second child for parents together. DELFINO denies any domestic violence between parents and reports that she is safe at home. ?? Medical History: DELFINO is 28 year old female who is 3, para 1- now 2 following labor and delivery of . DELFINO received routine care during with [facility]. DELFINO presented to hospital following rupture of membranes and had repeat and tubal. Baby girl, named Finesse Pederson, was born on 09[birth year]/24 at 38 weeks gestation. Finesse weighed 7lb 6oz and had apgars of 8 and 9 at one and five minutes of life respectfully. Finesse ultimately required transfer of care to the Special Care Nursery due to hypoglycemia, where she is still admitted and does not have an identified discharge date. DELFINO is providing breast milk for baby, with intention of breast feeding. Baby will be followed by Dr. Medina for pediatrics. Educational Status: Both parents graduated from high school. DELFINO states that she obtained her Bachelor's degree. No problems with reading, learning or comprehension for either parent. ? Financial Status: Both parent is gainfully employed. MOB is a older adult social work specialist and ESTEFANI is self employed. Infant Supplies:??All necessary baby supplies obtained, including: car seat, safe sleep space, clothes, diapers and wipes. Childcare/Caregiver(s):?DELFINO and ESTEFANI will be the primary caregivers to baby (DELFINO states that big sisters are also very excited to help care for her) along with a home based child specialist provider who will watch baby when both parents have returned to work. Transportation:?Both parents have their drivers license and reliable means of transportation. ? Programs/Agencies Involved: Parents are over income for [employer] resources that provide financial assistance. ??? Children Services/Legal Issues:???No history of children services involvement with DELFINO and ESTEFANI's daughter. There was prior involvement with ESTEFANI's daughter and her mother which led to ESTEFANI obtaining permanent custody of her. No issues or concerns at this time warranting referral to be made. Behavioral Health Issues: ??Mental Health History:?ESTEFANI does not have any mental health history or diagnoses. DELFINO states that she has been diagnosed with anxiety and depression. DELFINO states that she started to take medication after her first daughter was born and she started to experience anxiety/ depression. She is currently prescribed wellbutrin and lexapro. DELFINO states that she can tell a difference with the medication. DELFINO reports that she felt over stimulated, quicker to anger and on edge prior to starting medication. DELFINO reports that she also had intrusive anxious thoughts. DELFINO was previously connected to private community mental health services but no longer feels the need to be so. ?? Substance Use History:?DELFINO denies substance use prior to and during . ? Family History: No family history of substance use or significant mental health history. ? Drug Screens: ??No drug screens observed while completing chart review. Family/Social Stressors:? DELFINO reports that her biggest stressor at this time is just due to still being admitted to hospital and baby requiring admission to special care nursery Support Systems: DELFINO reports that ESTEFANI along with her parents are her biggest supports. Depression/Shaken Baby/Safe Sleeping:? Sw and MOB spoke at length regarding signs and symptoms of baby blues and depression and anxiety to be mindful of going into this period. Sw explained that due to MOB's mental health history and also experiencing in the past she is more at risk for experiencing them again. MOB reports that she and FOB have had several conversations regarding this topic and she states that she feels more prepared this time. MOB states that she is on medication that she feels has been really good for her. MOB states that she feels more calm and not on edge all of the time. MOB states that even though baby is in special care, she has felt calm enough to leave baby and go back to her room to nap and take care of herself, allowing herself time to heal following her . Sw encouraged MOB to give herself sacha, even when going home, because MOB states that she worked hard to get the house ready for baby and had everything done prior to delivery. MOB and sw discussed the differences of taking home the third child opposed to the second. MOB reports that she is thankful for the help and support that she has, and knows that baby is where she needs to be in order to get the medical attention that she requires. Sw educated MOB on shaken baby prevention and ABCs of safe sleep, MOB expressed understanding. ASSESSMENT:?MOB and baby admitted following labor and delivery. Baby still admitted to Special Care Nursery due to hypoglycemia, no discharge date established at this time. MOB and FOB have been observed to care for baby, lovingly and provide appropriate hands on care. MOB was receptive to meeting with sw. MBO was welcoming and talkative throughout completion of assessment. MOB talkative and open regarding her past and current mental health experiences. MOB experienced anxiety/ depression in the past and has worked on herself in the hopes that she would not go through that again this period. MOB states that if she does, she feels more prepared on what to expect, and how to work through it with the supports and knowledge and tools that she has. MOB made and maintained eye contact and was engaging throughout conversation. MOB with all necessary baby items and natural supports in place. PLAN:? No other services requested or indicated. MOB and baby to be discharged when medically ready. Parents were provided literature regarding: signs and symptoms of baby blues and mood and anxiety disorders, Help Me Grow, shaken baby prevention, ABCs of safe sleep and a list of county resources that are available for them should any needs present themselves. Yudelka Matthews, COLD MILL OPERATOR, GRAPHITE [employer] DRIER TENDER
[2024-09-16 16:30] VITALS: BP 131/80; PULSE 85; RESP 20; TEMP 35.8; O2SAT 98
--- NOTE | 2024-09-20 13:12 | NURSING ---
Follow up phone call made, no answer, left voicemail
== END 2024-09-16 17:45 | disposition home or self-care (01) | DRG 784 ==
LOC: WPOUT 17:44 → WP 17:44
PROVIDERS: Admitting Provider Obstetrics & Gynecology; Referring Provider Obstetrics & Gynecology; Visit Provider Obstetrics & Gynecology
DX: O24.424 Gestational diabetes mellitus in childbirth, insulin controlled (principal); O99.354 Diseases of the nervous system complicating childbirth; O10.02 Pre-existing essential hypertension complicating childbirth; J45.909 Unspecified asthma, uncomplicated; E66.9 Obesity, unspecified; G89.18 Other acute postprocedural pain; Z30.2 Encounter for sterilization; Z37.0 Single live birth; O77.0 Labor and delivery complicated by meconium in amniotic fluid; O99.214 Obesity complicating childbirth; O99.52 Diseases of the respiratory system complicating childbirth; O99.844 Bariatric surgery status complicating childbirth; Z90.3 Acquired absence of stomach [part of]; O34.219 Maternal care for unspecified type scar from previous cesarean delivery; Z3A.38 38 weeks gestation of pregnancy
CPT/HCPCS: 59025; 59050; 82565; 82570; 82962; 84112; 84156; 84450; 84460; 84550; 85025; 85027; 86780; 86850; 86900; 86901; 88302; 99221; G0378; J2405